=== PATIENT | male | born 1950 | race Caucasian/White ===

== ENCOUNTER → 2016-06-01 | Outpatient (CLI) | payer MEDICARE ==
[~2016-06-01] MED LIST: ACLI400A2 IH; ASPI-586 PO; ASPI-983 PO; ASPI-999 PO; ATOR20TA66 PO; AZIT250T PO; BUDE10.2 IH; CEPH500T PO; CLOP75TA69 PO; ENAL20TA PO; HYDR-3820 PO; RT-ALBUINH IH; UMEC62.5 IH
--- OUTSIDE RECORDS SUMMARY | 2016-06-01 10:10 | XMS REPORT | Continuity of Care Document ---
Author Author [facility] Organization [facility] Address Unknown Phone Unavailable Allergies Active Description Code Type Severity Reaction Onset Reported/Identified Relationship to Patient Clinical Status Yes NKANo Known Allergies NKA Miscellaneous Allergy Unknown N/ A 06/07/2005 Medications Problems Date Dx Coded Attending Type Code Diagnosis Diagnosed By 02/25/2015 Ot 729.81 02/25/2015 Ot 786.2 02/25/2015 Ot 729.81 02/25/2015 Ot 786.2 02/26/2015 LYNNE HANNA, JOSE R Ot I10 02/26/2015 LYNNE HANNA, JOSE R Ot J06.9 02/26/2015 LYNNE HANNA, JOSE R Ot J44.9 02/26/2015 LYNNE HANNA, JOSE R Ot K21.9 02/26/2015 LYNNE HANNA, JOSE R Ot K44.9 02/26/2015 LYNNE HANNA, JOSE R Ot R07.9 02/26/2015 LYNNE HANNA, JOSE R Ot Z87.891 03/24/2015 Ot 729.81 03/24/2015 Ot 786.2 03/25/2015 MELINDA HANNA FACC, ALI FACP CCDS Ot I10 03/25/2015 MELINDA HANNA FACC, ALI FACP CCDS Ot J44.1 03/25/2015 MELINDA HANNA FACC, ALI FACP CCDS Ot R06.02 04/20/2015 MELINDA HANNA FACC, ALI FACP CCDS Ot I10 04/20/2015 MELINDA HANNA FACC, ALI FACP CCDS Ot J44.1 04/20/2015 MELINDA HANNA FACC, ALI FACP CCDS Ot R06.02 06/10/2015 MELINDA TILLMANC, ALI FACP CCDS Ot I10 06/10/2015 MELINDA HANNA FACC, ALI FACP CCDS Ot R06.02 06/22/2015 AYAH ENCARNACION DO Ot J44.1 07/05/2015 AYAH ENCARNACION DO Ot J44.1 07/08/2015 AYAH ENCARNACION DO Ot J44.1 07/13/2015 AYAH ENCARNACION DO Ot J44.1 07/27/2015 AYAH ENCARNACION DO Ot J44.1 09/19/2015 AYAH ENCARNACION DO Ot J44.1 CHRONIC OBSTRUCTIVE PULMONARY DISEASE W 09/21/2015 AYAH ENCARNACION DO Ot J44.1 CHRONIC OBSTRUCTIVE PULMONARY DISEASE W 09/22/2015 AYAH ENCARNACION DO Ot J44.1 CHRONIC OBSTRUCTIVE PULMONARY DISEASE W Procedures Results Encounters ACCT No. Visit Date/Time Discharge Status Pt. Type Provider Facility Loc./Unit Complaint [id number] 06/21/2015 10:04:00 2015 00:01:00 DIS Outpatient AYAH ENCARNACION DO [facility] PUL [id number] 03/24/2015 11:33:00 2014 23:59:59 CLS Outpatient KISHA LAWRENCE MD, FACC, FACP CCDS [facility] CARD [id number] 02/25/2015 18:11:00 2014 14:20:00 DIS Inpatient LYNNE HANNA, JOSE R [facility] CSD [id number] 09/20/2015 10:15:00 PEN Preadmit AYAH ENCARNACION DO [facility] PULM [id number] 07/07/2015 13:49:00 ACT Outpatient AYAH ENCARNACION DO [facility] RT [id number] 06/11/2015 11:09:00 ACT Outpatient AYAH ENCARNACION DO [facility] RAD [id number] 05/06/2015 07:40:00 ACT Outpatient KISHA LAWRENCE MD, FACC, FACP CCDS [facility] CARD [id number] 01/04/2012 11:52:00 Document Registration [id number] 11/10/2009 11:56:00 Document Registration
[2016-06-01 10:54] LABS: ALANINE AMINOTRANSFERASE 28 U/L (0-55); ALBUMIN 4.4 G/DL (3.2-4.5); ANION GAP 11 MMOL/L (5-14); ASPARTATE AMINO TRANSFERASE 26 U/L (5-34); BILIRUBIN,TOTAL 0.5 MG/DL (0.1-1.0); BLOOD UREA NITROGEN 14 MG/DL (7-18); BUN/CREATININE RATIO 13; CALCIUM 9.4 MG/DL (8.5-10.1); CARBON DIOXIDE 25 MMOL/L (21-32); CHLORIDE 102 MMOL/L (98-107); CHOLESTEROL 258 MG/DL (< 200); CREATININE SERUM 1.11 MG/DL (0.60-1.30); DIRECT LDL 206 MG/DL (1-129); GFR ESTIMATED > 60; GLUCOSE 99 MG/DL (70-105); POTASSIUM 4.3 MMOL/L (3.6-5.0); SODIUM 138 MMOL/L (135-145); TOTAL PROTEIN 7.5 G/DL (6.4-8.2); TRIGLYCERIDES 128 MG/DL (<150); VLDL CHOLESTEROL 26 MG/DL (5-40)
== END ==
LOC: LAB 10:07
PROVIDERS: ATTEND Nurse Practitioner Family
DX: I10 Essential (primary) hypertension (principal); R06.02 Shortness of breath; I73.9 Peripheral vascular disease, unspecified; J43.8 Other emphysema
CPT/HCPCS: 36415; 80053; 80061

== ENCOUNTER → 2016-06-06 | Outpatient (CLI) | payer MEDICARE | LOC: RAD 12:06 | PROVIDERS: ATTEND Nurse Practitioner Family | DX: I73.9 Peripheral vascular disease, unspecified (principal); I10 Essential (primary) hypertension; R06.02 Shortness of breath; J43.8 Other emphysema | CPT/HCPCS: 93923 ==

== ENCOUNTER 2016-06-13 10:01 | Day surgery (SDC) | payer MEDICARE ==
[2016-06-13] VITALS (9 sets, daily range): BP systolic 115–172; BP diastolic 66–90
[~2016-06-13] VITALS: Ht 170.2 cm; Wt 85.0 kg
[~2016-06-13 10:01] MED LIST changes: -ASPI-983 PO; -ASPI-999 PO; -CEPH500T PO; -CLOP75TA69 PO; -UMEC62.5 IH
[2016-06-13] MEDS ORDERED: LIDOCAINE 1% INJ 20 ML (XYLOCAINE) VIAL ONE (10:12)
[2016-06-13] MEDS ORDERED: NS IV 1000 ML 1,000 ML ONE (10:12)
[2016-06-13] MEDS ORDERED: HEParin (CATH LAB) 2,000 ML IV ONE (10:12)
[2016-06-13 10:39] LABS: MEAN PLATELET VOLUME 9.9 FL (7.4-10.4); RED BLOOD COUNT 5.04 10^6/uL (4.35-5.85); RED CELL DISTRIBUTION WIDTH 15.2 % (10.0-14.5); WHITE BLOOD COUNT 9.1 10^3/uL (4.3-11.0)
[2016-06-13] MEDS ORDERED: UMEC62.5 IH (10:43)
[2016-06-13] MEDS ORDERED: ATOR20TA66 PO (10:43)
[2016-06-13] MEDS ORDERED: NS IV 1000 ML 1,000 ML IV SCH ×2 (10:45→12:34)
[2016-06-13 10:49] LABS: INR 0.9 (0.8-1.4); PROTHROMBIN TIME PATIENT 12.3 SEC (12.2-14.7)
[2016-06-13 10:59] LABS: ALANINE AMINOTRANSFERASE 34 U/L (0-55); ALBUMIN 4.2 G/DL (3.2-4.5); ANION GAP 9 MMOL/L (5-14); ASPARTATE AMINO TRANSFERASE 28 U/L (5-34); BILIRUBIN,TOTAL 0.4 MG/DL (0.1-1.0); BLOOD UREA NITROGEN 16 MG/DL (7-18); BUN/CREATININE RATIO 15; CARBON DIOXIDE 26 MMOL/L (21-32); CHLORIDE 105 MMOL/L (98-107); CHOLESTEROL 228 MG/DL (< 200); CREATININE SERUM 1.08 MG/DL (0.60-1.30); DIRECT LDL 165 MG/DL (1-129); GFR ESTIMATED > 60; GLUCOSE 100 MG/DL (70-105); POTASSIUM 4.2 MMOL/L (3.6-5.0); SODIUM 140 MMOL/L (135-145); TOTAL PROTEIN 7.3 G/DL (6.4-8.2); TRIGLYCERIDES 119 MG/DL (<150); VLDL CHOLESTEROL 24 MG/DL (5-40)
[2016-06-13] MEDS ORDERED: diphenhydrAMINE 50 MG/ML INJ (BENADRYL) ONE (11:13)
[2016-06-13] MEDS ORDERED: fentaNYL INJECTION 100 MCG/2 ML AMP ONE (11:13)
[2016-06-13] MEDS ORDERED: MIDAZOLAM 5 MG/5 ML (VERSED) VIAL ONE (11:13)
--- NOTE | 2016-06-13 12:34 | Cardiac Procedure Note-CS/ASA ---
Pre-Procedure Note Pre-Op Procedure Note H&P Reviewed The H&P was reviewed, patient examined and no changes noted. Date H&P Reviewed: Jun 13, 2016 Time H&P Reviewed: 11:30 Conscious Sedation Pre-Proced Time Reviewed: 11:30 ASA Class: 3 Airway Mallampati Classification: ([place] appropriate class) I. II. III, IV Lungs Heart ASA score ASA 1: a normal healthy patient ASA 2: a patient with a mild systemic disease (mid diabetes, controlled hypertension, obesity ASA 3: a patient with a severe systemic disease that limits activity (angina , COPD, prior Myocardial infarction) ASA 4: a patient with an incapacitating disease that is a constant threat to life (CHF, renal failure) ASA 5: a moribund patient not expected to survive 24 hrs. (ruptured aneurysm) ASA 6: a declared brain patient whose organs are being harvested. For emergent operations, add the letter E after the classification Grade 2 Sedation Plan: Analgesia, Amnesia, Plan communicated to team members, Discussed options with patient/fam, Discussed risks with patient/fam Note The patient is an appropriate candidate to undergo the planned procedure, sedation, and anesthesia. The patient immediately re-assessed prior to indication. KISHA LAWRENCE MD FACP FAC CCDS Jun 13, 2016 12:34
[2016-06-13] MEDS ORDERED: CLOP75TA69 PO (12:37)
[2016-06-13] MEDS ORDERED: ASPI-999 PO (12:37)
--- NOTE | 2016-06-13 12:38 | Discharge Inst-Post CATH ---
Discharge Inst-CATH Post Cardiac Cath D/C Inst Follow Up/Plan F/u with Dr Yun next week CARDIAC CATH DISCHARGE INSTRUCTIONS *Hold Metformin for 48 hours post heart cath. ACTIVITY * Go Home directly and rest. * Limit activity of the leg (or wrist if it was used) for 7 days including aerobics, swimming, jogging, bicycling, etc. * Restrict stair-climbing for 7 days if possible, if not, climb up with your non -cath leg, then bring together on the same step. * Avoid lifting, pushing, pulling or excessive movement of the affected extremity for 7 days. * Customary sexual activity may be resumed after 2 days-use caution not to use a position that strains or causes pain to the affected extremity. * No driving for 24 hours. * NO SMOKING. * Avoid straining for bowel movements for 7 days. * Gentle walking on level ground is allowed. * Returning to work will depend on the type of procedure and the results. Your doctor will discuss this with you. CALL YOUR DOCTOR FOR ANY OF THE FOLLOWING: *If bleeding from the puncture site occurs- Apply gentle pressure to site with clean cloth and call your doctor or EMS. * If a knot or lump forms under the skin, increases in size, or causes pain. * If bruising appears to be worsening or moving further down your leg instead of disappearing. * Temperature above 101 F. CARE OF YOUR GROIN INCISION; * Bruising or purple discoloration of the skin near the puncture site is common. * You may shower only, no bathtub bathing for 5 days. Be careful to avoid slipping as your leg may feel stiff. * If a closure device was used on your femoral artery, please see the attached guide regarding care of the device and your leg. * REMOVE the dressing from your groin the next day after your procedure in the shower. CARE OF YOUR WRIST INCISION; * Bruising or purple discoloration of the skin near the puncture site is common. * You may shower. * DO NOT submerge wrist. * Remove dressing in 24 hours. KISHA YUN MD FACP [facility] CCDS Jun 13, 2016 12:38
--- NOTE | 2016-06-13 12:38 | Discharge Inst-Cardiology ---
Discharge Inst-Cardiac Discharge Medications New Medications: Aspirin (Aspirin) 81 Mg Tab.chew 81 MG PO DAILY #90 Ref 3 TAB Clopidogrel Bisulfate (Plavix) 75 Mg Tablet 75 MG PO DAILY #90 Ref 3 TAB Continued Medications: Albuterol Sulfate (Ventolin Hfa Common Canister) 18 Gm Hfa.aer.ad 2 PUFF IH Q6H PRN SHORTNESS OF BREATH INHALER Atorvastatin Calcium (Atorvastatin Calcium) 20 Mg Tablet 20 MG PO DAILY LAST FILLED 02-26-15 #30 TAB Budesonide/Formoterol Fumarate (Symbicort 160-4.5 Mcg Inhaler) 10.2 Gm Hfa.aer.ad 2 PUFF IH DAILY INHALER Enalapril Maleate (Enalapril Maleate) 20 Mg Tablet 20 MG PO DAILY LAST FILLED 02-03-16 #90 TAB Hydrocodone/Acetaminophen (Hydrocodon-Acetaminophn 10-325) 1 Each Tablet 1 TAB PO Q8H PRN PAIN TAB Umeclidinium [place] (Incruse Ellipta) 62.5 Mcg Blst.w.dev 1 PUFF IH DAILY KISHA LAWRENCE MD FACP FACC CCDS Jun 13, 2016 12:38
[2016-06-13] MEDS ORDERED: PATIENT MAY USE OWN MEDS, ALL PO SCH (12:45)
--- OUTSIDE RECORDS SUMMARY | 2016-06-13 13:27 | XMS REPORT | Continuity of Care Document ---
Author Author [facility] Organization [facility] Address Unknown Phone Unavailable Allergies Active Description Code Type Severity Reaction Onset Reported/Identified Relationship to Patient Clinical Status Yes NKANo Known Allergies NKA Miscellaneous Allergy Unknown N/ A 06/07/2005 Medications Problems Date Dx Coded Attending Type Code Diagnosis Diagnosed By 02/25/2015 Ot 729.81 02/25/2015 Ot 786.2 02/25/2015 Ot 729.81 02/25/2015 Ot 786.2 02/26/2015 LYNNE HANNA, JOSE R Ot I10 ESSENTIAL (PRIMARY) HYPERTENSION 02/26/2015 LYNNE HANNA, JOSE R Ot J06.9 ACUTE UPPER RESPIRATORY INFECTION, UNSPE 02/26/2015 JOSE BATISTA MD R Ot J44.9 CHRONIC OBSTRUCTIVE PULMONARY DISEASE, U 02/26/2015 JOSE BATISTA MD R Ot K21.9 GASTRO-ESOPHAGEAL REFLUX DISEASE WITHOUT 02/26/2015 JOSE BATISTA MD R Ot K44.9 DIAPHRAGMATIC HERNIA WITHOUT OBSTRUCTION 02/26/2015 LYNNE HANNA, JOSE R Ot R07.9 CHEST PAIN, UNSPECIFIED 02/26/2015 LYNNE HANNA, JOSE R Ot Z87.891 PERSONAL HISTORY OF NICOTINE DEPENDENCE 03/24/2015 Ot 729.81 03/24/2015 Ot 786.2 03/25/2015 MELINDA HANNA FACC, ALI FACP CCDS Ot I10 03/25/2015 MELINDA HANNA FACC, ALI FACP CCDS Ot J44.1 03/25/2015 MELINDA TILLMANC, ALI FACP CCDS Ot R06.02 04/20/2015 MELINDA HANNA FACC, ALI FACP CCDS Ot I10 04/20/2015 MELINDA HANNA FACC, ALI FACP CCDS Ot J44.1 04/20/2015 MELINDA TILLMANC, ALI FACP CCDS Ot R06.02 06/10/2015 MELINDA HANNA FACC, ALI FACP CCDS Ot I10 06/10/2015 MELINDA [...] Ot J44.1 CHRONIC OBSTRUCTIVE PULMONARY DISEASE W 06/01/2016 Ot 786.2 COUGH 06/01/2016 MELINDA HANNA FACC, ALI FACP CCDS Ot I10 ESSENTIAL (PRIMARY) HYPERTENSION 06/01/2016 MELINDA HANNA FACC, KISHA FACP CCDS Ot J44.1 CHRONIC OBSTRUCTIVE PULMONARY DISEASE W 06/01/2016 MELINDA HANNA FACC, ALI FACP CCDS Ot R06.02 SHORTNESS OF BREATH 06/01/2016 MELINDA HANNA FACC, ALI FACP CCDS Ot I10 ESSENTIAL (PRIMARY) HYPERTENSION 06/01/2016 MELINDA HANNA FACC, ALI FACP CCDS Ot R06.02 SHORTNESS OF BREATH 06/01/2016 AYAH ENCARNACION DO Ot J44.1 CHRONIC OBSTRUCTIVE PULMONARY DISEASE W 06/01/2016 AYAH ENCARNACION DO Ot J44.1 CHRONIC OBSTRUCTIVE PULMONARY DISEASE W 06/01/2016 AYAH ENCARNACION DO Ot J44.1 CHRONIC OBSTRUCTIVE PULMONARY DISEASE W 06/06/2016 LENARD KEARNS L FISH NET STRINGER Ot I73.9 PERIPHERAL VASCULAR DISEASE, UNSPECIFIED 06/07/2016 BAIMALENARD L FISH NET STRINGER Ot I10 ESSENTIAL (PRIMARY) HYPERTENSION 06/07/2016 LENARD KEARNS L FISH NET STRINGER Ot I73.9 PERIPHERAL VASCULAR DISEASE, UNSPECIFIED 06/07/2016 LENARD KEARNS L FISH NET STRINGER Ot J43.8 OTHER EMPHYSEMA 06/07/2016 BAIMALENARD L FISH NET STRINGER Ot R06.02 SHORTNESS OF BREATH 06/07/2016 LENARD KEARNS L FISH NET STRINGER Ot I73.9 PERIPHERAL VASCULAR DISEASE, UNSPECIFIED 06/07/2016 LENARD KEARNS FISH NET STRINGER Ot I10 ESSENTIAL (PRIMARY) HYPERTENSION 06/07/2016 LENARD KEARNS FISH NET STRINGER Ot I73.9 PERIPHERAL VASCULAR DISEASE, UNSPECIFIED 06/07/2016 LENARD KEARNS FISH NET STRINGER Ot J43.8 OTHER EMPHYSEMA 06/07/2016 LENARD KEARNS FISH NET STRINGER Ot R06.02 SHORTNESS OF BREATH Procedures Results Encounters ACCT No. Visit Date/Time Discharge Status Pt. Type Provider Facility Loc./Unit Complaint [id number] 06/21/2015 10:04:00 2015 00:01:00 DIS Outpatient AYAH ENCARNACION DO [facility] PULM COPD, SOA [id number] 03/24/2015 11:33:00 2014 23:59:59 CLS Outpatient MELINDA HANNA FACC, KISHA BANDA CCDS [facility] CARD SOB,COPD,HTN [id number] 02/25/2015 18:11:00 2014 14:20:00 DIS Inpatient LYNNE HANNA, JOSE Majano [facility] CSD CHEST PAIN [id number] 06/06/2016 12:06:00 ACT Outpatient URMILA LENARD Sandra LAURENT [facility] RAD HTN,SOB,CLAUDICATION,COPD [id number] 06/01/2016 10:07:00 ACT Outpatient LENARD KEARNS [facility] LAB SOB,COPD [id number] 09/20/2015 10:15:00 PEN Preadmit AYAH ENCARNACION DO [facility] PULM COPD, SOA [id number] 07/07/2015 13:49:00 ACT Outpatient AYAH ENCARNACION DO [facility] RT COPD,SOB [id number] 06/11/2015 11:09:00 ACT Outpatient AYAH ENCARNACION DO [facility] RAD ACUTE COPD [id number] 05/06/2015 07:40:00 ACT Outpatient MELINDA HANNA FACC, KISHA BANDA CCDS [facility] CARD HTN,SOA [id number] 01/04/2012 11:52:00 Document Registration [id number] 11/10/2009 11:56:00 Document Registration
--- OUTSIDE RECORDS SUMMARY | 2016-06-13 13:27 | XMS REPORT | Continuity of Care Document ---
Author Author [facility] Organization [facility] Address Unknown Phone Unavailable Allergies Active Description [...] PULMONARY DISEASE W 06/06/2016 LENARD KEARNS L [employer] SPECIALIST Ot I73.9 PERIPHERAL VASCULAR DISEASE, UNSPECIFIED 06/07/2016 BAIMALENARD L [employer] SPECIALIST Ot I10 ESSENTIAL (PRIMARY) HYPERTENSION 06/07/2016 LENARD KEARNS L [employer] SPECIALIST Ot I73.9 PERIPHERAL VASCULAR DISEASE, UNSPECIFIED 06/07/2016 LENARD KEARNS L [employer] SPECIALIST Ot J43.8 OTHER EMPHYSEMA 06/07/2016 BAIMALENARD L [employer] SPECIALIST Ot R06.02 SHORTNESS OF BREATH 06/07/2016 LENARD KEARNS L [employer] SPECIALIST Ot I73.9 PERIPHERAL VASCULAR DISEASE, UNSPECIFIED 06/07/2016 LENARD KEARNS [employer] SPECIALIST Ot I10 ESSENTIAL (PRIMARY) HYPERTENSION 06/07/2016 LENARD KEARNS [employer] SPECIALIST Ot I73.9 PERIPHERAL VASCULAR DISEASE, UNSPECIFIED 06/07/2016 LENARD KEARNS [employer] SPECIALIST Ot J43.8 OTHER EMPHYSEMA 06/07/2016 LENARD KEARNS [employer] SPECIALIST Ot R06.02 SHORTNESS OF BREATH Procedures Results Encounters ACCT No. Visit Date/Time Discharge Status Pt. Type Provider Facility Loc./Unit Complaint [id number] 06/21/2015 10:04:00 2015 00:01:00 DIS Outpatient AYAH ENCARNACION DO [facility] PULM COPD, SOA [id number] 03/24/2015 11:33:00 2014 23:59:59 CLS Outpatient MELINDA HANNA FACC, KISHA BANDA CCDS [facility] CARD SOB,COPD,HTN [id number] 02/25/2015 18:11:00 2014 14:20:00 DIS Inpatient LYNNE HANNA, JOSE Majano [facility] CSD CHEST PAIN [id number] 06/06/2016 12:06:00 ACT Outpatient URMILA LENARD Sandra LAURENT [facility] RAD HTN,SOB,CLAUDICATION,COPD [id number] 06/01/2016 10:07:00 ACT Outpatient LENARD KEARNS [facility] LAB SOB,COPD [id number] 09/20/2015 10:15:00 PEN Preadmit AYAH ENCARNACION DO [facility] PULM COPD, SOA [id number] 07/07/2015 13:49:00 ACT Outpatient AYAH ENCARNACION DO [facility] RT COPD,SOB [id number] 06/11/2015 11:09:00 ACT Outpatient AYAH ENCARNACION DO [facility] RAD ACUTE COPD [id number] 05/06/2015 07:40:00 ACT Outpatient MELINDA HANNA FACC, KISHA BANDA CCDS [facility] CARD HTN,SOA [id number] 01/04/2012 11:52:00 Document Registration [id number] 11/10/2009 11:56:00 Document Registration
--- NOTE | 2016-06-13 14:01 | PROCEDURE REPORT ---
PROCEDURE PHYSICIAN: KISHA LAWRENCE PERIPHERAL ANGIOGRAPHIC REPORT DATE OF PROCEDURE: 06/13/2016 Ovidio Lloyd is a 65-year-old gentleman who has bilateral leg claudication and whose noninvasive evaluation on the leg arterial circulation has indicated significant abnormality. Peripheral angiography was recommended. An informed consent was obtained. PROCEDURE: He was brought to the cardiac catheterization laboratory in a fasting state. The right groin was prepared and draped in the usual sterile fashion. 1% lidocaine was used for local anesthesia. Modified Seldinger technique was used to advance a 5-Congolese sheath in the right femoral artery. We advanced a 5-Congolese pigtail catheter to the level of L1 and abdominal aortic angiography performed. The catheter was then pulled back to just above the level of the aortoiliac bifurcation and bilateral leg artery angiography was performed with runoff down to the level of the ankles. At the end of the procedure, angiography of the right femoral artery was carried out through the sheath and Mynx was used to achieve hemostasis. The patient tolerated the procedure well. ABDOMINAL AORTIC ANGIOGRAPHY: Abdominal aortic angiography did not indicate any significant abdominal aortic aneurysm. However, there does appear to be tapering of the aorta as it travels toward the aortoiliac bifurcation. There does not, however, appear to be significant abdominal aortic stenosis. Renal arteries are identified and do not exhibit significant disease. Mesenteric vessels, to the extent seen, do not exhibit significant disease. There is an 80% stenosis at the ostial part of the left common iliac artery. BILATERAL LEG ARTERY ANGIOGRAPHY: Bilateral leg artery angiography indicates diffuse mild to moderate disease of the iliac and common femoral arteries. The right superficial femoral artery has multiple stenoses of up to 80% that involves nearly the entire length of the vessel. The right popliteal artery is intact and there is a 2 vessel runoff, consisting of anterior tibial and peroneal arteries. On the left side, there is 80% ostial stenosis of the common iliac artery. The left internal iliac artery is occluded at its ostium. The left superficial femoral artery is occluded at its ostium and reconstitutes distally via collaterals from the deep femoral system. The left popliteal artery is intact and there is a 2 vessel runoff consisting of anterior tibial and posterior tibial arteries on that side. CONCLUSIONS: Peripheral arterial disease consisting of 80% ostial stenosis of the left common iliac artery, ostial occlusion of the left superficial femoral artery, moderately severe diffuse disease of the right superficial femoral artery and a 2 vessel runoff in both legs. DISCUSSION AND RECOMMENDATIONS: We will review the films with the vascular surgical and interventional services and formulate a definitive therapeutic plan. Risk factor modification has been reviewed with him. Aspirin and Plavix are being continued. Avoidance of tobacco use has been advised. He will continue to be followed up closely on an outpatient basis. Job ID: [id number] Dictated Date: 06/13/2016 12:15:26 Software Engineer Date: 06/13/2016 13:47:08 / mirlande ARGUETA
== END 2016-06-13 16:15 ==
LOC: CATH 10:01 → SURG 11:26 → CATH 16:15
PROVIDERS: ATTEND Internal Medicine Cardiovascular Disease
DX: I70.213 Atherosclerosis of native arteries of extremities with intermittent claudication, bilateral legs (principal); I70.92 Chronic total occlusion of artery of the extremities; J44.9 Chronic obstructive pulmonary disease, unspecified; I10 Essential (primary) hypertension; H91.90 Unspecified hearing loss, unspecified ear; Z79.899 Other long term (current) drug therapy; Z87.891 Personal history of nicotine dependence
CPT/HCPCS: 36200; 36415; 75625; 75716; 80053; 80061; 85027; 85610; 85730; 87081; 93005

== ENCOUNTER 2016-06-22 06:48 | Day surgery (SDC) | payer MEDICARE ==
[~2016-06-22] VITALS: Ht 170.2 cm; Wt 90.7 kg
[2016-06-22] VITALS (13 sets, daily range): BP systolic 147–185; BP diastolic 74–100
[~2016-06-22 06:48] MED LIST changes: +ASPI-999 PO; +CLOP75TA69 PO; +UMEC62.5 IH
--- OUTSIDE RECORDS SUMMARY | 2016-06-22 06:51 | XMS REPORT | Continuity of Care Document ---
Author Author [facility] Organization [facility] Address Unknown Phone Unavailable Allergies Active [...] PULMONARY DISEASE W 06/06/2016 LENARD KEARNS L STOCK[employer] INVENTORY CLERK Ot I73.9 PERIPHERAL VASCULAR DISEASE, UNSPECIFIED 06/07/2016 BAIMALENARD L [employer] INVENTORY CLERK Ot I10 ESSENTIAL (PRIMARY) HYPERTENSION 06/07/2016 LENARD KEARNS L [employer] INVENTORY CLERK Ot I73.9 PERIPHERAL VASCULAR DISEASE, UNSPECIFIED 06/07/2016 LENARD KEARNS L [employer] INVENTORY CLERK Ot J43.8 OTHER EMPHYSEMA 06/07/2016 BAIMALENARD L [employer] INVENTORY CLERK Ot R06.02 SHORTNESS OF BREATH 06/07/2016 LENARD KEARNS L [employer] INVENTORY CLERK Ot I73.9 PERIPHERAL VASCULAR DISEASE, UNSPECIFIED 06/07/2016 LENARD KEARNS [employer] INVENTORY CLERK Ot I10 ESSENTIAL (PRIMARY) HYPERTENSION 06/07/2016 LENARD KEARNS [employer] INVENTORY CLERK Ot I73.9 PERIPHERAL VASCULAR DISEASE, UNSPECIFIED 06/07/2016 LENARD KEARNS [employer] INVENTORY CLERK Ot J43.8 OTHER EMPHYSEMA 06/07/2016 LENARD KEARNS [employer] INVENTORY CLERK Ot R06.02 SHORTNESS OF BREATH Procedures Results Test Result Range Automated blood complete blood count (hemogram) panel - 06/13/16 10:32 Blood leukocytes automated count (number/volume) 9.1 10*3/ uL 4.3-11.0 Blood erythrocytes automated count (number/volume) 5.04 10*6 /uL 4.35-5.85 Venous blood hemoglobin measurement (mass/volume) 14.5 g/dL 13.3-17.7 Blood hematocrit (volume fraction) 46 % 40-54 Automated erythrocyte mean corpuscular volume 91 [foz_us] 80-99 Automated erythrocyte mean corpuscular hemoglobin (mass per erythrocyte) 29 pg 25-34 Automated erythrocyte mean corpuscular hemoglobin concentration measurement ( mass/volume) 32 g/dL 32-36 Automated erythrocyte distribution width ratio 15.2 % 10.0-14.5 Automated blood platelet count (count/volume) 238 10*3/uL 130-400 Automated blood platelet mean volume measurement 9.9 [foz_us ] 7.4-10.4 PT panel in platelet poor plasma by coagulation assay - 06/13/16 10:32 Prothrombin time (PT) in platelet poor plasma by coagulation assay 12.3 s 12.2-14.7 INR in platelet poor plasma or blood by coagulation assay 0.9 0.8-1.4 Activated partial thromboplastin time (aPTT) in platelet poor plasma bycoagulation assay - 06/13/16 10:32 Activated partial thromboplastin time (aPTT) in platelet poor plasma bycoagulation assay 28 s 24-35 Comprehensive metabolic panel - 06/13/16 10:32 Serum or plasma sodium measurement (moles/volume) 140 mmol/ L 135-145 Serum or plasma potassium measurement (moles/volume) 4.2 mmol/L 3.6-5.0 Serum or plasma chloride measurement (moles/volume) 105 mmol /L 98-107 Carbon dioxide 26 mmol/L 21-32 Serum or plasma anion gap determination (moles/volume) 9 mmol/L 5-14 Serum or plasma urea nitrogen measurement (mass/volume) 16 mg/dL 7-18 Serum or plasma creatinine measurement (mass/volume) 1.08 mg /dL 0.60-1.30 Serum or plasma urea nitrogen/creatinine mass ratio 15 NRG Serum or plasma creatinine measurement with calculation of estimated glomerular filtration rate > NRG Serum or plasma glucose measurement (mass/volume) 100 mg/dL 70-105 Serum or plasma calcium measurement (mass/volume) 9.0 mg/dL 8.5-10.1 Serum or plasma total bilirubin measurement (mass/volume) 0.4 mg/dL 0.1-1.0 Serum or plasma alkaline phosphatase measurement (enzymatic activity/volume) 67 U/L 40-136 Serum or plasma aspartate aminotransferase measurement (enzymatic activity/ volume) 28 U/L 5-34 Serum or plasma alanine aminotransferase measurement (enzymatic activity/volume ) 34 U/L 0-55 Serum or plasma protein measurement (mass/volume) 7.3 g/dL 6.4-8.2 Serum or plasma albumin measurement (mass/volume) 4.2 g/dL 3.2-4.5 Lipid 1996 panel - 06/13/16 10:32 Serum or plasma triglyceride measurement (mass/volume) 119 mg/dL <150 Serum or plasma cholesterol measurement (mass/volume) 228 mg /dL < 200 Serum or plasma cholesterol in HDL measurement (mass/volume) 45 mg/dL 40-60 Cholesterol in LDL [mass/volume] in serum or plasma by direct assay 165 mg/dL 1-129 Serum or plasma cholesterol in VLDL measurement (mass/volume) 24 mg/dL 5-40 Methicillin resistant Staphylococcus aureus (MRSA) screening culture - 10:33 Methicillin resistant Staphylococcus aureus (MRSA) screening culture NEG NRG Encounters ACCT No. Visit Date/Time Discharge Status Pt. Type Provider Facility Loc./Unit Complaint [id number] 06/13/2016 10:01:00 2016 16:15:00 DIS Outpatient MELINDA HANNA FACC, KISHA BANDA CCDS [facility] CATH PERIPHERAL ANGIOGRAPHY W POSSIBLE STENT [id number] 06/21/2015 10:04:00 2015 00:01:00 DIS Outpatient AYAH ENCARNACION DO [facility] PULM COPD, SOA [id number] 03/24/2015 11:33:00 2014 23:59:59 CLS Outpatient MELINDA HANNA FACC, KISHA BANDA CCDS [facility] CARD SOB,COPD,HTN [id number] 02/25/2015 18:11:00 2014 14:20:00 DIS Inpatient LYNNE HANNA, JOSE R [facility] CSD CHEST PAIN [id number] 06/06/2016 12:06:00 ACT Outpatient LENARD KEARNS [facility] RAD HTN,SOB,CLAUDICATION,COPD [id number] 06/01/2016 10:07:00 ACT Outpatient LENARD KEARNS [facility] LAB SOB,COPD [id number] 09/20/2015 10:15:00 PEN Preadmit AYAH ENCARNACION DO [facility] PULM COPD, SOA [id number] 07/07/2015 13:49:00 ACT Outpatient AYAH ENCARNACION DO [facility] RT COPD,SOB [id number] 06/11/2015 11:09:00 ACT Outpatient AYAH ENCARNACION DO [facility] RAD ACUTE COPD [id number] 05/06/2015 07:40:00 ACT Outpatient MELINDA HANNA FACC, KISHA BANDA CCDS [facility] CARD HTN,SOA [id number] 01/04/2012 11:52:00 Document Registration [id number] 11/10/2009 11:56:00 Document Registration
--- OUTSIDE RECORDS SUMMARY | 2016-06-22 06:52 | XMS REPORT | Continuity of Care Document ---
Author Author [facility] Organization [facility] Address Unknown Phone Unavailable Allergies Active [...] TILLMANC, ALI FACP CCDS Ot R06.02 06/10/2015 EMLINDA HANNA FACC, ALI FACP CCDS Ot I10 06/10/2015 MELINDA HANNA FACC, ALI FACP CCDS Ot R06.02 06/22/2015 AYAH ENCARNACION DO Ot J44.1 07/05/2015 AYAH ENCARNACION DO Ot J44.1 07/08/2015 AYAH ENCARNACION DO Ot J44.1 07/13/2015 AYAH ENCARNACION DO Ot J44.1 07/27/2015 AAYH ENCARNACION DO Ot J44.1 09/19/2015 AYAH ENCARNACION [...] PULMONARY DISEASE W 06/06/2016 LENARD KEARNS L SLAG WORKER Ot I73.9 PERIPHERAL VASCULAR DISEASE, UNSPECIFIED 06/07/2016 BAIMALENARD L SLAG WORKER Ot I10 ESSENTIAL (PRIMARY) HYPERTENSION 06/07/2016 LENARD KEARNS L SLAG WORKER Ot I73.9 PERIPHERAL VASCULAR DISEASE, UNSPECIFIED 06/07/2016 LENARD KEARNS L SLAG WORKER Ot J43.8 OTHER EMPHYSEMA 06/07/2016 BAIMALENARD L SLAG WORKER Ot R06.02 SHORTNESS OF BREATH 06/07/2016 LENARD KEARNS L SLAG WORKER Ot I73.9 PERIPHERAL VASCULAR DISEASE, UNSPECIFIED 06/07/2016 LENARD KEARNS SLAG WORKER Ot I10 ESSENTIAL (PRIMARY) HYPERTENSION 06/07/2016 LENARD KEARNS SLAG WORKER Ot I73.9 PERIPHERAL VASCULAR DISEASE, UNSPECIFIED 06/07/2016 LENARD KEARNS SLAG WORKER Ot J43.8 OTHER EMPHYSEMA 06/07/2016 LENARD KEARNS SLAG WORKER Ot R06.02 SHORTNESS OF BREATH Procedures Results [...] Status Pt. Type Provider Facility Loc./Unit Complaint [id number] 06/13/2016 10:01:00 2016 16:15:00 DIS Outpatient MELINDA HANNA FACC, KISHA BANDA CCDS [facility] CATH PERIPHERAL ANGIOGRAPHY W POSSIBLE STENT [id number] 06/21/2015 10:04:00 2015 00:01:00 DIS Outpatient AYAH ENCARNACION DO [facility] PULM COPD, SOA [id number] 03/24/2015 11:33:00 2014 23:59:59 CLS Outpatient MELINDA HANNA FACC, KISHA BANDA CCDS [facility] CARD SOB,COPD,HTN [id number] 02/25/2015 18:11:00 2014 14:20:00 DIS Inpatient LYNNE HANNA, JOSE R [facility] CSD CHEST PAIN [id number] 06/06/2016 12:06:00 ACT Outpatient LENARD KEARNS [facility] RAD HTN,SOB,CLAUDICATION,COPD [id number] 06/01/2016 10:07:00 ACT Outpatient LENARD KEARNS [facility] LAB SOB,COPD [id number] 09/20/2015 10:15:00 PEN Preadmit AYAH ENCARNACION DO [facility] PULM COPD, SOA [id number] 07/07/2015 13:49:00 ACT Outpatient AYAH ENCARNACION DO [facility] RT COPD,SOB [id number] 06/11/2015 11:09:00 ACT Outpatient AYAH ENACRNACION DO [facility] RAD ACUTE COPD [id number] 05/06/2015 07:40:00 ACT Outpatient MELINDA HANNA FACC, KISHA BANDA CCDS [facility] CARD HTN,SOA [id number] 01/04/2012 11:52:00 Document Registration [id number] 11/10/2009 11:56:00 Document Registration
[2016-06-22] MEDS ORDERED: HEParin (CATH LAB) 2,000 ML IV ONE (07:09)
[2016-06-22] MEDS ORDERED: NS IV 1000 ML 1,000 ML ONE (07:09)
[2016-06-22] MEDS ORDERED: LIDOCAINE 1% INJ 20 ML (XYLOCAINE) VIAL ONE (07:09)
[2016-06-22] MEDS ORDERED: NS IV 1000 ML 1,000 ML IV SCH (07:16)
[2016-06-22 07:29] LABS: MEAN PLATELET VOLUME 9.6 FL (7.4-10.4); RED BLOOD COUNT 5.01 10^6/uL (4.35-5.85); RED CELL DISTRIBUTION WIDTH 15.2 % (10.0-14.5); WHITE BLOOD COUNT 9.1 10^3/uL (4.3-11.0)
[2016-06-22 07:38] LABS: INR 0.9 (0.8-1.4); PROTHROMBIN TIME PATIENT 12.1 SEC (12.2-14.7)
[2016-06-22 07:50] LABS: ALANINE AMINOTRANSFERASE 27 U/L (0-55); ALBUMIN 4.4 G/DL (3.2-4.5); ANION GAP 12 MMOL/L (5-14); ASPARTATE AMINO TRANSFERASE 21 U/L (5-34); BILIRUBIN,TOTAL 0.4 MG/DL (0.1-1.0); BLOOD UREA NITROGEN 14 MG/DL (7-18); BUN/CREATININE RATIO 12; CALCIUM 9.2 MG/DL (8.5-10.1); CARBON DIOXIDE 24 MMOL/L (21-32); CHLORIDE 105 MMOL/L (98-107); CREATININE SERUM 1.14 MG/DL (0.60-1.30); GFR ESTIMATED > 60; GLUCOSE 106 MG/DL (70-105); POTASSIUM 4.1 MMOL/L (3.6-5.0); SODIUM 141 MMOL/L (135-145); TOTAL PROTEIN 7.4 G/DL (6.4-8.2)
[2016-06-22] MEDS ORDERED: FLU TRIvalent (5 YOA+) 2016-17 (AFLURIA) 0.5 ML IM ONE (08:00)
[2016-06-22] MEDS ORDERED: MIDAZOLAM 5 MG/5 ML (VERSED) VIAL ONE ×2 (08:20→09:51)
[2016-06-22] MEDS ORDERED: fentaNYL INJECTION 100 MCG/2 ML AMP ONE ×2 (08:20→09:51)
[2016-06-22] MEDS ORDERED: ASPI-983 PO (08:25)
[2016-06-22] MEDS ORDERED: CLOP75TA69 PO (08:25)
[2016-06-22] MEDS ORDERED: NITROGLYCERIN DRIP 25 MG/D5W 250 ML IV ONE (08:45)
[2016-06-22] MEDS ORDERED: VERAPAMIL 5 MG/2 ML (CALAN) VIAL IV ONE (08:45)
[2016-06-22] MEDS ORDERED: HEParin 1000 UNIT/ML (10ML VIAL) FOR BOLUS ONE (08:45)
[2016-06-22] MEDS: NS IV 1000 ML 1,000 ML IV SCH (12:21)
--- NOTE | 2016-06-22 12:22 | Cardiac Procedure Note-CS/ASA ---
Pre-Procedure Note Pre-Op Procedure Note H&P Reviewed The H&P was reviewed, patient examined and no changes noted. Date H&P Reviewed: Jun 22, 2016 Time H&P Reviewed: 08:30 Conscious Sedation Pre-Proced Time Reviewed: 08:30 ASA Class: 3 Airway Mallampati Classification: ([place] appropriate class) I. II. III, IV Lungs Heart ASA score ASA 1: a normal healthy patient ASA 2: a patient with a mild systemic disease (mid diabetes, controlled hypertension, obesity ASA 3: a patient with a severe systemic disease that limits activity (angina , COPD, prior Myocardial infarction) ASA 4: a patient with an incapacitating disease that is a constant threat to life (CHF, renal failure) ASA 5: a moribund patient not expected to survive 24 hrs. (ruptured aneurysm) ASA 6: a declared brain patient whose organs are being harvested. For emergent operations, add the letter E after the classification Grade 1 Sedation Plan: Analgesia, Amnesia, Plan communicated to team members, Discussed options with patient/fam, Discussed risks with patient/fam Note The patient is an appropriate candidate to undergo the planned procedure, sedation, and anesthesia. The patient immediately re-assessed prior to indication. Ga RUGGIERO MD Jun 22, 2016 12:21 pm
--- NOTE | 2016-06-22 12:27 | Cardiology Post Procedure Note ---
Post-Procedure Note Post-Op Procedure Note Procedure Start Date: Jun 22, 2016 Procedure Start Time: 09:00 Name of Procedure: peripheral angiography, balloon angioplasty and stent placement Findings/Procedure Note left popliteal access with 6 Telugu sheath. 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 severe ostial and proximal left common iliac artery stenosis treated with successful balloon angioplasty only. Anesthesia Type: Conscious Sedation Estimated blood loss (mL): 30 mL Contrast Amount: 140 mL of Omnipaque Post-Operative Diagnosis Post-operative diagnosis: successful stenting of the left superficial femoral artery and balloon angioplasty of the left common iliac artery. Ga RUGGIERO MD Jun 22, 2016 12:27 pm
[2016-06-22] MEDS ORDERED: PATIENT MAY USE OWN MEDS, ALL PO SCH (12:30)
[2016-06-23] VITALS: BP 154/80
[2016-06-23] MEDS: NS IV 1000 ML 1,000 ML IV SCH (00:42)
[2016-06-23 04:21] LABS: MEAN PLATELET VOLUME 9.9 FL (7.4-10.4); RED BLOOD COUNT 4.48 10^6/uL (4.35-5.85); RED CELL DISTRIBUTION WIDTH 15.1 % (10.0-14.5)
[2016-06-23 04:35] LABS: ANION GAP 11 MMOL/L (5-14); BLOOD UREA NITROGEN 13 MG/DL (7-18); BUN/CREATININE RATIO 15; CALCIUM 8.8 MG/DL (8.5-10.1); CARBON DIOXIDE 21 MMOL/L (21-32); CHLORIDE 105 MMOL/L (98-107); CREATININE SERUM 0.86 MG/DL (0.60-1.30); GFR ESTIMATED > 60; GLUCOSE 103 MG/DL (70-105); POTASSIUM 4.4 MMOL/L (3.6-5.0); SODIUM 137 MMOL/L (135-145)
[2016-06-23 08:00] VITALS: BP 163/78
[2016-06-23] MEDS ORDERED: CLOPIDOGREL 75 MG (PLAVIX) TABLET PO SCH (09:00)
[2016-06-23] MEDS ORDERED: ASPIRIN E.C. 81 MG (ECOTRIN) TAB PO SCH (09:00)
--- NOTE | 2016-06-23 09:28 | PROCEDURE REPORT ---
PROCEDURE PHYSICIAN: TERRANCE WALKER DATE OF PROCEDURE: 06/22/2016 PERIPHERAL ANGIOGRAM AND INTERVENTION REPORT: REFERRING PHYSICIAN: Dr. Russ Yun PERFORMING PHYSICIAN: Dr. Choco Walker. INDICATION: Severe lifestyle limiting claudication refractory to optimal medical therapy. PREOPERATIVE DIAGNOSIS: Severe lifestyle limiting claudication refractory to optimal medical therapy. POSTOPERATIVE DIAGNOSES: 1. 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 2. Severe ostial/proximal stenosis of the left common iliac artery successfully treated with balloon angioplasty. HISTORY: Mr. Lloyd is a 65-year-old gentleman who is a patient of Dr. Russ Yun. Peripheral angiography was performed recently for severe claudication. left is worse than the right. Therefore, peripheral angiography was performed, which showed a totally occluded SFA on the left with severe ostial and proximal left common iliac artery stenosis. Significant disease is also noted in the right SFA as well. The patient was referred for complex peripheral intervention to my office. The patient has severe lifestyle limiting claudication which is refractory to optimal medical therapy. The patient is on dual antiplatelet therapy as well as statin. He is not able to walk even 100 feet. Therefore urgent peripheral angiography with plan to intervene on a chronically occluded left SFA was planned. Since the patient has flush SFA occlusion and also has severe ostial stenosis of the left common iliac artery, the best access approach was deemed to be the left popliteal artery. PROCEDURE PERFORMED: 1. Peripheral angiography of in the left lower extremity. Angiography included left popliteal artery, proximal anterior tibial, posterior tibia, tibioperoneal trunk. 2. Peripheral angiography of the distal abdominal aorta and bilateral common iliac artery. Selective angiography of the left common iliac artery, external iliac artery, TACK PULLER. 3. Balloon angioplasty and stenting of the left superficial femoral artery. 4. Balloon angioplasty to the ostium and proximal segment of the left common iliac artery. 5. Ultrasound guided left popliteal artery access. COMPLICATIONS: None. SPECIMENS: None. ESTIMATED BLOOD LOSS: 20 mL. ANTICOAGULATION: IV heparin. CONTRAST: 140 mL of Omnipaque. FLUOROSCOPY DOSE: 1246 mGy. FLUOROSCOPY TIME: In minutes. 30 minutes PROCEDURE DETAILS: The patient was brought to the Learning Support Specialist after informed consent was taken. All the risks and complications were explained in detail to the patient. The patient was draped and prepped in a sterile fashion. The patient was placed in a prone position on the Learning Support Specialist table. The left popliteal fossa was draped and prepped for access. Access was gained with the ultrasound guidance and a 4-[place] sheath was placed. Selective angiography of the popliteal artery was done to confirm arterial placement. We then exchanged the 4-[place] sheath to a 6-[place] sheath. FINDINGS: 1. Previously known totally occluded long segment of the left SFA. There is flush occlusion with no stump off the TACK PULLER. Reconstitution is noted in the left popliteal artery. 2. Severe ostial and proximal stenosis of the left common iliac artery is noted. Stenosis severity is over 80%. RECOMMENDATIONS: 1. Peripheral intervention to the left SFA is recommended. 2. Peripheral intervention to the left common iliac artery is recommended. INTERVENTION DETAILS: We started off with a 0.035 hydrophilic long wire with Navicross 0.035 microcatheter. We were able to traverse the distal cap of the occlusion which is in the distal aspect of the SFA. The entire segment of occlusion was crossed with a Glidewire and the microcatheter. We were able to advance both the microcatheter as well as the Glidewire into the distal external iliac artery. We noted a very high bifurcation of the TACK PULLER into the SFA and deep femoral artery. The ostium of the deep femoral artery also had at least moderate stenosis. Once intraluminal passage of the Glidewire and microcatheter was confirmed angiographically, we went ahead and took out the microcatheter. The wire remained in place. We then took an Otter 35, 5 x 25 x 150 cm [place] balloon and performed a balloon angioplasty in the distal left common femoral artery into the proximal and mid segments of the left SFA. This was done at 8 atmospheres for 128 seconds. We performed another balloon inflation with the same balloon in the mid and distal aspect of the SFA at 8 atmospheres for 136 seconds. Recanalization was confirmed with selective angiography of the distal SFA and the popliteal artery through the sheath. We then went back with the microcatheter and placed it in the distal left TACK PULLER and performed a selective angiogram which showed recanalization of the entire segment of the SFA, mild areas of non-flow limiting dissection was noted as well areas of residual stenosis. At this point in time the decision was made that we would have to perform stenting of the entire segment of the SFA. We therefore took a larger balloon which was an Otter 35, 6 x 250 x 150 cm. Angioplasty was performed from the distal segment of the TACK PULLER into the proximal and midsegment of the SFA at 10 atmospheres for 120 seconds. When we then used the same balloon and performed another inflation in the mid and distal segment of the left superficial femoral artery at 8 atmospheres for 103 seconds. Again, we took the balloon out and went back in with microcatheter and took selective angiogram of the distal TACK PULLER and SFA which showed better flow with reduced residual stenosis. We then took a Supera 6 x 150 [place] stent and placed it very carefully from the very distal edge of the left TACK PULLER into the mid aspect of the SFA. We then took another 6 x 150 cm Supera stent and did a short overlap with the previous stent and placed it right into the distal SFA. Post stent angiogram was performed with a microcatheter, which showed excellent flow with no residual stenosis in the entire length of the SFA. Mild disease in the mid aspect of the popliteal artery was noted; however, at least 2 vessel runoff below the knee. Mild jailing of the ostium of the deep femoral artery was also noted which was moderately diseased before the procedure. We then diverted our attention to the left common iliac artery. We took the same Glidewire and the microcatheter. Please note that for the Supera stent, we had to exchange for the 0.014 Spartacore 300 cm wire. We then went up with the microcatheter and tried to perform a distal abdominal aortogram with in-adequate contrast visualization. Therefore, we went in with the pigtail catheter and performed distal abdominal aortogram with bilateral angiogram. It showed very severe left common iliac artery ostial as well as proximal stenosis severity 80 to 90%. We then took an Otter 35, 8 x 40 x 80 cm balloon and performed 2 inflations in the ostium and the proximal aspect of the left common iliac artery. The first inflation was for 10 atmospheres for 122 seconds and the second was for 11 atmospheres for 68 seconds. Mild plaque shift into the ostium of the right common iliac artery was noted. However, there was no flow limitation noted. We noted mild stenosis in the proximal aspect of the external iliac artery which is also the distal aspect of the left common iliac artery. We performed pressure gradient measurement with a pigtail catheter. The pressure difference proximal and distal to this particular mild lesion was less than 5 mmHg; therefore, further angioplasty was deferred. However, the final angiogram showed mild to moderate plaque shift into the ostium of the right common iliac artery. This would require kissing stents in the bilateral common iliac artery, which will have to be done as a staged procedure since we would require access from both lower extremities. The patient tolerated the procedure well and had excellent results of the angioplasty and intervention. The patient was sent to the recovery area with stable vital signs. The sheath will be pulled with manual compression later on. IMPRESSION/CONCLUSION: 1. Long segment of total occlusion of the left SFA successfully treated with balloon angioplasty and two 6 x 150 cm Supera stents. 2. Severe left ostium and proximal common iliac artery stenosis successfully treated with balloon angioplasty with an 8 mm balloon. 3. A staged procedure will have to be performed for kissing stents to bilateral common iliac artery at a later date. The right SFA will also need peripheral intervention at a later date. 4. The patient will be transferred to the cardiac stepdown unit. We will continue aspirin, Plavix, and statin. We will check blood work for electrolytes and CBC in the morning before he will be discharged to follow-up in my office in 3 to 4 weeks. Job ID: [id number] Dictated Date: 06/22/2016 23:08:56 Sanitation Laborer Date: 06/23/2016 09:01:16 / zain ARGUETA
[2016-06-23 12:52] VITALS: BP 163/78
--- NOTE | 2016-06-23 22:36 | Cardiology Discharge Summary ---
Diagnosis/Chief Complaint Date of Admission 06/22/2016 Date of Discharge 06/23/2016 Admission Diagnosis severe lifestyle limiting claudication refractory to optimal medical therapy Final/Discharge Diagnosis status post balloon angioplasty and stent to left superficial femoral artery and balloon angioplasty to left common iliac artery. Chief Complaint/HPI Chief Complaint/HPI severe lifestyle limiting claudication refractory to optimal medical therapy. Discharge Summary Procedures peripheral angiography and intervention. Chronic long segment total occlusion of the left SFA treated with balloon angioplasty and stenting with 2 long supera stents. Severe ostial and proximal left common iliac stenosis rated with successful balloon angioplasty. Discharge Physical Examination normal left popliteal fossa with no bruit. Normal cardiac and respiratory exam. Hospital Course stable Discussion & Recommendations Discussion stable Follow up appt.: Dr. Walker in 3-4 weeks. Dicharge Diet: Cardiac Diet Activity as Tolerated: Yes Home Medications Reviewed patient Home Medication Reconciliation Form Discharge Home Medications: Reviewed and agree with Discharge Medication list on patient's Discharge Instruction sheet Condition at discharge stable Instructions to patient/family follow-up with Dr. Walker in 3-4 weeks. Post-peripheral angiography care Instructions given by Ga WELCH MD Jun 23, 2016 22:36
== END 2016-06-23 11:15 ==
LOC: CATH 06:48 → ICU 12:35 → CATH 06-23 11:15
PROVIDERS: ATTEND Internal Medicine Interventional Cardiology
DX: I70.213 Atherosclerosis of native arteries of extremities with intermittent claudication, bilateral legs (principal); I70.92 Chronic total occlusion of artery of the extremities; I10 Essential (primary) hypertension; J44.9 Chronic obstructive pulmonary disease, unspecified; Z87.891 Personal history of nicotine dependence; Z79.899 Other long term (current) drug therapy
CPT/HCPCS: 36415; 37220; 37226; 80048; 80053; 85027; 85347; 85610; 85730; 87081; 93005

== ENCOUNTER 2016-07-27 07:00 | Day surgery (SDC) | payer MEDICARE ==
[~2016-07-27] VITALS: Ht 170.2 cm; Wt 88.9 kg
[2016-07-27] VITALS (14 sets, daily range): BP systolic 110–178; BP diastolic 57–92
[~2016-07-27 07:00] MED LIST changes: +ASPI-983 PO
[2016-07-27] MEDS ORDERED: LIDOCAINE 1% INJ 20 ML (XYLOCAINE) VIAL ONE ×2 (07:12→10:34)
[2016-07-27] MEDS ORDERED: NS IV 1000 ML 1,000 ML ONE (07:12)
[2016-07-27] MEDS ORDERED: HEParin (CATH LAB) 2,000 ML IV ONE (07:13)
[2016-07-27] MEDS ORDERED: NS IV 1000 ML 1,000 ML IV SCH (07:18)
[2016-07-27 07:41] LABS: MEAN PLATELET VOLUME 9.5 FL (7.4-10.4); RED BLOOD COUNT 4.78 10^6/uL (4.35-5.85); WHITE BLOOD COUNT 8.3 10^3/uL (4.3-11.0)
[2016-07-27 08:01] LABS: PROTHROMBIN TIME PATIENT 12.8 SEC (12.2-14.7)
[2016-07-27 08:03] LABS: ALANINE AMINOTRANSFERASE 28 U/L (0-55); ALBUMIN 4.2 G/DL (3.2-4.5); ANION GAP 7 MMOL/L (5-14); ASPARTATE AMINO TRANSFERASE 25 U/L (5-34); BILIRUBIN,TOTAL 0.5 MG/DL (0.1-1.0); BLOOD UREA NITROGEN 16 MG/DL (7-18); BUN/CREATININE RATIO 15; CALCIUM 9.2 MG/DL (8.5-10.1); CARBON DIOXIDE 27 MMOL/L (21-32); CHLORIDE 105 MMOL/L (98-107); CREATININE SERUM 1.06 MG/DL (0.60-1.30); GFR ESTIMATED > 60; GLUCOSE 106 MG/DL (70-105); SODIUM 139 MMOL/L (135-145); TOTAL PROTEIN 7.3 G/DL (6.4-8.2)
[2016-07-27] MEDS ORDERED: diphenhydrAMINE 50 MG/ML INJ (BENADRYL) ONE (08:14)
[2016-07-27] MEDS ORDERED: MIDAZOLAM 5 MG/5 ML (VERSED) VIAL ONE ×2 (08:14→10:27)
[2016-07-27] MEDS ORDERED: fentaNYL INJECTION 100 MCG/2 ML AMP ONE ×3 (08:14→16:24)
[2016-07-27] MEDS ORDERED: NITROGLYCERIN DRIP 25 MG/D5W 250 ML IV ONE (08:18)
[2016-07-27] MEDS ORDERED: HEParin 1000 UNIT/ML (10ML VIAL) FOR BOLUS ONE (08:18)
--- NOTE | 2016-07-27 11:24 | Cardiac Procedure Note-CS/ASA ---
Pre-Procedure Note Pre-Op Procedure Note H&P Reviewed The H&P was reviewed, patient examined and no changes noted. Date H&P Reviewed: Jul 27, 2016 Time H&P Reviewed: 08:30 Conscious Sedation Pre-Proced Time Reviewed: 08:30 ASA Class: 3 Airway Mallampati Classification: ([place] appropriate class) I. II. III, IV Lungs Heart ASA score ASA 1: a normal healthy patient ASA 2: a patient with a mild systemic disease (mid diabetes, controlled hypertension, obesity ASA 3: a patient with a severe systemic disease that limits activity (angina , COPD, prior Myocardial infarction) ASA 4: a patient with an incapacitating disease that is a constant threat to life (CHF, renal failure) ASA 5: a moribund patient not expected to survive 24 hrs. (ruptured aneurysm) ASA 6: a declared brain patient whose organs are being harvested. For emergent operations, add the letter E after the classification Grade 1 Sedation Plan: Analgesia, Amnesia, Plan communicated to team members, Discussed options with patient/fam, Discussed risks with patient/fam Note The patient is an appropriate candidate to undergo the planned procedure, sedation, and anesthesia. The patient immediately re-assessed prior to indication. Ga RUGGIERO MD Jul 27, 2016 11:23 am
[2016-07-27] MEDS ORDERED: CLOPIDOGREL 300 MG (PLAVIX) TABLET PO ONE (11:27)
--- NOTE | 2016-07-27 11:28 | Cardiology Post Procedure Note ---
Post-Procedure Note Post-Op Procedure Note Procedure Start Date: Jul 27, 2016 Procedure Start Time: 08:45 Name of Procedure: 1. Distal abdominal aortogram and bilateral lower extremity runoff. 2. Drug-coated balloon angioplasty to distal SFA in the right lower extremity. 3. Balloon angioplasty to the Right distal SFA, mid SFA, proximal SFA. 4. Balloon angioplasty to right GEAR MACHINE OPERATOR GENERAL. 5. Bilateral kissing stents in the bilateral common iliac artery. Findings/Procedure Note Severe bilateral common illiac artery disease. Severe right distal GEAR MACHINE OPERATOR GENERAL, ostial SFA disease Severe right distal/mid SFA disease Radiation: 1022 mgy Anesthesia Type: Conscious Sedation Estimated blood loss (mL): 20 ml Contrast Amount: 190 ml Post-Operative Diagnosis Post-operative diagnosis: S/p FISHER DIVER NET to R SFA and GEAR MACHINE OPERATOR GENERAL s/p bilateral kissing stents in common illiac arteries. Ga RUGGIERO MD Jul 27, 2016 11:28 am
[2016-07-27] MEDS ORDERED: PATIENT MAY USE OWN MEDS, ALL PO SCH (11:30)
[2016-07-27] MEDS: NS IV 1000 ML 1,000 ML IV SCH ×2 (13:29→22:14)
[2016-07-27] MEDS ORDERED: LABETALOL HCL 20 MG/4 ML VIAL IV NR (16:00)
[2016-07-27] MEDS ORDERED: LABETALOL HCL 20 MG/4 ML VIAL ONE (16:02)
[2016-07-27] MEDS ORDERED: ATROPINE INJECTION 1 MG/10 ML SYR (ABBOTT) ONE (16:24)
[2016-07-27] MEDS ORDERED: fentaNYL INJECTION 100 MCG/2 ML AMP IV ONE (16:45)
[2016-07-27] MEDS ORDERED: ONDANSETRON 4 MG/2 ML (SDV) Z0FRAN ONE (17:03)
[2016-07-27] MEDS ORDERED: ONDANSETRON 4 MG/2 ML (SDV) Z0FRAN IVP NR (17:15)
[2016-07-27] MEDS ORDERED: fentaNYL INJECTION 100 MCG/2 ML AMP IVP NR (17:30)
[2016-07-28] VITALS (9 sets, daily range): BP systolic 112–164; BP diastolic 58–83
[2016-07-28] MEDS: NS IV 1000 ML 1,000 ML IV SCH (07:28)
[2016-07-28] MEDS ORDERED: CLOPIDOGREL 75 MG (PLAVIX) TABLET PO SCH (09:00)
[2016-07-28] MEDS ORDERED: ASPIRIN E.C. 81 MG (ECOTRIN) TAB PO SCH (09:00)
--- NOTE | 2016-07-28 09:05 | PROCEDURE REPORT ---
PROCEDURE PHYSICIAN: TERRANCE RUGGIERO PERIPHERAL ANGIOGRAM AND INTERVENTION REPORT: DATE OF PROCEDURE: 07/27/2016 INDICATION: 1. Severe lifestyle limiting claudication. 2. Recent intervention to the left lower extremity via left popliteal access. PREOPERATIVE DIAGNOSIS: 1. Severe lifestyle limiting claudication on optimal medical therapy. POSTOPERATIVE DIAGNOSES: 1. Severe lifestyle limiting claudication on optimal medical therapy. 2. Status post bilateral kissing stents to the common iliac arteries. 3. Balloon angioplasty to the right common femoral artery. 4. Drug coated balloon angioplasty to the mid and distal right superficial femoral artery. HISTORY: Mr. Lloyd is 65-year-old gentleman who has history of COPD and chronic smoking. He is a patient of Dr. Yun and was referred to our office for evaluation for complex peripheral intervention. He has severe lifestyle limiting claudication and develops severe leg discomfort after walking [address] Yun did an angiography previously on 06/13/2016, which showed significant bilateral common iliac artery stenosis. Total occlusion of the left SFA. Severe disease of the right SFA. Since his symptoms were worse on the left lower extremity, therefore, previously we performed intervention on the left lower extremity. That intervention was performed via left popliteal access and a long total occlusion in the left SFA was treated with 2 long Supera stents. The results were excellent. The left common iliac artery was treated with balloon angioplasty with excellent results. The patient was seen in the office recently and complained of significantly less discomfort in the left lower extremity but still continues to have severe claudication in the right lower extremity. Therefore he was consented for intervention on the right lower extremity and bilateral common iliac arteries. He was brought to the [facility] after informed consent was taken. PROCEDURE PERFORMED: 1. Distal abdominal aortogram with bilateral lower extremity runoff. 2. Selective angiography of the right common femoral artery, superficial femoral artery. 3. Selective angiography of the right common, external iliac artery. 4. Bilateral kissing stents and angioplasty of the common iliac artery. 5. Balloon angioplasty to the right common femoral artery. 6. Drug coated balloon angioplasty to the mid and distal SFA. COMPLICATIONS: None. SPECIMENS REMOVED: None. ESTIMATED BLOOD LOSS: 20 mL. EQUIPMENT: 1. Pigtail catheter. 2. 6-Cymro x 11 [employer]. Manoj's sheath. 3. An 035 straight to 260 cm wire 4. 6-Cymro x 70 flexor sheath. 5. Dayton 35 S8 x 40 x 80 balloon. 6. 6-Cymro x 11 ACT sheath. 7. Omnilink Elite 8 x 39 x 80 stent. 8. Omnilink Elite 8 x 59 x 80 mm stent. 9. Lutonix 6 x 150 drug coated balloon. 10. Regular balloon 6 x 250 cm. FINAL RESULTS: Excellent. Anticoagulation: 1. IV heparin. 2. Intra-arterial nitroglycerin. PROCEDURE DETAILS: The patient was brought to the [facility] after informed consent was taken. All the risks and complications were explained in detail. The patient was draped and prepped in the usual sterile fashion. We gained access in the left femoral artery with a 6-Cymro sheath. Pigtail catheter was advanced in the distal abdominal aorta over 0.035 wire. We then performed distal abdominal aortogram and bilateral lower extremity runoff. We then and used the same pigtail catheter and were able to do a crossover into the right common iliac artery. The wire was placed below the CANAL BOAT OPERATOR. Then the pigtail catheter was removed and we took a long 6-Cymro x 70 cm sheath. The wire was taken out. A selective angiogram showed that we were in the deep femoral artery. Therefore the sheath was pulled out into the right CANAL BOAT OPERATOR. We then noted significant dampening of arterial wave-form. Therefore, we continued to removed the sheath until we crossed the ostium of the right common iliac artery. There was gradient of around 70 mmHg at the ostium of the right common iliac artery suggesting severe stenosis. Further details are given below. Distal abdominal aortogram showed mild to moderate diffuse disease. LEFT LOWER EXTREMITY: Severe ostial left common iliac artery stenosis. Mild to moderate proximal left external iliac artery stenosis. Patent stent in the left superficial femoral artery to Talon's canal. Mild to moderate disease in the popliteal artery. At least 2 vessel runoff below the knee which is an anterior tibial artery as well as the posterior tibial artery. The deep peroneal artery supplies to the midcalf. The anterior tibial and posterior tibial artery supply to the left foot. Slow flow was noted. RIGHT LOWER EXTREMITY: Moderate to severe stenosis at the ostium of the right common iliac artery. Moderate to severe stenosis of the proximal aspect of the right deep femoral artery. Severe distal common femoral artery stenosis. Gradient across this lesion was over 30 mmHg. This was not very obvious on the angiogram. Moderate to severe disease in the proximal and mid SFA. Severe tandem stenosis with calcification in the distal superficial femoral artery. Popliteal artery has no significant disease. At least 2 vessel runoff which is an anterior tibial artery and the posterior tibial artery, which supplies to the right foot. The deep peroneal artery supplies to the midcalf. RECOMMENDATION: 1. Bilateral angioplasty/intervention is recommended to the common iliac artery. 2. Intervention is recommended to the right common femoral artery. 3. Intervention is recommended to the right superficial femoral artery. VASCULAR INTERVENTION DETAILS: Once the long a 6-Cymro x 70 cm sheath was placed as mentioned previously, we had noted significant dampening of the arterial waveform. Therefore, we pulled the sheath. We left wire in the right superficial femoral artery, but pulled the long sheath back and found that there was a severe gradient across the right common iliac artery, which was over 70 mmHg. At this point in time he understood that we will not be able to intervene on the right superficial femoral artery without addressing the bilateral common iliac arteries. Therefore, we took an Dayton 35, 8 x 40 x 80 balloon and performed balloon dilatation in the ostium of the right common iliac artery at 12 atmospheres for 75 seconds. Another inflation at 12 atmospheres were performed for 90 seconds. We then performed another inflation with the same balloon in the ostium on the left common iliac artery. The balloon was taken out and we used a long sheath for measuring gradients and now there was no gradient and good flow. We then advanced the sheath over the Storq wire and placed it in the right superficial femoral artery. We again noted significant dampening. We did a pullback from the right proximal SFA to the CANAL BOAT OPERATOR and found gradient of over 30 mmHg. We then took an angulated angiogram of the ostium of the proximal right SFA and the distal right CANAL BOAT OPERATOR which showed severe stenosis. We advanced the Storq wire and placed it in the distal popliteal artery. Selective angiogram of the right CANAL BOAT OPERATOR, entire length of the SFA and popliteal artery was performed, which showed severe disease in the SFA. We then took Lutonix 6 x 150 drug coated balloon and did an inflation at 12 atmospheres for 3 minutes. Post balloon angiogram showed significant improvement in flow; however, there is still some residual stenosis. We then took the same balloon and performed balloon angioplasty to the distal right common femoral artery. Post balloon angiogram showed no significant residual stenosis and the gradient was also reduced from 30 mmHg to 0 mmHg. We then took a long 6 x 250 mm balloon and performed balloon angioplasty in the mid and distal SFA at 12 to 14 atmospheres for 3 minutes. We used the same balloon and performed another balloon angioplasty in the distal right CANAL BOAT OPERATOR and the proximal SFA, again at 12 to 14 atmospheres for 3 minutes. Post selective angiogram showed excellent blood flow with no significant residual stenosis in the in the distal right CANAL BOAT OPERATOR and the proximal SFA. Mild residual stenosis was noted in the distal SFA with brisk blood flow into the vessels below the knee. We were happy with the results of intervention on the right CANAL BOAT OPERATOR and SFA. We then turned our attention to the bilateral severe common iliac artery stenosis. We gained access in the right femoral artery with a 6-Cymro sheath. The lesion was crossed with regular J-wire. We then performed kissing stents Omnilink Elite 8 x 39 x 80 in the right common iliac artery and an Omnilink Elite 8 x 59 x 80 in the left common and proximal iliac artery. Both stents were simultaneously deployed for one minute at burst pressure which was 12 to 14 atmospheres. Post angiogram showed mild pinching of the proximal aspect of the stent in the left common iliac artery. We therefore took the same balloon and did high pressure kissing balloon inflation at the ostium of both the stents at 12 to 14 atmospheres. The balloons were taken out and final angiogram showed excellent blood flow with no gradient across the common iliac arteries. Then we took the long sheath out from the left femoral artery and placed a 6-Cymro short sheath. Femoral angiograms were done bilaterally. It showed in the left groin of our access site was likely in a deep femoral artery. Therefore Mynx closure was only performed in the right femoral artery, which was appropriate for closure. We used Heparin for anticoagulation and ACT during the procedure was over 220 seconds. Contrast: We used 190 mL of Omnipaque. Fluoroscopy dose: 1022 mGy. The patient tolerated the procedure well and did not have any complication. IMPRESSION/CONCLUSION: 1. Severe bilateral disease of the common iliac arteries. 2. Severe stenosis of the distal right common femoral artery. 3. Severe stenosis of the mid and distal superficial femoral artery. 4. Successful angioplasty followed by bilateral kissing stents of the common iliac arteries. 5. Successful balloon angioplasty of the right common femoral artery. 6. Successful drug coated balloon angioplasty of the mid and distal superficial femoral artery. PLAN: 1. IV fluids. 2. The patient will continue to take dual antiplatelet therapy with aspirin and Plavix. 3. The patient will be kept overnight in the cardiac stepdown unit. 4. The patient will be discharged in the morning if the patient is stable. Job ID: [id number] Dictated Date: 07/27/2016 14:14:14 [employer]plane And [employer] Inspector Date: 07/28/2016 08:15:10 / mirlande ARGUETA
--- OUTSIDE RECORDS SUMMARY | 2016-08-27 20:50 | XMS REPORT | Continuity of Care Document ---
Author Author [facility] Organization [facility] Address Unknown Phone Unavailable Allergies Active [...] R Ot I10 ESSENTIAL (PRIMARY) HYPERTENSION 02/26/2015 JOSE BATISTA MD R Ot J06.9 ACUTE UPPER RESPIRATORY INFECTION, [...] ALI FACP CCDS Ot R06.02 04/20/2015 MELINDA TILLMANC, ALI FACP CCDS Ot I10 04/20/2015 MELINDA HANNA FACC, ALI FACP CCDS Ot J44.1 04/20/2015 MELNIDA TILLMANC, ALI FACP CCDS Ot R06.02 06/10/2015 MELINDA AHNNA FACC, ALI FACP CCDS Ot I10 06/10/2015 [...] PULMONARY DISEASE W 06/06/2016 LENARD KEARNS L BUFFING MACHINE OPERATOR Ot I73.9 PERIPHERAL VASCULAR DISEASE, UNSPECIFIED 06/07/2016 BAIMALENARD L BUFFING MACHINE OPERATOR Ot I10 ESSENTIAL (PRIMARY) HYPERTENSION 06/07/2016 LENARD KEARNS L BUFFING MACHINE OPERATOR Ot I73.9 PERIPHERAL VASCULAR DISEASE, UNSPECIFIED 06/07/2016 LENARD KEARNS L BUFFING MACHINE OPERATOR Ot J43.8 OTHER EMPHYSEMA 06/07/2016 BAIMALENARD L BUFFING MACHINE OPERATOR Ot R06.02 SHORTNESS OF BREATH 06/07/2016 LENARD KEARNS L BUFFING MACHINE OPERATOR Ot I73.9 PERIPHERAL VASCULAR DISEASE, UNSPECIFIED 06/07/2016 DILLONLENARD COREA BUFFING MACHINE OPERATOR Ot I10 ESSENTIAL (PRIMARY) HYPERTENSION 06/07/2016 LENARD KEARNS L BUFFING MACHINE OPERATOR Ot I73.9 PERIPHERAL VASCULAR DISEASE, UNSPECIFIED 06/07/2016 LENARD KEARNS L BUFFING MACHINE OPERATOR Ot J43.8 OTHER EMPHYSEMA 06/07/2016 DILLONLENARD COREA L BUFFING MACHINE OPERATOR Ot R06.02 SHORTNESS OF BREATH 06/13/2016 MELINDA HANNA FACC, ALI FACP CCDS Ot H91.90 UNSPECIFIED HEARING LOSS, UNSPECIFIED EA 06/13/2016 MELINDA HANNA FACC, ALI FACP CCDS Ot I10 ESSENTIAL (PRIMARY) HYPERTENSION 06/13/2016 MELINDA HANNA FACC, ALI FACP CCDS Ot 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 06/13/2016 MELINDA HANNA FACC, ALI FACP CCDS Ot 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 06/13/2016 MELINDA HANNA FAC, ALI FACP CCDS Ot J44.9 CHRONIC OBSTRUCTIVE PULMONARY DISEASE, U 06/13/2016 MELINDA HANNA FAC, ALI FACP CCDS Ot Z79.899 OTHER FPC (CURRENT) DRUG THERAPY 06/13/2016 MELINDA HANNA FAC, ALI FACP CCDS Ot Z87.891 PERSONAL HISTORY OF NICOTINE DEPENDENCE 06/22/2016 DILLONLENARD COREA BUFFING MACHINE OPERATOR Ot I10 ESSENTIAL (PRIMARY) HYPERTENSION 06/22/2016 DILLONLENARD COREA BUFFING MACHINE OPERATOR Ot I73.9 PERIPHERAL VASCULAR DISEASE, UNSPECIFIED 06/22/2016 DILLONLENARD COREA Sandra BUFFING MACHINE OPERATOR Ot J43.8 OTHER EMPHYSEMA 06/22/2016 DILLONLENARD COREA L BUFFING MACHINE OPERATOR Ot R06.02 SHORTNESS OF BREATH 06/23/2016 Ga RUGGIERO MD Ot I10 ESSENTIAL (PRIMARY) HYPERTENSION 06/23/2016 Ga RUGGIERO MD Ot I70.213 ATHSCL ATKA ARTERIES OF EXTRM W INTRMT 06/23/2016 Ga RUGGIERO MD Ot 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 06/23/2016 Ga RUGGIERO MD Ot J44.9 CHRONIC OBSTRUCTIVE PULMONARY DISEASE, U 06/23/2016 Ga RUGGIERO MD Ot Z79.899 OTHER MUSEUM EDUCATOR (CURRENT) DRUG THERAPY 06/23/2016 Ga RUGGIERO MD Ot Z87.891 PERSONAL HISTORY OF NICOTINE DEPENDENCE 07/03/2016 MELINDA HANNA FACC, ALI FACP CCDS Ot H91.90 UNSPECIFIED HEARING LOSS, UNSPECIFIED EA 07/03/2016 MELINDA HANNA FACC, ALI FACP CCDS Ot I10 ESSENTIAL (PRIMARY) HYPERTENSION 07/03/2016 MELINDA HANNA FACC, ALI FACP CCDS Ot I70.213 ATHSCL ATKA ARTERIES OF EXTRM W INTRMT 07/03/2016 MELINDA HANNA FACC, ALI FACP CCDS Ot 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 07/03/2016 MELINDA HANNA FACC, ALI FACP CCDS Ot J44.9 CHRONIC OBSTRUCTIVE PULMONARY DISEASE, U 07/03/2016 MELINDA HANNA FACC, ALI FACP CCDS Ot Z79.899 OTHER FPC (CURRENT) DRUG THERAPY 07/03/2016 MELINDA HANNA FACC, ALI FACP CCDS Ot Z87.891 PERSONAL HISTORY OF NICOTINE DEPENDENCE 07/03/2016 MELINDA HANNA FACC, ALI FACP CCDS Ot H91.90 UNSPECIFIED HEARING LOSS, UNSPECIFIED EA 07/03/2016 MELINDA TILLMANC, ALI FACP CCDS Ot I10 ESSENTIAL (PRIMARY) HYPERTENSION 07/03/2016 MELINDA HANNA FACC, ALI FACP CCDS Ot I70.213 ATHSCL ATKA ARTERIES OF EXTRM W INTRMT 07/03/2016 MELINDA HANNA FACC, ALI FACP CCDS Ot 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 07/03/2016 MELINDA TILLMANC, ALI FACP CCDS Ot J44.9 CHRONIC OBSTRUCTIVE PULMONARY DISEASE, U 07/03/2016 MELINDA TILLMANC, ALI FACP CCDS Ot Z79.899 OTHER MUSEUM EDUCATOR (CURRENT) DRUG THERAPY 07/03/2016 MELINDA HANNA FACC, ALI FACP CCDS Ot Z87.891 PERSONAL HISTORY OF NICOTINE DEPENDENCE 07/13/2016 Ga RUGGIERO MD Ot I10 ESSENTIAL (PRIMARY) HYPERTENSION 07/13/2016 Ga RUGGIERO MD Ot I70.213 ATHSCL ATKA ARTERIES OF EXTRM W INTRMT 07/13/2016 Ga RUGGIERO MD, Ot 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 07/13/2016 Ga RUGGIERO MD Ot J44.9 CHRONIC OBSTRUCTIVE PULMONARY DISEASE, U 07/13/2016 Ga RUGGIERO MD, Ot Z79.899 OTHER FPC (CURRENT) DRUG THERAPY 07/13/2016 Ga RUGGIERO MD, Ot Z87.891 PERSONAL HISTORY OF NICOTINE DEPENDENCE 07/30/2016 Ga RUGGIERO MD Ot I10 ESSENTIAL (PRIMARY) HYPERTENSION 07/30/2016 Ga RUGGIERO MD, Ot I70.213 ATHSCL ATKA ARTERIES OF EXTRM W INTRMT 07/30/2016 Ga RUGGIERO MD, Ot 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 07/30/2016 Ga RUGGIERO MD, Ot J44.9 CHRONIC OBSTRUCTIVE PULMONARY DISEASE, U 07/30/2016 Ga RUGGIERO MD, Ot Z79.899 OTHER MUSEUM EDUCATOR (CURRENT) DRUG THERAPY 07/30/2016 Ga RUGGIERO MD, Ot Z87.891 PERSONAL HISTORY OF NICOTINE DEPENDENCE 08/09/2016 Ot 786.2 COUGH 08/09/2016 MELINDA HANNA FACC, KISHA FACP CCDS Ot I10 ESSENTIAL (PRIMARY) HYPERTENSION 08/09/2016 MELINDA HANNA FACC, KISHA FACP CCDS Ot J44.1 CHRONIC OBSTRUCTIVE PULMONARY DISEASE W 08/09/2016 MELINDA HANNA FACC, ALI FACP CCDS Ot R06.02 SHORTNESS OF BREATH 08/09/2016 MELINDA HANNA FACC, KISHA FACP CCDS Ot I10 ESSENTIAL (PRIMARY) HYPERTENSION 08/09/2016 MELINDA HANNA FACC, ALI FACP CCDS Ot R06.02 SHORTNESS OF BREATH 08/09/2016 AYAH ENCARNACION DO Ot J44.1 CHRONIC OBSTRUCTIVE PULMONARY DISEASE W 08/09/2016 AYAH ENCARNACION DO Ot J44.1 CHRONIC OBSTRUCTIVE PULMONARY DISEASE W 08/09/2016 AYAH ENCARNACION DO Ot J44.1 CHRONIC OBSTRUCTIVE PULMONARY DISEASE W 08/09/2016 LENARD KEARNS BUFFING MACHINE OPERATOR Ot I10 ESSENTIAL (PRIMARY) HYPERTENSION 08/09/2016 LENARD KEARNS BUFFING MACHINE OPERATOR Ot I73.9 PERIPHERAL VASCULAR DISEASE, UNSPECIFIED 08/09/2016 LENARD KEARNS Ot J43.8 OTHER EMPHYSEMA 08/09/2016 LENARD KEARNS Ot R06.02 SHORTNESS OF BREATH 08/09/2016 LENARD KEARNS Ot I10 ESSENTIAL (PRIMARY) HYPERTENSION 08/09/2016 LENARD KEARNS Ot I73.9 PERIPHERAL VASCULAR DISEASE, UNSPECIFIED 08/09/2016 LENARD KEARNS Ot J43.8 OTHER EMPHYSEMA 08/09/2016 LENARD KEARNS Ot R06.02 SHORTNESS OF BREATH Procedures Results [...] Staphylococcus aureus (MRSA) screening culture NEG NRG Automated blood complete blood count (hemogram) panel - 06/22/16 07:21 Blood leukocytes automated count (number/volume) 9.1 10*3/ uL 4.3-11.0 Blood erythrocytes automated count (number/volume) 5.01 10*6 /uL 4.35-5.85 Venous blood hemoglobin measurement (mass/volume) 14.5 g/dL 13.3-17.7 Blood hematocrit (volume fraction) 46 % 40-54 Automated erythrocyte mean corpuscular volume 91 [foz_us] 80-99 Automated erythrocyte mean corpuscular hemoglobin (mass per erythrocyte) 29 pg 25-34 Automated erythrocyte mean corpuscular hemoglobin concentration measurement ( mass/volume) 32 g/dL 32-36 Automated erythrocyte distribution width ratio 15.2 % 10.0-14.5 Automated blood platelet count (count/volume) 256 10*3/uL 130-400 Automated blood platelet mean volume measurement 9.6 [foz_us ] 7.4-10.4 PT panel in platelet poor plasma by coagulation assay - 06/22/16 07:21 Prothrombin time (PT) in platelet poor plasma by coagulation assay 12.1 s 12.2-14.7 INR in platelet poor plasma or blood by coagulation assay 0.9 0.8-1.4 Activated partial thromboplastin time (aPTT) in platelet poor plasma bycoagulation assay - 06/22/16 07:21 Activated partial thromboplastin time (aPTT) in platelet poor plasma bycoagulation assay 29 s 24-35 Comprehensive metabolic panel - 06/22/16 07:21 Serum or plasma sodium measurement (moles/volume) 141 mmol/ L 135-145 Serum or plasma potassium measurement (moles/volume) 4.1 mmol/L 3.6-5.0 Serum or plasma chloride measurement (moles/volume) 105 mmol /L 98-107 Carbon dioxide 24 mmol/L 21-32 Serum or plasma anion gap determination (moles/volume) 12 mmol/L 5-14 Serum or plasma urea nitrogen measurement (mass/volume) 14 mg/dL 7-18 Serum or plasma creatinine measurement (mass/volume) 1.14 mg /dL 0.60-1.30 Serum or plasma urea nitrogen/creatinine mass ratio 12 NRG Serum or plasma creatinine measurement with calculation of estimated glomerular filtration rate > NRG Serum or plasma glucose measurement (mass/volume) 106 mg/dL 70-105 Serum or plasma calcium measurement (mass/volume) 9.2 mg/dL 8.5-10.1 Serum or plasma total bilirubin measurement (mass/volume) 0.4 mg/dL 0.1-1.0 Serum or plasma alkaline phosphatase measurement (enzymatic activity/volume) 85 U/L 40-136 Serum or plasma aspartate aminotransferase measurement (enzymatic activity/ volume) 21 U/L 5-34 Serum or plasma alanine aminotransferase measurement (enzymatic activity/volume ) 27 U/L 0-55 Serum or plasma protein measurement (mass/volume) 7.4 g/dL 6.4-8.2 Serum or plasma albumin measurement (mass/volume) 4.4 g/dL 3.2-4.5 Methicillin resistant Staphylococcus aureus (MRSA) screening culture - 07:21 Methicillin resistant Staphylococcus aureus (MRSA) screening culture NEG NRG Activated partial thromboplastin time (aPTT) in platelet poor plasma bycoagulation assay - 06/22/16 14:15 Activated partial thromboplastin time (aPTT) in platelet poor plasma bycoagulation assay 108 s 24-35 Automated blood complete blood count (hemogram) panel - 06/23/16 03:40 Blood leukocytes automated count (number/volume) 11.0 10*3/ uL 4.3-11.0 Blood erythrocytes automated count (number/volume) 4.48 10*6 /uL 4.35-5.85 Venous blood hemoglobin measurement (mass/volume) 12.8 g/dL 13.3-17.7 Blood hematocrit (volume fraction) 40 % 40-54 Automated erythrocyte mean corpuscular volume 89 [foz_us] 80-99 Automated erythrocyte mean corpuscular hemoglobin (mass per erythrocyte) 29 pg 25-34 Automated erythrocyte mean corpuscular hemoglobin concentration measurement ( mass/volume) 32 g/dL 32-36 Automated erythrocyte distribution width ratio 15.1 % 10.0-14.5 Automated blood platelet count (count/volume) 242 10*3/uL 130-400 Automated blood platelet mean volume measurement 9.9 [foz_us ] 7.4-10.4 Whole blood basic metabolic panel - 06/23/16 03:40 Serum or plasma sodium measurement (moles/volume) 137 mmol/ L 135-145 Serum or plasma potassium measurement (moles/volume) 4.4 mmol/L 3.6-5.0 Serum or plasma chloride measurement (moles/volume) 105 mmol /L 98-107 Carbon dioxide 21 mmol/L 21-32 Serum or plasma anion gap determination (moles/volume) 11 mmol/L 5-14 Serum or plasma urea nitrogen measurement (mass/volume) 13 mg/dL 7-18 Serum or plasma creatinine measurement (mass/volume) 0.86 mg /dL 0.60-1.30 Serum or plasma urea nitrogen/creatinine mass ratio 15 NRG Serum or plasma creatinine measurement with calculation of estimated glomerular filtration rate > NRG Serum or plasma glucose measurement (mass/volume) 103 mg/dL 70-105 Serum or plasma calcium measurement (mass/volume) 8.8 mg/dL 8.5-10.1 Automated blood complete blood count (hemogram) panel - 07/27/16 07:33 Blood leukocytes automated count (number/volume) 8.3 10*3/ uL 4.3-11.0 Blood erythrocytes automated count (number/volume) 4.78 10*6 /uL 4.35-5.85 Venous blood hemoglobin measurement (mass/volume) 13.7 g/dL 13.3-17.7 Blood hematocrit (volume fraction) 43 % 40-54 Automated erythrocyte mean corpuscular volume 91 [foz_us] 80-99 Automated erythrocyte mean corpuscular hemoglobin (mass per erythrocyte) 29 pg 25-34 Automated erythrocyte mean corpuscular hemoglobin concentration measurement ( mass/volume) 32 g/dL 32-36 Automated erythrocyte distribution width ratio 15.0 % 10.0-14.5 Automated blood platelet count (count/volume) 216 10*3/uL 130-400 Automated blood platelet mean volume measurement 9.5 [foz_us ] 7.4-10.4 PT panel in platelet poor plasma by coagulation assay - 07/27/16 07:33 Prothrombin time (PT) in platelet poor plasma by coagulation assay 12.8 s 12.2-14.7 INR in platelet poor plasma or blood by coagulation assay 1.0 0.8-1.4 Comprehensive metabolic panel - 07/27/16 07:33 Serum or plasma sodium measurement (moles/volume) 139 mmol/ L 135-145 Serum or plasma potassium measurement (moles/volume) 4.0 mmol/L 3.6-5.0 Serum or plasma chloride measurement (moles/volume) 105 mmol /L 98-107 Carbon dioxide 27 mmol/L 21-32 Serum or plasma anion gap determination (moles/volume) 7 mmol/L 5-14 Serum or plasma urea nitrogen measurement (mass/volume) 16 mg/dL 7-18 Serum or plasma creatinine measurement (mass/volume) 1.06 mg /dL 0.60-1.30 Serum or plasma urea nitrogen/creatinine mass ratio 15 NRG Serum or plasma creatinine measurement with calculation of estimated glomerular filtration rate > NRG Serum or plasma glucose measurement (mass/volume) 106 mg/dL 70-105 Serum or plasma calcium measurement (mass/volume) 9.2 mg/dL 8.5-10.1 Serum or plasma total bilirubin measurement (mass/volume) 0.5 mg/dL 0.1-1.0 Serum or plasma alkaline phosphatase measurement (enzymatic activity/volume) 77 U/L 40-136 Serum or plasma aspartate aminotransferase measurement (enzymatic activity/ volume) 25 U/L 5-34 Serum or plasma alanine aminotransferase measurement (enzymatic activity/volume ) 28 U/L 0-55 Serum or plasma protein measurement (mass/volume) 7.3 g/dL 6.4-8.2 Serum or plasma albumin measurement (mass/volume) 4.2 g/dL 3.2-4.5 Methicillin resistant Staphylococcus aureus (MRSA) screening culture - 07:33 Methicillin resistant Staphylococcus aureus (MRSA) screening culture NEG NRG Activated partial thromboplastin time (aPTT) in platelet poor plasma bycoagulation assay - 07/27/16 13:12 Activated partial thromboplastin time (aPTT) in platelet poor plasma bycoagulation assay > s 24-35 Activated partial thromboplastin time (aPTT) in platelet poor plasma bycoagulation assay - 07/27/16 15:15 Activated partial thromboplastin time (aPTT) in platelet poor plasma bycoagulation assay 73 s 24-35 Complete blood count (CBC) with automated white blood cell (WBC) differential - 08/09/16 14:20 Blood leukocytes automated count (number/volume) 10.4 10*3/ uL 4.3-11.0 Blood erythrocytes automated count (number/volume) 4.40 10*6 /uL 4.35-5.85 Venous blood hemoglobin measurement (mass/volume) 12.4 g/dL 13.3-17.7 Blood hematocrit (volume fraction) 40 % 40-54 Automated erythrocyte mean corpuscular volume 91 [foz_us] 80-99 Automated erythrocyte mean corpuscular hemoglobin (mass per erythrocyte) 28 pg 25-34 Automated erythrocyte mean corpuscular hemoglobin concentration measurement ( mass/volume) 31 g/dL 32-36 Automated erythrocyte distribution width ratio 14.9 % 10.0-14.5 Automated blood platelet count (count/volume) 364 10*3/uL 130-400 Automated blood platelet mean volume measurement 9.1 [foz_us ] 7.4-10.4 Automated blood neutrophils/100 leukocytes 69 % 42-75 Automated blood lymphocytes/100 leukocytes 15 % 12-44 Blood monocytes/100 leukocytes 12 % 0-12 Automated blood eosinophils/100 leukocytes 4 % 0-10 Automated blood basophils/100 leukocytes 0 % 0-10 Blood neutrophils automated count (number/volume) 7.1 10*3 1.8-7.8 Blood lymphocytes automated count (number/volume) 1.6 10*3 1.0-4.0 Blood monocytes automated count (number/volume) 1.2 10*3 0.0-1.0 Automated eosinophil count 0.5 10*3/uL 0.0-0.3 Automated blood basophil count (count/volume) 0.0 10*3/uL 0.0-0.1 Blood lactic acid measurement (moles/volume) - 08/09/16 14:20 Blood lactic acid measurement (moles/volume) 1.75 mmol/L 0.50-2.00 PT panel in platelet poor plasma by coagulation assay - 08/09/16 14:20 Prothrombin time (PT) in platelet poor plasma by coagulation assay 12.7 s 12.2-14.7 INR in platelet poor plasma or blood by coagulation assay 1.0 0.8-1.4 Activated partial thromboplastin time (aPTT) in platelet poor plasma bycoagulation assay - 08/09/16 14:20 Activated partial thromboplastin time (aPTT) in platelet poor plasma bycoagulation assay 30 s 24-35 Comprehensive metabolic panel - 08/09/16 14:20 Serum or plasma sodium measurement (moles/volume) 138 mmol/ L 135-145 Serum or plasma potassium measurement (moles/volume) 4.2 mmol/L 3.6-5.0 Serum or plasma chloride measurement (moles/volume) 104 mmol /L 98-107 Carbon dioxide 25 mmol/L 21-32 Serum or plasma anion gap determination (moles/volume) 9 mmol/L 5-14 Serum or plasma urea nitrogen measurement (mass/volume) 16 mg/dL 7-18 Serum or plasma creatinine measurement (mass/volume) 1.38 mg /dL 0.60-1.30 Serum or plasma urea nitrogen/creatinine mass ratio 12 NRG Serum or plasma creatinine measurement with calculation of estimated glomerular filtration rate 52 NRG Serum or plasma glucose measurement (mass/volume) 102 mg/dL 70-105 Serum or plasma calcium measurement (mass/volume) 9.0 mg/dL 8.5-10.1 Serum or plasma total bilirubin measurement (mass/volume) 0.5 mg/dL 0.1-1.0 Serum or plasma alkaline phosphatase measurement (enzymatic activity/volume) 75 U/L 40-136 Serum or plasma aspartate aminotransferase measurement (enzymatic activity/ volume) 19 U/L 5-34 Serum or plasma alanine aminotransferase measurement (enzymatic activity/volume ) 20 U/L 0-55 Serum or plasma protein measurement (mass/volume) 7.3 g/dL 6.4-8.2 Serum or plasma albumin measurement (mass/volume) 4.1 g/dL 3.2-4.5 Bacterial blood culture - 08/09/16 14:20 Bacterial blood culture NG NRG Influenza virus A and B antigen detection - 08/09/16 14:44 FLU RESULT NEGATIVE FOR INFLUENZA A AND B ANTIGENS BY IA NRG Bacterial blood culture - 08/09/16 14:44 Bacterial blood culture NG NRG Complete urinalysis with reflex to culture - 08/09/16 15:43 Urine color determination YELLOW NRG Urine clarity determination SLIGHTLY CLOUDY NRG Urine pH measurement by test strip 6 5- 9 Specific gravity of urine by test strip 1.025 1.016-1.022 Urine protein assay by test strip, semi-quantitative 2+ NEGATIVE Urine glucose detection by automated test strip NEGATIVE NEGATIVE Erythrocytes detection in urine sediment by light microscopy NEGATIVE NEGATIVE Urine ketones detection by automated test strip NEGATIVE NEGATIVE Urine nitrite detection by test strip NEGATIVE NEGATIVE Urine total bilirubin detection by test strip 1+ NEGATIVE Urine urobilinogen measurement by automated test strip (mass/volume) 1 mg/dL NORMAL Urine leukocyte esterase detection by dipstick 2+ NEGATIVE Automated urine sediment erythrocyte count by microscopy (number/high power field) NONE NRG Automated urine sediment leukocyte count by microscopy (number/high power field ) [HPF] NRG Bacteria detection in urine sediment by light microscopy TRACE NRG Crystals detection in urine sediment by light microscopy NONE NRG Casts detection in urine sediment by light microscopy PRESENT NRG Mucus detection in urine sediment by light microscopy LARGE NRG Complete urinalysis with reflex to culture YES NRG Hyaline casts detection in urine sediment by light microscopy 10-25 NRG Bacterial urine culture - 08/09/16 15:43 Bacterial urine culture [id number] NRG COLONY COUNT <10,000 NRG FTX;REPORTABLE SENSITIVITY REPORTED 08/11/16 8:00 NRG Bacterial susceptibility panel - 08/09/16 15:43 Gentamicin susceptibility test by minimum inhibitory concentration S NRG Vancomycin susceptibility test by minimum inhibitory concentration <= NRG Levofloxacin susceptibility test by minimum inhibitory concentration 0.5 NRG Tetracycline susceptibility test by minimum inhibitory concentration <= NRG Ampicillin susceptibility test by minimum inhibitory concentration <= NRG Nitrofurantoin susceptibility test by minimum inhibitory concentration <= NRG Linezolid susceptibility test by minimum inhibitory concentration 2 NRG Encounters ACCT No. Visit Date/Time Discharge Status Pt. Type Provider Facility Loc./Unit Complaint [id number] 08/09/2016 14:18:00 2016 18:03:00 DIS Emergency DOMINGA BRADFORD MD [facility] ER LOW BP/DIZZINESS [id number] 07/27/2016 07:00:00 2016 11:00:00 DIS Outpatient Ga RUGGIERO MD [facility] CATH PVD,HTN,CLAUDICATION [id number] 06/22/2016 06:48:00 2016 11:15:00 DIS Outpatient Ga RUGGIERO MD [facility] CATH PERIPHERAL ANGIOGRAPHY,POSSIBLE PERIPHERAL STENT [id number] 06/13/2016 10:01:00 2016 16:15:00 DIS Outpatient KISHA LAWRENCE MD, FACC, FACP CCDS [facility] CATH PERIPHERAL ANGIOGRAPHY W POSSIBLE STENT [id number] 06/21/2015 10:04:00 2015 00:01:00 DIS Outpatient AYAH ENCARNACION DO [facility] PULM COPD, SOA [id number] 03/24/2015 11:33:00 2014 23:59:59 CLS Outpatient KISHA LAWRENCE MD, FACC, FACP CCDS [facility] CARD SOB,COPD,HTN [id number] 02/25/2015 18:11:00 2014 14:20:00 DIS Inpatient LYNNE HANNA, JOSE R [facility] CSD CHEST PAIN [id number] 06/06/2016 12:06:00 ACT Outpatient LENARD KEARNS [facility] RAD HTN,SOB,CLAUDICATION,COPD [id number] 06/01/2016 10:07:00 ACT Outpatient LENARD KEARNS [facility] LAB SOB,COPD [id number] 09/20/2015 10:15:00 PEN Preadmit AYAH ENCARNACION DO [facility] PULM COPD, SOA [id number] 07/07/2015 13:49:00 ACT Outpatient AYAH ENCARNACION DO [facility] RT COPD,SOB [id number] 06/11/2015 11:09:00 ACT Outpatient AYAH ENCARNACION DO [facility] RAD ACUTE COPD [id number] 05/06/2015 07:40:00 ACT Outpatient MELINDA HANNA FACC, KISHA BANDA CCDS [facility] CARD HTN,SOA [id number] 01/04/2012 11:52:00 Document Registration [id number] 11/10/2009 11:56:00 Document Registration
== END 2016-07-28 11:00 | disposition home or self-care (01) ==
LOC: CATH 07:00 → ICU 11:45 → CATH 07-28 11:00
PROVIDERS: ATTEND Internal Medicine Interventional Cardiology
DX: I70.213 Atherosclerosis of native arteries of extremities with intermittent claudication, bilateral legs (principal); J44.9 Chronic obstructive pulmonary disease, unspecified; I10 Essential (primary) hypertension; Z79.899 Other long term (current) drug therapy; Z87.891 Personal history of nicotine dependence; Z95.820 Peripheral vascular angioplasty status with implants and grafts
CPT/HCPCS: 36415; 37221; 37224; 80053; 85027; 85347; 85610; 85730; 87081; 93005

== ENCOUNTER 2016-08-09 14:15 | Emergency (ER) | payer MEDICARE ==
[~2016-08-09] VITALS: Ht 170.2 cm; Wt 88.9 kg
[2016-08-09] MEDS ORDERED: NS IV 1000 ML 1,000 ML IV ONE (14:30)
[2016-08-09] MEDS ORDERED: ACETAMINOPHEN 500 MG TAB (TYLENOL) PO PRN (14:30)
[2016-08-09 14:39] LABS: BASOPHILS % (AUTO) 0 % (0-10); EOSINOPHILS # (AUTO) 0.5 10^3/uL (0.0-0.3); EOSINOPHILS % (AUTO) 4 % (0-10); LYMPHOCYTES # (AUTO) 1.6 X 10^3 (1.0-4.0); LYMPHOCYTES % (AUTO) 15 % (12-44); MEAN CORPUSCULAR HEMOGLOBIN 28 PG (25-34); MEAN CORPUSCULAR HGB CONC 31 G/DL (32-36); MEAN CORPUSCULAR VOLUME 91 FL (80-99); MEAN PLATELET VOLUME 9.1 FL (7.4-10.4); MONOCYTES # (AUTO) 1.2 X 10^3 (0.0-1.0); MONOCYTES % (AUTO) 12 % (0-12); NEUTROPHILS # (AUTO) 7.1 X 10^3 (1.8-7.8); NEUTROPHILS % (AUTO) 69 % (42-75); PLATELET COUNT 364 10^3/uL (130-400); RED CELL DISTRIBUTION WIDTH 14.9 % (10.0-14.5); WHITE BLOOD COUNT 10.4 10^3/uL (4.3-11.0)
[2016-08-09 14:48] LABS: PROTHROMBIN TIME PATIENT 12.7 SEC (12.2-14.7)
--- NOTE | 2016-08-09 14:54 | ED General ---
General Chief Complaint: Fever-Adult/Adol Stated Complaint: LOW BP/DIZZINESS Nursing Triage Note: PT STATES HAVING STENTS PUT IN HIS LEGS ABOUT 2 WEEKS AGO, CC OF FEVER. Nursing Sepsis Screen: Possible Sepsis Risk Source of Information: Patient Exam Limitations: No Limitations History of Present Illness Time Seen by Provider: 14:30 Initial Comments Here with report of fever and not feeling well. He was seen at the cardiology clinic today for follow-up after stent placement in both of his legs. There he was noted to have fever and hypotension and was sent here for evaluation. Patient denies any pain specifically. He has had some recent cough but attributed that to allergies. Denies dysuria or diarrhea. Denies any pain in his legs or at the catheter insertion site to each groin. Timing/Duration: 24 Hours Severity: Moderate Associated Systoms: No Chest Pain, No Cough, Fever/Chills, No Headaches, No Nausea/Vomiting, No Shortness of Air, Weakness Allergies and Home Medications Allergies Coded Allergies: NKANo Known Allergies (Verified Allergy, Unknown, 06/07/05) Home Medications Albuterol Sulfate 18 Gm Hfa.aer.ad, 2 PUFF IH Q6H PRN for SHORTNESS OF BREATH, ( Reported) Aspirin 81 Mg Tablet.dr, 81 MG PO DAILY, (Reported) Atorvastatin Calcium 20 Mg Tablet, 20 MG PO DAILY, (Reported) Budesonide/Formoterol Fumarate 10.2 Gm Hfa.aer.ad, 2 PUFF IH DAILY, (Reported) Clopidogrel Bisulfate 75 Mg Tablet, 75 MG PO DAILY, (Reported) Enalapril Maleate 20 Mg Tablet, 20 MG PO DAILY, (Reported) LAST FILLED 02-03-16 #90 Hydrocodone/Acetaminophen 1 Each Tablet, 1 TAB PO Q8H PRN for PAIN, (Reported) Umeclidinium Peebles 62.5 Mcg Blst.w.dev, 1 PUFF IH DAILY, (Reported) Constitutional: see HPI, No chills, fever, weakness EENTM: no symptoms reported Respiratory: see HPI, cough, No wheezing Cardiovascular: see HPI, No chest pain, No edema Gastrointestinal: No abdominal pain, No diarrhea, No nausea, No vomiting Genitourinary: no symptoms reported, No dysuria, No pain Musculoskeletal: no symptoms reported Skin: no symptoms reported, No change in color, No lesions Psychiatric/Neurological: No Symptoms Reported All Other Systems Reviewed Negative Unless Noted: Yes Past Fovconz-Falfoz-Pvwnbv Hx Patient Social History Alcohol Use: Regular Use Recreational Drug Use: No Smoking Status: Former Smoker Type Used: Cigarettes Former Smoker/When Quit: Feb 25, 2005 Recent Foreign Travel: No Contact w/Someone Who Travel: No Recent Infectious Disease Expo: No Recent Hopitalizations: Yes (2 WEEKS AGO) Immunizations Up To Date Tetanus Booster (TDap): More than 5yrs PED Vaccines UTD: Yes Date of Pneumonia Vaccine: Jan 21, 2015 Date of Influenza Vaccine: Jan 21, 2015 Surgeries HX Surgeries: Yes (FACIAL RECONSTRUCTION, STENTS) Surgeries: Orthopedic, Vascular Surgery Respiratory Hx Respiratory Disorders: Yes Respiratory Disorders: COPD Cardiovascular Hx Cardiac Disorders: Yes Cardiac Disorders: Hypertension Neurological Hx Neurological Disorders: No Reproductive System Hx Reproductive Disorders: No Sexually Transmitted Disease: No HIV/AIDS: No Genitourinary Hx Genitourinary Disorders: No Genitourinary Disorders: Kidney Stones Gastrointestinal Hx Gastrointestinal Disorders: Yes Gastrointestinal Disorders: Gastroesophageal Reflux Musculoskeletal Hx Musculoskeletal Disorders: Yes Musculoskeletal Disorders: Arthritis Endocrine Hx Endocrine Disorders: No HEENT HX ENT Disorders: No Cancer Hx Cancer: No Psychosocial Hx Psychiatric Problems: No Integumentary HX Skin/Integumentary Disorder: No Blood Transfusions Hx Blood Disorders: No Adverse Reaction to a Blood Tr: No Reviewed Nursing Assessment Reviewed/Agree w Nursing PMH: Yes Family Medical History Significant Family History: No Pertinent Family Hx Family Medial History: Patient reports no known family medical history. Physical Exam-Suspected Sepsis Physical Exam Vital Signs Vital Sign - Last 12Hours 08/09/16 14:21 Temp 100.7 Pulse 98 Resp 20 B/P (MAP) 124/75 Pulse Ox 95 O2 Delivery Room Air Capillary Refill : Less Than 3 Seconds Blood Pressure Mean: 91 General Appearance: No Apparent Distress, WD/WN HEENT: PERRL/EOMI, Pharynx Normal Neck: Non Tender, Supple Respiratory: No Respiratory Distress, Crackles (bilateral bases), No Wheezing Cardiovascular: No Murmur, Tachycardia Gastrointestinal: Non Tender, Soft Back: Normal Inspection, No CVA Tenderness, No Vertebral Tenderness Extremity: Non Tender, No Calf Tenderness Neurologic/Psychiatric: Alert, Oriented x3 Skin: normal color, warm/dry, other (bilateral groin puncture sites clean, dry and intact with normal healing and no appearance of infection.) Lymphatic: No Adenopathy Focused Exam Lactic Acid Level Laboratory Tests Test 08/09/16 14:20 Lactic Acid Level 1.75 MMOL/L (0.50-2.00) Progress/Results/Core Measures Suspected Sepsis Recent Fever Within 48 Hours: Yes Infection Criteria Present: Suspected New Infection New/Unexplained Altered Menta: No Sepsis Screen: Possible Sepsis Risk Sepsis Diagnosis: SIRS Temperature:100.7 Pulse: 98 Respiratory Rate: 20 Laboratory Tests 08/09/16 14:20: White Blood Count 10.4 Blood Pressure 124 /75 Mean: 91 Laboratory Tests 08/09/16 14:20: Creatinine 1.38H, INR Comment 1.0, Platelet Count 364, Total Bilirubin 0.5 Results/Orders Lab Results Laboratory Tests Test 08/09/16 14:20 08/09/16 15:43 Range/Units White Blood Count 10.4 4.3-11.0 10^3/uL Red Blood Count 4.40 4.35-5.85 10^6/uL Hemoglobin 12.4 L 13.3-17.7 G/DL Hematocrit 40 40-54 % Mean Corpuscular Volume 91 80-99 FL Mean Corpuscular Hemoglobin 28 25-34 PG Mean Corpuscular Hemoglobin Concent 31 L 32-36 G/DL Red Cell Distribution Width 14.9 H 10.0-14.5 % Platelet Count 364 130-400 10^3/uL Mean Platelet Volume 9.1 7.4-10.4 FL Neutrophils (%) (Auto) 69 42-75 % Lymphocytes (%) (Auto) 15 12-44 % Monocytes (%) (Auto) 12 0-12 % Eosinophils (%) (Auto) 4 0-10 % Basophils (%) (Auto) 0 0-10 % Neutrophils # (Auto) 7.1 1.8-7.8 X 10^3 Lymphocytes # (Auto) 1.6 1.0-4.0 X 10^3 Monocytes # (Auto) 1.2 H 0.0-1.0 X 10^3 Eosinophils # (Auto) 0.5 H 0.0-0.3 10^3/uL Basophils # (Auto) 0.0 0.0-0.1 10^3/uL Prothrombin Time 12.7 12.2-14.7 SEC INR Comment 1.0 0.8-1.4 Activated Partial Thromboplast Time 30 24-35 SEC Sodium Level 138 135-145 MMOL/L Potassium Level 4.2 3.6-5.0 MMOL/L Chloride Level 104 98-107 MMOL/L Carbon Dioxide Level 25 21-32 MMOL/L Anion Gap 9 5-14 MMOL/L Blood Urea Nitrogen 16 7-18 MG/DL Creatinine 1.38 H 0.60-1.30 MG/DL Estimat Glomerular Filtration Rate 52 BUN/Creatinine Ratio 12 Glucose Level 102 70-105 MG/DL Lactic Acid Level 1.75 0.50-2.00 MMOL/L Calcium Level 9.0 8.5-10.1 MG/DL Total Bilirubin 0.5 0.1-1.0 MG/DL Aspartate Amino Transf (AST/SGOT) 19 5-34 U/L Alanine Aminotransferase (ALT/SGPT) 20 0-55 U/L Alkaline Phosphatase 75 40-136 U/L Total Protein 7.3 6.4-8.2 G/DL Albumin 4.1 3.2-4.5 G/DL Urine Color YELLOW Urine Clarity SLIGHTLY CLOUDY Urine pH 6 5-9 Urine Specific [place] 1.025 H 1.016-1.022 Urine Protein 2+ H NEGATIVE Urine Glucose (UA) NEGATIVE NEGATIVE Urine Ketones NEGATIVE NEGATIVE Urine Nitrite NEGATIVE NEGATIVE Urine Bilirubin 1+ H NEGATIVE Urine Urobilinogen 1 NORMAL MG/DL Urine Leukocyte Esterase 2+ H NEGATIVE Urine RBC (Auto) NEGATIVE NEGATIVE Urine RBC NONE /HPF Urine WBC 25-50 H /HPF Urine Crystals NONE /LPF Urine Bacteria TRACE /HPF Urine Casts PRESENT /LPF Urine Hyaline Casts 10-25 H /LPF Urine Mucus LARGE H /LPF Urine Culture Indicated YES Micro Results Microbiology 08/09/16 Influenza Types A,B Antigen (SAMARA) - Final, Complete My Orders Orders - DOMINGA BRADFORD MD Cbc With Automated Diff (08/09/16 14:30) Comprehensive Metabolic Panel (08/09/16 14:30) Lactic Acid Analyzer (08/09/16 14:30) Blood Culture (08/09/16 14:30) Sputum Culture (08/09/16 14:30) Ua Culture If Indicated (08/09/16 14:30) Protime With Inr (08/09/16 14:30) Partial Thromboplastin Time (08/09/16 14:30) Chest 1 View, Ap/Pa Only (08/09/16 14:30) O2 (08/09/16 14:30) Acetaminophen Tablet (Tylenol Tablet) (08/09/16 14:30) Saline Lock/Iv-Start (08/09/16 14:30) Saline Lock/Iv-Start (08/09/16 14:30) Vital Signs Adult Sepsis Patie Q1HR (08/09/16 14:30) Remove Rings In Anticipation O (08/09/16 14:30) Ns Iv 1000 Ml (Sodium Chloride 0.9%) (08/09/16 14:30) Influenza A And B Antigens (08/09/16 14:41) Urine Culture (08/09/16 15:43) Ns Iv 500 Ml (Sodium Chloride 0.9%) (08/09/16 16:18) Ceftriaxone Injection (Rocephin Injectio (08/09/16 16:30) Medications Given in ED Current Medications Medications Dose Ordered Sig/Padma Route Start Time Stop Time Status Last Admin Dose Admin Acetaminophen 1,000 mg ONCE PRN PO 08/09/16 14:30 08/09/16 14:48 DC 08/09/16 14:48 1,000 MG Ceftriaxone Sodium 1000 mg/ Sodium Chloride 50 ml @ 100 mls/hr ONCE ONCE IV 08/09/16 16:30 08/09/16 16:59 DC 08/09/16 16:56 100 MLS/HR Sodium Chloride 500 ml @ 0 mls/hr Q0M ONCE IV 08/09/16 16:18 08/09/16 16:19 DC 08/09/16 16:55 1,000 MLS/HR Sodium Chloride 1,000 ml @ 0 mls/hr Q0M ONCE IV 08/09/16 14:30 08/09/16 14:32 DC 08/09/16 14:48 1,000 MLS/HR Vital Signs/I&O Vital Sign - Last 12Hours 08/09/16 08/09/16 14:21 16:20 Temp 100.7 Pulse 98 81 96 99 Resp 20 B/P (MAP) 124/75 Pulse Ox 95 O2 Delivery Room Air Capillary Refill : Less Than 3 Seconds Blood Pressure Mean: 91 Progress Note : Progress Note Seen and evaluated. IV, labs, chest x-ray, normal saline 1 L bolus, Tylenol 1 g by mouth, blood cultures and lactic acid ordered. Monitor patient. UTI noted. Patient doing a little better but still slightly positive on orthostatics. 500 mL normal saline ordered. Rocephin 1 g IV ordered for urinary tract infection due to severity of symptoms. We want to ensure that he is able to tolerate first dose. Monitor patient. 1735: Patient is doing better after IV fluids and antibiotics. He states that he feels like he can tolerate this at home. Discharged home with return precautions. Patient verbalize understanding instructions and agreement with plan. Diagnostic Imaging Diagonstic Imaging: Xray Plain Films/CT/US/NM/MRI: chest [facility] [place], [place] NAME: ESMER GALLEGOS [facility] REC#: [id number] PT STATUS: REG ER : 1950 PHYSICIAN: DOMINGA BRADFORD MD ADMIT DATE: 08/09/16/ER Draft Date of Exam:08/09/16 CHEST 1 VIEW, AP/PA ONLY INDICATION: COPD, hypertension, dizziness. COMPARED: 02/25/2015. FINDINGS: The lungs are clear. The heart size and vascularity are normal. There is no effusion or pneumothorax. There is no free air beneath the diaphragms. IMPRESSION: No acute appearing abnormality. Dictated on workstation # [id number] Dict: 08/09/16 1524 Trans: 08/09/16 1529 [facility] [id number] Interpreted by: ARNOLDO OCHOA Electronically signed by: Reviewed: Reviewed by Me Departure Impression Impression: Primary Impression: Urinary tract infection Qualified Codes: N30.00 - Acute cystitis without hematuria Additional Impression: Dehydration Disposition: 01 HOME, SELF-CARE Condition: Improved Departure-Patient Inst. Decision time for Depature: 17:41 Referrals: JOSE BATISTA MD (PCP/Family) Primary Care Physician Patient Instructions: Dehydration, Adult (DC), Urinary Tract Infection, Adult ( DC) Add. Discharge Instructions: All discharge instructions reviewed with patient and/or family. Voiced understanding. Take medications as directed. Follow-up with your DrJoe in 2-3 days for recheck. Return for worse pain, fever, vomiting, weakness, breathing problems or other concerns as needed. Ensure that he drink plenty of fluids. Scripts Cephalexin (Cephalexin) 500 Mg Tablet 500 MG PO BID, #20 TAB 0 Refills Prov: DOMINGA BRADFORD MD 08/09/16 DOMINGA BRADFORD MD Aug 09, 2016 14:54
[2016-08-09 14:56] LABS: ALBUMIN 4.1 G/DL (3.2-4.5); BILIRUBIN,TOTAL 0.5 MG/DL (0.1-1.0); CREATININE SERUM 1.38 MG/DL (0.60-1.30); POTASSIUM 4.2 MMOL/L (3.6-5.0); TOTAL PROTEIN 7.3 G/DL (6.4-8.2)
--- NOTE | 2016-08-09 15:29 | Diagnostic Imaging Report ---
INDICATION: COPD, hypertension, dizziness. COMPARED: 02/25/2015. FINDINGS: The lungs are clear. The heart size and vascularity are normal. There is no effusion or pneumothorax. There is no free air beneath the diaphragms. IMPRESSION: No acute appearing abnormality. Dictated by: Dictated on workstation # [id number]
[2016-08-09 15:49] LABS: KETONES,URINE NEGATIVE (NEGATIVE); LEUKOCYTE ESTERASE ,URINE 2+ (NEGATIVE); NITRITE,URINE NEGATIVE (NEGATIVE); PH,URINE 6 (5-9); PROTEIN,URINE 2+ (NEGATIVE); UROBILINOGEN,URINE 1 MG/DL (NORMAL)
[2016-08-09 16:06] LABS: WBC,URINE 25-50 /HPF
[2016-08-09 16:11] LABS: BILIRUBIN,URINE 1+ (NEGATIVE)
[2016-08-09] MEDS ORDERED: NS IV 500 ML 500 ML IV ONE (16:18)
[2016-08-09] MEDS ORDERED: cefTRIAXone INJECTION 1,000 MG in NS (IVPB) 50 ML IV ONE (16:30)
[2016-08-09] MEDS ORDERED: CEPH500T PO (17:43)
[2016-08-09 18:03] VITALS: BP 133/79
== END 2016-08-09 18:03 | disposition home or self-care (01) ==
LOC: EDUNIT# 14:15 → ER 14:18
DX: N39.0 Urinary tract infection, site not specified (principal); E86.0 Dehydration; R42 Dizziness and giddiness; J44.9 Chronic obstructive pulmonary disease, unspecified; I10 Essential (primary) hypertension; Z79.02 Long term (current) use of antithrombotics/antiplatelets; Z79.82 Long term (current) use of aspirin; Z79.899 Other long term (current) drug therapy; Z87.891 Personal history of nicotine dependence; Z95.828 Presence of other vascular implants and grafts
CPT/HCPCS: 36415; 71010; 80053; 81000; 83605; 85025; 85610; 85730; 87040; 87077; 87088; 87186; 87804; 96361; 96365

== ENCOUNTER → 2017-03-20 | Outpatient (CLI) | payer MEDICARE ==
[~2017-03-20] MED LIST changes: +CEPH500T PO
[2017-03-20 10:45] LABS: ALANINE AMINOTRANSFERASE 31 U/L (0-55); ALBUMIN 4.1 GM/DL (3.2-4.5); ANION GAP 9 MMOL/L (5-14); ASPARTATE AMINO TRANSFERASE 23 U/L (5-34); BILIRUBIN,TOTAL 0.5 MG/DL (0.1-1.0); BLOOD UREA NITROGEN 15 MG/DL (7-18); BUN/CREATININE RATIO 17; CALCIUM 8.9 MG/DL (8.5-10.1); CARBON DIOXIDE 23 MMOL/L (21-32); CHLORIDE 108 MMOL/L (98-107); CHOLESTEROL 191 MG/DL (< 200); DIRECT LDL 121 MG/DL (1-129); GFR ESTIMATED > 60; GLUCOSE 105 MG/DL (70-105); POTASSIUM 4.1 MMOL/L (3.6-5.0); SODIUM 140 MMOL/L (135-145); TOTAL PROTEIN 7.1 GM/DL (6.4-8.2); TRIGLYCERIDES 109 MG/DL (<150); VLDL CHOLESTEROL 22 MG/DL (5-40)
== END ==
LOC: LAB 10:06
PROVIDERS: ATTEND Nurse Practitioner Family
DX: I10 Essential (primary) hypertension (principal); J43.8 Other emphysema; E78.4 Other hyperlipidemia; R06.09 Other forms of dyspnea
CPT/HCPCS: 36415; 80053; 80061

== ENCOUNTER 2017-04-28 16:15 | Emergency (ER) | payer MEDICARE ==
[~2017-04-28] VITALS: Ht 170.2 cm; Wt 88.9 kg
--- OUTSIDE RECORDS SUMMARY | 2017-04-28 16:20 | XMS REPORT | Continuity of Care Document ---
Author Author [facility] Organization [facility] Address Unknown Phone Unavailable Allergies Active Description Code Type Severity Reaction Onset Reported/Identified Relationship to Patient Clinical Status Yes NKANo Known Allergies NKA Miscellaneous Allergy Unknown N/A 06/07/2005 Medications There is no data. Problems Date Dx Coded Attending Type Code Diagnosis Diagnosed By 02/25/2015 Ot 729.81 02/25/2015 Ot 786.2 02/25/2015 Ot 729.81 02/25/2015 Ot 786.2 02/26/2015 LYNNE HANNA, JOSE R Ot I10 ESSENTIAL (PRIMARY) HYPERTENSION 02/26/2015 LYNNE HANNA, JOSE R Ot J06.9 ACUTE UPPER RESPIRATORY INFECTION, UNSPE 02/26/2015 LYNNE HANNA, JOSE R Ot J44.9 CHRONIC OBSTRUCTIVE PULMONARY DISEASE, U 02/26/2015 LYNNE HANNA, JOSE R Ot K21.9 GASTRO-ESOPHAGEAL REFLUX DISEASE WITHOUT [...] Ot 786.2 COUGH 06/01/2016 MELINDA HANNA FACC, KISHA FACP CCDS Ot I10 ESSENTIAL (PRIMARY) HYPERTENSION 06/01/2016 MELINDA HANNA [facility], [facility] Ot J44.1 CHRONIC OBSTRUCTIVE PULMONARY DISEASE W 06/01/2016 [facility]IN[facility] Ot R06.02 SHORTNESS OF BREATH 06/01/2016 MELINDA HANNA FACC, ALI FACP CCDS Ot I10 ESSENTIAL (PRIMARY) HYPERTENSION 06/01/2016 MELINDA HANNA FACC, ALI FACP CCDS Ot R06.02 SHORTNESS OF BREATH 06/01/2016 AYAH ENCARNACION DO M Ot J44.1 CHRONIC OBSTRUCTIVE PULMONARY DISEASE W 06/01/2016 AYAH ENCARNACION DO Ot J44.1 CHRONIC OBSTRUCTIVE PULMONARY DISEASE W 06/01/2016 AYAH ENCARNACION DO M Ot J44.1 CHRONIC OBSTRUCTIVE PULMONARY DISEASE W 06/06/2016 LENARD KEARNS L IRON CASTER Ot I73.9 PERIPHERAL VASCULAR DISEASE, UNSPECIFIED 06/07/2016 BAIMA LENARD L IRON CASTER Ot I10 ESSENTIAL (PRIMARY) HYPERTENSION 06/07/2016 LENARD KEARNS L IRON CASTER Ot I73.9 PERIPHERAL VASCULAR DISEASE, UNSPECIFIED 06/07/2016 DILLONMALENARD L IRON CASTER Ot J43.8 OTHER EMPHYSEMA 06/07/2016 BAIMALENARD L IRON CASTER Ot R06.02 SHORTNESS OF BREATH 06/07/2016 BAIMA, LENARD L IRON CASTER Ot I73.9 PERIPHERAL VASCULAR DISEASE, UNSPECIFIED 06/07/2016 BAILENARD COREA L IRON CASTER Ot I10 ESSENTIAL (PRIMARY) HYPERTENSION 06/07/2016 LENARD KEARNS L IRON CASTER Ot I73.9 PERIPHERAL VASCULAR DISEASE, UNSPECIFIED 06/07/2016 LENARD KEARNS L IRON CASTER Ot J43.8 OTHER EMPHYSEMA 06/07/2016 BAIANIA COREAHER L IRON CASTER Ot R06.02 SHORTNESS OF BREATH 06/13/2016 MELINDA HANNA FACC, ALI FACP CCDS Ot H91.90 UNSPECIFIED HEARING LOSS, UNSPECIFIED EA 06/13/2016 MELINDA HANNA FACC, ALI FACP CCDS Ot I10 ESSENTIAL (PRIMARY) HYPERTENSION 06/13/2016 MELINDA HANNA FACC, ALI FACP CCDS Ot I70.213 [facility]CL [place] [facility] 06/13/2016 MELINDA HANNA FACC, ALI FACP CCDS Ot 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 06/13/2016 MELINDA HANNA [facility], ALI FACP CCDS Ot J44.9 CHRONIC OBSTRUCTIVE PULMONARY DISEASE, U 06/13/2016 MELINDA HANNA FAC, ALI FACP CCDS Ot Z79.899 OTHER SKILLED NURSING (CURRENT) DRUG THERAPY 06/13/2016 MELINDA HANNA [facility], ALI FACP CCDS Ot Z87.891 PERSONAL HISTORY OF NICOTINE DEPENDENCE 06/22/2016 DILLONLENARD COREA L IRON CASTER Ot I10 ESSENTIAL (PRIMARY) HYPERTENSION 06/22/2016 DILLONLENARD COREA L IRON CASTER Ot I73.9 PERIPHERAL VASCULAR DISEASE, UNSPECIFIED 06/22/2016 DILLONLENARD COREA L IRON CASTER Ot J43.8 OTHER EMPHYSEMA 06/22/2016 DILLONLENARD COREA L IRON CASTER Ot R06.02 SHORTNESS OF BREATH 06/23/2016 Ga RUGGIERO MD Ot I10 ESSENTIAL (PRIMARY) HYPERTENSION 06/23/2016 Ga RUGGIERO MD Ot 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 06/23/2016 Ga RUGGIERO MD Ot 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 06/23/2016 Ga RUGGIERO MD Ot J44.9 CHRONIC OBSTRUCTIVE PULMONARY DISEASE, U 06/23/2016 Ga RUGGIERO MD Ot Z79.899 OTHER FORENSIC PSYCHIATRIST (CURRENT) DRUG THERAPY 06/23/2016 Ga RUGGIERO MD Ot Z87.891 PERSONAL HISTORY OF NICOTINE DEPENDENCE 07/03/2016 MEILNDA HANNA FACC, ALI FACP CCDS Ot H91.90 UNSPECIFIED HEARING LOSS, UNSPECIFIED EA 07/03/2016 MELINDA HANNA FACC, ALI FACP CCDS Ot I10 ESSENTIAL (PRIMARY) HYPERTENSION 07/03/2016 MELINDA HANNA FACC, ALI FACP CCDS Ot I70.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 07/03/2016 MELINDA HANNA FACC, ALI FACP CCDS Ot 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 07/03/2016 MELINDA TILLMANC, ALI FACP CCDS Ot J44.9 CHRONIC OBSTRUCTIVE PULMONARY DISEASE, U 07/03/2016 MELINDA TILLMANC, ALI FACP CCDS Ot Z79.899 OTHER FORENSIC PSYCHIATRIST (CURRENT) DRUG THERAPY 07/03/2016 MELINDA HANNA FACC, ALI FACP CCDS Ot Z87.891 PERSONAL HISTORY OF NICOTINE DEPENDENCE 07/03/2016 MELINDA HANNA FACC, ALI FACP CCDS Ot H91.90 UNSPECIFIED HEARING LOSS, UNSPECIFIED EA 07/03/2016 MELINDA TILLMANC, ALI FACP CCDS Ot I10 ESSENTIAL (PRIMARY) HYPERTENSION 07/03/2016 MELINDA HANNA FACC, ALI FACP CCDS Ot I70.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 07/03/2016 MELINDA TILLMANC, ALI FACP CCDS Ot 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 07/03/2016 MELINDA TILLMANC, ALI FACP CCDS Ot J44.9 CHRONIC OBSTRUCTIVE PULMONARY DISEASE, U 07/03/2016 MELINDA TILLMANC, ALI FACP CCDS Ot Z79.899 OTHER FORENSIC PSYCHIATRIST (CURRENT) DRUG THERAPY 07/03/2016 MELINDA HANNA FACC, ALI FACP CCDS Ot Z87.891 PERSONAL HISTORY OF NICOTINE DEPENDENCE 07/13/2016 Ga RUGGIERO MD Ot I10 ESSENTIAL (PRIMARY) HYPERTENSION 07/13/2016 Ga RUGGIERO MD Ot I70.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 07/13/2016 Ga RUGGIERO MD Ot 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 07/13/2016 Ga RUGGIERO MD Ot J44.9 CHRONIC OBSTRUCTIVE PULMONARY DISEASE, U 07/13/2016 Ga RUGGIERO MD Ot Z79.899 OTHER SKILLED NURSING (CURRENT) DRUG THERAPY 07/13/2016 Ga RUGGIERO MD Ot Z87.891 PERSONAL HISTORY OF NICOTINE DEPENDENCE 07/28/2016 Ga RUGGIERO MD Ot I10 ESSENTIAL (PRIMARY) HYPERTENSION 07/28/2016 Ga RUGGIERO MD Ot I70.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 07/28/2016 Ga RUGGIERO MD, Ot J44.9 CHRONIC OBSTRUCTIVE PULMONARY DISEASE, U 07/28/2016 Ga RUGGIERO MD Ot Z79.899 OTHER SKILLED NURSING (CURRENT) DRUG THERAPY 07/28/2016 Ga RUGGIERO MD, Ot Z87.891 PERSONAL HISTORY OF NICOTINE DEPENDENCE 07/28/2016 Ga RUGGIERO MD Ot Z95.820 PERIPHERAL VASCULAR ANGIOPLASTY STATUS W 07/30/2016 Ga RUGGIERO MD Ot I10 ESSENTIAL (PRIMARY) HYPERTENSION 07/30/2016 Ga RUGGIERO MD Ot I70.213 ATHSCL [place] [facility]IES OF EXTRM W INTRGA 07/30/2016 Ga RUGGIERO MD Ot 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 07/30/2016 Ga RUGGIERO MD Ot J44.9 CHRONIC OBSTRUCTIVE PULMONARY DISEASE, U 07/30/2016 Ga RUGGIERO MD Ot Z79.899 OTHER FORENSIC PSYCHIATRIST (CURRENT) DRUG THERAPY 07/30/2016 Ga RUGGIERO MD, Ot Z87.891 PERSONAL HISTORY OF NICOTINE DEPENDENCE 08/09/2016 Ot 786.2 COUGH 08/09/2016 MELINDA HANNA FACC, ALI FACP CCDS Ot I10 ESSENTIAL (PRIMARY) HYPERTENSION 08/09/2016 MELINDA HANNA FACC, ALI FACP CCDS Ot J44.1 CHRONIC OBSTRUCTIVE PULMONARY DISEASE W 08/09/2016 MELINDA HANNA FACC, ALI FACP CCDS Ot R06.02 SHORTNESS OF BREATH 08/09/2016 MELINDA HANNA [facility], [facility] Ot I10 ESSENTIAL (PRIMARY) HYPERTENSION 08/09/2016 MELINDA HANNA [facility] Ot R06.02 SHORTNESS OF BREATH 08/09/2016 ALYSHA WALLACE AYAH M Ot J44.1 CHRONIC OBSTRUCTIVE PULMONARY DISEASE W 08/09/2016 AYAH ENCARNACION DO M Ot J44.1 CHRONIC OBSTRUCTIVE PULMONARY DISEASE W 08/09/2016 ALYSHA DOAYAH M Ot J44.1 CHRONIC OBSTRUCTIVE PULMONARY DISEASE W 08/09/2016 BAIMA, LENARD L IRON CASTER Ot I10 ESSENTIAL (PRIMARY) HYPERTENSION 08/09/2016 BAIMA, LENARD L IRON CASTER Ot I73.9 PERIPHERAL VASCULAR DISEASE, UNSPECIFIED 08/09/2016 BAIMA, LENARD L IRON CASTER Ot J43.8 OTHER EMPHYSEMA 08/09/2016 BAIMA, LENARD L IRON CASTER Ot R06.02 SHORTNESS OF BREATH 08/09/2016 BAIMA, LENARD L IRON CASTER Ot I10 ESSENTIAL (PRIMARY) HYPERTENSION 08/09/2016 BAIMA LENARD L IRON CASTER Ot I73.9 PERIPHERAL VASCULAR DISEASE, UNSPECIFIED 08/09/2016 BAIMA, LENARD L IRON CASTER Ot J43.8 OTHER EMPHYSEMA 08/09/2016 DILLONMA, LENARD L IRON CASTER Ot R06.02 SHORTNESS OF BREATH 08/09/2016 DOMINGA BRADFORD MD Ot E86.0 DEHYDRATION 08/09/2016 DOMINGA BRADFORD MD Ot I10 ESSENTIAL (PRIMARY) HYPERTENSION 08/09/2016 DOMINGA BRADFORD MD Ot J44.9 CHRONIC OBSTRUCTIVE PULMONARY DISEASE, U 08/09/2016 DOMINGA BRADFORD MD Ot N39.0 URINARY TRACT INFECTION, SITE NOT SPECIF 08/09/2016 DOMINGA BRADFORD MD Ot R42 DIZZINESS AND GIDDINESS 08/09/2016 DOMINGA BRADFORD MD, Ot R50.9 FEVER, UNSPECIFIED 08/09/2016 DOMINGA BRADFORD MD Ot Z79.02 SKILLED NURSING (CURRENT) USE OF ANTITHROMBOTI 08/09/2016 DOMINGA BRADFORD MD Ot Z79.82 FORENSIC PSYCHIATRIST (CURRENT) USE OF ASPIRIN 08/09/2016 DOMINGA BRADFORD MD, Ot Z79.899 OTHER FORENSIC PSYCHIATRIST (CURRENT) DRUG THERAPY 08/09/2016 DOMINGA BRADFORD MD, Ot Z87.891 PERSONAL HISTORY OF NICOTINE DEPENDENCE 08/09/2016 DOMINGA BRADFORD MD Ot Z95.828 PRESENCE OF OTHER VASCULAR IMPLANTS AND 04/10/2017 LENARD KEARNS IRON CASTER Ot E78.4 OTHER HYPERLIPIDEMIA 04/10/2017 LENARD KEARNS IRON CASTER Ot I10 ESSENTIAL (PRIMARY) HYPERTENSION 04/10/2017 LENARD KEANRS IRON CASTER Ot J43.8 OTHER EMPHYSEMA 04/10/2017 LENARD KEARNS IRON CASTER Ot R06.09 OTHER FORMS OF DYSPNEA Procedures There is no data. Results Test Result Range Automated blood complete blood count (hemogram) panel - 06/13/16 10:32 Blood leukocytes automated count (number/volume) 9.1 10*3/uL 4.3-11.0 Blood erythrocytes automated count (number/volume) 5.04 10*6/uL 4.35-5.85 Venous blood hemoglobin measurement (mass/volume) 14.5 [...] Automated blood platelet mean volume measurement 9.9 [foz_us] 7.4-10.4 PT panel in platelet poor plasma [...] Serum or plasma sodium measurement (moles/volume) 140 mmol/L 135-145 Serum or plasma potassium measurement (moles/volume) 4.2 mmol/L 3.6-5.0 Serum or plasma chloride measurement (moles/volume) 105 mmol/L 98-107 Carbon dioxide 26 mmol/L 21-32 Serum or plasma anion gap determination (moles/volume) 9 mmol/L 5-14 Serum or plasma urea nitrogen measurement (mass/volume) 16 mg/dL 7-18 Serum or plasma creatinine measurement (mass/volume) 1.08 mg/dL 0.60-1.30 Serum or plasma urea nitrogen/creatinine mass [...] Serum or plasma cholesterol measurement (mass/volume) 228 mg/dL < 200 Serum or plasma cholesterol in HDL measurement (mass/volume) 45 mg/ dL 40-60 Cholesterol in LDL [mass/volume] in serum or plasma by direct assay 165 mg/dL 1-129 Serum or plasma cholesterol in VLDL measurement (mass/volume) 24 mg/ dL 5-40 Methicillin resistant Staphylococcus aureus (MRSA) screening culture - 10:33 Methicillin resistant Staphylococcus aureus (MRSA) screening culture NEG NRG Automated blood complete blood count (hemogram) panel - 06/22/16 07:21 Blood leukocytes automated count (number/volume) 9.1 10*3/uL 4.3-11.0 Blood erythrocytes automated count (number/volume) 5.01 10*6/uL 4.35-5.85 Venous blood hemoglobin measurement (mass/volume) 14.5 [...] Automated blood platelet mean volume measurement 9.6 [foz_us] 7.4-10.4 PT panel in platelet poor plasma [...] Serum or plasma sodium measurement (moles/volume) 141 mmol/L 135-145 Serum or plasma potassium measurement (moles/volume) 4.1 mmol/L 3.6-5.0 Serum or plasma chloride measurement (moles/volume) 105 mmol/L 98-107 Carbon dioxide 24 mmol/L 21-32 Serum or plasma anion gap determination (moles/volume) 12 mmol/L 5-14 Serum or plasma urea nitrogen measurement (mass/volume) 14 mg/dL 7-18 Serum or plasma creatinine measurement (mass/volume) 1.14 mg/dL 0.60-1.30 Serum or plasma urea nitrogen/creatinine mass [...] 03:40 Blood leukocytes automated count (number/volume) 11.0 10*3/uL 4.3-11.0 Blood erythrocytes automated count (number/volume) 4.48 10*6/uL 4.35-5.85 Venous blood hemoglobin measurement (mass/volume) 12.8 [...] Automated blood platelet mean volume measurement 9.9 [foz_us] 7.4-10.4 Whole blood basic metabolic panel - 06/23/16 03:40 Serum or plasma sodium measurement (moles/volume) 137 mmol/L 135-145 Serum or plasma potassium measurement (moles/volume) 4.4 mmol/L 3.6-5.0 Serum or plasma chloride measurement (moles/volume) 105 mmol/L 98-107 Carbon dioxide 21 mmol/L 21-32 Serum or plasma anion gap determination (moles/volume) 11 mmol/L 5-14 Serum or plasma urea nitrogen measurement (mass/volume) 13 mg/dL 7-18 Serum or plasma creatinine measurement (mass/volume) 0.86 mg/dL 0.60-1.30 Serum or plasma urea nitrogen/creatinine mass ratio 15 NRG Serum or plasma creatinine measurement with calculation of estimated glomerular filtration rate > NRG Serum or plasma glucose measurement (mass/volume) 103 mg/dL 70-105 Serum or plasma calcium measurement (mass/volume) 8.8 mg/dL 8.5-10.1 Automated blood complete blood count (hemogram) panel - 07/27/16 07:33 Blood leukocytes automated count (number/volume) 8.3 10*3/uL 4.3-11.0 Blood erythrocytes automated count (number/volume) 4.78 10*6/uL 4.35-5.85 Venous blood hemoglobin measurement (mass/volume) 13.7 [...] Automated blood platelet mean volume measurement 9.5 [foz_us] 7.4-10.4 PT panel in platelet poor plasma by coagulation assay - 07/27/16 07:33 Prothrombin time (PT) in platelet poor plasma by coagulation assay 12.8 s 12.2-14.7 INR in platelet poor plasma or blood by coagulation assay 1.0 0.8-1.4 Comprehensive metabolic panel - 07/27/16 07:33 Serum or plasma sodium measurement (moles/volume) 139 mmol/L 135-145 Serum or plasma potassium measurement (moles/volume) 4.0 mmol/L 3.6-5.0 Serum or plasma chloride measurement (moles/volume) 105 mmol/L 98-107 Carbon dioxide 27 mmol/L 21-32 Serum or plasma anion gap determination (moles/volume) 7 mmol/L 5-14 Serum or plasma urea nitrogen measurement (mass/volume) 16 mg/dL 7-18 Serum or plasma creatinine measurement (mass/volume) 1.06 mg/dL 0.60-1.30 Serum or plasma urea nitrogen/creatinine mass [...] 14:20 Blood leukocytes automated count (number/volume) 10.4 10*3/uL 4.3-11.0 Blood erythrocytes automated count (number/volume) 4.40 10*6/uL 4.35-5.85 Venous blood hemoglobin measurement (mass/volume) 12.4 [...] Automated blood platelet mean volume measurement 9.1 [foz_us] 7.4-10.4 Automated blood neutrophils/100 leukocytes 69 % [...] Serum or plasma sodium measurement (moles/volume) 138 mmol/L 135-145 Serum or plasma potassium measurement (moles/volume) 4.2 mmol/L 3.6-5.0 Serum or plasma chloride measurement (moles/volume) 104 mmol/L 98-107 Carbon dioxide 25 mmol/L 21-32 Serum or plasma anion gap determination (moles/volume) 9 mmol/L 5-14 Serum or plasma urea nitrogen measurement (mass/volume) 16 mg/dL 7-18 Serum or plasma creatinine measurement (mass/volume) 1.38 mg/dL 0.60-1.30 Serum or plasma urea nitrogen/creatinine mass [...] Urine pH measurement by test strip 6 5-9 Specific gravity of urine by test strip 1.025 1.016- 1.022 Urine protein assay by test strip, semi-quantitative [...] culture - 08/09/16 15:43 Bacterial urine culture [id number] NRG COLONY COUNT <10,000 NRG FTX;REPORTABLE SENSITIVITY REPORTED 08/11/16 8:00 NRG Bacterial susceptibility panel - 08/09/16 15:43 Gentamicin susceptibility test by minimum inhibitory concentration S NRG Vancomycin susceptibility test by minimum inhibitory concentration < = NRG Levofloxacin susceptibility test by minimum inhibitory concentration 0.5 NRG Tetracycline susceptibility test by minimum inhibitory concentration <= NRG Ampicillin susceptibility test by minimum inhibitory concentration < = NRG Nitrofurantoin susceptibility test by minimum inhibitory concentration <= NRG Linezolid susceptibility test by minimum inhibitory concentration 2 NRG Encounters ACCT No. Visit Date/Time Discharge Status Pt. Type Provider Facility Loc./Unit Complaint [id number] 03/20/2017 10:06:00 03/20/2017 23:59:59 CLS Outpatient LENARD KEARNS [facility] LAB R06.09, J43.8, I10, E78.4 [id number] 08/09/2016 14:18:00 08/09/2016 18:03:00 DIS Emergency DOMINGA BRADFORD MD [facility] ER LOW BP/DIZZINESS [id number] 07/27/2016 07:00:00 07/28/2016 11:00:00 DIS Outpatient Ga RUGGIERO MD [facility] CATH PVD,HTN,CLAUDICATION [id number] 06/22/2016 06:48:00 06/23/2016 11:15:00 DIS Outpatient Ga RUGGIERO MD [facility] CATH PERIPHERAL ANGIOGRAPHY, POSSIBLE PERIPHERAL STENT [id number] 06/13/2016 10:01:00 06/13/2016 16:15:00 DIS Outpatient MELINDA HANNA FACC, KISHA BANDA CCDS [facility] CATH PERIPHERAL ANGIOGRAPHY W POSSIBLE STENT [id number] 06/06/2016 12:06:00 06/06/2016 23:59:59 CLS Outpatient LENARD KEARNS Sandra LAURENT [facility] RAD HTN,SOB,CLAUDICATION, COPD [id number] 06/01/2016 10:07:00 06/01/2016 23:59:59 CLS Outpatient DILLONLENARD COREA Sandra LAURENT [facility] LAB SOB,COPD [id number] 09/20/2015 10:15:00 09/20/2015 23:59:59 CLS Preadmit AYAH ENCARNACION DO [facility] PULM COPD, SOA [id number] 06/21/2015 10:04:00 09/19/2015 00:01:00 DIS Outpatient AYAH ENCARNACION DO [facility] PULM COPD, SOA [id number] 07/07/2015 13:49:00 07/07/2015 23:59:59 CLS Outpatient AYAH ENCARNACION DO [facility] RT COPD,SOB [id number] 06/11/2015 11:09:00 06/11/2015 23:59:59 CLS Outpatient AYAH ENCARNACION DO [facility] RAD ACUTE COPD [id number] 05/06/2015 07:40:00 05/06/2015 23:59:59 CLS Outpatient KISHA LAWRENCE MD, FACC, FACP CCDS [facility] CARD HTN,SOA [id number] 03/24/2015 11:33:00 03/24/2015 23:59:59 CLS Outpatient MELINDA HANNA FACC ALI FACP CCDS [facility] CARD SOB,COPD,HTN [id number] 02/25/2015 18:11:00 02/26/2015 14:20:00 DIS Inpatient LYNNE HANNA, JOSE Majano [facility] CSD CHEST PAIN [id number] 01/04/2012 11:52:00 Document Registration [id number] 11/10/2009 11:56:00 Document Registration
[2017-04-28] MEDS ORDERED: RT-ALBUTEROL/IPRATROPIUM 3 ML (DUONEB) VIAL INH ONE (16:30)
--- NOTE | 2017-04-28 16:40 | ED Cough/URI ---
General Chief Complaint: Fever-Adult/Adol Stated Complaint: SOA Nursing Triage Note: C/O FLU LIKE SX TMES 2 DAYS- HAVING SOA Source: patient Exam Limitations: no limitations History of Present Illness Time seen by provider: 16:36 Initial Comments The patient is a 66-year-old white male who presents with a chief complaint of cough and fever and shortness of breath. He reports that 5 days ago or so he began to have a cough and flulike symptoms. Over the last 2-3 days he has had increasing symptoms with fever and diaphoresis and increasing shortness of breath. He was once a 3 pack a day smoker and quit about 10 years ago. Timing/Duration: week, getting worse Severity/Quality: moderate, severe, productive cough, sputum Prior Episodes/Possible Cause: occasional episodes Associated Symptoms: cough, lightheadedness, shortness of breath, wheezing Allergies and Home Medications Allergies Coded Allergies: NKANo Known Allergies (Verified Allergy, Unknown, 04/28/17) Home Medications Albuterol Sulfate 18 Gm Hfa.aer.ad, 2 PUFF IH Q6H PRN for SHORTNESS OF BREATH, ( Reported) Aspirin 81 Mg Tablet.dr, 81 MG PO DAILY, (Reported) Atorvastatin Calcium 20 Mg Tablet, 20 MG PO DAILY, (Reported) Budesonide/Formoterol Fumarate 10.2 Gm Hfa.aer.ad, 2 PUFF IH DAILY, (Reported) Cephalexin 500 Mg Tablet, 500 MG PO BID, #20 Ref 0 Prescribed by: DOMINGA BRADFORD on 08/09/16 174 Clopidogrel Bisulfate 75 Mg Tablet, 75 MG PO DAILY, (Reported) Enalapril Maleate 20 Mg Tablet, 20 MG PO DAILY, (Reported) LAST FILLED 02-03-16 #90 Hydrocodone/Acetaminophen 1 Each Tablet, 1 TAB PO Q8H PRN for PAIN, (Reported) Umeclidinium [place] 62.5 Mcg Blst.w.dev, 1 PUFF IH DAILY, (Reported) Constitutional: see HPI EENTM: hoarseness, nose congestion, throat pain Respiratory: dyspnea on exertion, phlegm, short of breath, wheezing Cardiovascular: no symptoms reported Gastrointestinal: no symptoms reported Genitourinary: no symptoms reported Musculoskeletal: no symptoms reported Skin: no symptoms reported Psychiatric/Neurological: No Symptoms Reported Hematologic/Lymphatic: No Symptoms Reported Immunological/Allergic: no symptoms reported Past Ktggctq-Uzkimo-Iwjfgy Hx Patient Social History Alcohol Use: Occasionally Uses Number of Drinks Today: AA Alcohol Beverage of Choice: Beer Recreational Drug Use: No Type Used: Cigarettes Former Smoker, Quit: Jun 22, 2002 Recent Foreign Travel: No Contact w/Someone Who Travel: No Recent Infectious Disease Expo: No Recent Hopitalizations: Yes (2 WEEKS AGO) Physical Abuse: No Sexual Abuse: No Mistreated: No Fear: No Immunizations Up To Date Tetanus Booster (TDap): More than 5yrs PED Vaccines UTD: Yes Date of Pneumonia Vaccine: Jan 21, 2015 Date of Influenza Vaccine: Jan 21, 2017 Surgeries History of Surgeries: Yes (FACIAL RECONSTRUCTION, STENTS) Surgeries: Orthopedic, Vascular Surgery Respiratory History of Respiratory Disorde: Yes Respiratory Disorders: COPD Currently Using CPAP: No Currently Using BIPAP: No Cardiovascular History of Cardiac Disorders: Yes Cardiac Disorders: Hypertension Neurological History of Neurological Disord: No Reproductive System Hx Reproductive Disorders: No Sexually Transmitted Disease: No HIV/AIDS: No Genitourinary Genitourinary Disorders: Kidney Stones Gastrointestinal History of Gastrointestinal Di: Yes Gastrointestinal Disorders: Gastroesophageal Reflux Musculoskeletal History of Musculoskeletal Dis: Yes Musculoskeletal Disorders: Arthritis Endocrine History of Endocrine Disorders: No Cancer History of Cancer: No Psychosocial History of Psychiatric Problem: No Suicide Risk Score: 0 Integumentary History of Skin or Integumenta: No Blood Transfusions History of Blood Disorders: No Adverse Reaction to a Blood Tr: No Family Medical History Significant Family History: No Pertinent Family Hx Family Medial History: Patient reports no known family medical history. Physical Exam Vital Signs Vital Sign - Last 12Hours 04/28/17 16:20 Pulse 91 Resp 18 B/P (MAP) 20/5 (10) Pulse Ox 98 O2 Delivery Nasal Cannula O2 Flow Rate 4.00 Capillary Refill : Less Than 3 Seconds General Appearance: moderate distress Eyes: Bilateral Eye Normal Inspection HEENT: normal ENT inspection Neck: full range of motion Respiratory: decreased breath sounds, accessory muscle use, wheezing, expiration Cardiovascular: normal peripheral pulses, regular rate, rhythm, no edema, no gallop, no JVD, no murmur Gastrointestinal: normal bowel sounds, non tender, soft, no organomegaly, no pulsatile mass Extremities: normal range of motion, non-tender, normal inspection, no pedal edema, no calf tenderness, normal capillary refill, pelvis stable 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, no motor/sensory deficits, alert, normal mood/affect, oriented x 3 Skin: normal color, warm/dry, cyanosis, cool, diaphoresis, damp Lymphatic: no adenopathy, axilla node tender (R), axilla node tender (L), inguinal node tender (R), inguinal node tender (L) Progress/Results/Core Measures Suspected Sepsis Recent Fever Within 48 Hours: No Infection Criteria Present: Suspected New Infection New/Unexplained Altered Menta: No Sepsis Screen: No Definite Risk Sepsis Diagnosis: SIRS Temperature: Pulse: 91 Respiratory Rate: 18 Laboratory Tests 04/28/17 16:50: White Blood Count 13.9H Blood Pressure 20 /5 Mean: 10 Laboratory Tests 04/28/17 16:50: Creatinine 0.88, Platelet Count 220, Total Bilirubin 0.9 Results/Orders Lab Results Laboratory Tests Test 04/28/17 16:50 Range/Units White Blood Count 13.9 H 4.3-11.0 10^3/uL Red Blood Count 4.49 4.35-5.85 10^6/uL Hemoglobin 13.2 L 13.3-17.7 G/DL Hematocrit 40 40-54 % Mean Corpuscular Volume 88 80-99 FL Mean Corpuscular Hemoglobin 29 25-34 PG Mean Corpuscular Hemoglobin Concent 33 32-36 G/DL Red Cell Distribution Width 14.5 10.0-14.5 % Platelet Count 220 130-400 10^3/uL Mean Platelet Volume 9.3 7.4-10.4 FL Neutrophils (%) (Auto) 83 H 42-75 % Lymphocytes (%) (Auto) 8 L 12-44 % Monocytes (%) (Auto) 8 0-12 % Eosinophils (%) (Auto) 1 0-10 % Basophils (%) (Auto) 0 0-10 % Neutrophils # (Auto) 11.5 H 1.8-7.8 X 10^3 Lymphocytes # (Auto) 1.1 1.0-4.0 X 10^3 Monocytes # (Auto) 1.1 H 0.0-1.0 X 10^3 Eosinophils # (Auto) 0.1 0.0-0.3 10^3/uL Basophils # (Auto) 0.0 0.0-0.1 10^3/uL Sodium Level 138 135-145 MMOL/L Potassium Level 4.2 3.6-5.0 MMOL/L Chloride Level 102 98-107 MMOL/L Carbon Dioxide Level 25 21-32 MMOL/L Anion Gap 11 5-14 MMOL/L Blood Urea Nitrogen 13 7-18 MG/DL Creatinine 0.88 0.60-1.30 MG/DL Estimat Glomerular Filtration Rate > 60 BUN/Creatinine Ratio 15 Glucose Level 99 70-105 MG/DL Calcium Level 8.8 8.5-10.1 MG/DL Total Bilirubin 0.9 0.1-1.0 MG/DL Aspartate Amino Transf (AST/SGOT) 25 5-34 U/L Alanine Aminotransferase (ALT/SGPT) 32 0-55 U/L Alkaline Phosphatase 68 40-136 U/L Total Protein 7.1 6.4-8.2 GM/DL Albumin 4.0 3.2-4.5 GM/DL My Orders Orders - MARYSE FULLER MD Svn Volume Nebulizer Rt-Rfs (04/28/17 16:23) Cbc With Automated Diff (04/28/17 16:24) Comprehensive Metabolic Panel (04/28/17 16:24) Chest 1 View, Ap/Pa Only (04/28/17 16:24) Albuterol/Ipra Inhalation Soln (Duoneb I (04/28/17 16:30) Svn Volume Nebulizer Rt-Rfs (04/28/17 16:24) Medications Given in ED Current Medications Medications Dose Ordered Sig/Padma Route Start Time Stop Time Status Last Admin Dose Admin Albuterol/ Ipratropium 3 ml ONCE ONCE INH 04/28/17 16:30 04/28/17 16:31 DC 04/28/17 16:39 3 ML Vital Signs/I&O Vital Sign - Last 12Hours 04/28/17 04/28/17 16:20 16:40 Pulse 91 Resp 18 B/P (MAP) 20/5 (10) Pulse Ox 98 97 O2 Delivery Nasal Cannula Nasal Cannula O2 Flow Rate 4.00 4.00 Capillary Refill : Less Than 3 Seconds Blood Pressure Mean: 10 Departure Communication (Admissions) Progress Notes Chest x-ray showed no acute processes. Blood studies were negative. The patient reports that he was improved with aerosol treatment. He has a very old that will inhaler and no other rescue appliance. Impression Impression: Primary Impression: Upper respiratory infection Additional Impression: COPD Disposition: HOME, SELF-CARE Condition: Improved Departure-Patient Inst. Decision time for Depature: 17:29 Referrals: JOSE BATISTA MD (PCP/Family) Primary Care Physician Patient Instructions: Fever, Adult (DC) Add. Discharge Instructions: All discharge instructions reviewed with patient and/or family. Voiced understanding. Continue present meds. He will need a new MDI Scripts Prednisone (Prednisone) 20 Mg Tab 20 MG PO DAILY, #11 TAB Take 3 tabs(60mg)daily, decrease by 1/2 tab(10mg)daily. Prov: MARYSE FULLER MD 04/28/17 Albuterol Sulfate (Ventolin Hfa) 18 Gm Hfa.aer.ad 2 PUFF IH 4 times a day, #18 GM Prov: MARYSE FULLER MD 04/28/17 MARYSE FULLER MD Apr 28, 2017 16:40
--- NOTE | 2017-04-28 16:50 | Diagnostic Imaging Report ---
PATIENT HISTORY: Shortness of air, chills, cough. TECHNIQUE: Single frontal view of the chest COMPARISON: 08/09/2016 FINDINGS: The lung volumes are normal. No focal consolidation is seen. No large pleural effusion or pneumothorax is seen. The cardiomediastinal silhouette is normal in size and contour. No acute osseous abnormality is seen. IMPRESSION: No acute pulmonary abnormality seen. Dictated by: Dictated on workstation # [id number]
[2017-04-28 16:54] LABS: BASOPHILS % (AUTO) 0 % (0-10); EOSINOPHILS # (AUTO) 0.1 10^3/uL (0.0-0.3); EOSINOPHILS % (AUTO) 1 % (0-10); HEMATOCRIT 40 % (40-54); HEMOGLOBIN 13.2 G/DL (13.3-17.7); LYMPHOCYTES # (AUTO) 1.1 X 10^3 (1.0-4.0); LYMPHOCYTES % (AUTO) 8 % (12-44); MEAN CORPUSCULAR HEMOGLOBIN 29 PG (25-34); MEAN CORPUSCULAR HGB CONC 33 G/DL (32-36); MEAN CORPUSCULAR VOLUME 88 FL (80-99); MEAN PLATELET VOLUME 9.3 FL (7.4-10.4); MONOCYTES # (AUTO) 1.1 X 10^3 (0.0-1.0); MONOCYTES % (AUTO) 8 % (0-12); NEUTROPHILS # (AUTO) 11.5 X 10^3 (1.8-7.8); NEUTROPHILS % (AUTO) 83 % (42-75); PLATELET COUNT 220 10^3/uL (130-400); RED BLOOD COUNT 4.49 10^6/uL (4.35-5.85); RED CELL DISTRIBUTION WIDTH 14.5 % (10.0-14.5); WHITE BLOOD COUNT 13.9 10^3/uL (4.3-11.0)
[2017-04-28 17:15] LABS: ALANINE AMINOTRANSFERASE 32 U/L (0-55); ALKALINE PHOSPHATASE 68 U/L (40-136); BILIRUBIN,TOTAL 0.9 MG/DL (0.1-1.0); BUN/CREATININE RATIO 15; CALCIUM 8.8 MG/DL (8.5-10.1); CARBON DIOXIDE 25 MMOL/L (21-32); CHLORIDE 102 MMOL/L (98-107); CREATININE SERUM 0.88 MG/DL (0.60-1.30); GFR ESTIMATED > 60; GLUCOSE 99 MG/DL (70-105); POTASSIUM 4.2 MMOL/L (3.6-5.0); SODIUM 138 MMOL/L (135-145); TOTAL PROTEIN 7.1 GM/DL (6.4-8.2)
[2017-04-28] MEDS ORDERED: ALBU18HF2 IH (17:31)
[2017-04-28] MEDS ORDERED: PRD20T PO (17:33)
[2017-04-28] MEDS ORDERED: methylPREDNISolone 125 MG (Solu-MEDROL) VIAL ONE (17:38)
[2017-04-28 17:42] VITALS: BP 167/97
[2017-04-28] MEDS ORDERED: methylPREDNISolone 125 MG (Solu-MEDROL) VIAL IVP ONE (17:45)
== END 2017-04-28 17:48 | disposition home or self-care (01) ==
LOC: EDUNIT# 16:15 → ER 16:16
DX: J06.9 Acute upper respiratory infection, unspecified (principal); J44.9 Chronic obstructive pulmonary disease, unspecified; K21.9 Gastro-esophageal reflux disease without esophagitis; I10 Essential (primary) hypertension; Z87.442 Personal history of urinary calculi; Z87.891 Personal history of nicotine dependence; Z79.82 Long term (current) use of aspirin
CPT/HCPCS: 36415; 71045; 80053; 85025; 94640

== ENCOUNTER → 2017-06-14 | Outpatient (CLI) | payer MEDICARE ==
[~2017-06-14] VITALS: Ht 170.2 cm; Wt 89.4 kg
[~2017-06-14] MED LIST changes: +ALBU18HF2 IH; +CATHETER FLUSH 10 ML SYR IV PRN; +DEXA4TAB PO; +DOXY100T2 PO; +IPRA3AMP INH; +LORA0.5T PO; +PRD20T PO; +REGADENOSON 0.4 MG/5 ML SYR (LEXISCAN) IV ONE
[2017-06-14 08:59] VITALS: BP 124/71
[2017-06-14 09:12] VITALS: BP 116/62
--- NOTE | 2017-06-14 13:37 | STRESS TEST ---
DATE OF SERVICE: 06/14/2017 PROCEDURE PERFORMED: Resting and post regadenoson technetium-99m Tetrofosmin SPECT CT imaging. ORDERING PHYSICIAN: MEHRAN Del Real. PRIMARY PHYSICIAN: Dr. Aemzcua. OTHER PHYSICIAN: Russ Yun MD, MA, FACP, FACC. CLINICAL DIAGNOSES: Shortness of breath, hypertension, hyperlipidemia. DESCRIPTION OF PROCEDURE: Baseline images were carried out after injection of 10.71 mCi of technetium-99m Tetrofosmin. This was followed by 0.4 mg regadenoson and 30 mCi of technetium-99m Tetrofosmin for stress imaging. The electrocardiogram showed sinus rhythm at baseline and it did not change significantly with the regadenoson infusion. Following regadenoson infusion, he reported some nausea which resolved in a few minutes. Review of images at rest and following stress does not indicate any significant perfusion defects consistent with significant myocardial ischemia or infarction. Gated images show normal global left ventricular systolic function with normal regional wall motion. Left ventricular ejection fraction is calculated to be 79%. Left ventricular end diastolic volume is 29 mL. TID is absent (1.05). CONCLUSIONS: 1. No evidence of any significant myocardial ischemia or infarction on this study. 2. Normal regional wall motion. 3. Normal to hyperdynamic left ventricular systolic function with left ventricular ejection fraction of 79%. Job ID: [id number] DocumentID: [id number] Dictated Date: 06/14/2017 13:07:28 Electronic Components Assembler Date: 06/14/2017 13:36:24 Dictated By: RUSS YUN MD, MA, FACP, FACC,
== END ==
LOC: CARD 07:10
PROVIDERS: ATTEND Nurse Practitioner Family
DX: I10 Essential (primary) hypertension (principal); E78.4 Other hyperlipidemia; R06.09 Other forms of dyspnea
CPT/HCPCS: 78452; 93017

== ENCOUNTER → 2017-06-21 | Outpatient (CLI) | payer MEDICARE ==
[~2017-06-21] MED LIST changes: -CATHETER FLUSH 10 ML SYR IV PRN; -REGADENOSON 0.4 MG/5 ML SYR (LEXISCAN) IV ONE
[2017-06-21 09:28] LABS: BASOPHILS % (AUTO) 0 % (0-10); EOSINOPHILS # (AUTO) 0.2 10^3/uL (0.0-0.3); EOSINOPHILS % (AUTO) 2 % (0-10); HEMATOCRIT 43 % (40-54); HEMOGLOBIN 13.8 G/DL (13.3-17.7); LYMPHOCYTES # (AUTO) 1.9 X 10^3 (1.0-4.0); LYMPHOCYTES % (AUTO) 21 % (12-44); MEAN CORPUSCULAR HEMOGLOBIN 29 PG (25-34); MEAN CORPUSCULAR HGB CONC 32 G/DL (32-36); MEAN CORPUSCULAR VOLUME 92 FL (80-99); MEAN PLATELET VOLUME 9.5 FL (7.4-10.4); MONOCYTES # (AUTO) 0.8 X 10^3 (0.0-1.0); MONOCYTES % (AUTO) 9 % (0-12); NEUTROPHILS # (AUTO) 6.1 X 10^3 (1.8-7.8); NEUTROPHILS % (AUTO) 68 % (42-75); PLATELET COUNT 237 10^3/uL (130-400); RED BLOOD COUNT 4.71 10^6/uL (4.35-5.85); RED CELL DISTRIBUTION WIDTH 14.7 % (10.0-14.5)
[2017-06-21 09:51] LABS: ALANINE AMINOTRANSFERASE 30 U/L (0-55); ALBUMIN 4.3 GM/DL (3.2-4.5); ALKALINE PHOSPHATASE 69 U/L (40-136); BILIRUBIN,TOTAL 0.6 MG/DL (0.1-1.0); BUN/CREATININE RATIO 23; CALCIUM 9.4 MG/DL (8.5-10.1); CARBON DIOXIDE 23 MMOL/L (21-32); CHLORIDE 102 MMOL/L (98-107); GFR ESTIMATED > 60; GLUCOSE 105 MG/DL (70-105); POTASSIUM 4.2 MMOL/L (3.6-5.0); SODIUM 138 MMOL/L (135-145); TOTAL PROTEIN 7.3 GM/DL (6.4-8.2)
== END ==
LOC: LAB 09:10
PROVIDERS: ATTEND Nurse Practitioner Family
DX: I10 Essential (primary) hypertension (principal); R06.09 Other forms of dyspnea; R25.2 Cramp and spasm
CPT/HCPCS: 36415; 80053; 84443; 85025

== ENCOUNTER → 2017-06-27 | Outpatient (CLI) | payer MEDICARE | LOC: CARD 11:32 | PROVIDERS: ATTEND Nurse Practitioner Family | DX: I10 Essential (primary) hypertension (principal); E78.5 Hyperlipidemia, unspecified; R06.09 Other forms of dyspnea | CPT/HCPCS: 93306 ==

== ENCOUNTER 2017-07-03 09:56 | Day surgery (SDC) | payer MEDICARE ==
[~2017-07-03] VITALS: Ht 170.2 cm; Wt 89.4 kg
[2017-07-03] VITALS (11 sets, daily range): BP systolic 110–143; BP diastolic 71–81
--- OUTSIDE RECORDS SUMMARY | 2017-07-03 10:02 | XMS REPORT | Continuity of Care Document ---
Author Author [facility] Organization [facility] Address Unknown Phone Unavailable Allergies Active Description Code Type Severity Reaction Onset Reported/Identified Relationship to Patient Clinical Status Yes NKANo Known Allergies NKA Miscellaneous Allergy Unknown N/A 04/28/2017 Medications There is no data. Problems Date [...] (PRIMARY) HYPERTENSION 06/01/2016 MELINDA HANNA FACC, [facility] Ot J44.1 CHRONIC OBSTRUCTIVE PULMONARY DISEASE W 06/01/2016 M[facility]IN[facility] HAN[facility] Ot R06.02 SHORTNESS OF BREATH [...] PULMONARY DISEASE W 06/06/2016 [facility] ADMINISTRATOR Ot I73.9 PERIPHERAL VASCULAR DISEASE, UNSPECIFIED 06/07/2016 BAIMA [facility] ADMINISTRATOR Ot I10 ESSENTIAL (PRIMARY) HYPERTENSION 06/07/2016 [facility] ADMINISTRATOR Ot I73.9 PERIPHERAL VASCULAR DISEASE, UNSPECIFIED 06/07/2016 [facility] ADMINISTRATOR Ot J43.8 OTHER EMPHYSEMA 06/07/2016 [facility] ADMINISTRATOR Ot R06.02 SHORTNESS OF BREATH 06/07/2016 BAIMA, [facility] ADMINISTRATOR Ot I73.9 PERIPHERAL VASCULAR DISEASE, UNSPECIFIED 06/07/2016 [facility]ARD [facility] ADMINISTRATOR Ot I10 ESSENTIAL (PRIMARY) HYPERTENSION 06/07/2016 [facility] ADMINISTRATOR Ot I73.9 PERIPHERAL VASCULAR DISEASE, UNSPECIFIED 06/07/2016 [facility] ADMINISTRATOR Ot J43.8 OTHER EMPHYSEMA 06/07/2016 [facility]ANIA [facility] ADMINISTRATOR Ot R06.02 SHORTNESS OF BREATH 06/13/2016 MELINDA HANNA FACC, ALI FACP CCDS Ot H91.90 UNSPECIFIED HEARING LOSS, UNSPECIFIED EA 06/13/2016 MELNIDA HANNA FACC, ALI FACP CCDS Ot I10 ESSENTIAL (PRIMARY) HYPERTENSION 06/13/2016 MELINDA HANNA FACC, ALI FACP CCDS Ot 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 [facility] 06/13/2016 MELINDA HANNA FACC, ALI FACP CCDS Ot 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 06/13/2016 MELINDA HANNA [facility], ALI FACP CCDS Ot J44.9 CHRONIC OBSTRUCTIVE PULMONARY DISEASE, U 06/13/2016 MELINDA HANNA FAC, ALI FACP CCDS Ot Z79.899 OTHER HALF-WAY (CURRENT) DRUG THERAPY 06/13/2016 MELINDA HANNA [facility], ALI FACP CCDS Ot Z87.891 PERSONAL HISTORY OF NICOTINE DEPENDENCE 06/22/2016 [facility] ADMINISTRATOR Ot I10 ESSENTIAL (PRIMARY) HYPERTENSION 06/22/2016 [facility] ADMINISTRATOR Ot I73.9 PERIPHERAL VASCULAR DISEASE, UNSPECIFIED 06/22/2016 [facility] ADMINISTRATOR Ot J43.8 OTHER EMPHYSEMA 06/22/2016 [facility] ADMINISTRATOR Ot R06.02 SHORTNESS OF BREATH 06/23/2016 Ga RUGGIERO MD Ot I10 ESSENTIAL (PRIMARY) HYPERTENSION 06/23/2016 Ga RUGGIERO MD Ot 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 06/23/2016 Ga RUGGIERO MD Ot 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 06/23/2016 Ga RUGGIERO MD Ot J44.9 CHRONIC OBSTRUCTIVE PULMONARY DISEASE, U 06/23/2016 Ga RUGGIERO MD Ot 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 06/23/2016 Ga RUGGIERO MD Ot Z87.891 PERSONAL HISTORY OF NICOTINE DEPENDENCE 07/03/2016 MELINDA HANNA FACC, ALI FACP CCDS Ot H91.90 UNSPECIFIED HEARING LOSS, UNSPECIFIED EA 07/03/2016 MELINDA HANNA FACC, ALI FACP CCDS Ot I10 ESSENTIAL (PRIMARY) HYPERTENSION 07/03/2016 MELINDA HNANA FACC, ALI FACP CCDS Ot 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 07/03/2016 MELINDA HANNA FACC, ALI FACP CCDS Ot 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 07/03/2016 MELINDA TILLMANC, ALI FACP CCDS Ot J44.9 CHRONIC OBSTRUCTIVE PULMONARY DISEASE, U 07/03/2016 MELINDA TILLMANC, ALI FACP CCDS Ot 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 07/03/2016 MELINDA HANNA FACC, ALI FACP CCDS Ot Z87.891 PERSONAL HISTORY OF NICOTINE DEPENDENCE 07/03/2016 MELINDA HANNA FACC, ALI FACP CCDS Ot H91.90 UNSPECIFIED HEARING LOSS, UNSPECIFIED EA 07/03/2016 MELINDA TILLMANC, ALI FACP CCDS Ot I10 ESSENTIAL (PRIMARY) HYPERTENSION 07/03/2016 MELINDA HANNA FACC, ALI FACP CCDS Ot 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 07/03/2016 MELINDA TILLMANC, ALI FACP CCDS Ot 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 07/03/2016 MELINDA TILLMANC, ALI FACP CCDS Ot J44.9 CHRONIC OBSTRUCTIVE PULMONARY DISEASE, U 07/03/2016 MELINDA TILLMANC, ALI FACP CCDS Ot Z79.899 OTHER HALF-WAY (CURRENT) DRUG THERAPY 07/03/2016 MELINDA HANNA FACC, ALI FACP CCDS Ot Z87.891 PERSONAL HISTORY OF NICOTINE DEPENDENCE 07/13/2016 Ga RUGGIERO MD Ot I10 ESSENTIAL (PRIMARY) HYPERTENSION 07/13/2016 Ga RUGGIERO MD Ot 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 07/13/2016 Ga RUGGIERO MD Ot 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 07/13/2016 Ga RUGGIERO MD Ot J44.9 CHRONIC OBSTRUCTIVE PULMONARY DISEASE, U 07/13/2016 aG RUGGIERO MD Ot Z79.899 OTHER HALF-WAY (CURRENT) DRUG THERAPY 07/13/2016 Ga RUGGIERO MD Ot Z87.891 PERSONAL HISTORY OF NICOTINE DEPENDENCE 07/28/2016 Ga RUGGIERO MD Ot I10 ESSENTIAL (PRIMARY) HYPERTENSION 07/28/2016 Ga RUGGIERO MD Ot 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 07/28/2016 Ga RUGGIERO MD, Ot J44.9 CHRONIC OBSTRUCTIVE PULMONARY DISEASE, U 07/28/2016 Ga RUGGIERO MD Ot Z79.899 OTHER HALF-WAY (CURRENT) DRUG THERAPY 07/28/2016 Ga RUGGIERO MD, Ot Z87.891 PERSONAL HISTORY OF NICOTINE DEPENDENCE 07/28/2016 Ga RUGGIERO MD Ot Z95.820 PERIPHERAL VASCULAR ANGIOPLASTY STATUS W 07/30/2016 Ga RUGGIERO MD Ot I10 ESSENTIAL (PRIMARY) HYPERTENSION 07/30/2016 Ga RUGGIERO MD Ot 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 07/30/2016 Ga RUGGIERO MD Ot 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 07/30/2016 Ga RUGGIERO MD Ot J44.9 CHRONIC OBSTRUCTIVE PULMONARY DISEASE, U 07/30/2016 Ga RUGGIERO MD Ot 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 07/30/2016 Ga RUGGIERO MD, Ot Z87.891 PERSONAL HISTORY OF NICOTINE DEPENDENCE 08/09/2016 Ot 786.2 COUGH 08/09/2016 MELINDA HANNA FACC, ALI FACP CCDS Ot I10 ESSENTIAL (PRIMARY) HYPERTENSION 08/09/2016 MELINDA HANNA FACC, ALI FACP CCDS Ot J44.1 CHRONIC OBSTRUCTIVE PULMONARY DISEASE W 08/09/2016 MELINDA HANNA FACC, ALI FACP CCDS Ot R06.02 SHORTNESS OF BREATH 08/09/2016 MELINDA HANNA [facility], [facility]I [facility] CCD[facility] Ot I10 ESSENTIAL (PRIMARY) HYPERTENSION 08/09/2016 MELINDA HANNA [facility] CCD[facility] Ot R06.02 SHORTNESS OF BREATH 08/09/2016 ALYSHA WALLACE AYAH M Ot J44.1 CHRONIC OBSTRUCTIVE PULMONARY DISEASE W 08/09/2016 AYAH ENCARNACION DO M Ot J44.1 CHRONIC OBSTRUCTIVE PULMONARY DISEASE W 08/09/2016 ALYSHA DOAYAH M Ot J44.1 CHRONIC OBSTRUCTIVE PULMONARY DISEASE W 08/09/2016 BAIMA, [facility] ADMINISTRATOR Ot I10 ESSENTIAL (PRIMARY) HYPERTENSION 08/09/2016 BAIMA, [facility] ADMINISTRATOR Ot I73.9 PERIPHERAL VASCULAR DISEASE, UNSPECIFIED 08/09/2016 BAIMA, [facility] ADMINISTRATOR Ot J43.8 OTHER EMPHYSEMA 08/09/2016 BAIMA, [facility] ADMINISTRATOR Ot R06.02 SHORTNESS OF BREATH 08/09/2016 BAIMA, [facility] ADMINISTRATOR Ot I10 ESSENTIAL (PRIMARY) HYPERTENSION 08/09/2016 BAIMA [facility] ADMINISTRATOR Ot I73.9 PERIPHERAL VASCULAR DISEASE, UNSPECIFIED 08/09/2016 BAIMA, [facility] ADMINISTRATOR Ot J43.8 OTHER EMPHYSEMA 08/09/2016 DILLONMA, [facility] ADMINISTRATOR Ot R06.02 SHORTNESS OF BREATH 08/09/2016 DOMINGA [...] UNSPECIFIED 08/09/2016 DOMINGA BRADFORD MD Ot Z79.02 HALF-WAY (CURRENT) USE OF ANTITHROMBOTI 08/09/2016 DOMINGA BRADFORD MD Ot 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 08/09/2016 DOMINGA BRADFORD MD, Ot 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 08/09/2016 DOMINGA BRADFORD MD, Ot Z87.891 PERSONAL HISTORY OF NICOTINE DEPENDENCE 08/09/2016 DOMINGA BRADFORD MD Ot Z95.828 PRESENCE OF OTHER VASCULAR IMPLANTS AND 04/10/2017 [facility]ARD [facility] ADMINISTRATOR Ot E78.4 OTHER HYPERLIPIDEMIA 04/10/2017 BAIMA [facility] ADMINISTRATOR Ot I10 ESSENTIAL (PRIMARY) HYPERTENSION 04/10/2017 BAIMA [facility] ADMINISTRATOR Ot J43.8 OTHER EMPHYSEMA 04/10/2017 BAIMA [facility] ADMINISTRATOR Ot R06.09 OTHER FORMS OF DYSPNEA 04/28/2017 AYAH ENCARNACION DO Ot J44.1 CHRONIC OBSTRUCTIVE PULMONARY DISEASE W 04/28/2017 MARYSE FULLER MD Ot I10 ESSENTIAL (PRIMARY) HYPERTENSION 04/28/2017 MARYSE FULLER MD Ot J06.9 ACUTE UPPER RESPIRATORY INFECTION, UNSPE 04/28/2017 MARYSE FULLER MD Ot J44.9 CHRONIC OBSTRUCTIVE PULMONARY DISEASE, U 04/28/2017 MARYSE FULLER MD Ot K21.9 GASTRO-ESOPHAGEAL REFLUX DISEASE WITHOUT 04/28/2017 MARYSE FULLER MD Ot R05 COUGH 04/28/2017 MARYSE FULLER MD Ot Z79.82 HALF-WAY (CURRENT) USE OF ASPIRIN 04/28/2017 MARYSE FULLER MD Ot Z87.442 PERSONAL HISTORY OF URINARY CALCULI 04/28/2017 MARYSE FULLER MD Ot Z87.891 PERSONAL HISTORY OF NICOTINE DEPENDENCE 04/28/2017 Ot 786.2 COUGH 04/28/2017 MELINDA HANNA FACC, KISHA FACP CCDS Ot I10 ESSENTIAL (PRIMARY) HYPERTENSION 04/28/2017 MELINDA HANNA FACC, KISHA FACP CCDS Ot J44.1 CHRONIC OBSTRUCTIVE PULMONARY DISEASE W 04/28/2017 MELINDA HANNA FACC, KISHA FACP CCDS Ot R06.02 SHORTNESS OF BREATH 04/28/2017 MELINDA HANNA FACC, ALI FACP CCDS Ot I10 ESSENTIAL (PRIMARY) HYPERTENSION 04/28/2017 MELINDA HANNA FACC, KISHA FACP CCDS Ot R06.02 SHORTNESS OF BREATH 04/28/2017 AYAH ENCARNACION DO Ot J44.1 CHRONIC OBSTRUCTIVE PULMONARY DISEASE W 04/28/2017 AYAH ENCARNACION DO Ot J44.1 CHRONIC OBSTRUCTIVE PULMONARY DISEASE W 04/28/2017 AYAH ENCARNACION DO Ot J44.1 CHRONIC OBSTRUCTIVE PULMONARY DISEASE W 04/28/2017 BAIMA, [facility] ADMINISTRATOR Ot I10 ESSENTIAL (PRIMARY) HYPERTENSION 04/28/2017 BAIMA, [facility] ADMINISTRATOR Ot I73.9 PERIPHERAL VASCULAR DISEASE, UNSPECIFIED 04/28/2017 BAIMA, [facility] ADMINISTRATOR Ot J43.8 OTHER EMPHYSEMA 04/28/2017 BAIMA, [facility] ADMINISTRATOR Ot R06.02 SHORTNESS OF BREATH 04/28/2017 BAIMA, [facility] ADMINISTRATOR Ot I10 ESSENTIAL (PRIMARY) HYPERTENSION 04/28/2017 BAIMA, [facility] ADMINISTRATOR Ot I73.9 PERIPHERAL VASCULAR DISEASE, UNSPECIFIED 04/28/2017 BAIMA, [facility] ADMINISTRATOR Ot J43.8 OTHER EMPHYSEMA 04/28/2017 BAIMA, [facility] ADMINISTRATOR Ot R06.02 SHORTNESS OF BREATH 04/28/2017 BAIMA, [facility] ADMINISTRATOR Ot E78.4 OTHER HYPERLIPIDEMIA 04/28/2017 BAIMA, [facility] ADMINISTRATOR Ot I10 ESSENTIAL (PRIMARY) HYPERTENSION 04/28/2017 BAIMA, [facility] ADMINISTRATOR Ot J43.8 OTHER EMPHYSEMA 04/28/2017 BAIMA, [facility] ADMINISTRATOR Ot R06.09 OTHER FORMS OF DYSPNEA 05/01/2017 ANDREY ESCAMILLA MD, Ot A41.9 SEPSIS, UNSPECIFIED ORGANISM 05/01/2017 ANDREY ESCAMILLA MD, Ot I10 ESSENTIAL (PRIMARY) HYPERTENSION 05/01/2017 ANDREY ESCAMILLA MD, Ot J18.9 PNEUMONIA, UNSPECIFIED ORGANISM 05/01/2017 ANDREY ESCAMILLA MD, Ot J44.0 CHRONIC OBSTRUCTIVE PULMON DISEASE W [facility] 05/01/2017 ANDREY ESCAMILLA MD, Ot J44.1 CHRONIC OBSTRUCTIVE PULMONARY DISEASE W 05/01/2017 ANDREY ESCAMILLA MD, Ot K21.9 GASTRO-ESOPHAGEAL REFLUX DISEASE WITHOUT 05/01/2017 ANDREY ESCAMILLA MD, Ot M19.91 PRIMARY OSTEOARTHRITIS, UNSPECIFIED SITE 05/01/2017 ANDREY ESCAMILLA MD, Ot Z87.442 PERSONAL HISTORY OF URINARY CALCULI 05/02/2017 ANDREY ESCAMILLA MD, Ot A41.9 SEPSIS, UNSPECIFIED ORGANISM 05/02/2017 ANDREY ESCAMILLA MD Ot I10 ESSENTIAL (PRIMARY) HYPERTENSION 05/02/2017 ANDREY ESCAMILLA MD Ot J18.9 PNEUMONIA, UNSPECIFIED ORGANISM 05/02/2017 ANDREY ESCAMILLA MD Ot J44.0 CHRONIC OBSTRUCTIVE PULMON DISEASE W [facility] 05/02/2017 ANDREY ESCAMILLA MD Ot J44.1 CHRONIC OBSTRUCTIVE PULMONARY DISEASE W 05/02/2017 ANDREY ESCAMILLA MD Ot K21.9 GASTRO-ESOPHAGEAL REFLUX DISEASE WITHOUT 05/02/2017 ANDREY ESCAMILLA MD Ot M19.91 PRIMARY OSTEOARTHRITIS, UNSPECIFIED SITE 05/02/2017 ANDREY ESCAMILLA MD Ot Z87.442 PERSONAL HISTORY OF URINARY CALCULI 05/02/2017 ANDREY ESCAMILLA MD Ot A41.9 SEPSIS, UNSPECIFIED ORGANISM 05/02/2017 ANDREY ESCAMILLA MD Ot I10 ESSENTIAL (PRIMARY) HYPERTENSION 05/02/2017 ANDREY ESCAMILLA MD Ot J18.9 PNEUMONIA, UNSPECIFIED ORGANISM 05/02/2017 ANDREY ESCAMILLA MD Ot J44.0 CHRONIC OBSTRUCTIVE PULMON DISEASE W [facility] 05/02/2017 ANDREY ESCAMILLA MD Ot J44.1 CHRONIC OBSTRUCTIVE PULMONARY DISEASE W 05/02/2017 ANDREY ESCAMILLA MD Ot K21.9 GASTRO-ESOPHAGEAL REFLUX DISEASE WITHOUT 05/02/2017 ANDREY ESCAMILLA MD Ot M19.91 PRIMARY OSTEOARTHRITIS, UNSPECIFIED SITE 05/02/2017 ANDREY ESCAMILLA MD Ot Z87.442 PERSONAL HISTORY OF URINARY CALCULI 05/02/2017 ANDREY ESCAMILLA MD Ot A41.9 SEPSIS, UNSPECIFIED ORGANISM 05/02/2017 ANDREY ESCAMILLA MD Ot I10 ESSENTIAL (PRIMARY) HYPERTENSION 05/02/2017 ANDREY ESCAMILLA MD Ot J18.9 PNEUMONIA, UNSPECIFIED ORGANISM 05/02/2017 ANDREY ESCAMILLA MD Ot J44.0 CHRONIC OBSTRUCTIVE PULMON DISEASE W [facility] 05/02/2017 ANDREY ESCAMILLA MD Ot J44.1 CHRONIC OBSTRUCTIVE PULMONARY DISEASE W 05/02/2017 ANDREY ESCAMILLA MD Ot K21.9 GASTRO-ESOPHAGEAL REFLUX DISEASE WITHOUT 05/02/2017 ANDREY ESCAMILLA MD Ot M19.91 PRIMARY OSTEOARTHRITIS, UNSPECIFIED SITE 05/02/2017 ANDREY ESCAMILLA MD Ot Z87.442 PERSONAL HISTORY OF URINARY CALCULI 05/02/2017 ANDREY ESCAMILLA MD Ot Z87.891 PERSONAL HISTORY OF NICOTINE DEPENDENCE 05/02/2017 ANDREY ESCAMILLA MD Ot A41.9 SEPSIS, UNSPECIFIED ORGANISM 05/02/2017 ANDREY ESCAMILLA MD, Ot I10 ESSENTIAL (PRIMARY) HYPERTENSION 05/02/2017 ANDREY ESCAMILLA MD Ot J18.9 PNEUMONIA, UNSPECIFIED ORGANISM 05/02/2017 ANDREY ESCAMILLA MD Ot J44.0 CHRONIC OBSTRUCTIVE PULMON DISEASE W [facility] 05/02/2017 ANDREY ESCAMILLA MD, Ot J44.1 CHRONIC OBSTRUCTIVE PULMONARY DISEASE W 05/02/2017 ANDREY ESCAMILLA MD, Ot K21.9 GASTRO-ESOPHAGEAL REFLUX DISEASE WITHOUT 05/02/2017 ANDREY ESCAMILLA MD Ot M19.91 PRIMARY OSTEOARTHRITIS, UNSPECIFIED SITE 05/02/2017 ANDREY ESCAMILLA MD Ot Z87.442 PERSONAL HISTORY OF URINARY CALCULI 05/02/2017 ANDREY ESCAMILLA MD Ot A41.9 SEPSIS, UNSPECIFIED ORGANISM 05/02/2017 ANDREY ESCAMILLA MD, Ot I10 ESSENTIAL (PRIMARY) HYPERTENSION 05/02/2017 ANDREY ESCAMILLA MD Ot J18.9 PNEUMONIA, UNSPECIFIED ORGANISM 05/02/2017 ANDREY ESCAMILLA MD, Ot J44.0 CHRONIC OBSTRUCTIVE PULMON DISEASE W [facility] 05/02/2017 ANDREY ESCAMILLA MD, Ot J44.1 CHRONIC OBSTRUCTIVE PULMONARY DISEASE W 05/02/2017 ANDREY ESCAMILLA MD Ot K21.9 GASTRO-ESOPHAGEAL REFLUX DISEASE WITHOUT 05/02/2017 ANDREY ESCAMILLA MD Ot M19.91 PRIMARY OSTEOARTHRITIS, UNSPECIFIED SITE 05/02/2017 ANDREY ESCAMILLA MD Ot Z87.442 PERSONAL HISTORY OF URINARY CALCULI 05/04/2017 MARYSE FULLER MD Ot I10 ESSENTIAL (PRIMARY) HYPERTENSION 05/04/2017 MARYSE FULLER MD Ot J06.9 ACUTE UPPER RESPIRATORY INFECTION, UNSPE 05/04/2017 MARYSE FULLER MD Ot J44.9 CHRONIC OBSTRUCTIVE PULMONARY DISEASE, U 05/04/2017 MARYSE FULLER MD Ot K21.9 GASTRO-ESOPHAGEAL REFLUX DISEASE WITHOUT 05/04/2017 MARYSE FULLER MD Ot R05 COUGH 05/04/2017 MARYSE FULLER MD Ot 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 05/04/2017 MARYSE FULLER MD Ot Z87.442 PERSONAL HISTORY OF URINARY CALCULI 05/04/2017 MARYSE FULLER MD Ot Z87.891 PERSONAL HISTORY OF NICOTINE DEPENDENCE 06/15/2017 BAIMA, [facility] ADMINISTRATOR Ot E78.4 OTHER HYPERLIPIDEMIA 06/15/2017 BAIMA, [facility] ADMINISTRATOR Ot I10 ESSENTIAL (PRIMARY) HYPERTENSION 06/15/2017 BAIMA, [facility] ADMINISTRATOR Ot R06.09 OTHER FORMS OF DYSPNEA 06/19/2017 BAIMA, [facility] ADMINISTRATOR Ot E78.4 OTHER HYPERLIPIDEMIA 06/19/2017 BAIMA, [facility] ADMINISTRATOR Ot I10 ESSENTIAL (PRIMARY) HYPERTENSION 06/19/2017 BAIMA, [facility] ADMINISTRATOR Ot R06.09 OTHER FORMS OF DYSPNEA 06/19/2017 Ot 786.2 COUGH 06/19/2017 MELINDA HANNA FACC, ALI FACP CCDS Ot I10 ESSENTIAL (PRIMARY) HYPERTENSION 06/19/2017 MELINDA HANNA FACC, ALI FACP CCDS Ot J44.1 CHRONIC OBSTRUCTIVE PULMONARY DISEASE W 06/19/2017 MELINDA HANNA FACAlisson, ALI FACP CCDS Ot R06.02 SHORTNESS OF BREATH 06/19/2017 MELINDA HANNA FACAlisson, ALI FACP CCDS Ot I10 ESSENTIAL (PRIMARY) HYPERTENSION 06/19/2017 MELINDA HANNA FACAlisson, ALI FACP CCDS Ot R06.02 SHORTNESS OF BREATH 06/19/2017 AYAH ENCARNACION DO Ot J44.1 CHRONIC OBSTRUCTIVE PULMONARY DISEASE W 06/19/2017 AYAH ENCARNACION DO Ot J44.1 CHRONIC OBSTRUCTIVE PULMONARY DISEASE W 06/19/2017 AYAH ENCARNACION DO Ot J44.1 CHRONIC OBSTRUCTIVE PULMONARY DISEASE W 06/19/2017 [facility] ADMINISTRATOR Ot I10 ESSENTIAL (PRIMARY) HYPERTENSION 06/19/2017 BAIMA [facility] ADMINISTRATOR Ot I73.9 PERIPHERAL VASCULAR DISEASE, UNSPECIFIED 06/19/2017 BAIMA, [facility] ADMINISTRATOR Ot J43.8 OTHER EMPHYSEMA 06/19/2017 BAIMA, [facility] ADMINISTRATOR Ot R06.02 SHORTNESS OF BREATH 06/19/2017 BAIMA, [facility] ADMINISTRATOR Ot I10 ESSENTIAL (PRIMARY) HYPERTENSION 06/19/2017 BAIMA, [facility] ADMINISTRATOR Ot I73.9 PERIPHERAL VASCULAR DISEASE, UNSPECIFIED 06/19/2017 BAIMA [facility] ADMINISTRATOR Ot J43.8 OTHER EMPHYSEMA 06/19/2017 BAIMA, [facility] ADMINISTRATOR Ot R06.02 SHORTNESS OF BREATH 06/19/2017 BAIMA, [facility] ADMINISTRATOR Ot E78.4 OTHER HYPERLIPIDEMIA 06/19/2017 BAIMA, [facility] ADMINISTRATOR Ot I10 ESSENTIAL (PRIMARY) HYPERTENSION 06/19/2017 BAIMA, [facility] ADMINISTRATOR Ot J43.8 OTHER EMPHYSEMA 06/19/2017 BAIMA, [facility] ADMINISTRATOR Ot R06.09 OTHER FORMS OF DYSPNEA 06/19/2017 BAIMA, [facility] ADMINISTRATOR Ot E78.4 OTHER HYPERLIPIDEMIA 06/19/2017 BAIMA, [facility] ADMINISTRATOR Ot I10 ESSENTIAL (PRIMARY) HYPERTENSION 06/19/2017 BAIMA, [facility] ADMINISTRATOR Ot R06.09 OTHER FORMS OF DYSPNEA 06/22/2017 BAIMA, [facility] ADMINISTRATOR Ot I10 ESSENTIAL (PRIMARY) HYPERTENSION 06/22/2017 BAIMA, [facility] ADMINISTRATOR Ot R06.09 OTHER FORMS OF DYSPNEA 06/22/2017 BAIMA, [facility] ADMINISTRATOR Ot R25.2 CRAMP AND SPASM 06/25/2017 BAIMA, [facility] ADMINISTRATOR Ot E78.4 OTHER HYPERLIPIDEMIA 06/25/2017 BAIMA, [facility] ADMINISTRATOR Ot I10 ESSENTIAL (PRIMARY) HYPERTENSION 06/25/2017 BAIMA, [facility] ADMINISTRATOR Ot R06.09 OTHER FORMS OF DYSPNEA 06/28/2017 BAIMA, [facility] ADMINISTRATOR Ot E78.5 HYPERLIPIDEMIA, UNSPECIFIED 06/28/2017 BAIMA, [facility] ADMINISTRATOR Ot I10 ESSENTIAL (PRIMARY) HYPERTENSION 06/28/2017 BAIMA, [facility] ADMINISTRATOR Ot R06.09 OTHER FORMS OF DYSPNEA Procedures [...] culture - 08/09/16 14:20 Bacterial blood culture [facility] Influenza virus A and B antigen detection [...] culture - 08/09/16 15:43 Bacterial urine culture [id number] NRG COLONY COUNT <10,000 NRG FTX;REPORTABLE SENSITIVITY REPORTED 08/11/16 8:00 NR Bacterial susceptibility panel - 08/09/16 15:43 Gentamicin [...] test by minimum inhibitory concentration 2 NRG Complete blood count (CBC) with automated white blood cell (WBC) differential - 04/28/17 16:50 Blood leukocytes automated count (number/volume) 13.9 10*3/uL 4.3-11.0 Blood erythrocytes automated count (number/volume) 4.49 10*6/uL 4.35-5.85 Venous blood hemoglobin measurement (mass/volume) 13.2 g/dL 13.3-17.7 Blood hematocrit (volume fraction) 40 % 40-54 Automated erythrocyte mean corpuscular volume 88 [foz_us] 80-99 Automated erythrocyte mean corpuscular hemoglobin (mass per erythrocyte) 29 pg 25-34 Automated erythrocyte mean corpuscular hemoglobin concentration measurement ( mass/volume) 33 g/dL 32-36 Automated erythrocyte distribution width ratio 14.5 % 10.0-14.5 Automated blood platelet count (count/volume) 220 10*3/uL 130-400 Automated blood platelet mean volume measurement 9.3 [foz_us] 7.4-10.4 Automated blood neutrophils/100 leukocytes 83 % 42-75 Automated blood lymphocytes/100 leukocytes 8 % 12-44 Blood monocytes/100 leukocytes 8 % 0-12 Automated blood eosinophils/100 leukocytes 1 % 0-10 Automated blood basophils/100 leukocytes 0 % 0-10 Blood neutrophils automated count (number/volume) 11.5 10*3 1.8-7.8 Blood lymphocytes automated count (number/volume) 1.1 10*3 1.0-4.0 Blood monocytes automated count (number/volume) 1.1 10*3 0.0-1.0 Automated eosinophil count 0.1 10*3/uL 0.0-0.3 Automated blood basophil count (count/volume) 0.0 10*3/uL 0.0-0.1 Comprehensive metabolic panel - 04/28/17 16:50 Serum or plasma sodium measurement (moles/volume) 138 mmol/L 135-145 Serum or plasma potassium measurement (moles/volume) 4.2 mmol/L 3.6-5.0 Serum or plasma chloride measurement (moles/volume) 102 mmol/L 98-107 Carbon dioxide 25 mmol/L 21-32 Serum or plasma anion gap determination (moles/volume) 11 mmol/L 5-14 Serum or plasma urea nitrogen measurement (mass/volume) 13 mg/dL 7-18 Serum or plasma creatinine measurement (mass/volume) 0.88 mg/dL 0.60-1.30 Serum or plasma urea nitrogen/creatinine mass ratio 15 NRG Serum or plasma creatinine measurement with calculation of estimated glomerular filtration rate > NRG Serum or plasma glucose measurement (mass/volume) 99 mg/dL 70-105 Serum or plasma calcium measurement (mass/volume) 8.8 mg/dL 8.5-10.1 Serum or plasma total bilirubin measurement (mass/volume) 0.9 mg/dL 0.1-1.0 Serum or plasma alkaline phosphatase measurement (enzymatic activity/volume) 68 U/L 40-136 Serum or plasma aspartate aminotransferase measurement (enzymatic activity/ volume) 25 U/L 5-34 Serum or plasma alanine aminotransferase measurement (enzymatic activity/volume ) 32 U/L 0-55 Serum or plasma protein measurement (mass/volume) 7.1 g/dL 6.4-8.2 Serum or plasma albumin measurement (mass/volume) 4.0 g/dL 3.2-4.5 Complete blood count (CBC) with automated white blood cell (WBC) differential - 04/30/17 11:37 Blood leukocytes automated count (number/volume) 12.1 10*3/uL 4.3-11.0 Blood erythrocytes automated count (number/volume) 4.57 10*6/uL 4.35-5.85 Venous blood hemoglobin measurement (mass/volume) 13.4 g/dL 13.3-17.7 Blood hematocrit (volume fraction) 44 % 40-54 Automated erythrocyte mean corpuscular volume 97 [foz_us] 80-99 Automated erythrocyte mean corpuscular hemoglobin (mass per erythrocyte) 29 pg 25-34 Automated erythrocyte mean corpuscular hemoglobin concentration measurement ( mass/volume) 30 g/dL 32-36 Automated erythrocyte distribution width ratio 15.4 % 10.0-14.5 Automated blood platelet count (count/volume) 233 10*3/uL 130-400 Automated blood platelet mean volume measurement 10.6 [foz_us] 7.4-10.4 Automated blood neutrophils/100 leukocytes 80 % 42-75 Automated blood lymphocytes/100 leukocytes 6 % 12-44 Blood monocytes/100 leukocytes 14 % 0-12 Automated blood eosinophils/100 leukocytes 1 % 0-10 Automated blood basophils/100 leukocytes 0 % 0-10 Blood neutrophils automated count (number/volume) 9.7 10*3 1.8-7.8 Blood lymphocytes automated count (number/volume) 0.7 10*3 1.0-4.0 Blood monocytes automated count (number/volume) 1.7 10*3 0.0-1.0 Automated eosinophil count 0.1 10*3/uL 0.0-0.3 Automated blood basophil count (count/volume) 0.0 10*3/uL 0.0-0.1 Blood manual differential performed detection - 04/30/17 11:37 Blood monocytes/100 leukocytes 9 % NR Manual blood segmented neutrophils/100 leukocytes 79 % NRG Blood band neutrophils/100 leukocytes 4 % NRG Manual blood lymphocytes/100 leukocytes 8 % NRG Manual eosinophils/100 leukocytes in nose 0 % NRG Manual blood basophils/100 leukocytes 0 % NRG Blood erythrocyte morphology finding identification NORMAL NR Comprehensive metabolic panel - 04/30/17 12:19 Serum or plasma sodium measurement (moles/volume) 138 mmol/L 135-145 Serum or plasma potassium measurement (moles/volume) 4.0 mmol/L 3.6-5.0 Serum or plasma chloride measurement (moles/volume) 101 mmol/L 98-107 Carbon dioxide 25 mmol/L 21-32 Serum or plasma anion gap determination (moles/volume) 12 mmol/L 5-14 Serum or plasma urea nitrogen measurement (mass/volume) 20 mg/dL 7-18 Serum or plasma creatinine measurement (mass/volume) 0.88 mg/dL 0.60-1.30 Serum or plasma urea nitrogen/creatinine mass ratio 23 NRG Serum or plasma creatinine measurement with calculation of estimated glomerular filtration rate > NRG Serum or plasma glucose measurement (mass/volume) 126 mg/dL 70-105 Serum or plasma calcium measurement (mass/volume) 9.1 mg/dL 8.5-10.1 Serum or plasma total bilirubin measurement (mass/volume) 0.5 mg/dL 0.1-1.0 Serum or plasma alkaline phosphatase measurement (enzymatic activity/volume) 59 U/L 40-136 Serum or plasma aspartate aminotransferase measurement (enzymatic activity/ volume) 32 U/L 5-34 Serum or plasma alanine aminotransferase measurement (enzymatic activity/volume ) 26 U/L 0-55 Serum or plasma protein measurement (mass/volume) 7.0 g/dL 6.4-8.2 Serum or plasma albumin measurement (mass/volume) 3.9 g/dL 3.2-4.5 Blood lactic acid measurement (moles/volume) - 04/30/17 12:36 Blood lactic acid measurement (moles/volume) 1.08 mmol/L 0.50-2.00 Bacterial blood culture - 04/30/17 13:19 Bacterial blood culture NG NRG Bacterial blood culture - 04/30/17 13:24 Bacterial blood culture NG NRG Sputum Gram stain - 04/30/17 18:34 Sputum Gram stain gram negative coccobacilli NRG Bacterial sputum culture - 04/30/17 18:34 FREE TEXT EXTERNAL BETA LACTAMASE NEGATIVE NRG QUANTITY OF GROWTH Abundant Growth NRG FREE TEXT ENTRY 2 PLUS NORMAL CASI NRG Bacterial sputum culture [id number] NRG Complete blood count (CBC) with automated white blood cell (WBC) differential - 05/01/17 06:33 Blood leukocytes automated count (number/volume) 7.8 10*3/uL 4.3-11.0 Blood erythrocytes automated count (number/volume) 3.69 10*6/uL 4.35-5.85 Venous blood hemoglobin measurement (mass/volume) 10.9 g/dL 13.3-17.7 Blood hematocrit (volume fraction) 34 % 40-54 Automated erythrocyte mean corpuscular volume 93 [foz_us] 80-99 Automated erythrocyte mean corpuscular hemoglobin (mass per erythrocyte) 30 pg 25-34 Automated erythrocyte mean corpuscular hemoglobin concentration measurement ( mass/volume) 32 g/dL 32-36 Automated erythrocyte distribution width ratio 14.9 % 10.0-14.5 Automated blood platelet count (count/volume) 213 10*3/uL 130-400 Automated blood platelet mean volume measurement 9.8 [foz_us] 7.4-10.4 Automated blood neutrophils/100 leukocytes 81 % 42-75 Automated blood lymphocytes/100 leukocytes 10 % 12-44 Blood monocytes/100 leukocytes 9 % 0-12 Automated blood eosinophils/100 leukocytes 0 % 0-10 Automated blood basophils/100 leukocytes 0 % 0-10 Blood neutrophils automated count (number/volume) 6.3 10*3 1.8-7.8 Blood lymphocytes automated count (number/volume) 0.8 10*3 1.0-4.0 Blood monocytes automated count (number/volume) 0.7 10*3 0.0-1.0 Automated eosinophil count 0.0 10*3/uL 0.0-0.3 Automated blood basophil count (count/volume) 0.0 10*3/uL 0.0-0.1 Whole blood basic metabolic panel - 05/01/17 06:33 Serum or plasma sodium measurement (moles/volume) 137 mmol/L 135-145 Serum or plasma potassium measurement (moles/volume) 3.6 mmol/L 3.6-5.0 Serum or plasma chloride measurement (moles/volume) 103 mmol/L 98-107 Carbon dioxide 24 mmol/L 21-32 Serum or plasma anion gap determination (moles/volume) 10 mmol/L 5-14 Serum or plasma urea nitrogen measurement (mass/volume) 17 mg/dL 7-18 Serum or plasma creatinine measurement (mass/volume) 0.88 mg/dL 0.60-1.30 Serum or plasma urea nitrogen/creatinine mass ratio 19 NRG Serum or plasma creatinine measurement with calculation of estimated glomerular filtration rate > NRG Serum or plasma glucose measurement (mass/volume) 217 mg/dL 70-105 Serum or plasma calcium measurement (mass/volume) 8.3 mg/dL 8.5-10.1 Encounters ACCT No. Visit Date/Time Discharge Status Pt. Type Provider Facility Loc./Unit Complaint [id number] 06/27/2017 11:32:00 06/27/2017 23:59:59 CLS Outpatient [facility] CARD NUÑEZ [id number] 06/21/2017 09:10:00 06/21/2017 23:59:59 CLS Outpatient [facility] LAB I10 [id number] 06/14/2017 07:10:00 06/14/2017 23:59:59 CLS Outpatient [facility] CARD NUÑEZ [id number] 05/01/2017 09:40:00 05/02/2017 13:50:00 DIS Inpatient ANDI HANNA, ANDREY Vinson [facility] 4TH ACUTE COPD EXACERBATION [id number] 04/28/2017 16:16:00 04/28/2017 17:48:00 DIS Emergency MARYSE FULLER MD [facility] ER SOA [id number] 03/20/2017 10:06:00 03/20/2017 23:59:59 CLS Outpatient [facility] LAB R06.09, J43.8, I10, E78.4 [id number] 08/09/2016 14:18:00 08/09/2016 18:03:00 DIS Emergency SANCHEZ MD, DOMINGA D [facility] ER LOW BP/DIZZINESS [id number] 07/27/2016 07:00:00 07/28/2016 11:00:00 DIS Outpatient Ga RUGGIERO MD [facility] CATH PVD,HTN,CLAUDICATION [id number] 06/22/2016 06:48:00 06/23/2016 11:15:00 DIS Outpatient Ga RUGGIERO MD [facility] CATH PERIPHERAL ANGIOGRAPHY, POSSIBLE PERIPHERAL STENT [id number] 06/13/2016 10:01:00 06/13/2016 16:15:00 DIS Outpatient MELINDA HANNA FACC, KISHA BANDA CCDS [facility] CATH PERIPHERAL ANGIOGRAPHY W POSSIBLE STENT [id number] 06/06/2016 12:06:00 06/06/2016 23:59:59 CLS Outpatient [facility] RAD HTN,SOB,CLAUDICATION, COPD [id number] 06/01/2016 10:07:00 06/01/2016 23:59:59 CLS Outpatient [facility] LAB SOB,COPD [id number] 09/20/2015 10:15:00 09/20/2015 23:59:59 CLS Preadmit AYAH ENCARNACION DO [facility] PULM COPD, SOA [id number] 06/21/2015 10:04:00 09/19/2015 00:01:00 DIS Outpatient AYAH ENCARNACION DO [facility] PULM COPD, SOA [id number] 07/07/2015 13:49:00 07/07/2015 23:59:59 CLS Outpatient AYAH ENCARNACION DO [facility] RT COPD,SOB [id number] 06/11/2015 11:09:00 06/11/2015 23:59:59 CLS Outpatient AYAH ENCARNACION DO [facility] RAD ACUTE COPD [id number] 05/06/2015 07:40:00 05/06/2015 23:59:59 CLS Outpatient KISHA LAWRENCE MD, FACC, FACP CCDS [facility] CARD HTN,SOA [id number] 03/24/2015 11:33:00 03/24/2015 23:59:59 CLS Outpatient KISHA LAWRENCE MD, FACC, FACP CCDS [facility] CARD SOB,COPD,HTN [id number] 02/25/2015 18:11:00 02/26/2015 14:20:00 DIS Inpatient LYNNE HANNA, JOSE Majano [facility] CSD CHEST PAIN [id number] 01/04/2012 11:52:00 Document Registration [id number] 11/10/2009 11:56:00 Document Registration
[2017-07-03] MEDS ORDERED: HEParin (CATH LAB) 2,000 ML IV ONE (10:05)
[2017-07-03] MEDS ORDERED: NS IV 1000 ML 1,000 ML ONE (10:05)
[2017-07-03] MEDS ORDERED: LIDOCAINE 1% INJ 50 ML (XYLOCAINE) VIAL ONE (10:10)
[2017-07-03] MEDS ORDERED: NS IV 1000 ML 1,000 ML IV SCH ×2 (10:11→12:59)
[2017-07-03 10:27] LABS: HEMOGLOBIN 14.2 G/DL (13.3-17.7); MEAN PLATELET VOLUME 9.3 FL (7.4-10.4); RED BLOOD COUNT 4.89 10^6/uL (4.35-5.85); RED CELL DISTRIBUTION WIDTH 14.9 % (10.0-14.5); WHITE BLOOD COUNT 8.1 10^3/uL (4.3-11.0)
[2017-07-03 10:42] LABS: PROTHROMBIN TIME PATIENT 12.8 SEC (12.2-14.7)
[2017-07-03] MEDS ORDERED: INFLUENZA TRIvalent 2017-2018 0.5 ML/45 MCG SYR IM ONE (10:45)
[2017-07-03] MEDS ORDERED: FLUT9.9S NS (10:48)
[2017-07-03 10:54] LABS: ALANINE AMINOTRANSFERASE 35 U/L (0-55); ALBUMIN 4.4 GM/DL (3.2-4.5); ALKALINE PHOSPHATASE 72 U/L (40-136); BILIRUBIN,TOTAL 0.7 MG/DL (0.1-1.0); BUN/CREATININE RATIO 15; CALCIUM 9.7 MG/DL (8.5-10.1); CARBON DIOXIDE 25 MMOL/L (21-32); CHLORIDE 105 MMOL/L (98-107); CHOLESTEROL 181 MG/DL (< 200); CREATININE SERUM 1.12 MG/DL (0.60-1.30); GFR ESTIMATED > 60; GLUCOSE 102 MG/DL (70-105); HDL CHOLESTEROL 43 MG/DL (40-60); POTASSIUM 4.4 MMOL/L (3.6-5.0); SODIUM 138 MMOL/L (135-145); TOTAL PROTEIN 7.6 GM/DL (6.4-8.2); TRIGLYCERIDES 131 MG/DL (<150); VLDL CHOLESTEROL 26 MG/DL (5-40)
[2017-07-03] MEDS ORDERED: MIDAZOLAM 5 MG/5 ML (VERSED) VIAL ONE (11:02)
[2017-07-03] MEDS ORDERED: fentaNYL INJECTION 100 MCG/2 ML AMP ONE (11:02)
[2017-07-03] MEDS ORDERED: diphenhydrAMINE 50 MG/ML INJ (BENADRYL) ONE (11:02)
[2017-07-03] MEDS ORDERED: HEParin 1000 UNIT/ML (10ML VIAL) FOR BOLUS ONE (11:44)
--- NOTE | 2017-07-03 12:57 | Cardiac Procedure Note-CS/ASA ---
Pre-Procedure Note Pre-Op Procedure Note H&P Reviewed The H&P was reviewed, patient examined and no changes noted. Date H&P Reviewed: Jul 03, 2017 Time H&P Reviewed: 11:55 Conscious Sedation Pre-Proced Time Reviewed: 11:55 ASA Class: 3 Airway Mallampati Classification: ([place] appropriate class) I. II. III, IV Lungs Heart ASA score ASA 1: a normal healthy patient ASA 2: a patient with a mild systemic disease (mid diabetes, controlled hypertension, obesity ASA 3: a patient with a severe systemic disease that limits activity (angina , COPD, prior Myocardial infarction) ASA 4: a patient with an incapacitating disease that is a constant threat to life (CHF, renal failure) ASA 5: a moribund patient not expected to survive 24 hrs. (ruptured aneurysm) ASA 6: a declared brain patient whose organs are being harvested. For emergent operations, add the letter E after the classification Grade 2 Sedation Plan: Analgesia, Amnesia, Plan communicated to team members, Discussed options with patient/fam, Discussed risks with patient/fam Note The patient is an appropriate candidate to undergo the planned procedure, sedation, and anesthesia. The patient immediately re-assessed prior to indication. KISHA LAWRENCE MD FACP FAC CCDS Jul 03, 2017 12:57
[2017-07-03] MEDS ORDERED: PATIENT MAY USE OWN MEDS, ALL PO SCH (13:00)
--- NOTE | 2017-07-03 13:05 | Discharge Inst-Post CATH ---
Discharge Inst-CATH Post Cardiac Cath D/C Inst Follow Up/Plan F/u with Dr Yun on 07/16/17 CARDIAC CATH DISCHARGE INSTRUCTIONS *Hold Metformin for 48 hours post heart cath. ACTIVITY * Go Home directly and rest. * Limit activity of the leg (or wrist if it was used) for 7 days including aerobics, swimming, jogging, bicycling, etc. * Restrict stair-climbing for 7 days if possible, if not, climb up with your non -cath leg, then bring together on the same step. * Avoid lifting, pushing, pulling or excessive movement of the affected extremity for 7 days. * Customary sexual activity may be resumed after 2 days-use caution not to use a position that strains or causes pain to the affected extremity. * No driving for 24 hours. * NO SMOKING. * Avoid straining for bowel movements for 7 days. * Gentle walking on level ground is allowed. * Returning to work will depend on the type of procedure and the results. Your doctor will discuss this with you. CALL YOUR DOCTOR FOR ANY OF THE FOLLOWING: *If bleeding from the puncture site occurs- Apply gentle pressure to site with clean cloth and call your doctor or EMS. * If a knot or lump forms under the skin, increases in size, or causes pain. * If bruising appears to be worsening or moving further down your leg instead of disappearing. * Temperature above 101 F. CARE OF YOUR GROIN INCISION; * Bruising or purple discoloration of the skin near the puncture site is common. * You may shower only, no bathtub bathing for 5 days. Be careful to avoid slipping as your leg may feel stiff. * If a closure device was used on your femoral artery, please see the attached guide regarding care of the device and your leg. * REMOVE the dressing from your groin the next day after your procedure in the shower. CARE OF YOUR WRIST INCISION; * Bruising or purple discoloration of the skin near the puncture site is common. * You may shower. * DO NOT submerge wrist. * Remove dressing in 24 hours. KISHA YUN MD FACP [facility] CCDS Jul 03, 2017 13:05
--- NOTE | 2017-07-03 13:06 | Discharge Inst-Cardiology ---
Discharge Inst-Cardiac Discharge Medications Continued Medications: Aspirin (Aspirin EC) 81 Mg Tablet.dr 81 MG PO DAILY, TAB Atorvastatin Calcium (Atorvastatin Calcium) 20 Mg Tablet 20 MG PO DAILY, TAB Budesonide/Formoterol Fumarate (Symbicort 160-4.5 Mcg Inhaler) 10.2 Gm Hfa.aer.ad 2 PUFF IH DAILY, INHALER Clopidogrel Bisulfate (Plavix) 75 Mg Tablet 75 MG PO DAILY, TAB Enalapril Maleate (Enalapril Maleate) 20 Mg Tablet 20 MG PO DAILY, TAB Fluticasone Propionate (Flonase Allergy Relief) 9.9 Ml [place].susp 1 SPRAY NS, SPRAY Hydrocodone/Acetaminophen (Hydrocodon-Acetaminophn 10-325) 1 Each Tablet 1 TAB PO Q8H PRN for PAIN-MODERATE, TAB Umeclidinium [place] (Incruse Ellipta) 62.5 Mcg Blst.w.dev 1 PUFF IH DAILY, PUFF KISHA LAWRENCE MD FACP FAC CCDS Jul 03, 2017 13:06
--- NOTE | 2017-07-03 17:51 | CARDIAC CATHETERIZATION ---
DATE OF SERVICE: 07/03/2017 ABDOMINAL AORTIC AND PERIPHERAL ANGIOGRAPHY REPORT The patient is a 66-year-old man who has had bilateral lower extremity percutaneous interventions by Dr. Walker in early 2017. He has had recurrence of severe left-sided leg claudication. Abdominal aortic and peripheral angiography was recommended with possible ad hoc intervention. Informed consent was obtained. DESCRIPTION OF PROCEDURE: He was brought to the cardiac catheterization laboratory in a fasting state. Right groin was prepared and draped in the usual sterile fashion. A 1% lidocaine was used for local anesthesia. Modified Seldinger technique was used to advance a 5-Maldivian sheath into the right femoral artery. We used a 5-Maldivian pigtail catheter to carry out abdominal aortic angiography. We then carried out bilateral leg artery angiography with the 5-Maldivian pigtail catheter with runoff down to the level of the ankles. Following completion of the diagnostic procedure, we attempted intervention to the left superficial femoral artery, which was exhibiting severe in-stent restenosis. We attempted a crossover technique, going from the right femoral approach into the arterial circulation of the left lower limb. We tried multiple different catheters to crossover into the left lower limb circulation, but because of bilateral kissing stents, we were unable to do so. We then attempted an antegrade approach to the left leg. We were able to introduce a wire using the Seldinger technique into the left superficial femoral artery from the left groin antegrade approach. However, it appeared that the site of entry was too low for us to carry out intervention to the entire stent, which not only extends throughout the majority of the left superficial femoral artery, but also into the left common femoral artery. We felt that it would be best to postpone this procedure to a later date for a left popliteal approach and try to carry out percutaneous intervention to the left superficial femoral and common femoral arteries in a retrograde fashion from the left popliteal artery. We used a Mynx to achieve hemostasis in the right groin following sheath removal. We used manual pressure in the left groin following removal of the wire. We had not introduced the sheath into the left femoral artery. The patient tolerated the procedure well. He was transferred to the holding area in a stable condition. The findings of the peripheral angiogram are summarized below. ABDOMINAL AORTIC ANGIOGRAPHY: Abdominal aortic angiography was carried out, but the pigtail was used to carry out lower abdominal aortic angiography. In this view, only the right renal artery is visualized and its intact. The inferior mesenteric system is intact. There is diffuse atherosclerosis of the lower abdominal aorta extending into the aortoiliac bifurcation. In the aortoiliac bifurcation, there are patent kissing stents. BILATERAL LEG ARTERY ANGIOGRAPHY: Bilateral leg artery angiography indicated that the common iliac stent on the right side was patent. The right external and internal iliacs were patent. The right common femoral was patent. The right superficial femoral is the site of previous drug-eluting balloon angioplasty in early 2016. This artery is patent with 60% stenosis. The right popliteal artery is patent. There is a 3-vessel runoff, although the flow in the trifurcation vessels is slow on the right side. On the left side, the common iliac artery stent (kissing stent) is patent. The left internal iliac artery is occluded. There is a long stent extending from the left common femoral artery into the distal part of the left superficial femoral artery. This has severe diffuse stenosis with stenosis up to about 90%. Distal to the distal edge of the stent, there is further stenosis of 80% to 90% in the distal left superficial femoral artery. The popliteal artery does not exhibit significant disease. The left popliteal artery trifurcates. Flow is somewhat sluggish in the trifurcation vessels. CONCLUSIONS: 1. Lower abdominal aortic atherosclerosis and calcification. 2. Patent kissing stents in the common iliac arteries, Omnilink 8 x 39 on the right and Omnilink 8 x 59 on the left (placed on 07/27/2016). 3. Patent site of angioplasty in the right superficial femoral artery where drug-coated (Lutonix) balloon angioplasty was carried out with 6.0 x 150 mm balloon on 07/27/2016. The right internal iliac and the right knee femoral vessels are intact. There is a 3-vessel (albeit sluggish) flow in the right leg arteries. 4. Severe in-stent restenosis of up to 90% in two overlapping Supera 6.0 x 150 mm stents that were placed on 06/22/2016. The stenoses are up to 90%. Distal to the distal edge of the stent, there is further stenosis in the left superficial femoral of up to 80% to 90%. The left internal iliac and the left deep femoral arteries are occluded. The left popliteal artery is intact and there is a 3-vessel (albeit sluggish) runoff in the left leg arteries. DISCUSSION AND RECOMMENDATIONS: Antegrade intervention to the long stented area in the left superficial femoral and common femoral arteries was not successful today due to reasons noted above. We plan to carry this out at a later date with a left popliteal approach. Risk factor modification has been reviewed. Outpatient followup is advised. Job ID: [id number] DocumentID: [id number] Dictated Date: 07/03/2017 13:19:20 Program Project Manager Date: 07/03/2017 16:07:26 Dictated By: KISHA LAWRENCE MD, MA, FACP, FACC, MTDD
== END 2017-07-03 16:20 | disposition home or self-care (01) ==
LOC: CATH 09:56
PROVIDERS: ATTEND Internal Medicine Cardiovascular Disease
DX: T82.858A Stenosis of other vascular prosthetic devices, implants and grafts, initial encounter (principal); I70.212 Atherosclerosis of native arteries of extremities with intermittent claudication, left leg; I70.0 Atherosclerosis of aorta; I65.23 Occlusion and stenosis of bilateral carotid arteries; I35.8 Other nonrheumatic aortic valve disorders; I10 Essential (primary) hypertension; E78.5 Hyperlipidemia, unspecified; J44.9 Chronic obstructive pulmonary disease, unspecified; E66.9 Obesity, unspecified; Z68.30 Body mass index [BMI] 30.0-30.9, adult; Z79.82 Long term (current) use of aspirin; Z79.899 Other long term (current) drug therapy; Z87.891 Personal history of nicotine dependence
CPT/HCPCS: 36415; 75630; 80053; 80061; 85027; 85610; 85730; 87081; 93005

== ENCOUNTER 2017-07-24 08:55 | Day surgery (SDC) | payer MEDICARE ==
[~2017-07-24] VITALS: Ht 170.2 cm; Wt 88.9 kg
[2017-07-24] VITALS (17 sets, daily range): BP systolic 94–195; BP diastolic 58–98
[~2017-07-24 08:55] MED LIST changes: +FLUT9.9S NS
[2017-07-24] MEDS ORDERED: NS IV 1000 ML 1,000 ML ONE (09:23)
[2017-07-24] MEDS ORDERED: HEParin (CATH LAB) 2,000 ML IV ONE (09:23)
[2017-07-24] MEDS ORDERED: NS IV 1000 ML 1,000 ML IV SCH ×2 (09:30→13:52)
[2017-07-24] MEDS ORDERED: RECEIVED CONTRAST (Hold Metformin) IV SCH (09:45)
[2017-07-24 09:58] LABS: HEMOGLOBIN 13.7 G/DL (13.3-17.7); MEAN PLATELET VOLUME 9.9 FL (7.4-10.4); RED BLOOD COUNT 4.64 10^6/uL (4.35-5.85); WHITE BLOOD COUNT 8.1 10^3/uL (4.3-11.0)
[2017-07-24 10:11] LABS: INR 0.9 (0.8-1.4); PROTHROMBIN TIME PATIENT 12.6 SEC (12.2-14.7)
[2017-07-24 10:21] LABS: ALANINE AMINOTRANSFERASE 30 U/L (0-55); ALBUMIN 4.3 GM/DL (3.2-4.5); ALKALINE PHOSPHATASE 69 U/L (40-136); BILIRUBIN,TOTAL 0.6 MG/DL (0.1-1.0); BUN/CREATININE RATIO 14; CALCIUM 9.2 MG/DL (8.5-10.1); CARBON DIOXIDE 21 MMOL/L (21-32); CHLORIDE 109 MMOL/L (98-107); CHOLESTEROL 171 MG/DL (< 200); CREATININE SERUM 0.97 MG/DL (0.60-1.30); GFR ESTIMATED > 60; GLUCOSE 100 MG/DL (70-105); HDL CHOLESTEROL 42 MG/DL (40-60); POTASSIUM 4.3 MMOL/L (3.6-5.0); SODIUM 140 MMOL/L (135-145); TOTAL PROTEIN 7.2 GM/DL (6.4-8.2); TRIGLYCERIDES 107 MG/DL (<150); VLDL CHOLESTEROL 21 MG/DL (5-40)
[2017-07-24] MEDS ORDERED: FLUT16SP22 NS (10:27)
[2017-07-24] MEDS ORDERED: MONT10TA24 PO (10:28)
[2017-07-24] MEDS ORDERED: RT-ALBUINH IH (10:29)
[2017-07-24] MEDS ORDERED: fentaNYL INJECTION 100 MCG/2 ML AMP ONE ×2 (11:12→12:56)
[2017-07-24] MEDS ORDERED: diphenhydrAMINE 50 MG/ML INJ (BENADRYL) ONE (11:12)
[2017-07-24] MEDS ORDERED: MIDAZOLAM 5 MG/5 ML (VERSED) VIAL ONE ×2 (11:12→12:43)
[2017-07-24] MEDS ORDERED: LIDOCAINE 1% INJ 50 ML (XYLOCAINE) VIAL ONE (11:12)
[2017-07-24] MEDS ORDERED: HEParin 1000 UNIT/ML (10ML VIAL) FOR BOLUS ONE (11:45)
--- NOTE | 2017-07-24 11:53 | Cardiac Procedure Note-CS/ASA ---
Pre-Procedure Note Pre-Op Procedure Note H&P Reviewed The H&P was reviewed, patient examined and no changes noted. Date H&P Reviewed: Jul 24, 2017 Time H&P Reviewed: 11:52 Conscious Sedation Pre-Proced Time Reviewed: 11:53 ASA Class: 3 Airway Mallampati Classification: ([place] appropriate class) I. II. III, IV Lungs Heart ASA score ASA 1: a normal healthy patient ASA 2: a patient with a mild systemic disease (mid diabetes, controlled hypertension, obesity ASA 3: a patient with a severe systemic disease that limits activity (angina , COPD, prior Myocardial infarction) ASA 4: a patient with an incapacitating disease that is a constant threat to life (CHF, renal failure) ASA 5: a moribund patient not expected to survive 24 hrs. (ruptured aneurysm) ASA 6: a declared brain patient whose organs are being harvested. For emergent operations, add the letter E after the classification Grade 2 Sedation Plan: Analgesia, Amnesia, Plan communicated to team members, Discussed options with patient/fam, Discussed risks with patient/fam Note The patient is an appropriate candidate to undergo the planned procedure, sedation, and anesthesia. The patient immediately re-assessed prior to indication. KISHA LAWRENCE MD FACP FAC CCDS Jul 24, 2017 11:53
[2017-07-24] MEDS ORDERED: ASPIRIN 81 MG CHEW (CHILDREN'S ASA) ONE ×2 (13:46→13:48)
[2017-07-24] MEDS ORDERED: CLOPIDOGREL 75 MG (PLAVIX) TABLET ONE (13:46)
[2017-07-24] MEDS ORDERED: ACETAMINOPHEN 325 MG TABLET/CAPLET (TYLENOL) PO PRN (14:00)
[2017-07-24] MEDS ORDERED: PATIENT MAY USE OWN MEDS, ALL PO SCH (14:00)
[2017-07-24] MEDS ORDERED: NON-FORMULARY MEDICATION 1 EA EA (Albuterol Sulfate (Ventolin Hfa) 2 PUFF) IH PRN (14:00)
[2017-07-24] MEDS ORDERED: HYDROcodone/APAP 10 MG/325 MG (LORTAB) TAB PO PRN ×2 (14:00→17:45)
--- NOTE | 2017-07-24 14:06 | OPERATIVE REPORT ---
DATE OF SERVICE: 07/24/2017 PERIPHERAL INTERVENTION REPORT The patient is a 66-year-old man, who has been suffering from marked left leg claudication. A recent peripheral angiogram had indicated severe in-stent restenosis within a long stented segment of the left common femoral and superficial femoral arteries. These are known to be overlapping stents (superior 6.0 x 150 x 2) that were placed by Dr. Walker on 2017. Stenosis are up to 95% were exhibited on peripheral angiography of 06/2017. The left deep femoral artery is chronically occluded. He comes in today for intervention to the in-stent restenosis via the left popliteal approach. Informed consent was obtained. DESCRIPTION OF PROCEDURE: He was brought to the cardiac catheterization laboratory in a fasting state. The left popliteal fossa was prepared and draped in the usual sterile fashion. Lidocaine 1% with local anesthesia. Ultrasound guidance was used to gain access to the left popliteal artery. A 6-Vietnamese sheath was placed in. A GigaBryte wire was advanced retrogradely through the sheath into the superficial femoral artery with the tip placed in the left external iliac artery. Over this wire, we advanced [place] 35 (6.0 x 250 mm) balloon and balloon angioplasty was carried out throughout the extent of the stented segment within the left common femoral and superficial femoral arteries. The balloon was inflated up to 12 atmospheres. The balloon was then removed. The wire was used to advance a 5-Vietnamese straight catheter and the tip was placed in the left external iliac artery and angiography was performed with runoff down to the level of the left popliteal artery. This indicated that, following balloon angioplasty, there was 0% residual stenosis. The very distal segment of the right superficial femoral artery does have 60% to 70% stenoses, which were not intervened on. At the end of the procedure, Mynx was used to achieve hemostasis. He tolerated the procedure well. He received a total of 9000 units of intravenous heparin during the procedure. CONCLUSIONS: Successful balloon angioplasty for stent restenosis within the left common femoral and left superficial femoral arteries with reduction of up to 95% stenosis to no significant residual stenosis. Job ID: [id number] DocumentID: [id number] Dictated Date: 07/24/2017 13:47:33 Autistic Teacher Date: 07/24/2017 14:06:35 Dictated By: KISHA LAWRENCE MD, MA, FACP, FACC, MTDD
[2017-07-24] MEDS ORDERED: RT-ALBUTEROL SULF 2.5 MG/3 ML PRE-MIX VIAL IH PRN (15:00)
[2017-07-24] MEDS ORDERED: ALBUTEROL IH PRN ×2 (16:00→16:15)
[2017-07-24] MEDS ORDERED: NITROGLYCERIN 0.4 MG SL TABS BTL 25'S SL ONE ×2 (16:23→16:30)
[2017-07-24 16:39] LABS: MEAN PLATELET VOLUME 9.9 FL (7.4-10.4); RED BLOOD COUNT 4.41 10^6/uL (4.35-5.85); RED CELL DISTRIBUTION WIDTH 14.9 % (10.0-14.5); WHITE BLOOD COUNT 8.4 10^3/uL (4.3-11.0)
[2017-07-24] MEDS ORDERED: MONTELUKAST 10 MG (SINGULAIR) TAB PO SCH (21:00)
[2017-07-24] MEDS ORDERED: FLUTICASONE NASAL SPRAY (FLONASE) 16 GM BTL NS SCH ×2 (21:00)
[2017-07-25] VITALS: BP 104/72
[2017-07-25 03:26] LABS: HEMOGLOBIN 11.6 G/DL (13.3-17.7); MEAN PLATELET VOLUME 9.8 FL (7.4-10.4); RED BLOOD COUNT 3.95 10^6/uL (4.35-5.85); RED CELL DISTRIBUTION WIDTH 14.8 % (10.0-14.5); WHITE BLOOD COUNT 7.9 10^3/uL (4.3-11.0)
[2017-07-25 03:46] LABS: BUN/CREATININE RATIO 17; CALCIUM 8.6 MG/DL (8.5-10.1); CARBON DIOXIDE 25 MMOL/L (21-32); CHLORIDE 108 MMOL/L (98-107); CREATININE SERUM 0.82 MG/DL (0.60-1.30); GFR ESTIMATED > 60; GLUCOSE 97 MG/DL (70-105); POTASSIUM 4.2 MMOL/L (3.6-5.0); SODIUM 140 MMOL/L (135-145)
[2017-07-25 04:00] VITALS: BP 114/65
[2017-07-25 08:00] VITALS: BP 122/68
[2017-07-25] MEDS ORDERED: SYMBICORT IH SCH (08:00)
[2017-07-25] MEDS ORDERED: UMECLIDINIUM BROMIDE (INCRUSE ELLIPTA) 7'S IH SCH (08:00)
--- NOTE | 2017-07-25 08:08 | Progress Note-Cardiology ---
Cardiology SOAP Progress Note Subjective: Sitting up in bed. Reports some discomfort to the angiogram insertion site. No c/o CP or palpitations. Chronic exertional dyspnea which is unchanged. Objective: I&O/Vital Signs Vital Sign - Last 12Hours 07/25/17 07/25/17 07/25/17 07/25/17 00:00 01:00 04:00 07:00 Temp 98.8 98.0 Pulse 70 64 66 76 Resp 15 16 B/P (MAP) 104/72 (83) 114/65 (81) Pulse Ox 96 95 O2 Delivery Room Air Room Air 07/25/17 07/25/17 08:00 08:26 Temp 98.4 Pulse 58 Resp 9 B/P (MAP) 122/68 (86) Pulse Ox 92 O2 Delivery Room Air Room Air Intake and Output 07/25/17 00:00 Intake Total 200 ml Balance 200 ml Weight (Pounds): 196 Weight (Ounces): 0.0 Weight (Calculated Kilograms): 88.295932 Side: left (left popliteal space with min bruising, drsg D&I, site sogt) Condition: extremity w/d/p Constitutional: AAO x 3 Respiratory: other (prolonged expiratory phase) Cardiovascular: regular rate-rhythm, No JVD, S1 and S2 Gastrointestional: soft, audible bowel sounds Extremities: no lower extremity edema bilateral Neurologic/Psychiatric: grossly intact Skin: No rash, No ulcerations Results/Procedures: Labs Laboratory Tests 07/24/17 09:45: White Blood Count 8.1, Red Blood Count 4.64, Hemoglobin 13.7, Hematocrit 43, Mean Corpuscular Volume 92, Mean Corpuscular Hemoglobin 30, Mean Corpuscular Hemoglobin Concent 32, Red Cell Distribution Width 15.0H, Platelet Count 246, Mean Platelet Volume 9.9, Prothrombin Time 12.6, INR Comment 0.9, Activated Partial Thromboplast Time 28, Sodium Level 140, Potassium Level 4.3, Chloride Level 109H, Carbon Dioxide Level 21, Anion Gap 10, Blood Urea Nitrogen 14, Creatinine 0.97, Estimat Glomerular Filtration Rate > 60, BUN/Creatinine Ratio 14, Glucose Level 100, Calcium Level 9.2, Total Bilirubin 0.6, Aspartate Amino Transf (AST/SGOT) 24, Alanine Aminotransferase (ALT/SGPT) 30, Alkaline Phosphatase 69, Total Protein 7.2, Albumin 4.3, Triglycerides Level 107, Cholesterol Level 171, LDL Cholesterol Direct 107, VLDL Cholesterol 21, HDL Cholesterol 42 07/24/17 16:30: White Blood Count 8.4, Red Blood Count 4.41, Hemoglobin 13.0L, Hematocrit 41, Mean Corpuscular Volume 93, Mean Corpuscular Hemoglobin 30, Mean Corpuscular Hemoglobin Concent 32, Red Cell Distribution Width 14.9H, Platelet Count 223, Mean Platelet Volume 9.9 07/25/17 03:00: White Blood Count 7.9, Red Blood Count 3.95L, Hemoglobin 11.6L, Hematocrit 36L, Mean Corpuscular Volume 92, Mean Corpuscular Hemoglobin 29, Mean Corpuscular Hemoglobin Concent 32, Red Cell Distribution Width 14.8H, Platelet Count 223, Mean Platelet Volume 9.8, Sodium Level 140, Potassium Level 4.2, Chloride Level 108H, Carbon Dioxide Level 25, Anion Gap 7, Blood Urea Nitrogen 14, Creatinine 0.82, Estimat Glomerular Filtration Rate > 60, BUN/Creatinine Ratio 17, Glucose Level 97, Calcium Level 8.6 Procedures S/P peripheral angiogram with successful intervention A/P: Assessment: PAD. Peripheral angiogram of June 2017 showed the followin. Lower abdominal aortic atherosclerosis and calcification. 2. Patent kissing stents in the common iliac arteries, Omnilink 8 x 39 on the right and Omnilink 8 x 59 on the left (placed on 07/27/2016). 3. Patent site of angioplasty in the right superficial femoral artery where drug-coated (Lutonix) balloon angioplasty was carried out with 6.0 x 150 mm balloon on 07/27/2016. The right internal iliac and the right knee femoral vessels are intact. There is a 3-vessel (albeit sluggish) flow in the right leg arteries. 4. Severe in-stent restenoses of up to 90% in two overlapping Supera 6.0 x 150 mm stents that were placed on 06/22/2016. The stenoses are up to 90%. Distal to the distal edge of the stent,there is further stenosis in the left superficial femoral of up to 80% to 90%. The left internal iliac and the left deep femoral arteries are occluded. The left popliteal artery is intact and there is a 3-vessel (albeit sluggish) runoff in the left leg arteries. Peripheral angiogram of July 25, 2017: Successful balloon angioplasty for stent restenosis within the left common femoral and left superficial femoral arteries with reduction of up to 95%stenosis to no significant residual stenosis. No evidence of any significant myocardial ischemia or infarction. LVEF 79% per MPI of May 2017 LVEF 60-65%. PASP approx 30mmHg per echo of June 2017 COPD, followed by Dr Villafana Chronic dyspnea likely d/t COPD MPI of 05/06/15 showed no ischemia or infarction; LVEF was 82% Hypertension Quit smoking in 2004 GERD Hiatal hernia Chronic back pain and joint pain Disability due to COPD and chronic back pain Chronic hardness of hearing AAA screening August 2016: No evidence of AA Carotid arterial u/s August 2016: 50-60% bilat internal carotid artery stenosis Plan: S/P peripheral angiogram with successful intervention OK to discharge home One week f/u Continue current medication regimen Physician Assessment Physician Assessment He states he feels much better. Has some discomfort at site of accessDenies cp or palp or syncope. Exertional shortness of breath at usual baseline Cor: reg Lungs: fair to good air entry Ext: no c/c/e. Mild to mod bruising at sites of access. Foot warm. Distal pulses present. Able to wiggle toes. Good capillary refill A&R * As documented in our note that I updated at the time of this exam (italics) and as noted below * I had a conversation with him and explained the finding of angio and interventions undertaken * I advised and discussed risk factor mod * I advised med compliance after discussing the rationale and pros and cons of meds * Outpt f/u is advised LENARD KEARNS [employer] Jul 25, 2017 08:08 KISHA LAWRENCE [facility] Jul 25, 2017 09:11
--- NOTE | 2017-07-25 08:51 | Discharge Inst-Cardiology ---
Discharge Inst-Cardiac Discharge Medications Continued Medications: Albuterol Sulfate (Ventolin Hfa) 1 Puff Puff 2 PUFF IH Q4H PRN for SHORTNESS OF BREATH, PUFF 1 PUFF = 90 MCG Aspirin (Aspirin EC) 81 Mg Tablet.dr 81 MG PO DAILY, TAB Atorvastatin Calcium (Atorvastatin Calcium) 20 Mg Tablet 20 MG PO DAILY, TAB Budesonide/Formoterol Fumarate (Symbicort 160-4.5 Mcg Inhaler) 10.2 Gm Hfa.aer.ad 2 PUFF IH DAILY, INHALER Clopidogrel Bisulfate (Plavix) 75 Mg Tablet 75 MG PO DAILY, TAB Enalapril Maleate (Enalapril Maleate) 20 Mg Tablet 20 MG PO DAILY, TAB Fluticasone Propionate (Fluticasone Propionate) 16 Gm [place].susp 2 SPRAYS NS HS, SPRAY Hydrocodone/Acetaminophen (Hydrocodon-Acetaminophn 10-325) 1 Each Tablet 1 TAB PO Q8H PRN for PAIN-MODERATE, TAB Montelukast Sodium (Montelukast Sodium) 10 Mg Tablet 10 MG PO HS, TAB Umeclidinium [place] (Incruse Ellipta) 62.5 Mcg Blst.w.dev 1 PUFF IH DAILY, PUFF Patient Instructions Patient Instructions: Please schedule follow up appt to see Dr. Yun next week LENARD KEARNS Jul 25, 2017 08:51
[2017-07-25] MEDS ORDERED: RT-SYMBICORT 160/4.5 MCG INHALER PER PUFF IH SCH (09:00)
[2017-07-25] MEDS ORDERED: NON-FORMULARY MEDICATION 1 EA EA (Enalapril Maleate 20 MG) PO SCH (09:00)
[2017-07-25] MEDS ORDERED: ASPIRIN E.C. 81 MG (ECOTRIN) TAB PO SCH (09:00)
[2017-07-25] MEDS ORDERED: ATORVASTATIN 20 MG (LIPITOR) TABLET PO SCH (09:00)
[2017-07-25] MEDS ORDERED: CLOPIDOGREL 75 MG (PLAVIX) TABLET PO SCH (09:00)
[2017-07-25] MEDS ORDERED: ENALAPRIL 20 MG TABLET PO SCH (09:00)
== END 2017-07-25 09:15 | disposition home or self-care (01) ==
LOC: CATH 08:55 → ICU 14:07 → CATH 07-25 09:15
PROVIDERS: ATTEND Nurse Practitioner Family
DX: T82.858A Stenosis of other vascular prosthetic devices, implants and grafts, initial encounter (principal); I70.212 Atherosclerosis of native arteries of extremities with intermittent claudication, left leg; I70.0 Atherosclerosis of aorta; I65.23 Occlusion and stenosis of bilateral carotid arteries; I35.8 Other nonrheumatic aortic valve disorders; I10 Essential (primary) hypertension; E78.5 Hyperlipidemia, unspecified; J44.9 Chronic obstructive pulmonary disease, unspecified; E66.9 Obesity, unspecified; Z68.30 Body mass index [BMI] 30.0-30.9, adult; Z79.82 Long term (current) use of aspirin; Z79.899 Other long term (current) drug therapy; Z87.891 Personal history of nicotine dependence
CPT/HCPCS: 36415; 80048; 80053; 80061; 85027; 85610; 85730; 87081; 93005

== ENCOUNTER → 2017-07-30 | Outpatient (CLI) | payer MEDICARE ==
[~2017-07-30] MED LIST changes: +FLUT16SP22 NS; +MONT10TA24 PO
[2017-07-30 15:28] LABS: BASOPHILS % (AUTO) 0 % (0-10); EOSINOPHILS # (AUTO) 0.1 10^3/uL (0.0-0.3); EOSINOPHILS % (AUTO) 1 % (0-10); HEMATOCRIT 39 % (40-54); HEMOGLOBIN 12.5 G/DL (13.3-17.7); LYMPHOCYTES # (AUTO) 1.7 X 10^3 (1.0-4.0); LYMPHOCYTES % (AUTO) 16 % (12-44); MEAN CORPUSCULAR HEMOGLOBIN 29 PG (25-34); MEAN CORPUSCULAR HGB CONC 32 G/DL (32-36); MEAN CORPUSCULAR VOLUME 92 FL (80-99); MEAN PLATELET VOLUME 9.7 FL (7.4-10.4); MONOCYTES # (AUTO) 0.9 X 10^3 (0.0-1.0); MONOCYTES % (AUTO) 9 % (0-12); NEUTROPHILS # (AUTO) 7.4 X 10^3 (1.8-7.8); NEUTROPHILS % (AUTO) 73 % (42-75); PLATELET COUNT 261 10^3/uL (130-400); RED BLOOD COUNT 4.27 10^6/uL (4.35-5.85); RED CELL DISTRIBUTION WIDTH 14.3 % (10.0-14.5); WHITE BLOOD COUNT 10.2 10^3/uL (4.3-11.0)
--- NOTE | 2017-07-30 15:38 | Diagnostic Imaging Report ---
INDICATION: Recent left popliteal access for arterial intervention. Patient complains of left calf pain. TECHNIQUE: Grayscale, color-flow and duplex Doppler evaluation of left lower extremity arterial system was performed. FINDINGS: There is a stent extending from the left common femoral artery to the superficial femoral artery. Left common femoral and superficial femoral arteries are widely patent. There is diffuse monophasic flow present. Popliteal artery is patent. No popliteal aneurysm or pseudoaneurysm is identified. There does appear to be a fluid collection in the left calf superiorly. This has a cephalocaudal extent of approximately 14 cm x approximately 0.9 cm AP x 3.8 cm transverse. Left popliteal vein is patent. No AV fistula is seen. IMPRESSION: Left calf hematoma. No pseudoaneurysm is detected. No definite arterial extravasation is seen. Dictated by: Dictated on workstation # [id number]
== END ==
LOC: RAD 14:13
PROVIDERS: ATTEND Nurse Practitioner Family
DX: S80.12XA Contusion of left lower leg, initial encounter (principal); I10 Essential (primary) hypertension; I70.211 Atherosclerosis of native arteries of extremities with intermittent claudication, right leg
CPT/HCPCS: 36415; 85025; 93926

== ENCOUNTER → 2018-04-19 | Outpatient (CLI) | payer MEDICARE ==
[~2018-04-19] MED LIST changes: -IPRA3AMP INH; +IPRA3AMP31 INH
[2018-04-19 09:40] LABS: BASOPHILS % (AUTO) 0 % (0-10); EOSINOPHILS # (AUTO) 0.2 10^3/uL (0.0-0.3); EOSINOPHILS % (AUTO) 2 % (0-10); HEMATOCRIT 45 % (40-54); HEMOGLOBIN 13.9 G/DL (13.3-17.7); LYMPHOCYTES # (AUTO) 1.7 X 10^3 (1.0-4.0); LYMPHOCYTES % (AUTO) 20 % (12-44); MEAN CORPUSCULAR HEMOGLOBIN 29 PG (25-34); MEAN CORPUSCULAR HGB CONC 31 G/DL (32-36); MEAN CORPUSCULAR VOLUME 92 FL (80-99); MEAN PLATELET VOLUME 9.7 FL (7.4-10.4); MONOCYTES # (AUTO) 0.6 X 10^3 (0.0-1.0); MONOCYTES % (AUTO) 7 % (0-12); NEUTROPHILS # (AUTO) 6.1 X 10^3 (1.8-7.8); NEUTROPHILS % (AUTO) 71 % (42-75); PLATELET COUNT 209 10^3/uL (130-400); RED BLOOD COUNT 4.87 10^6/uL (4.35-5.85); RED CELL DISTRIBUTION WIDTH 15.3 % (10.0-14.5); WHITE BLOOD COUNT 8.6 10^3/uL (4.3-11.0)
[2018-04-19 09:59] LABS: ALANINE AMINOTRANSFERASE 29 U/L (0-55); ALBUMIN 4.3 GM/DL (3.2-4.5); ALKALINE PHOSPHATASE 74 U/L (40-136); BILIRUBIN,TOTAL 0.4 MG/DL (0.1-1.0); BUN/CREATININE RATIO 16; CARBON DIOXIDE 24 MMOL/L (21-32); CHLORIDE 106 MMOL/L (98-107); CHOLESTEROL 173 MG/DL (< 200); CREATININE SERUM 0.96 MG/DL (0.60-1.30); GFR ESTIMATED > 60; GLUCOSE 100 MG/DL (70-105); HDL CHOLESTEROL 45 MG/DL (40-60); MAGNESIUM 2.3 MG/DL (1.8-2.4); POTASSIUM 4.5 MMOL/L (3.6-5.0); SODIUM 139 MMOL/L (135-145); TOTAL PROTEIN 7.2 GM/DL (6.4-8.2); TRIGLYCERIDES 155 MG/DL (<150); VLDL CHOLESTEROL 31 MG/DL (5-40)
[2018-04-19 10:25] LABS: ERYTHROCYTE SEDIMENTATION RATE 9 MM/HR (0-30)
== END ==
LOC: LAB 09:26
PROVIDERS: ATTEND Internal Medicine Cardiovascular Disease
DX: I70.212 Atherosclerosis of native arteries of extremities with intermittent claudication, left leg (principal); I70.211 Atherosclerosis of native arteries of extremities with intermittent claudication, right leg; E78.5 Hyperlipidemia, unspecified; I10 Essential (primary) hypertension; R09.02 Hypoxemia; R06.02 Shortness of breath
CPT/HCPCS: 36415; 80053; 80061; 83735; 84443; 85025; 85652

== ENCOUNTER 2018-06-04 08:50 | Day surgery (SDC) | payer MEDICARE ==
[~2018-06-04] VITALS: Ht 170.2 cm; Wt 88.9 kg
[2018-06-04] VITALS (10 sets, daily range): BP systolic 130–177; BP diastolic 69–94
--- OUTSIDE RECORDS SUMMARY | 2018-06-04 08:57 | XMS REPORT | Continuity of Care Document ---
Author Author [facility] Organization [facility] Address Unknown Phone Unavailable Allergies Active [...] Ot K21.9 GASTRO-ESOPHAGEAL REFLUX DISEASE WITHOUT 02/26/2015 LYNNE HANNA, JOSE R Ot K44.9 DIAPHRAGMATIC HERNIA WITHOUT OBSTRUCTION [...] ALI FACP CCDS Ot I10 04/20/2015 MELINDA TILLMANC, ALI FACP CCDS Ot J44.1 04/20/2015 MELINDA [...] (PRIMARY) HYPERTENSION 06/01/2016 MELINDA HANNA [facility], [facility].1 CHRONIC OBSTRUCTIVE PULMONARY DISEASE W 06/01/2016 [facility] R06.02 SHORTNESS OF BREATH [...] PULMONARY DISEASE W 06/06/2016 LENARD KEARNS L TRESTLE BUILDER Ot I73.9 PERIPHERAL VASCULAR DISEASE, UNSPECIFIED 06/07/2016 BAIMA LENARD L TRESTLE BUILDER Ot I10 ESSENTIAL (PRIMARY) HYPERTENSION 06/07/2016 LENARD KEARNS L TRESTLE BUILDER Ot I73.9 PERIPHERAL VASCULAR DISEASE, UNSPECIFIED 06/07/2016 DILLONMALENARD L TRESTLE BUILDER Ot J43.8 OTHER EMPHYSEMA 06/07/2016 BAIMALENARD L TRESTLE BUILDER Ot R06.02 SHORTNESS OF BREATH 06/07/2016 BAIMA, LENARD L TRESTLE BUILDER Ot I73.9 PERIPHERAL VASCULAR DISEASE, UNSPECIFIED 06/07/2016 BAILENARD COREA L TRESTLE BUILDER Ot I10 ESSENTIAL (PRIMARY) HYPERTENSION 06/07/2016 LENARD KEARNS L TRESTLE BUILDER Ot I73.9 PERIPHERAL VASCULAR DISEASE, UNSPECIFIED 06/07/2016 LENARD KEARNS L TRESTLE BUILDER Ot J43.8 OTHER EMPHYSEMA 06/07/2016 BAIANIA COREAHER L TRESTLE BUILDER Ot R06.02 SHORTNESS OF BREATH 06/13/2016 MELINDA HANNA FACC, ALI FACP CCDS Ot H91.90 UNSPECIFIED HEARING LOSS, UNSPECIFIED EA 06/13/2016 MELINDA HANNA FACC, ALI FACP CCDS Ot I10 ESSENTIAL (PRIMARY) HYPERTENSION 06/13/2016 MELINDA HANNA FACC, ALI FACP CCDS Ot I70.213 ATHSCL [place] ARTERIES OF [facility] 06/13/2016 MELINDA HANNA FACC, ALI FACP CCDS Ot 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 06/13/2016 MELINDA HANNA [facility], ALI FACP CCDS Ot J44.9 CHRONIC OBSTRUCTIVE PULMONARY DISEASE, U 06/13/2016 MELINDA HANNA FAC, ALI FACP CCDS Ot Z79.899 OTHER CARE HOME (CURRENT) DRUG THERAPY 06/13/2016 MELINDA HANNA [facility], ALI FACP CCDS Ot Z87.891 PERSONAL HISTORY OF NICOTINE DEPENDENCE 06/22/2016 DILLONLENARD COREA L TRESTLE BUILDER Ot I10 ESSENTIAL (PRIMARY) HYPERTENSION 06/22/2016 DILLONLENARD COREA L TRESTLE BUILDER Ot I73.9 PERIPHERAL VASCULAR DISEASE, UNSPECIFIED 06/22/2016 DILLONLENARD COREA L TRESTLE BUILDER Ot J43.8 OTHER EMPHYSEMA 06/22/2016 DILLONLENARD COREA L TRESTLE BUILDER Ot R06.02 SHORTNESS OF BREATH 06/23/2016 Ga RUGGIERO MD Ot I10 ESSENTIAL (PRIMARY) HYPERTENSION 06/23/2016 Ga RUGGIERO MD Ot 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 06/23/2016 Ga RUGGIERO MD Ot 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 06/23/2016 Ga RUGGIERO MD Ot J44.9 CHRONIC OBSTRUCTIVE PULMONARY DISEASE, U 06/23/2016 Ga RUGGIERO MD Ot Z79.899 OTHER WARD ASSISTANT (CURRENT) DRUG THERAPY 06/23/2016 Ga RUGGIERO MD Ot Z87.891 PERSONAL HISTORY OF NICOTINE DEPENDENCE 07/03/2016 MELINDA HANNA FACC, ALI FACP CCDS Ot H91.90 UNSPECIFIED HEARING LOSS, UNSPECIFIED EA 07/03/2016 MELINDA HANNA FACC, ALI FACP CCDS Ot I10 ESSENTIAL (PRIMARY) HYPERTENSION 07/03/2016 MELINDA HANNA FACC, ALI FACP CCDS Ot 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07/03/2016 MELINDA HANNA FACC, ALI FACP CCDS Ot 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 07/03/2016 MELINDA TILLMANC, ALI FACP CCDS Ot J44.9 CHRONIC OBSTRUCTIVE PULMONARY DISEASE, U 07/03/2016 MELINDA TILLMANC, ALI FACP CCDS Ot Z79.899 OTHER WARD ASSISTANT (CURRENT) DRUG THERAPY 07/03/2016 MELINDA HANNA FACC, ALI FACP CCDS Ot Z87.891 PERSONAL HISTORY OF NICOTINE DEPENDENCE 07/03/2016 MELINDA HANNA FACC, ALI FACP CCDS Ot H91.90 UNSPECIFIED HEARING LOSS, UNSPECIFIED EA 07/03/2016 MELINDA TILLMANC, ALI FACP CCDS Ot I10 ESSENTIAL (PRIMARY) HYPERTENSION 07/03/2016 MELINDA HANNA FACC, ALI FACP CCDS Ot 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07/03/2016 MELINDA TILLMANC, ALI FACP CCDS Ot 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 07/03/2016 MELINDA TILLMANC, ALI FACP CCDS Ot J44.9 CHRONIC OBSTRUCTIVE PULMONARY DISEASE, U 07/03/2016 MELINDA TILLMANC, ALI FACP CCDS Ot Z79.899 OTHER CARE HOME (CURRENT) DRUG THERAPY 07/03/2016 MELINDA HANNA FACC, ALI FACP CCDS Ot Z87.891 PERSONAL HISTORY OF NICOTINE DEPENDENCE 07/13/2016 Ga RUGGIERO MD Ot I10 ESSENTIAL (PRIMARY) HYPERTENSION 07/13/2016 Ga RUGGIERO MD Ot 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07/13/2016 Ga RUGGIERO MD Ot 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 07/13/2016 Ga RUGGIERO MD Ot J44.9 CHRONIC OBSTRUCTIVE PULMONARY DISEASE, U 07/13/2016 Ga RUGGIERO MD Ot Z79.899 OTHER CARE HOME (CURRENT) DRUG THERAPY 07/13/2016 Ga RUGGIERO MD Ot Z87.891 PERSONAL HISTORY OF NICOTINE DEPENDENCE 07/28/2016 Ga RUGGIERO MD Ot I10 ESSENTIAL (PRIMARY) HYPERTENSION 07/28/2016 Ga RUGGIERO MD Ot 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07/28/2016 Ga RUGGIERO MD, Ot J44.9 CHRONIC OBSTRUCTIVE PULMONARY DISEASE, U 07/28/2016 Ga RUGGIERO MD Ot Z79.899 OTHER CARE HOME (CURRENT) DRUG THERAPY 07/28/2016 Ga RUGGIERO MD, Ot Z87.891 PERSONAL HISTORY OF NICOTINE DEPENDENCE 07/28/2016 Ga RUGGIERO MD Ot Z95.820 PERIPHERAL VASCULAR ANGIOPLASTY STATUS W 07/30/2016 Ga RUGGIERO MD Ot I10 ESSENTIAL (PRIMARY) HYPERTENSION 07/30/2016 Ga RUGGIERO MD Ot 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 07/30/2016 Ga RUGGIERO MD Ot 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 I10 ESSENTIAL (PRIMARY) HYPERTENSION 08/09/2016 M[facility]AN[facility] R06.02 SHORTNESS OF BREATH 08/09/2016 ALYSHA WALLACE AYAH M Ot J44.1 CHRONIC OBSTRUCTIVE PULMONARY DISEASE W 08/09/2016 AYAH ENCARNACION DO M Ot J44.1 CHRONIC OBSTRUCTIVE PULMONARY DISEASE W 08/09/2016 ALYSHA DOAYAH M Ot J44.1 CHRONIC OBSTRUCTIVE PULMONARY DISEASE W 08/09/2016 BAIMA, LENARD L TRESTLE BUILDER Ot I10 ESSENTIAL (PRIMARY) HYPERTENSION 08/09/2016 BAIMA, LENARD L TRESTLE BUILDER Ot I73.9 PERIPHERAL VASCULAR DISEASE, UNSPECIFIED 08/09/2016 BAIMA, LENARD L TRESTLE BUILDER Ot J43.8 OTHER EMPHYSEMA 08/09/2016 BAIMA, LENARD L TRESTLE BUILDER Ot R06.02 SHORTNESS OF BREATH 08/09/2016 BAIMA, LENARD L TRESTLE BUILDER Ot I10 ESSENTIAL (PRIMARY) HYPERTENSION 08/09/2016 BAIMA LENARD L TRESTLE BUILDER Ot I73.9 PERIPHERAL VASCULAR DISEASE, UNSPECIFIED 08/09/2016 BAIMA, LENARD L TRESTLE BUILDER Ot J43.8 OTHER EMPHYSEMA 08/09/2016 DILLONMA, LENARD L TRESTLE BUILDER Ot R06.02 SHORTNESS OF BREATH 08/09/2016 DOMINGA [...] UNSPECIFIED 08/09/2016 DOMINGA BRADFORD MD Ot Z79.02 CARE HOME (CURRENT) USE OF ANTITHROMBOTI 08/09/2016 DOMINGA BRADFORD MD Ot Z79.82 WARD ASSISTANT (CURRENT) USE OF ASPIRIN 08/09/2016 DOMINGA BRADFORD MD, Ot Z79.899 OTHER WARD ASSISTANT (CURRENT) DRUG THERAPY 08/09/2016 DOMINGA BRADFORD MD, Ot Z87.891 PERSONAL HISTORY OF NICOTINE DEPENDENCE 08/09/2016 DOMINGA BRADFORD MD Ot Z95.828 PRESENCE OF OTHER VASCULAR IMPLANTS AND 04/10/2017 DILLONLENARD COREA L TRESTLE BUILDER Ot E78.4 OTHER HYPERLIPIDEMIA 04/10/2017 BAIMA LENARD L TRESTLE BUILDER Ot I10 ESSENTIAL (PRIMARY) HYPERTENSION 04/10/2017 BAIMA LENARD L TRESTLE BUILDER Ot J43.8 OTHER EMPHYSEMA 04/10/2017 BAIMA LENARD L TRESTLE BUILDER Ot R06.09 OTHER FORMS OF DYSPNEA 04/28/2017 [...] COUGH 04/28/2017 MARYSE FULLER MD Ot Z79.82 CARE HOME (CURRENT) USE OF ASPIRIN 04/28/2017 MARYSE FULLER [...] PULMONARY DISEASE W 04/28/2017 BAIMA, LENARD L TRESTLE BUILDER Ot I10 ESSENTIAL (PRIMARY) HYPERTENSION 04/28/2017 BAIMA, LENARD L TRESTLE BUILDER Ot I73.9 PERIPHERAL VASCULAR DISEASE, UNSPECIFIED 04/28/2017 BAIMA, LENARD L TRESTLE BUILDER Ot J43.8 OTHER EMPHYSEMA 04/28/2017 BAIMA, LENARD L TRESTLE BUILDER Ot R06.02 SHORTNESS OF BREATH 04/28/2017 BAIMA, LENARD L TRESTLE BUILDER Ot I10 ESSENTIAL (PRIMARY) HYPERTENSION 04/28/2017 BAIMA, LENARD L TRESTLE BUILDER Ot I73.9 PERIPHERAL VASCULAR DISEASE, UNSPECIFIED 04/28/2017 BAIMA, LENARD L TRESTLE BUILDER Ot J43.8 OTHER EMPHYSEMA 04/28/2017 BAIMA, LENARD L TRESTLE BUILDER Ot R06.02 SHORTNESS OF BREATH 04/28/2017 BAIMA, LENARD L TRESTLE BUILDER Ot E78.4 OTHER HYPERLIPIDEMIA 04/28/2017 BAIMA, LENARD L TRESTLE BUILDER Ot I10 ESSENTIAL (PRIMARY) HYPERTENSION 04/28/2017 BAIMA, LENARD L TRESTLE BUILDER Ot J43.8 OTHER EMPHYSEMA 04/28/2017 BAIMA, LENARD L TRESTLE BUILDER Ot R06.09 OTHER FORMS OF DYSPNEA 05/01/2017 [...] Ot J44.0 CHRONIC OBSTRUCTIVE PULMON DISEASE W [facility] 05/02/2017 ANDREY ESCAMILLA MD Ot J44.1 [...] Ot J44.0 CHRONIC OBSTRUCTIVE PULMON DISEASE W [facility] 05/02/2017 ANDREY ESCAMILLA MD Ot J44.1 [...] Ot J44.0 CHRONIC OBSTRUCTIVE PULMON DISEASE W [facility] 05/02/2017 ANDREY ESCAMILLA MD Ot J44.1 [...] COUGH 05/04/2017 MARYSE FULLER MD Ot Z79.82 WARD ASSISTANT (CURRENT) USE OF ASPIRIN 05/04/2017 MARYSE FULLER MD Ot Z87.442 PERSONAL HISTORY OF URINARY CALCULI 05/04/2017 MARYSE FULLER MD Ot Z87.891 PERSONAL HISTORY OF NICOTINE DEPENDENCE 06/15/2017 BAIMA, LENARD L TRESTLE BUILDER Ot E78.4 OTHER HYPERLIPIDEMIA 06/15/2017 BAIMA, LENARD L TRESTLE BUILDER Ot I10 ESSENTIAL (PRIMARY) HYPERTENSION 06/15/2017 BAIMA, LENARD L TRESTLE BUILDER Ot R06.09 OTHER FORMS OF DYSPNEA 06/19/2017 BAIMA, LENARD L TRESTLE BUILDER Ot E78.4 OTHER HYPERLIPIDEMIA 06/19/2017 BAIMA, LENARD L TRESTLE BUILDER Ot I10 ESSENTIAL (PRIMARY) HYPERTENSION 06/19/2017 BAIMA, LENARD L TRESTLE BUILDER Ot R06.09 OTHER FORMS OF DYSPNEA 06/19/2017 [...] OBSTRUCTIVE PULMONARY DISEASE W 06/19/2017 DILLONMAANIALENARD L TRESTLE BUILDER Ot I10 ESSENTIAL (PRIMARY) HYPERTENSION 06/19/2017 BAIMA LENARD L TRESTLE BUILDER Ot I73.9 PERIPHERAL VASCULAR DISEASE, UNSPECIFIED 06/19/2017 BAIMA, LENARD L TRESTLE BUILDER Ot J43.8 OTHER EMPHYSEMA 06/19/2017 BAIMA, LENARD L TRESTLE BUILDER Ot R06.02 SHORTNESS OF BREATH 06/19/2017 BAIMA, LENARD L TRESTLE BUILDER Ot I10 ESSENTIAL (PRIMARY) HYPERTENSION 06/19/2017 BAIMA, LENARD L TRESTLE BUILDER Ot I73.9 PERIPHERAL VASCULAR DISEASE, UNSPECIFIED 06/19/2017 BAIMA, LENARD L TRESTLE BUILDER Ot J43.8 OTHER EMPHYSEMA 06/19/2017 BAIMA, LENARD L TRESTLE BUILDER Ot R06.02 SHORTNESS OF BREATH 06/19/2017 BAIMA, LENARD L TRESTLE BUILDER Ot E78.4 OTHER HYPERLIPIDEMIA 06/19/2017 BAIMA, LENARD L TRESTLE BUILDER Ot I10 ESSENTIAL (PRIMARY) HYPERTENSION 06/19/2017 BAIMA, LENARD L TRESTLE BUILDER Ot J43.8 OTHER EMPHYSEMA 06/19/2017 BAIMA, LENARD L TRESTLE BUILDER Ot R06.09 OTHER FORMS OF DYSPNEA 06/19/2017 BAIMA, LENARD L TRESTLE BUILDER Ot E78.4 OTHER HYPERLIPIDEMIA 06/19/2017 BAIMA, LENARD L TRESTLE BUILDER Ot I10 ESSENTIAL (PRIMARY) HYPERTENSION 06/19/2017 BAIMA, LENARD L TRESTLE BUILDER Ot R06.09 OTHER FORMS OF DYSPNEA 06/22/2017 BAIMA, LENARD L TRESTLE BUILDER Ot I10 ESSENTIAL (PRIMARY) HYPERTENSION 06/22/2017 BAIMA, LENARD L TRESTLE BUILDER Ot R06.09 OTHER FORMS OF DYSPNEA 06/22/2017 BAIMA, LENARD L TRESTLE BUILDER Ot R25.2 CRAMP AND SPASM 06/25/2017 BAIMA, LENARD L TRESTLE BUILDER Ot E78.4 OTHER HYPERLIPIDEMIA 06/25/2017 BAIMA, LENARD L TRESTLE BUILDER Ot I10 ESSENTIAL (PRIMARY) HYPERTENSION 06/25/2017 BAIMA, LENARD L TRESTLE BUILDER Ot R06.09 OTHER FORMS OF DYSPNEA 06/28/2017 BAIMA, LENARD L TRESTLE BUILDER Ot E78.5 HYPERLIPIDEMIA, UNSPECIFIED 06/28/2017 BAIMA, LENARD L TRESTLE BUILDER Ot I10 ESSENTIAL (PRIMARY) HYPERTENSION 06/28/2017 BAIMA, LENARD L TRESTLE BUILDER Ot R06.09 OTHER FORMS OF DYSPNEA 07/02/2017 BAIMA, LENARD L TRESTLE BUILDER Ot I10 ESSENTIAL (PRIMARY) HYPERTENSION 07/02/2017 BAIMA, LENARD L TRESTLE BUILDER Ot R06.09 OTHER FORMS OF DYSPNEA 07/02/2017 BAIMA, LENARD L TRESTLE BUILDER Ot R25.2 CRAMP AND SPASM 07/03/2017 MELINDA HANNA FACC, ALI FACP CCDS Ot E66.9 OBESITY, UNSPECIFIED 07/03/2017 MELINDA HANNA FACC, ALI FACP CCDS Ot E78.5 HYPERLIPIDEMIA, UNSPECIFIED 07/03/2017 MELINDA HANNA FACC, ALI FACP CCDS Ot I10 ESSENTIAL (PRIMARY) HYPERTENSION 07/03/2017 MELINDA HANNA FACC, ALI FACP CCDS Ot I35.8 OTHER NONRHEUMATIC AORTIC VALVE DISORDER 07/03/2017 MELINDA TILLMANC, ALI FACP CCDS Ot 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 07/03/2017 MELINDA HANNA FACC, ALI FACP CCDS Ot I70.0 ATHEROSCLEROSIS OF AORTA 07/03/2017 MELINDA HANNA FACC, ALI FACP CCDS Ot 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 07/03/2017 MELINDA HANNA FACC, ALI FACP CCDS Ot J44.9 CHRONIC OBSTRUCTIVE PULMONARY DISEASE, U 07/03/2017 MELINDA HANNA FACC, ALI FACP CCDS Ot 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 07/03/2017 MELINDA HANNA FACC, ALI FACP CCDS Ot Z68.30 BODY MASS INDEX (BMI) 30.0-30.9, ADULT 07/03/2017 MELINDA HANNA FACC, ALI FACP CCDS Ot Z79.82 CARE HOME (CURRENT) USE OF ASPIRIN 07/03/2017 MELINDA HANNA FACC, ALI FACP CCDS Ot Z79.899 OTHER WARD ASSISTANT (CURRENT) DRUG THERAPY 07/03/2017 MELINDA HANNA FACC, ALI FACP CCDS Ot Z87.891 PERSONAL HISTORY OF NICOTINE DEPENDENCE 07/04/2017 MELINDA HANNA FACC, ALI FACP CCDS Ot E66.9 OBESITY, UNSPECIFIED 07/04/2017 MELINDA HANNA FACC, ALI FACP CCDS Ot E78.5 HYPERLIPIDEMIA, UNSPECIFIED 07/04/2017 MELINDA HANNA FACC, ALI FACP CCDS Ot I10 ESSENTIAL (PRIMARY) HYPERTENSION 07/04/2017 MELINDA HANNA FACC, ALI FACP CCDS Ot I35.8 OTHER NONRHEUMATIC AORTIC VALVE DISORDER 07/04/2017 MELINDA HANNA FACC, ALI FACP CCDS Ot 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 07/04/2017 MELINDA HANNA FACC, ALI FACP CCDS Ot I70.0 ATHEROSCLEROSIS OF AORTA 07/04/2017 MELINDA HANNA FACC, ALI FACP CCDS Ot 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 07/04/2017 MELINDA HANNA FACC, KISHA FACP CCDS Ot J44.9 CHRONIC OBSTRUCTIVE PULMONARY DISEASE, U 07/04/2017 MELINDA HANNA FACC, ALI FACP CCDS Ot 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 07/04/2017 MELINDA HANNA FACC, ALI FACP CCDS Ot Z68.30 BODY MASS INDEX (BMI) 30.0-30.9, ADULT 07/04/2017 MELINDA HANNA FACC, ALI FACP CCDS Ot Z79.82 WARD ASSISTANT (CURRENT) USE OF ASPIRIN 07/04/2017 MELINDA HANNA FACC, ALI FACP CCDS Ot Z79.899 OTHER CARE HOME (CURRENT) DRUG THERAPY 07/04/2017 MELINDA HANNA FACC, ALI FACP CCDS Ot Z87.891 PERSONAL HISTORY OF NICOTINE DEPENDENCE 07/06/2017 LENARD KEARNS TRESTLE BUILDER Ot E78.5 HYPERLIPIDEMIA, UNSPECIFIED 07/06/2017 LENARD KEARNS TRESTLE BUILDER Ot I10 ESSENTIAL (PRIMARY) HYPERTENSION 07/06/2017 LENARD KEARNS TRESTLE BUILDER Ot R06.09 OTHER FORMS OF DYSPNEA 07/09/2017 MELINDA HANNA FACC, KISHA FACP CCDS Ot E66.9 OBESITY, UNSPECIFIED 07/09/2017 MELINDA HANNA FACC, ALI FACP CCDS Ot E78.5 HYPERLIPIDEMIA, UNSPECIFIED 07/09/2017 MELINDA HANNA FACC, ALI FACP CCDS Ot I10 ESSENTIAL (PRIMARY) HYPERTENSION 07/09/2017 MELINDA HANNA FACC, ALI FACP CCDS Ot I35.8 OTHER NONRHEUMATIC AORTIC VALVE DISORDER 07/09/2017 MELINDA HANNA FACC, ALI FACP CCDS Ot 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 07/09/2017 MELINDA HANNA FACC, ALI FACP CCDS Ot I70.0 ATHEROSCLEROSIS OF AORTA 07/09/2017 MELINDA HANNA FACC, ALI FACP CCDS Ot 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 07/09/2017 MELINDA HANNA FACC, ALI FACP CCDS Ot J44.9 CHRONIC OBSTRUCTIVE PULMONARY DISEASE, U 07/09/2017 MELINDA HANNA FACC, ALI FACP CCDS Ot 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 07/09/2017 MELINDA HANNA FACC, ALI FACP CCDS Ot Z68.30 BODY MASS INDEX (BMI) 30.0-30.9, ADULT 07/09/2017 MELINDA HANNA FACC, ALI FACP CCDS Ot Z79.82 CARE HOME (CURRENT) USE OF ASPIRIN 07/09/2017 MELINDA HANNA FACC, ALI FACP CCDS Ot Z79.899 OTHER WARD ASSISTANT (CURRENT) DRUG THERAPY 07/09/2017 MELINDA HANNA FACC, ALI FACP CCDS Ot Z87.891 PERSONAL HISTORY OF NICOTINE DEPENDENCE 07/12/2017 MELINDA HANNA FACC, ALI FACP CCDS Ot E66.9 OBESITY, UNSPECIFIED 07/12/2017 MELINDA HANNA FACC, ALI FACP CCDS Ot E78.5 HYPERLIPIDEMIA, UNSPECIFIED 07/12/2017 MELINDA HANNA FACC, ALI FACP CCDS Ot I10 ESSENTIAL (PRIMARY) HYPERTENSION 07/12/2017 MELINDA HANNA FACC, ALI FACP CCDS Ot I35.8 OTHER NONRHEUMATIC AORTIC VALVE DISORDER 07/12/2017 MELINDA HANNA FACC, ALI FACP CCDS Ot 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 07/12/2017 MELINDA HANNA FACC, ALI FACP CCDS Ot I70.0 ATHEROSCLEROSIS OF AORTA 07/12/2017 MELINDA HANNA FACC, ALI FACP CCDS Ot 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 07/12/2017 MELINDA HANNA FACC, ALI FACP CCDS Ot J44.9 CHRONIC OBSTRUCTIVE PULMONARY DISEASE, U 07/12/2017 MELINDA HANNA FACC, ALI FACP CCDS Ot 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 07/12/2017 MELINDA HANNA FACC, ALI FACP CCDS Ot Z68.30 BODY MASS INDEX (BMI) 30.0-30.9, ADULT 07/12/2017 MELINDA HANNA FACC, ALI FACP CCDS Ot Z79.82 CARE HOME (CURRENT) USE OF ASPIRIN 07/12/2017 MELINDA HANNA FACC, ALI FACP CCDS Ot Z79.899 OTHER CARE HOME (CURRENT) DRUG THERAPY 07/12/2017 MELINDA HANNA FACC, ALI FACP CCDS Ot Z87.891 PERSONAL HISTORY OF NICOTINE DEPENDENCE 07/24/2017 LENARD KEARNS TRESTLE BUILDER Ot E78.4 OTHER HYPERLIPIDEMIA 07/24/2017 LENARD KEARNS TRESTLE BUILDER Ot I10 ESSENTIAL (PRIMARY) HYPERTENSION 07/24/2017 URMILA LENARD L TRESTLE BUILDER Ot R06.09 OTHER FORMS OF DYSPNEA 07/24/2017 LENARD KEARNS TRESTLE BUILDER Ot E78.5 HYPERLIPIDEMIA, UNSPECIFIED 07/24/2017 DILLONMA LENARD L TRESTLE BUILDER Ot I10 ESSENTIAL (PRIMARY) HYPERTENSION 07/24/2017 URMILA LENARD L TRESTLE BUILDER Ot R06.09 OTHER FORMS OF DYSPNEA 07/25/2017 LENARD KEARNS L TRESTLE BUILDER Ot E66.9 OBESITY, UNSPECIFIED 07/25/2017 URMILA LENARD L TRESTLE BUILDER Ot E78.5 HYPERLIPIDEMIA, UNSPECIFIED 07/25/2017 LNEARD KEARNS L TRESTLE BUILDER Ot I10 ESSENTIAL (PRIMARY) HYPERTENSION 07/25/2017 LENARD KEARNS TRESTLE BUILDER Ot I35.8 OTHER NONRHEUMATIC AORTIC VALVE DISORDER 07/25/2017 LENARD KEARNS L TRESTLE BUILDER Ot 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 07/25/2017 LENARD KEARNS TRESTLE BUILDER Ot I70.0 ATHEROSCLEROSIS OF AORTA 07/25/2017 LENARD KEARNS L TRESTLE BUILDER Ot 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 07/25/2017 LENARD KEARNS TRESTLE BUILDER Ot J44.9 CHRONIC OBSTRUCTIVE PULMONARY DISEASE, U 07/25/2017 LENARD KEARNS TRESTLE BUILDER Ot 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 07/25/2017 LENARD KEARNS L TRESTLE BUILDER Ot Z68.30 BODY MASS INDEX (BMI) 30.0-30.9, ADULT 07/25/2017 LENARD KEARNS L TRESTLE BUILDER Ot Z79.82 WARD ASSISTANT (CURRENT) USE OF ASPIRIN 07/25/2017 LENARD KEARNS L TRESTLE BUILDER Ot Z79.899 OTHER WARD ASSISTANT (CURRENT) DRUG THERAPY 07/25/2017 LENARD KEARNS L TRESTLE BUILDER Ot Z87.891 PERSONAL HISTORY OF NICOTINE DEPENDENCE 07/26/2017 LENARD KEARNS L TRESTLE BUILDER Ot E66.9 OBESITY, UNSPECIFIED 07/26/2017 LENARD KEARNS L TRESTLE BUILDER Ot E78.5 HYPERLIPIDEMIA, UNSPECIFIED 07/26/2017 LENARD KEARNS L TRESTLE BUILDER Ot I10 ESSENTIAL (PRIMARY) HYPERTENSION 07/26/2017 LENARD KEARNS L TRESTLE BUILDER Ot I35.8 OTHER NONRHEUMATIC AORTIC VALVE DISORDER 07/26/2017 DILLONANMOL LENARD Sandra TRESTLE BUILDER Ot 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 07/26/2017 LENARD KEARNS TRESTLE BUILDER Ot I70.0 ATHEROSCLEROSIS OF AORTA 07/26/2017 URMILA LENARD L TRESTLE BUILDER Ot I70.212 ATHSCL [place] [facility] 07/26/2017 DILLONANMOL LENARD L TRESTLE BUILDER Ot J44.9 CHRONIC OBSTRUCTIVE PULMONARY DISEASE, U 07/26/2017 URMILA LENARD L TRESTLE BUILDER Ot 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 07/26/2017 URMILA LENARD L TRESTLE BUILDER Ot Z68.30 BODY MASS INDEX (BMI) 30.0-30.9, ADULT 07/26/2017 URMILA LENARD L TRESTLE BUILDER Ot Z79.82 CARE HOME (CURRENT) USE OF ASPIRIN 07/26/2017 LENARD KEARNS L TRESTLE BUILDER Ot Z79.899 OTHER CARE HOME (CURRENT) DRUG THERAPY 07/26/2017 LENARD KEARNS TRESTLE BUILDER Ot Z87.891 PERSONAL HISTORY OF NICOTINE DEPENDENCE 07/30/2017 URMILA LENARD Sandra TRESTLE BUILDER Ot M79.605 PAIN IN LEFT LEG 07/31/2017 LENARD KEARNS L TRESTLE BUILDER Ot I10 ESSENTIAL (PRIMARY) HYPERTENSION 07/31/2017 LENARD KEARNS L TRESTLE BUILDER Ot I70.211 ATHSCL [place] [facility] 07/31/2017 DILLONANMOL LENARD L TRESTLE BUILDER Ot S80.12XA CONTUSION OF LEFT LOWER LEG, INITIAL ENC 07/31/2017 LENARD KEARNS L TRESTLE BUILDER Ot I10 ESSENTIAL (PRIMARY) HYPERTENSION 07/31/2017 LENARD KEARNS L TRESTLE BUILDER Ot I70.211 ATHSCL [place] [facility] 07/31/2017 URMILA LENARD L TRESTLE BUILDER Ot S80.12XA CONTUSION OF LEFT LOWER LEG, INITIAL ENC 08/14/2017 URMILA LENARD L TRESTLE BUILDER Ot I10 ESSENTIAL (PRIMARY) HYPERTENSION 08/14/2017 LENARD KEARNS L TRESTLE BUILDER Ot I70.211 ATHSCL [place] [facility] 08/14/2017 URMILA LENARD L TRESTLE BUILDER Ot S80.12XA CONTUSION OF LEFT LOWER LEG, INITIAL ENC 08/23/2017 ANDREI ESCAMILLAD W 401.0 MALIGNANT ESSENTIAL HYPERTENSION 08/23/2017 ANDI ANDREY A 440.21 08/23/2017 ANDIANDREID W 440.9 GENERALIZED AND UNSPECIFIED ATHEROSCLEROSIS 08/23/2017 ANDREI ESCAMILLAD W 491.20 OBSTRUCTIVE CHRONIC BRONCHITIS, WITHOUT EXACERBATION 08/23/2017 ANDREI ESCAMILLAD W 719.7 DIFFICULTY IN WALKING 08/23/2017 ANDIANDREID W 729.5 PAIN IN LIMB 08/23/2017 ANDI ANDREY W I10 ESSENTIAL (PRIMARY) HYPERTENSION 08/23/2017 ANDI ANDREY A 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[facility], BI LEGS 08/23/2017 ANDIANDREID W I70.90 UNSPECIFIED ATHEROSCLEROSIS 08/23/2017 ANDREI ESCAMILLAD W J44.9 CHRONIC OBSTRUCTIVE PULMONARY DISEASE, UNSPECIFIED 08/23/2017 ANDREI ESCAMILLAD W M79.605 PAIN IN LEFT LEG 08/23/2017 ANDIANDREIDylan Rolbes R26.2 DIFFICULTY IN WALKING, NOT ELSEWHERE CLASSIFIED 10/19/2017 LENARD KEARNS TRESTLE BUILDER Ot E78.5 HYPERLIPIDEMIA, UNSPECIFIED 10/29/2017 LENARD KEARNS L TRESTLE BUILDER Ot E78.5 HYPERLIPIDEMIA, UNSPECIFIED 04/22/2018 MELINDA HANNA FACC, ALI FACP CCDS Ot E78.5 HYPERLIPIDEMIA, UNSPECIFIED 04/22/2018 MELINDA HANNA FACC, ALI FACP CCDS Ot I10 ESSENTIAL (PRIMARY) HYPERTENSION 04/22/2018 MELINDA HANNA FACC, ALI FACP CCDS Ot I70.211 ATHSCL [place] [facility]IES OF EXTRM W INTRMT 04/22/2018 MELINDA HANNA FACC, ALI FACP CCDS Ot 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 04/22/2018 MELINDA HANNA FACC, ALI FACP CCDS Ot R06.02 SHORTNESS OF BREATH 04/22/2018 MELINDA HANNA FACC, ALI FACP CCDS Ot R09.02 HYPOXEMIA 04/22/2018 MELINDA HANNA FACC, ALI FACP CCDS Ot E78.5 HYPERLIPIDEMIA, UNSPECIFIED 04/22/2018 MELINDA HANNA FACC, ALI FACP CCDS Ot I10 ESSENTIAL (PRIMARY) HYPERTENSION 04/22/2018 MELINDA MD FACC, ALI FACP CCDS Ot I70.211 ATHSCL [place] [facility]IES OF EXTRM W INTRMT 04/22/2018 MELINDA MD FACC, ALI FACP CCDS Ot 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 04/22/2018 MELINDA HANNA FACC, ALI FACP CCDS Ot R06.02 SHORTNESS OF BREATH 04/22/2018 MELINDA HANNA FACC, ALI FACP CCDS Ot R09.02 HYPOXEMIA 04/30/2018 MELINDA HANNA FACC, ALI FACP CCDS Ot E78.5 HYPERLIPIDEMIA, UNSPECIFIED 04/30/2018 MELINDA MD FACC, ALI FACP CCDS Ot I10 ESSENTIAL (PRIMARY) HYPERTENSION 04/30/2018 MELINDA HANNA FACC, ALI FACP CCDS Ot 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 Results Test [...] platelet poor plasma by coagulation assay - 02/21/17 10:32 Prothrombin time (PT) in platelet poor [...] calculation of estimated glomerular filtration rate 52 [facility] Serum or plasma glucose measurement (mass/volume) 102 [...] culture - 08/09/16 14:20 Bacterial blood culture [facility] Influenza virus A and B antigen detection - 08/09/16 14:44 FLU RESULT NEGATIVE FOR INFLUENZA A AND B ANTIGENS BY IA [facility] Bacterial blood culture - 08/09/16 14:44 Bacterial blood culture [facility] Complete urinalysis with reflex to culture - 08/09/16 15:43 Urine color determination YELLOW [facility] Urine clarity determination SLIGHTLY CLOUDY [facility] Urine pH measurement by test strip 6 [...] culture - 08/09/16 15:43 Bacterial urine culture [id number] NRG COLONY COUNT <10,000 NRG FTX;REPORTABLE SENSITIVITY [...] 04/30/17 11:37 Blood monocytes/100 leukocytes 9 % NRG Manual blood segmented neutrophils/100 leukocytes 79 % [...] - 04/30/17 13:24 Bacterial blood culture NG [facility] Sputum Gram stain - 04/30/17 18:34 Sputum Gram stain gram negative coccobacilli NRG Bacterial sputum culture - 04/30/17 18:34 FREE TEXT EXTERNAL BETA LACTAMASE NEGATIVE NRG QUANTITY OF GROWTH Abundant Growth NR FREE TEXT ENTRY 2 PLUS NORMAL CASI NR Bacterial sputum culture [id number] NR Complete blood count (CBC) with automated white [...] plasma calcium measurement (mass/volume) 8.3 mg/dL 8.5-10.1 Automated blood complete blood count (hemogram) panel - 07/03/17 10:22 Blood leukocytes automated count (number/volume) 8.1 10*3/uL 4.3-11.0 Blood erythrocytes automated count (number/volume) 4.89 10*6/uL 4.35-5.85 Venous blood hemoglobin measurement (mass/volume) 14.2 g/dL 13.3-17.7 Blood hematocrit (volume fraction) 44 % 40-54 Automated erythrocyte mean corpuscular volume 90 [foz_us] 80-99 Automated erythrocyte mean corpuscular hemoglobin (mass per erythrocyte) 29 pg 25-34 Automated erythrocyte mean corpuscular hemoglobin concentration measurement ( mass/volume) 32 g/dL 32-36 Automated erythrocyte distribution width ratio 14.9 % 10.0-14.5 Automated blood platelet count (count/volume) 261 10*3/uL 130-400 Automated blood platelet mean volume measurement 9.3 [foz_us] 7.4-10.4 PT panel in platelet poor plasma by coagulation assay - 07/03/17 10:22 Prothrombin time (PT) in platelet poor plasma by coagulation assay 12.8 s 12.2-14.7 INR in platelet poor plasma or blood by coagulation assay 1.0 0.8-1.4 Activated partial thromboplastin time (aPTT) in platelet poor plasma bycoagulation assay - 07/03/17 10:22 Activated partial thromboplastin time (aPTT) in platelet poor plasma bycoagulation assay 28 s 24-35 Comprehensive metabolic panel - 07/03/17 10:22 Serum or plasma sodium measurement (moles/volume) 138 mmol/L 135-145 Serum or plasma potassium measurement (moles/volume) 4.4 mmol/L 3.6-5.0 Serum or plasma chloride measurement (moles/volume) 105 mmol/L 98-107 Carbon dioxide 25 mmol/L 21-32 Serum or plasma anion gap determination (moles/volume) 8 mmol/L 5-14 Serum or plasma urea nitrogen measurement (mass/volume) 17 mg/dL 7-18 Serum or plasma creatinine measurement (mass/volume) 1.12 mg/dL 0.60-1.30 Serum or plasma urea nitrogen/creatinine mass ratio 15 NRG Serum or plasma creatinine measurement with calculation of estimated glomerular filtration rate > NRG Serum or plasma glucose measurement (mass/volume) 102 mg/dL 70-105 Serum or plasma calcium measurement (mass/volume) 9.7 mg/dL 8.5-10.1 Serum or plasma total bilirubin measurement (mass/volume) 0.7 mg/dL 0.1-1.0 Serum or plasma alkaline phosphatase measurement (enzymatic activity/volume) 72 U/L 40-136 Serum or plasma aspartate aminotransferase measurement (enzymatic activity/ volume) 27 U/L 5-34 Serum or plasma alanine aminotransferase measurement (enzymatic activity/volume ) 35 U/L 0-55 Serum or plasma protein measurement (mass/volume) 7.6 g/dL 6.4-8.2 Serum or plasma albumin measurement (mass/volume) 4.4 g/dL 3.2-4.5 Lipid 1996 panel - 07/03/17 10:22 Serum or plasma triglyceride measurement (mass/volume) 131 mg/dL <150 Serum or plasma cholesterol measurement (mass/volume) 181 mg/dL < 200 Serum or plasma cholesterol in HDL measurement (mass/volume) 43 mg/ dL 40-60 Cholesterol in LDL [mass/volume] in serum or plasma by direct assay 116 mg/dL 1-129 Serum or plasma cholesterol in VLDL measurement (mass/volume) 26 mg/ dL 5-40 Methicillin resistant Staphylococcus aureus (MRSA) screening culture - 10:22 Methicillin resistant Staphylococcus aureus (MRSA) screening culture NEG NRG Automated blood complete blood count (hemogram) panel - 07/24/17 09:45 Blood leukocytes automated count (number/volume) 8.1 10*3/uL 4.3-11.0 Blood erythrocytes automated count (number/volume) 4.64 10*6/uL 4.35-5.85 Venous blood hemoglobin measurement (mass/volume) 13.7 g/dL 13.3-17.7 Blood hematocrit (volume fraction) 43 % 40-54 Automated erythrocyte mean corpuscular volume 92 [foz_us] 80-99 Automated erythrocyte mean corpuscular hemoglobin (mass per erythrocyte) 30 pg 25-34 Automated erythrocyte mean corpuscular hemoglobin concentration measurement ( mass/volume) 32 g/dL 32-36 Automated erythrocyte distribution width ratio 15.0 % 10.0-14.5 Automated blood platelet count (count/volume) 246 10*3/uL 130-400 Automated blood platelet mean volume measurement 9.9 [foz_us] 7.4-10.4 Methicillin resistant Staphylococcus aureus (MRSA) screening culture - 09:45 Methicillin resistant Staphylococcus aureus (MRSA) screening culture NEG NRG Automated blood complete blood count (hemogram) panel - 07/24/17 16:30 Blood leukocytes automated count (number/volume) 8.4 10*3/uL 4.3-11.0 Blood erythrocytes automated count (number/volume) 4.41 10*6/uL 4.35-5.85 Venous blood hemoglobin measurement (mass/volume) 13.0 g/dL 13.3-17.7 Blood hematocrit (volume fraction) 41 % 40-54 Automated erythrocyte mean corpuscular volume 93 [foz_us] 80-99 Automated erythrocyte mean corpuscular hemoglobin (mass per erythrocyte) 30 pg 25-34 Automated erythrocyte mean corpuscular hemoglobin concentration measurement ( mass/volume) 32 g/dL 32-36 Automated erythrocyte distribution width ratio 14.9 % 10.0-14.5 Automated blood platelet count (count/volume) 223 10*3/uL 130-400 Automated blood platelet mean volume measurement 9.9 [foz_us] 7.4-10.4 Automated blood complete blood count (hemogram) panel - 07/25/17 03:00 Blood leukocytes automated count (number/volume) 7.9 10*3/uL 4.3-11.0 Blood erythrocytes automated count (number/volume) 3.95 10*6/uL 4.35-5.85 Venous blood hemoglobin measurement (mass/volume) 11.6 g/dL 13.3-17.7 Blood hematocrit (volume fraction) 36 % 40-54 Automated erythrocyte mean corpuscular volume 92 [foz_us] 80-99 Automated erythrocyte mean corpuscular hemoglobin (mass per erythrocyte) 29 pg 25-34 Automated erythrocyte mean corpuscular hemoglobin concentration measurement ( mass/volume) 32 g/dL 32-36 Automated erythrocyte distribution width ratio 14.8 % 10.0-14.5 Automated blood platelet count (count/volume) 223 10*3/uL 130-400 Automated blood platelet mean volume measurement 9.8 [foz_us] 7.4-10.4 Whole blood basic metabolic panel - 07/25/17 03:00 Serum or plasma sodium measurement (moles/volume) 140 mmol/L 135-145 Serum or plasma potassium measurement (moles/volume) 4.2 mmol/L 3.6-5.0 Serum or plasma chloride measurement (moles/volume) 108 mmol/L 98-107 Carbon dioxide 25 mmol/L 21-32 Serum or plasma anion gap determination (moles/volume) 7 mmol/L 5-14 Serum or plasma urea nitrogen measurement (mass/volume) 14 mg/dL 7-18 Serum or plasma creatinine measurement (mass/volume) 0.82 mg/dL 0.60-1.30 Serum or plasma urea nitrogen/creatinine mass ratio 17 NRG Serum or plasma creatinine measurement with calculation of estimated glomerular filtration rate > NRG Serum or plasma glucose measurement (mass/volume) 97 mg/dL 70-105 Serum or plasma calcium measurement (mass/volume) 8.6 mg/dL 8.5-10.1 Complete blood count (CBC) with automated white blood cell (WBC) differential - 04/19/18 09:35 Blood leukocytes automated count (number/volume) 8.6 10*3/uL 4.3-11.0 Blood erythrocytes automated count (number/volume) 4.87 10*6/uL 4.35-5.85 Venous blood hemoglobin measurement (mass/volume) 13.9 g/dL 13.3-17.7 Blood hematocrit (volume fraction) 45 % 40-54 Automated erythrocyte mean corpuscular volume 92 [foz_us] 80-99 Automated erythrocyte mean corpuscular hemoglobin (mass per erythrocyte) 29 pg 25-34 Automated erythrocyte mean corpuscular hemoglobin concentration measurement ( mass/volume) 31 g/dL 32-36 Automated erythrocyte distribution width ratio 15.3 % 10.0-14.5 Automated blood platelet count (count/volume) 209 10*3/uL 130-400 Automated blood platelet mean volume measurement 9.7 [foz_us] 7.4-10.4 Automated blood neutrophils/100 leukocytes 71 % 42-75 Automated blood lymphocytes/100 leukocytes 20 % 12-44 Blood monocytes/100 leukocytes 7 % 0-12 Automated blood eosinophils/100 leukocytes 2 % 0-10 Automated blood basophils/100 leukocytes 0 % 0-10 Blood neutrophils automated count (number/volume) 6.1 10*3 1.8-7.8 Blood lymphocytes automated count (number/volume) 1.7 10*3 1.0-4.0 Blood monocytes automated count (number/volume) 0.6 10*3 0.0-1.0 Automated eosinophil count 0.2 10*3/uL 0.0-0.3 Automated blood basophil count (count/volume) 0.0 10*3/uL 0.0-0.1 Comprehensive metabolic panel - 04/19/18 09:35 Serum or plasma sodium measurement (moles/volume) 139 mmol/L 135-145 Serum or plasma potassium measurement (moles/volume) 4.5 mmol/L 3.6-5.0 Serum or plasma chloride measurement (moles/volume) 106 mmol/L 98-107 Carbon dioxide 24 mmol/L 21-32 Serum or plasma anion gap determination (moles/volume) 9 mmol/L 5-14 Serum or plasma urea nitrogen measurement (mass/volume) 15 mg/dL 7-18 Serum or plasma creatinine measurement (mass/volume) 0.96 mg/dL 0.60-1.30 Serum or plasma urea nitrogen/creatinine mass ratio 16 NRG Serum or plasma creatinine measurement with calculation of estimated glomerular filtration rate > NRG Serum or plasma glucose measurement (mass/volume) 100 mg/dL 70-105 Serum or plasma calcium measurement (mass/volume) 9.0 mg/dL 8.5-10.1 Serum or plasma total bilirubin measurement (mass/volume) 0.4 mg/dL 0.1-1.0 Serum or plasma alkaline phosphatase measurement (enzymatic activity/volume) 74 U/L 40-136 Serum or plasma aspartate aminotransferase measurement (enzymatic activity/ volume) 25 U/L 5-34 Serum or plasma alanine aminotransferase measurement (enzymatic activity/volume ) 29 U/L 0-55 Serum or plasma protein measurement (mass/volume) 7.2 g/dL 6.4-8.2 Serum or plasma albumin measurement (mass/volume) 4.3 g/dL 3.2-4.5 CALCIUM CORRECTED 8.8 mg/dL 8.5-10.1 Magnesium - 04/19/18 09:35 Magnesium 2.3 mg/dL 1.8-2.4 Lipid 1996 panel - 04/19/18 09:35 Serum or plasma triglyceride measurement (mass/volume) 155 mg/dL <150 Serum or plasma cholesterol measurement (mass/volume) 173 mg/dL < 200 Serum or plasma cholesterol in HDL measurement (mass/volume) 45 mg/ dL 40-60 Cholesterol in LDL [mass/volume] in serum or plasma by direct assay 108 mg/dL 1-129 Serum or plasma cholesterol in VLDL measurement (mass/volume) 31 mg/ dL 5-40 THYROID STIMULATING HORMONE - 04/19/18 09:35 THYROID STIMULATING HORMONE 1.53 u[iU]/mL 0.35-4.94 Erythrocyte sedimentation rate by westergren method - 04/19/18 09:35 Erythrocyte sedimentation rate by westergren method 9 mm 0-30 Encounters ACCT No. Visit Date/Time Discharge Status Pt. Type Provider Facility Loc./Unit Complaint [id number] 04/19/2018 09:26:00 04/19/2018 23:59:59 CLS Outpatient KISHA LAWRENCE MD, FACC, FACP CCDS [facility] LAB I70.212 [id number] 10/18/2017 10:32:00 10/18/2017 23:59:59 CLS Outpatient BAIMA LENARD L [employer] [facility] LAB HYPERLIPIDEMIA [id number] 07/30/2017 14:13:00 07/30/2017 23:59:59 CLS Outpatient BAIMA, LENARD L [employer] [facility] RAD HTN,LEFT LEG PAIN [id number] 07/24/2017 08:55:00 07/25/2017 09:15:00 DIS Outpatient URMILA LENARD L [employer] [facility] CATH PAD,SOB [id number] 07/03/2017 09:56:00 07/03/2017 16:20:00 DIS Outpatient KISHA LAWRENCE MD, FACC, FACP CCDS [facility] CATH PAD [id number] 06/27/2017 11:32:00 06/27/2017 23:59:59 CLS Outpatient BAIMA LENARD L [employer] [facility] CARD NUÑEZ [id number] 06/21/2017 09:10:00 06/21/2017 23:59:59 CLS Outpatient BAIMA LENARD L [employer] [facility] LAB I10 [id number] 06/14/2017 07:10:00 06/14/2017 23:59:59 CLS Outpatient BAIMAANIALENARD L [employer] [facility] CARD NUÑEZ [id number] 05/01/2017 09:40:00 05/02/2017 13:50:00 DIS Inpatient ANDREY ESCAMILLA MD [facility] 4TH ACUTE COPD EXACERBATION [id number] 04/28/2017 16:16:00 04/28/2017 17:48:00 DIS Emergency MARYSE FULLER MD [facility] ER SOA [id number] 03/20/2017 10:06:00 03/20/2017 23:59:59 CLS Outpatient LENARD KEARNS L [employer] [facility] LAB R06.09, J43.8, I10, E78.4 [id number] 08/09/2016 14:18:00 08/09/2016 18:03:00 DIS Emergency DOMINGA BRADFORD MD [facility] ER LOW BP/DIZZINESS [id number] 07/27/2016 07:00:00 07/28/2016 11:00:00 DIS Outpatient Ga RUGGIERO MD [facility] CATH PVD,HTN,CLAUDICATION [id number] 06/22/2016 06:48:00 06/23/2016 11:15:00 DIS Outpatient Ga RUGGIERO MD [facility] CATH PERIPHERAL ANGIOGRAPHY, POSSIBLE PERIPHERAL STENT [id number] 06/13/2016 10:01:00 06/13/2016 16:15:00 DIS Outpatient MELINDA HANNA FACCKISHA FACP CCDS [facility] CATH PERIPHERAL ANGIOGRAPHY W POSSIBLE STENT [id number] 06/06/2016 12:06:00 06/06/2016 23:59:59 CLS Outpatient BAILENARD COREA L [employer] [facility] RAD HTN,SOB,CLAUDICATION, COPD [id number] 06/01/2016 10:07:00 06/01/2016 23:59:59 CLS Outpatient BAIANMOL LENARD L [employer] [facility] LAB SOB,COPD [id number] 09/20/2015 10:15:00 09/20/2015 23:59:59 CLS Preadmit AYAH ENCARNACION DO [facility] PULM COPD, SOA [id number] 06/21/2015 10:04:00 09/19/2015 00:01:00 DIS Outpatient AYAH ENCARNACION DO [facility] PULM COPD, SOA [id number] 07/07/2015 13:49:00 07/07/2015 23:59:59 CLS Outpatient AYAH ENCARNACION DO [facility] RT COPD,SOB [id number] 06/11/2015 11:09:00 06/11/2015 23:59:59 CLS Outpatient AYAH ENCARNACION DO [facility] RAD ACUTE COPD [id number] 05/06/2015 07:40:00 05/06/2015 23:59:59 CLS Outpatient MELINDA HANNA FACC, ALI FACP CCDS [facility] CARD HTN,SOA [id number] 03/24/2015 11:33:00 03/24/2015 23:59:59 CLS Outpatient MELINDA HANNA FACC, ALI FACP CCDS [facility] CARD SOB,COPD,HTN [id number] 02/25/2015 18:11:00 02/26/2015 14:20:00 DIS Inpatient JOSE BATISTA MD [facility] CSD CHEST PAIN [id number] 06/04/2018 08:50:00 ACT Outpatient MELINDA HANNA FACC, ALI FACP CCDS [facility] CATH LT LEG CLAUDICATION [id number] 01/04/2012 11:52:00 Document Registration [id number] 11/10/2009 11:56:00 Document Registration [id number] 08/09/2017 00:00:00 08/23/2017 09:04:00 DIS Outpatient ANDREY ESCAMILLA
[2018-06-04] MEDS ORDERED: HEParin (CATH LAB) 2,000 ML IV ONE (09:01)
[2018-06-04] MEDS ORDERED: NS IV 1000 ML 1,000 ML ONE (09:01)
[2018-06-04] MEDS ORDERED: LIDOCAINE 1% INJ 20 ML 20 ML VIAL ONE (09:01)
[2018-06-04] MEDS ORDERED: MIDAZOLAM 5 MG/5 ML (VERSED) VIAL ONE (09:35)
[2018-06-04] MEDS ORDERED: fentaNYL INJECTION 100 MCG/2 ML AMP ONE (09:36)
[2018-06-04 09:39] LABS: HEMOGLOBIN 13.5 G/DL (13.3-17.7); MEAN PLATELET VOLUME 9.7 FL (7.4-10.4); RED CELL DISTRIBUTION WIDTH 15.5 % (10.0-14.5); WHITE BLOOD COUNT 8.2 10^3/uL (4.3-11.0)
[2018-06-04 09:50] LABS: INR 0.9 (0.8-1.4); PROTHROMBIN TIME PATIENT 12.5 SEC (12.2-14.7)
[2018-06-04 09:59] LABS: ALANINE AMINOTRANSFERASE 33 U/L (0-55); ALBUMIN 4.2 GM/DL (3.2-4.5); ALKALINE PHOSPHATASE 72 U/L (40-136); BILIRUBIN,TOTAL 0.4 MG/DL (0.1-1.0); BUN/CREATININE RATIO 19; CALCIUM 9.3 MG/DL (8.5-10.1); CARBON DIOXIDE 25 MMOL/L (21-32); CHLORIDE 106 MMOL/L (98-107); CHOLESTEROL 174 MG/DL (< 200); CREATININE SERUM 1.01 MG/DL (0.60-1.30); GFR ESTIMATED > 60; GLUCOSE 98 MG/DL (70-105); HDL CHOLESTEROL 45 MG/DL (40-60); POTASSIUM 4.4 MMOL/L (3.6-5.0); SODIUM 139 MMOL/L (135-145); TOTAL PROTEIN 7.1 GM/DL (6.4-8.2); TRIGLYCERIDES 99 MG/DL (<150); VLDL CHOLESTEROL 20 MG/DL (5-40)
[2018-06-04] MEDS ORDERED: MULT-964 PO (10:05)
[2018-06-04] MEDS ORDERED: ALBU18HF2 INH (10:05)
--- NOTE | 2018-06-04 10:05 | NUR ---
SPOKE WITH THE PATIENT ABOUT HIS MEDICATIONS. HE HAD MOST OF HIS BOTTLES WITH HIM AND VERIFIED HOW HE TAKES EACH. DILLONS BOTTLE: 04-05-17 HYDROCODONE 10-325MG Q8H PRN #90 (DOES NOT TAKE VERY OFTEN) HUMANA BOTTLES: 05-10-18 PLAVIX 75MG DAILY #90 1-19 LIPITOR 20MG DAILY #90 1-19 ENALAPRIL 20MG DAILY #90 HE HAS SYMBICORT 160 WITH HIS HE STATES HE USES ONCE DAILY IN THE MORNING. HE STATES HE ALSO HAS AN ALBUTEROL INHALER NEEDED. HE RECEIVES THESE INHALERS SAMPLES. HE REPORTS HE USES FLONASE PRN DURING HAY FEVER SEASON. HE ALSO TAKES ASPIRIN 81MG DAILY AND SENTRY MTV TABLET DAILY.
[2018-06-04] MEDS ORDERED: NS IV 1000 ML 1,000 ML IV SCH ×2 (10:30→11:29)
[2018-06-04] MEDS ORDERED: FLU QUADRIvalent (5+ YOA) 2018-2019 (AFLURIA) 0.5 ML IM ONE (10:30)
[2018-06-04] MEDS ORDERED: HEParin 1000 UNIT/ML (10ML VIAL) FOR BOLUS ONE (10:34)
--- NOTE | 2018-06-04 11:29 | Cardiac Procedure Note-CS/ASA ---
Pre-Procedure Note Pre-Op Procedure Note H&P Reviewed The H&P was reviewed, patient examined and no changes noted. Date H&P Reviewed: Jun 04, 2018 Time H&P Reviewed: 10:45 Conscious Sedation Pre-Proced Time 10:45 ASA Score 3 For ASA 3 and 4: Consider anesthesia and medical clearance. Also, for patients with a history of failed moderate sedation consider anesthesia. Airway Lungs Heart ASA score ASA 1: a normal healthy patient ASA 2: a patient with a mild systemic disease (mid diabetes, controlled hypertension, obesity ASA 3: a patient with a severe systemic disease that limits activity (angina , COPD, prior Myocardial infarction) ASA 4: a patient with an incapacitating disease that is a constant threat to life (CHF, renal failure) ASA 5: a moribund patient not expected to survive 24 hrs. (ruptured aneurysm) ASA 6: a declared brain- patient whose organs are being harvested. For emergent operations, add the letter E after the classification Mallampati Classification Grade 2 Sedation Plan Analgesia, Amnesia, Plan communicated to team members, Discussed options with patient/fam, Discussed risks with patient/fam The patient is an appropriate candidate to undergo the planned procedure, sedation, and anesthesia. The patient immediately re-assessed prior to indication. KISHA LAWRENCE MD FACP FAC CCDS Jun 04, 2018 11:29
[2018-06-04] MEDS ORDERED: PATIENT MAY USE OWN MEDS, ALL PO SCH (11:30)
--- NOTE | 2018-06-04 11:33 | Discharge Inst-Post CATH ---
Discharge Inst-CATH/EP Post Cardiac Cath/EP D/C Inst Follow Up/Plan F/u with Dr Dotson next week F/u with Dr Yun in 2 weeks CARDIAC CATH DISCHARGE INSTRUCTIONS *Hold Metformin for 48 hours post heart cath. ACTIVITY * Go Home directly and rest. * Limit activity of the leg (or wrist if it was used) for 7 days including aerobics, swimming, jogging, bicycling, etc. * Restrict stair-climbing for 7 days if possible, if not, climb up with your non -cath leg, then bring together on the same step. * Avoid lifting, pushing, pulling or excessive movement of the affected extremity for 7 days. * Customary sexual activity may be resumed after 2 days-use caution not to use a position that strains or causes pain to the affected extremity. * No driving for 24 hours. * NO SMOKING. * Avoid straining for bowel movements for 7 days. * Gentle walking on level ground is allowed. * Returning to work will depend on the type of procedure and the results. Your doctor will discuss this with you. CALL YOUR DOCTOR FOR ANY OF THE FOLLOWING: *If bleeding from the puncture site occurs- Apply gentle pressure to site with clean cloth and call your doctor or EMS. * If a knot or lump forms under the skin, increases in size, or causes pain. * If bruising appears to be worsening or moving further down your leg instead of disappearing. * Temperature above 101 F. CARE OF YOUR GROIN INCISION; * Bruising or purple discoloration of the skin near the puncture site is common. * You may shower only, no bathtub bathing for 5 days. Be careful to avoid slipping as your leg may feel stiff. * If a closure device was used on your femoral artery, please see the attached guide regarding care of the device and your leg. * Leave the dressing on, until removed by office staff. CARE OF YOUR WRIST INCISION; * Bruising or purple discoloration of the skin near the puncture site is common. * You may shower. * DO NOT submerge wrist. * Leave dressing on, until removed by office staff.. KISHA YUN MD [facility] CCDS Jun 04, 2018 11:33
--- NOTE | 2018-06-04 11:33 | Discharge Inst-Cardiology ---
Discharge Inst-Cardiac Discharge Medications Continued Medications: Albuterol Sulfate (Ventolin Hfa) 18 Gm Hfa.aer.ad 2 PUFF INH Q4H PRN for SHORTNESS OF BREATH, INHALER Aspirin (Aspirin EC) 81 Mg Tablet.dr 81 MG PO DAILY, TAB Atorvastatin Calcium (Atorvastatin Calcium) 20 Mg Tablet 20 MG PO DAILY, TAB Budesonide/Formoterol Fumarate (Symbicort 160-4.5 Mcg Inhaler) 10.2 Gm Hfa.aer.ad 2 PUFF IH DAILY, INHALER Enalapril Maleate (Enalapril Maleate) 20 Mg Tablet 20 MG PO DAILY, TAB Fluticasone Propionate (Fluticasone Propionate) 16 Gm [place].susp 2 SPRAYS NS DAILY PRN for ALLERGIES, SPRAY Hydrocodone/Acetaminophen (Hydrocodon-Acetaminophn 10-325) 1 Each Tablet 1 TAB PO Q8H PRN for PAIN-MODERATE, TAB Multivitamin/Iron/Folic Acid (Sentry Tablet) 1 Each Tablet 1 TAB PO DAILY, TAB Discontinued Medications: Clopidogrel Bisulfate (Plavix) 75 Mg Tablet 75 MG PO DAILY, TAB KISHA LAWRENCE MD FACP FACC CCDS Jun 04, 2018 11:33
--- NOTE | 2018-06-04 11:39 | OPERATIVE REPORT ---
DATE OF SERVICE: 06/04/2018 PERIPHERAL ANGIOGRAPHY INDICATIONS: The patient is a 67-year-old man with peripheral arterial disease, who has had multiple peripheral interventions over the course of last 3 years. He has developed recurrent left leg claudication, which is quite prominent and progressive. Peripheral angiography was carried out today after having obtained an informed consent. DESCRIPTION OF PROCEDURE: He was brought to the cardiac catheterization laboratory in a fasting state. Right groin was prepared and draped in the usual sterile fashion. Lidocaine 1% was used for local anesthesia. Modified Seldinger technique was used to advance a 5-Tanz[place] sheath in right femoral artery. We used a 5-Tanz[place] pigtail catheter for peripheral angiography. The pigtail catheter was advanced to the lower abdominal aorta, just above the aortoiliac bifurcation. Angiography was performed with a runoff down to the level of the ankles. Subsequently, catheter was removed. Angiography of right femoral artery was carried with the sheath. Mynx was used to achieve hemostasis. He tolerated the procedure well. Peripheral angiography indicates lower abdominal atherosclerosis and calcification, but there is no significant abdominal aortic stenosis. Patent stents were seen in the proximal and ostial portions of both common iliac arteries. On the left side, the patient has a long stented segment that begins in the left common femoral artery and extends to the distal portion of the left superficial femoral artery. This exhibits multiple stenoses of up to 90%. The left internal iliac artery is occluded. On the right side, the right superficial femoral artery exhibits diffuse moderate disease. There appears to be a 3-vessel runoff on both sides. CONCLUSIONS: Peripheral arterial disease primarily consisting of up to 90% in-stent restenosis in a long stented segment of the left superficial femoral and common femoral. Patent stents were seen in the proximal and ostial iliac arteries on both sides (kissing stents). The left internal iliac is chronically occluded. The right superficial femoral exhibits diffuse moderate disease. DISCUSSION AND RECOMMENDATIONS: The patient has had numerous percutaneous interventions to his leg arteries. The left femoral arterial system remains a consistently recurring problem and multiple percutaneous intervention efforts, in the long run, have been unsuccessful. It appears reasonable to consider with a femoropopliteal bypass surgery. This will be recommended to him. I called Dr. Dotson of the [facility] at [facility], who has kindly agreed to see the patient in consultation for consideration of such surgery. Job ID: [id number] DocumentID: [id number] Dictated Date: 06/04/2018 11:13:42 Lockstitch Collar Setter Date: 06/04/2018 11:38:28 Dictated By: KISHA LAWRENCE MD, MA, FACP, FACC,
== END 2018-06-04 15:45 | disposition home or self-care (01) ==
LOC: CATH 08:50 → SDC 11:30 → CATH 15:45
PROVIDERS: ATTEND Internal Medicine Cardiovascular Disease
DX: I70.212 Atherosclerosis of native arteries of extremities with intermittent claudication, left leg (principal); I70.201 Unspecified atherosclerosis of native arteries of extremities, right leg; T82.856A Stenosis of peripheral vascular stent, initial encounter; I70.0 Atherosclerosis of aorta; I10 Essential (primary) hypertension; J44.9 Chronic obstructive pulmonary disease, unspecified; E78.5 Hyperlipidemia, unspecified; R06.09 Other forms of dyspnea; E66.9 Obesity, unspecified; Z68.30 Body mass index [BMI] 30.0-30.9, adult; Z95.820 Peripheral vascular angioplasty status with implants and grafts; Z87.891 Personal history of nicotine dependence; Z79.82 Long term (current) use of aspirin; Z79.899 Other long term (current) drug therapy
CPT/HCPCS: 36415; 75716; 80053; 80061; 85027; 85610; 85730; 87081

== ENCOUNTER → 2018-12-18 | Outpatient (CLI) | payer MEDICARE ==
[~2018-12-18] MED LIST changes: -ACLI400A2 IH; +ACLI400A3 IH; +ALBU18HF2 INH; +MULT-964 PO
[2018-12-18 16:32] LABS: BILIRUBIN,URINE NEGATIVE (NEGATIVE); CLARITY,URINE BLOODY; COLOR,URINE RED; GLUCOSE, URINE (UA) NEGATIVE (NEGATIVE); KETONES,URINE NEGATIVE (NEGATIVE); LEUKOCYTE ESTERASE ,URINE NEGATIVE (NEGATIVE); NITRITE,URINE NEGATIVE (NEGATIVE); PH,URINE 6 (5-9); PROTEIN,URINE 3+ (NEGATIVE); UROBILINOGEN,URINE NORMAL (NORMAL)
[2018-12-18 16:53] LABS: RBC,URINE TNTC /HPF
[2018-12-18 16:54] LABS: BACTERIA,URINE LARGE /HPF
== END ==
LOC: LAB 15:58
PROVIDERS: ATTEND Family Medicine
DX: R31.9 Hematuria, unspecified (principal)
CPT/HCPCS: 81000; 87088

== ENCOUNTER → 2018-12-27 | Outpatient (CLI) | payer MEDICARE ==
--- NOTE | 2018-12-27 14:30 | Diagnostic Imaging Report ---
PROCEDURE: CT abdomen and pelvis without contrast. TECHNIQUE: Multiple contiguous axial images were obtained through the abdomen and pelvis without the use of intravenous contrast. Auto Exposure Controls were utilized during the CT exam to meet ALARA standards for radiation dose reduction. INDICATION: Gross hematuria for two weeks. COMPARISON: No prior studies are available for comparison. FINDINGS: Lung bases are clear apart from a calcified granuloma in the left lower lobe. No discrete liver mass is identified. Small stones within the gallbladder are noted. No biliary ductal dilatation is seen. The pancreas and spleen are unremarkable. No adrenal mass is identified. No definite renal calculi or hydronephrosis is identified. Calcifications in the renal serjio bilaterally are likely vascular. Aorta and iliac vessels are heavily calcified. No bladder calculi are seen. There is mild prosthetic enlargement. There appears to be arterial graft in the left groin. Bowel loops are normal caliber. There is no ascites. There is diverticulosis of the sigmoid but no evidence of acute diverticulitis. There is a fat-containing umbilical hernia. Bony structures are unremarkable. IMPRESSION: 1. No evidence of urinary tract calculi or obstruction. 2. Uncomplicated diverticulosis. 3. Fat-containing umbilical hernia. 4. Mild prostatomegaly. 5. Cholelithiasis. Dictated by: Dictated on workstation # [id number]
== END ==
LOC: RAD 13:43
PROVIDERS: ATTEND Urology
DX: K57.30 Diverticulosis of large intestine without perforation or abscess without bleeding (principal); K80.20 Calculus of gallbladder without cholecystitis without obstruction; K42.9 Umbilical hernia without obstruction or gangrene; N40.0 Benign prostatic hyperplasia without lower urinary tract symptoms; R31.0 Gross hematuria
CPT/HCPCS: 74176

== ENCOUNTER 2019-01-27 12:30 | Outpatient (CLI) | payer MEDICARE ==
[~2019-01-27] VITALS: Ht 170 cm; Wt 86.3 kg
[~2019-01-27 12:30] MED LIST changes: +CITA20TA9 PO; +FLUT1BLS3 IH
== END 2019-01-27 12:40 | disposition home or self-care (01) ==
LOC: PREOP 12:30
PROVIDERS: ATTEND Surgery
DX: Z01.818 Encounter for other preprocedural examination (principal)

== ENCOUNTER → 2019-09-09 | Outpatient (CLI) | payer MEDICARE, OTHER ==
[~2019-09-09] VITALS: Ht 170 cm; Wt 92.0 kg
[~2019-09-09] MED LIST changes: +ACHYD1T PO; +CATHETER FLUSH 10 ML SYR IV PRN; -HYDR-3820 PO; -MONT10TA24 PO; +MONT10TA26 PO; +REGADENOSON 0.4 MG/5 ML SYR (LEXISCAN) IV ONE
--- NOTE | 2019-09-09 17:37 | STRESS TEST ---
DATE OF SERVICE: 09/09/2019 RESTING AND POST REGADENOSON TECHNETIUM-99M TETROFOSMIN SPECT CT IMAGING ORDERING PHYSICIAN: Radha Fonseca APRN PRIMARY PHYSICIAN: Dr. Milton Martinez. DIAGNOSES: Shortness of breath, hypertension. Baseline images were carried out after injection of 10.47 mCi of technetium-99m Tetrofosmin. This was followed by 0.4 mg regadenoson and 30.1 mCi of technetium-99m Tetrofosmin for stress imaging. The electrocardiogram showed sinus rhythm with an early repolarization pattern. The electrocardiogram did not change significantly with regadenoson infusion. Review of images at rest and following stress does not indicate any significant myocardial ischemia or infarction. Gated images show normal global left ventricular systolic function with normal regional wall motion. Left ventricular ejection fraction is calculated to be 69%. Left ventricular end-diastolic volume is 47 mL. TID is absent (1.09). CONCLUSIONS: 1. No evidence of any significant myocardial ischemia or infarction. 2. Normal global left ventricular systolic function with a calculated ejection fraction of 69%. Job ID: [id number] DocumentID: [id number] Dictated Date: 09/09/2019 17:19:02 Glue Reel Operator Date: 09/09/2019 17:36:16 Dictated By: KISHA LAWRENCE MD, MA, FACP, FACC,
== END ==
LOC: CARD 08:06
PROVIDERS: ATTEND Nurse Practitioner Family
DX: I10 Essential (primary) hypertension (principal); R06.09 Other forms of dyspnea
CPT/HCPCS: 78452; 93017

== ENCOUNTER 2020-03-20 16:10 | Emergency (ER) | payer MEDICARE ==
[~2020-03-20] VITALS: Ht 179.8 cm; Wt 90.0 kg
[~2020-03-20 16:10] MED LIST changes: +ASPI-1238 PO; -ASPI-983 PO; -CATHETER FLUSH 10 ML SYR IV PRN; -ENAL20TA PO; +ENAL20TA16 PO; -REGADENOSON 0.4 MG/5 ML SYR (LEXISCAN) IV ONE
[2020-03-20] MEDS ORDERED: TETANUS,DIPTH,PERTUSS P/F (BOOSTRIX) 0.5 ML VIAL IM ONE (16:30)
--- NOTE | 2020-03-20 16:32 | ED Fall/Injury ---
General Stated Complaint: FALL - L HAND/KNEE/ELBOW PAIN Source: patient Exam Limitations: no limitations History of Present Illness Date Seen by Provider: Mar 20, 2020 Time Seen by Provider: 16:19 Initial Comments Here with report of fall about an hour to an hour and a half ago. States that he tripped over a chain. They were moving a trailer and had a chain on the ground that he tripped over. He landed on his left knee and left elbow. Denies hitting his head but he is on clopidogrel. Does complain of some mid neck pain and does have history of C4 compression fracture. Denies loss of consciousness but states he was dizzy afterwards for quite a while. Does have large hematoma to the posterior aspect left elbow with 2 cm laceration that is oozing blood. Denies chest pain or breathing problems other than his chronic COPD, which is unchanged. Occurred: this afternoon Severity: mild Injuries/Pain Location: upper extremity, lower extremity Context: tripped Loss of Consciousness: no loss of consciousness Modifying Factors: Improves With Immobilization; Worse With Movement Associated Symptoms (Fall): No Abdominal Pain, No Chest Pain; Dizziness; No Nausea/Vomiting; Neck Pain; No Shortness of Air Allergies and Home Medications Allergies Coded Allergies: No Known Drug Allergies (Unverified , 01/27/19) Home Medications Albuterol Sulfate 18 Gm Hfa.aer.ad, 2 PUFF INH Q4H PRN for SHORTNESS OF BREATH, (Reported) Aspirin 81 Mg Tablet.dr, 81 MG PO DAILY, (Reported) Atorvastatin Calcium 20 Mg Tablet, 20 MG PO DAILY, (Reported) Citalopram Hydrobromide 20 Mg Tablet, 20 MG PO DAILY, (Reported) Clopidogrel Bisulfate 75 Mg Tablet, 75 MG PO DAILY, (Reported) Fluticasone/Umeclidin/Vilanter 1 Each Blst.w.dev, 1 EACH IH DAILY, (Reported) Hydrocodone Bit/Acetaminophen 1 Each Tablet, 1 TAB PO Q6H PRN for PAIN-MODERATE Prescribed by: LUIZ MACIAS on 01/30/19 1144 Multivitamin/Iron/Folic Acid 1 Each Tablet, 1 TAB PO DAILY, (Reported) Patient Home Medication List Home Medication List Reviewed: Yes Review of Systems Review of Systems Constitutional: see HPI; No chills, No fever Eyes: No Symptoms Reported Ears, Nose, Mouth, Throat: no symptoms reported Respiratory: No cough; short of breath (Chronic) Cardiovascular: No chest pain, No syncope Gastrointestinal: no symptoms reported Musculoskeletal: see HPI, joint pain, muscle pain, muscle stiffness, neck pain Skin: change in color, lesions Psychiatric/Neurological: Denies Numbness, Denies Paresthesia Past Gpskywr-Gdsvkv-Iqnxwo Hx Patient Social History Alcohol Beverage of Choice: Beer Type Used: Cigarettes Former Smoker, Quit: Jan 27, 2005 2nd Hand Smoke Exposure: Yes Recent Foreign Travel: No Contact w/Someone Who Travel: No Recent Hopitalizations: No Immunizations Up To Date Tetanus Booster (TDap): More than 5yrs PED Vaccines UTD: Yes Date of Pneumonia Vaccine: Apr 30, 2015 Date of Influenza Vaccine: Jan 28, 2018 Seasonal Allergies Seasonal Allergies: Yes Past Medical History Surgeries: Yes (peripheral stents, LEFT LEG VASCULAR BYPASS) Orthopedic Respiratory: Yes (2l o2 at HS) COPD Currently Using CPAP: No Currently Using BIPAP: No Cardiac: Yes High Cholesterol, Irregular Heartbeat, Peripheral Vascular Neurological: No Reproductive Disorders: No Sexually Transmitted Disease: No HIV/AIDS: No Genitourinary: Yes Kidney Stones Gastrointestinal: Yes Gastroesophageal Reflux, Chronic Constipation, Hiatal Hernia, Gall Bladder Disease Musculoskeletal: Yes Arthritis Endocrine: No HEENT: Yes (GLASSES, UPPER DENTURE) Loss of Vision: Denies Hearing Impairment: Hard of Hearing, Bilateral Hearing Aide Cancer: No Psychosocial: Yes Depression Integumentary: No Blood Disorders: No Adverse Reaction/Blood Tranf: No (N/A) Family Medical History Reviewed Nursing Family Hx Patient reports no known family medical history. No Pertinent Family Hx Physical Exam Vital Signs Vital Signs - First Documented 03/20/20 16:20 Temp 36.9 Pulse 85 Resp 20 B/P (MAP) 147/83 (104) Pulse Ox 96 O2 Delivery Room Air Capillary Refill : Height, Weight, BMI Height: 5'7.00" Weight: 196lbs. 0.0oz. 88.671494sq; 31.83 BMI Method:Stated General Appearance: WD/WN, no apparent distress Cardiovascular: regular rate, rhythm, no murmur Respiratory: wheezing (Few scattered) Gastrointestinal: non tender, soft Extremities: other (Tender over left elbow area and to anterior left knee. Able to walk without difficulty. Moderate range of motion to the left elbow but tender and does have large hematoma.) Neurologic/Psychiatric: alert, oriented x 3 Skin: warm/dry, ecchymosis (Left left elbow posterior), other (2 cm laceration to the posterior left elbow C-shaped) [place] Coma Score Best Eye Response: (4) Open Spontaneously Best Verbal Response: (5) Oriented Best Motor Response: (6) Obeys Commands Procedures/Interventions Wound Location: Upper Extremities Other Wound Location Left elbow Wound Length (cm): 2 Wound's Depth, Shape: superficial, irregular Wound Explored: contaminated Irrigated w/ Saline (ccs): 50 Betadine Prep?: Yes Anesthesia: Lidocaine w/ Epi Volume Anesthetic (ccs): 4 Wound Debrided: minimal Suture: Ethlion Suture Size: 4-0 Number of Sutures: 4 Layer Closure?: 1 Number Deep Layer Sutures: 0 Sterile Dressing Applied?: Yes Progress We did anesthetized she reviewed wound scrubbed. Closed with simple interrupted sutures. Tolerated procedure well with no complications. Covered with antibiotic ointment and ABD pad with Coban Progress/Results/Core Measures Results/Orders My Orders Orders - DOMINGA BRADFORD MD Ct Head/Cervical Spine Wo (03/20/20 16:24) Elbow, Left, 3 Views (03/20/20 16:24) Dipht,Pertuss(Acell),Tet Adult (Boostrix (03/20/20 16:30) Lidocaine/Epi 2% 1:100,000 (Xylocaine/Ep (03/20/20 17:45) Lidocaine Pf 1% 5 Ml Injection (Xylocain (03/20/20 17:33) Vital Signs/I&O 03/20/20 16:20 Temp 36.9 Pulse 85 Resp 20 B/P (MAP) 147/83 (104) Pulse Ox 96 O2 Delivery Room Air Progress Progress Note : Progress Note Seen and evaluated. CT head and neck ordered. X-ray left elbow. Dressing and compression wrap placed to left elbow. Tetanus updated. 04/30/2003: CT negative. X-ray negative. Wound cleaned and closed. Covered with dressing. Discharged home with return precautions. Patient verbalized understanding of instructions and agreement with plan. The large hematoma had resolved after compression dressing placed earlier so no need for arthrocentesis at this point. Diagnostic Imaging Diagonstic Imaging: CT Plain Films/CT/US/NM/MRI: c-spine, head Comments [facility], [place] NAME: ESMER GALLEGOS [facility] REC#: [id number] PT STATUS: REG ER : 1950 PHYSICIAN: DOMINGA BRADFORD MD ADMIT DATE: 03/20/20/ER Signed Date of Exam:03/20/20 CT HEAD/CERVICAL SPINE WO PROCEDURE: CT head and CT cervical spine without contrast. TECHNIQUE: Multiple contiguous axial images were obtained through the brain and cervical spine without the use of intravenous contrast. Sagittal and coronal reformations through the cervical spine were then performed. Auto Exposure Controls were utilized during the CT exam to meet ALARA standards for radiation dose reduction. INDICATION: Fall. Head pain. Scalp contusion. Neck pain. COMPARISON: None. FINDINGS: CT head: No large acute territorial ischemia, mass, or hemorrhage. No midline shift or mass effect. The ventricles, cortical sulci and basilar cisterns are patent and unremarkable. The calvarium is intact. The visualized paranasal sinuses are clear. CT cervical spine: No acute fracture or dislocation is seen in the cervical spine. No focal osseous lesion. Vertebral body heights are well maintained. There is grade 1 retrolisthesis of C4 on C5 and C5 on C6. The craniocervical junction is well maintained. Mild degenerative changes are seen in the cervical spine with disc osteophyte complexes and uncovertebral arthropathy. Soft tissues of the neck are unremarkable. IMPRESSION: 1. No hemorrhage or focal intra-axial mass. No CT evidence of large acute territorial ischemia. 2. No acute fracture or dislocation in the cervical spine. Dictated by: Dictated on workstation # [id number] Dict: 03/20/20 1640 Trans: 03/20/201647 [facility] [id number] Interpreted by: NEENA DAMON DO Electronically signed by: NEENA DAMON DO 03/20/208 Diagonstic Imaging: Xray Plain Films/CT/US/NM/MRI: elbow Comments [facility], [place] NAME: ESMER GALLEGOS [facility] REC#: [id number] PT STATUS: REG ER : 1950 PHYSICIAN: DOMINGA BRADFORD MD ADMIT DATE: 03/20/20/ER Signed Date of Exam:03/20/20 ELBOW, LEFT, 3 VIEWS EXAMINATION: Left elbow, 3 or more views. HISTORY: Elbow pain. COMPARISON: None available. FINDINGS: Alignment is normal. No fracture is seen. Joint spaces are normal. There is no elbow joint effusion. IMPRESSION: Normal left elbow. Dictated by: Dictated on workstation # [id number] Dict: 03/20/20 1632 Trans: 03/20/20 1650 PJE [id number] Interpreted by: RYAN FIGUEROA MD Electronically signed by: RYAN FIGUEROA MD 03/20/20 1650 Departure Impression Primary Impression: Minor head injury Qualified Codes: S09.90XA - Unspecified injury of head, initial encounter Additional Impressions: Laceration of left elbow Qualified Codes: S51.012A - Laceration without foreign body of left elbow, initial encounter Abrasion, left knee, initial encounter Disposition: 01 HOME, SELF-CARE Condition: Improved Departure-Patient Inst. Decision time for Depature: 17:35 Referrals: ANDREY ESCAMILLA MD (PCP/Family) Primary Care Physician Patient Instructions: Laceration Repair With Stitches (DC), Skin Abrasions (DC), Minor Head Injury (DC) Add. Discharge Instructions: Continue home medications as previously prescribed. You may use antibiotic ointment and dressing over wound to the left elbow changing it once or twice daily as needed over the next 5 to 7 days. Sutures out in 10 to 14 days. Return for worse pain, fever, vomiting, weakness, breathing problems or other concerns as needed. DOMINGA BRADFORD MD Mar 20, 2020 16:32
--- NOTE | 2020-03-20 16:35 | Diagnostic Imaging Report ---
EXAMINATION: Left elbow, 3 or more views. HISTORY: Elbow pain. COMPARISON: None available. FINDINGS: Alignment is normal. No fracture is seen. Joint spaces are normal. There is no elbow joint effusion. IMPRESSION: Normal left elbow. Dictated by: Dictated on workstation # [id number]
--- NOTE | 2020-03-20 16:47 | Diagnostic Imaging Report ---
PROCEDURE: CT head and CT cervical spine without contrast. TECHNIQUE: Multiple contiguous axial images were obtained through the brain and cervical spine without the use of intravenous contrast. Sagittal and coronal reformations through the cervical spine were then performed. Auto Exposure Controls were utilized during the CT exam to meet ALARA standards for radiation dose reduction. INDICATION: Fall. Head pain. Scalp contusion. Neck pain. COMPARISON: None. FINDINGS: CT head: No large acute territorial ischemia, mass, or hemorrhage. No midline shift or mass effect. The ventricles, cortical sulci and basilar cisterns are patent and unremarkable. The calvarium is intact. The visualized paranasal sinuses are clear. CT cervical spine: No acute fracture or dislocation is seen in the cervical spine. No focal osseous lesion. Vertebral body heights are well maintained. There is grade 1 retrolisthesis of C4 on C5 and C5 on C6. The craniocervical junction is well maintained. Mild degenerative changes are seen in the cervical spine with disc osteophyte complexes and uncovertebral arthropathy. Soft tissues of the neck are unremarkable. IMPRESSION: 1. No hemorrhage or focal intra-axial mass. No CT evidence of large acute territorial ischemia. 2. No acute fracture or dislocation in the cervical spine. Dictated by: Dictated on workstation # [id number]
[2020-03-20] MEDS ORDERED: LIDOCAINE PF 1% 5 ML (XYLOCAINE) AMP ONE (17:33)
[2020-03-20] MEDS ORDERED: LIDOCAINE/EPI 2% 1:100,00 (XYLOCAINE) 20 ML VIAL INJ ONE (17:45)
[2020-03-20 18:15] VITALS: BP 147/83
== END 2020-03-20 18:15 | disposition home or self-care (01) ==
LOC: EDUNIT# 16:10 → ER 16:12
DX: S51.012A Laceration without foreign body of left elbow, initial encounter (principal); S09.90XA Unspecified injury of head, initial encounter; S80.212A Abrasion, left knee, initial encounter; E78.00 Pure hypercholesterolemia, unspecified; J44.9 Chronic obstructive pulmonary disease, unspecified; F32.9 Major depressive disorder, single episode, unspecified; Z87.891 Personal history of nicotine dependence; Z23 Encounter for immunization; Z79.82 Long term (current) use of aspirin; W01.0XXA Fall on same level from slipping, tripping and stumbling without subsequent striking against object, initial encounter
CPT/HCPCS: 70450; 72125; 73080; 90715

== ENCOUNTER → 2021-01-11 | Outpatient (CLI) | payer MEDICARE ==
[~2021-01-11] MED LIST changes: +CATHETER FLUSH 10 ML SYR IV PRN; +HOLD METFORMIN - RECEIVED CONTRAST 20 ML VIAL IV SCH; +IOHEXOL 350 MG/ML 100 ML (OMNIPAQUE 350) VIAL IV ONE; -MONT10TA26 PO; +MONT10TA32 PO; +NS 100 ML (IVPB) BAG IV ONE
[2021-01-11 08:46] LABS: CREATININE SERUM 1.02 MG/DL (0.60-1.30)
--- NOTE | 2021-01-11 09:55 | Diagnostic Imaging Report ---
EXAMINATION: CT neck and chest with intravenous contrast. TECHNIQUE: Multiple contiguous axial images were obtained through the neck and chest after the uneventful administration of intravenous contrast. All CT scans use one or more of the following dose optimizing techniques: automated exposure control, MA and/or KvP adjustment based on patient size and exam type or iterative reconstruction. HISTORY: Sore throat for one year. COMPARISON: 03/20/2020. FINDINGS: Neck CT: The posterior nasopharynx and oropharynx demonstrate appropriate symmetry. There is no displacement of the parapharyngeal fat planes. There is no abnormal process evident within the prevertebral or retropharyngeal space. There is no evidence of abnormal thickening of the epiglottis or aryepiglottic folds. The vocal folds appear symmetric. A nodule seen in the right parotid gland measuring 0.7 cm. Smaller similar-appearing nodules are seen in both parotid glands. The submandibular glands are unremarkable. The thyroid has a normal appearance. No pathologically enlarged cervical lymph nodes are evident. No focal inflammatory changes are demonstrated. No soft tissue mass or fluid collection demonstrated. Atherosclerotic plaque is seen in the bilateral carotid systems. The visualized intracranial contents demonstrate no evidence of pathologic intracranial enhancement or intracranial mass effect. Visualized orbital contents are unremarkable. The visualized paranasal sinuses are clear. The mastoids and middle ears are clear. No acute osseous abnormality in the cervical spine. Chest CT: The heart size is within normal limits. No pericardial effusion is present. There is calcified aortic and coronary atherosclerotic plaque without aneurysm. Shotty appearing axillary lymph nodes are noted. Similar-appearing lymph nodes are also seen in the AP window of the mediastinum. No pathologically enlarged lymphadenopathy is seen in the chest based on size criteria. Centrilobular emphysema is seen, greatest in the apices. The lungs demonstrate no pulmonary nodules or masses. There are no focal areas of consolidation. No central endobronchial obstructing lesions are identified. There is no pleural effusion or pneumothorax. The osseous structures demonstrate no acute abnormalities. There is hepatic steatosis. IMPRESSION: 1. No mass or fluid collection is seen in the aerodigestive tract. No evidence of airway stenosis. 2. Shotty axillary and mediastinal lymph nodes without pathologically enlarged lymphadenopathy. 3. Subcentimeter nodules scattered in both parotid glands. Findings may represent intraparotid lymph nodes versus small primary parotid tumors such as Warthin's tumors. 4. Centrilobular emphysema. No suspicious nodules or focal consolidations. Dictated by: Dictated on workstation # [id number]
== END ==
LOC: RAD 09:15
PROVIDERS: ATTEND Otolaryngology Otolaryngology/Facial Plastic Surgery
DX: J43.2 Centrilobular emphysema (principal); K11.8 Other diseases of salivary glands; J02.9 Acute pharyngitis, unspecified; R59.0 Localized enlarged lymph nodes
CPT/HCPCS: 36415; 70491; 71260; 82565; 84520

== ENCOUNTER 2021-01-31 05:36 | Outpatient (RCR) | payer MEDICARE ==
[~2021-01-31] VITALS: Ht 170.2 cm; Wt 92.4 kg
[~2021-01-31 05:36] MED LIST changes: -CATHETER FLUSH 10 ML SYR IV PRN; -HOLD METFORMIN - RECEIVED CONTRAST 20 ML VIAL IV SCH; -IOHEXOL 350 MG/ML 100 ML (OMNIPAQUE 350) VIAL IV ONE; -NS 100 ML (IVPB) BAG IV ONE
[2021-02-02] MEDS ORDERED: PANT40TA2 PO (10:35)
== END 2021-01-31 14:16 | disposition home or self-care (01) ==
LOC: PREOP 05:36
PROVIDERS: ATTEND Surgery
DX: Z01.818 Encounter for other preprocedural examination (principal)

== ENCOUNTER 2021-02-02 10:05 | Day surgery (SDC) | payer MEDICARE ==
[~2021-02-02] VITALS: Ht 170.2 cm; Wt 92.4 kg
[2021-02-02] MEDS ORDERED: LACTATED RINGERS 1,000 ML IV STA (10:06)
[2021-02-02] MEDS ORDERED: LACTATED RINGERS 1,000 ML IV ONE (10:07)
[2021-02-02] MEDS ORDERED: LIDOCAINE JELLY 2% 6 ML SYRINGE MM PRN (10:15)
[2021-02-02] MEDS ORDERED: HURRICAINE EXT TUBE (BENZOCAINE) XX PRN (10:15)
[2021-02-02 10:21] VITALS: BP 206/96
--- NOTE | 2021-02-02 10:34 | Progress Note-Pre Operative ---
Pre-Operative Progress Note H&P Reviewed The H&P was reviewed, patient examined and no changes noted. Date Seen by Provider: Feb 02, 2021 Time Seen by Provider: 10:30 Date H&P Reviewed: Feb 02, 2021 Time H&P Reviewed: :30 Pre-Operative Diagnosis: JEREMIAS HOLLOWAY MD Feb 02, 2021 10:34
[2021-02-02] MEDS ORDERED: PANT40TA2 PO (10:35)
--- NOTE | 2021-02-02 10:35 | Discharge Inst-Surgical ---
D/C Lap Instructions-KIDO New, Converted, or Re-Newed RX: RX on Chart Follow Up Activity as tolerated High Fiber Diet 25g or more per day Avoid Alcohol, Caffeine, Spicy [place] and Acid foods. Drink 64 fluid oz or more of fluids per day. Symptoms to Report: Fever over 101 degree F, Nausea/Vomiting If any problems/questions: Contact your physician or go to Emergency Room JEREMIAS FRIED MD Feb 02, 2021 10:35
[2021-02-02] MEDS ORDERED: ONDANSETRON 4 MG/2 ML (SDV) Z0FRAN IVP PRN (10:45)
[2021-02-02] MEDS ORDERED: ONDANSETRON 4 MG (ZOFRAN) ORAL DISSOLVE TAB PO PRN (10:45)
[2021-02-02] MEDS ORDERED: proPOfol 200 MG/20 ML (DIPRIVAN) VIAL IV ONE (11:27)
[2021-02-02 12:15] VITALS: BP 222/106
[2021-02-02 12:20] VITALS: BP 176/80
[2021-02-02 12:25] VITALS: BP 220/100
--- NOTE | 2021-02-02 12:36 | Progress Note-Post Operative ---
Post-Operative Progess Note Surgeon (s)/Waiter/Waitress Third Class (s) Surgeon JEREMIAS FRIED MD Waiter/Waitress Third Class: none Pre-Operative Diagnosis GERD Post-Operative Diagnosis reflux esophagitis(stage 2-3), mild dist esoph stricture, small HH(1.5cm), moderate gastritis. Procedure & Operative Findings Date of Procedure 02/02/21 Procedure Performed/Findings EGD with bx and balloon dilatation. Anesthesia Type mac Estimated Blood Loss Estimated blood loss (mL): minimal Specimens/Packing Specimens Removed ge jxn, antrum JEREMIAS FRIED MD Feb 02, 2021 12:36
[2021-02-02 12:50] VITALS: BP 175/105
[2021-02-02 13:10] VITALS: BP 175/105
--- NOTE | 2021-02-02 13:18 | Anesthesia-General Post-Op ---
MAC Patient Condition Mental Status/LOC: Same as Preop Cardiovascular: Satisfactory Nausea/Vomiting: Absent Respiratory: Satisfactory Pain: Controlled Complications: Absent Post Op Complications Complications None Follow Up Care/Instructions Patient Instructions None needed. Anesthesiology Discharge Order Discharge Order Patient is doing well, no complaints, stable vital signs, no apparent adverse anesthesia problems. No complications reported per nursing. MOSHE AC CRNA Feb 02, 2021 13:18
--- NOTE | 2021-02-03 02:03 | OPERATIVE REPORT ---
DATE OF SERVICE: 02/02/2021 ATTENDING PRIMARY CARE PHYSICIAN: Dr. Milton Martinez. PREOPERATIVE DIAGNOSES: Gastroesophageal reflux disease, chronic cough, dysphagia. POSTOPERATIVE DIAGNOSES: Reflux esophagitis stage II, mild distal esophageal stricture, small hiatal hernia 1.5 cm in size, moderate gastritis. No distal obstructions. PROCEDURE: EGD with biopsy and balloon dilatation. SURGEON: Jeremias Fried MD ANESTHESIA: Monitored anesthesia care. ESTIMATED BLOOD LOSS: Minimal. FINDINGS: Same as postoperative diagnoses. DISPOSITION: The patient tolerated the procedure well. INDICATIONS: The patient is a 70-year-old male known to us. He was initially seen for symptomatic gallstones as well as umbilical hernia and underwent a laparoscopic cholecystectomy and umbilical hernia repair on 01/30/2019. He reports over the past year he has developed a chronic cough and hoarseness as well as a chronic sore throat. He has also had issues with reflux and difficulty swallowing some food items. He states that he did have an EGD 15 years ago and was found to have a hiatal hernia at this time. He was seen by ENT and underwent x-rays as well as a CT scan of the neck and chest, which did not show any significant findings. DESCRIPTION OF PROCEDURE: The patient was brought to the endoscopy suite, laid in left lateral decubitus position. After adequate IV pain and sedative medications and monitored anesthesia care, the mouthpiece was applied. The endoscope was placed in the mouth, visualizing the pharynx and hypopharyngeal region. Vocal cords, epiglottis and vallecula identified and appeared to be normal. The endoscope was gently intubated into esophageal opening and esophagus insufflated. The endoscope was then advanced to the first, second and third portion of esophagus at the level of the GE junction, a reflux esophagitis stage II identified. A mild distal esophageal stricture and Schatzki's ring was also identified. A biopsy was taken of this region with forceps with visualization of good hemostasis. The endoscope was then advanced in the stomach and endoscope retroflexed, visualizing a small hiatal hernia approximately 1.5 cm in size. There was moderate diffuse gastritis throughout the stomach. No formal ulcerations, polyps, or any neoplasms. A biopsy was taken of the antrum to rule out H. pylori with visualization of good hemostasis. The endoscope was then advanced to the pylorus and the first and second portion of the duodenum, which appeared normal with no ulcerations or distal obstructions. We then proceeded with balloon dilatation of the distal esophageal stricture and the balloon was placed in the stomach and pulled back to the area of the stricture. We then proceeded in a gradual stepwise fashion from 2, 4, then 6 atmospheres of pressure with moderate resistance and approximately 20 mm in luminal diameter and left this in place for 60 seconds. The balloon was then desufflated and removed with visualization of good hemostasis as well as no mucosal tears. The balloon was then removed and the endoscope was withdrawn while taking a second look and suctioning of residual air with no additional findings. The patient tolerated the procedure well. We will recommend the necessary lifestyle and diet accommodation including small and more frequent meals, avoidance of eating at night as well as head elevation while lying supine. He also needs to avoid caffeinated beverages, spicy, greasy and acidic foods. We will also start him on Protonix 40 mg daily. Job ID: [id number] DocumentID: [id number] Dictated Date: 02/02/2021 12:25:06 Daylight Driller Date: 02/02/2021 19:28:36 Dictated By: JEREMIAS FRIED MD
== END 2021-02-02 13:10 | disposition home or self-care (01) ==
LOC: ENDO 10:05
PROVIDERS: ATTEND Surgery
DX: K21.00 Gastro-esophageal reflux disease with esophagitis, without bleeding (principal); K22.2 Esophageal obstruction; K44.9 Diaphragmatic hernia without obstruction or gangrene; K29.70 Gastritis, unspecified, without bleeding; K31.89 Other diseases of stomach and duodenum; I25.10 Atherosclerotic heart disease of native coronary artery without angina pectoris; E78.00 Pure hypercholesterolemia, unspecified; J44.9 Chronic obstructive pulmonary disease, unspecified; F32.A Depression, unspecified; I10 Essential (primary) hypertension; M54.9 Dorsalgia, unspecified; I73.9 Peripheral vascular disease, unspecified; E78.5 Hyperlipidemia, unspecified; E66.9 Obesity, unspecified; Z79.891 Long term (current) use of opiate analgesic; Z79.899 Other long term (current) drug therapy; Z99.81 Dependence on supplemental oxygen; Z87.891 Personal history of nicotine dependence; Z68.32 Body mass index [BMI] 32.0-32.9, adult; Z79.02 Long term (current) use of antithrombotics/antiplatelets
CPT/HCPCS: 87635

== ENCOUNTER 2021-02-13 17:53 | Emergency (ER) | payer MEDICARE ==
[~2021-02-13] VITALS: Ht 170.1 cm; Wt 92.4 kg
[~2021-02-13 17:53] MED LIST changes: +PANT40TA2 PO
[2021-02-13 18:30] LABS: BASOPHILS % (AUTO) 0 % (0-10); EOSINOPHILS % (AUTO) 0 % (0-10); HEMATOCRIT 44 % (40-54); HEMOGLOBIN 14.2 g/dL (13.3-17.7); LYMPHOCYTES # (AUTO) 0.9 10^3/uL (1.0-4.0); LYMPHOCYTES % (AUTO) 8 % (12-44); MEAN CORPUSCULAR HEMOGLOBIN 30 pg (25-34); MEAN CORPUSCULAR HGB CONC 32 g/dL (32-36); MEAN CORPUSCULAR VOLUME 92 fL (80-99); MONOCYTES # (AUTO) 0.7 10^3/uL (0.0-1.0); MONOCYTES % (AUTO) 7 % (0-12); NEUTROPHILS # (AUTO) 8.9 10^3/uL (1.8-7.8); NEUTROPHILS % (AUTO) 84 % (42-75); PLATELET COUNT 190 10^3/uL (130-400); WHITE BLOOD COUNT 10.5 10^3/uL (4.3-11.0)
--- NOTE | 2021-02-13 18:41 | ED Respiratory ---
General Chief Complaint: Respiratory Problems Stated Complaint: SOB,CP,HEADACHE,COUGH Source: patient Exam Limitations: no limitations History of Present Illness Date Seen by Provider: Feb 13, 2021 Time Seen by Provider: 18:14 Initial Comments This is a 70-year-old male who presented to the ER via POV with complaints of abdominal distention, discomfort, shortness of breath for the past 3 to 4 days. Allergies and Home Medications Allergies Coded Allergies: No Known Drug Allergies (Unverified , 02/13/21) Patient Home Medication List Albuterol Sulfate (Ventolin Hfa) 18 Gm Hfa.aer.ad, 2 PUFF INH Q4H PRN for SHORTNESS OF BREATH, (Reported) Entered as Reported by: NALLELY MANN on 06/04/18 1005 Aspirin (Aspirin EC) 81 Mg Tablet.dr, 81 MG PO DAILY, (Reported) Entered as Reported by: NALLELY MANN on 06/22/16 0825 Atorvastatin Calcium (Atorvastatin Calcium) 20 Mg Tablet, 20 MG PO DAILY, (Reported) Entered as Reported by: NALLELY MNAN on 06/13/16 1043 Citalopram Hydrobromide (Citalopram HBr) 20 Mg Tablet, 20 MG PO DAILY, (Reported) Entered as Reported by: PRIETO GARCIA on 01/27/19 1103 Clopidogrel Bisulfate (Plavix) 75 Mg Tablet, 75 MG PO DAILY, (Reported) Entered as Reported by: PRIETO GARCIA on 01/27/19 1103 Fluticasone/Umeclidin/Vilanter (Trelegy Ellipta 100-62.5-25) 1 Each Blst.w.dev, 1 EACH IH DAILY, (Reported) Entered as Reported by: PRIETO GARCIA on 01/27/19 1103 Hydrocodone Bit/Acetaminophen (HYDROcodone/APAP 10/325 TABLET) 1 Each Tablet, 1 TAB PO Q6H PRN for PAIN-MODERATE Prescribed by: LUIZ MACIAS on 01/30/19 1144 Multivitamin/Iron/Folic Acid (Sentry Tablet) 1 Each Tablet, 1 TAB PO DAILY, (Reported) Entered as Reported by: NALLELY MANN on 06/04/18 1005 Pantoprazole Sodium (Protonix) 40 Mg Tablet.dr, 40 MG PO DAILY Prescribed by: JEREMIAS FRIED on 02/02/21 1035 Past Wstmzlz-Jsutzz-Ahgpss Hx Immunizations Up To Date Tetanus Booster (TDap): More than 5yrs PED Vaccines UTD: Yes First/Initial COVID19 Vaccinat: UNSURE Second COVID19 Vaccination Lavell: UNSURE Seasonal Allergies Seasonal Allergies: Yes Past Medical History Surgeries: Yes (peripheral stents, LEFT LEG VASCULAR BYPASS) Orthopedic Respiratory: Yes (2l o2 at HS) COPD Currently Using CPAP: No Currently Using BIPAP: No Cardiac: Yes High Cholesterol, Irregular Heartbeat, Peripheral Vascular Neurological: No Reproductive Disorders: No Sexually Transmitted Disease: No HIV/AIDS: No Genitourinary: Yes Kidney Stones Gastrointestinal: Yes Gastroesophageal Reflux, Chronic Constipation, Hiatal Hernia, Gall Bladder Disease Musculoskeletal: Yes Arthritis Endocrine: No HEENT: Yes (GLASSES, UPPER DENTURE) Loss of Vision: Denies Hearing Impairment: Hard of Hearing, Bilateral Hearing Aide Cancer: No Psychosocial: Yes Depression Integumentary: No Blood Disorders: No Adverse Reaction/Blood Tranf: No (N/A) Family Medical History Patient reports no known family medical history. No Pertinent Family Hx Physical Exam Vital Signs - First Documented Capillary Refill : Height: 5'7.00" Weight: 196lbs. 0.0oz. [id number]; 31.89 BMI Method:Stated Focused Exam Lactate Level 02/13/21 18:05: Lactic Acid Level 1.86 Lactic Acid Level Laboratory Tests Test 02/13/21 18:05 Lactic Acid Level 1.86 MMOL/L (0.50-2.00) Procedures/Interventions Suture Size: 4-0 Progress/Results/Core Measures Suspected Sepsis SIRS Temperature: Pulse: Respiratory Rate: Laboratory Tests 02/13/21 18:05: White Blood Count 10.5 Blood Pressure / Mean: 02/13/21 18:05: Lactic Acid Level 1.86 Laboratory Tests 02/13/21 18:05: Creatinine 1.05, INR Comment 1.0, Platelet Count 190, Total Bilirubin 0.6 Results/Orders Lab Results Laboratory Tests Test 02/13/21 18:00 02/13/21 18:05 02/13/21 19:05 Range/Units SARS-CoV-2 RNA (RT-PCR) Not Detected Not Detecte White Blood Count 10.5 4.3-11.0 10^3/uL Red Blood Count 4.78 4.30-5.52 10^6/uL Hemoglobin 14.2 13.3-17.7 g/dL Hematocrit 44 40-54 % Mean Corpuscular Volume 92 80-99 fL Mean Corpuscular Hemoglobin 30 25-34 pg Mean Corpuscular Hemoglobin Concent 32 32-36 g/dL Red Cell Distribution Width 14.6 H 10.0-14.5 % Platelet Count 190 130-400 10^3/uL Mean Platelet Volume 10.0 9.0-12.2 fL Immature Granulocyte % (Auto) 0 % Neutrophils (%) (Auto) 84 H 42-75 % Lymphocytes (%) (Auto) 8 L 12-44 % Monocytes (%) (Auto) 7 0-12 % Eosinophils (%) (Auto) 0 0-10 % Basophils (%) (Auto) 0 0-10 % Neutrophils # (Auto) 8.9 H 1.8-7.8 10^3/uL Lymphocytes # (Auto) 0.9 L 1.0-4.0 10^3/uL Monocytes # (Auto) 0.7 0.0-1.0 10^3/uL Eosinophils # (Auto) 0.0 0.0-0.3 10^3/uL Basophils # (Auto) 0.0 0.0-0.1 10^3/uL Immature Granulocyte # (Auto) 0.0 0.0-0.1 10^3/uL Prothrombin Time 13.2 12.2-14.7 SEC INR Comment 1.0 0.8-1.4 Activated Partial Thromboplast Time 31 24-35 SEC Sodium Level 132 L 135-145 MMOL/L Potassium Level 3.9 3.6-5.0 MMOL/L Chloride Level 99 98-107 MMOL/L Carbon Dioxide Level 21 21-32 MMOL/L Anion Gap 12 5-14 MMOL/L Blood Urea Nitrogen 15 7-18 MG/DL Creatinine 1.05 0.60-1.30 MG/DL Estimat Glomerular Filtration Rate 70 BUN/Creatinine Ratio 14 Glucose Level 118 H 70-105 MG/DL Lactic Acid Level 1.86 0.50-2.00 MMOL/L Calcium Level 9.2 8.5-10.1 MG/DL Corrected Calcium 9.1 8.5-10.1 MG/DL Total Bilirubin 0.6 0.1-1.0 MG/DL Aspartate Amino Transf (AST/SGOT) 34 5-34 U/L Alanine Aminotransferase (ALT/SGPT) 40 0-55 U/L Alkaline Phosphatase 60 40-136 U/L Total Creatine Kinase 180 30-200 U/L Creatine Kinase MB 1.3 <6.6 NG/ML Myoglobin 175.2 H 10.0-92.0 NG/ML Troponin I < 0.028 <0.028 NG/ML C-Reactive Protein High Sensitivity 3.96 H 0.00-0.50 MG/DL Total Protein 7.3 6.4-8.2 GM/DL Albumin 4.1 3.2-4.5 GM/DL Lipase 11 8-78 U/L Procalcitonin 0.08 <0.10 NG/ML Urine Color DARK YELLOW Urine Clarity CLEAR Urine pH 6.0 5-9 Urine Specific [place] >=1.030 1.016-1.022 Urine Protein 2+ H NEGATIVE Urine Glucose (UA) NEGATIVE NEGATIVE Urine Ketones TRACE H NEGATIVE Urine Nitrite NEGATIVE NEGATIVE Urine Bilirubin NEGATIVE NEGATIVE Urine Urobilinogen 0.2 < = 1.0 MG/DL Urine Leukocyte Esterase NEGATIVE NEGATIVE Urine RBC (Auto) TRACE-I H NEGATIVE Urine RBC 0-2 /HPF Urine WBC 2-5 /HPF Urine Crystals PRESENT H /LPF Urine Amorphous Sediment MOD JENNIFER URATES H /LPF Urine Bacteria TRACE /HPF Urine Casts NONE /LPF Urine Mucus LARGE H /LPF Urine Culture Indicated NO My Orders Orders - MIHIR CHIRINOS SEARCH ENGINE OPTIMIZATION STRATEGIST Comprehensive Metabolic Panel (02/13/21 18:05) Lipase (02/13/21 18:05) Ua Culture If Indicated (02/13/21 18:05) Acute Abd Series (02/13/21 18:05) Cbc With Automated Diff (02/13/21 18:05) Blood Culture (02/13/21 18:05) Hs C Reactive Protein (02/13/21 18:05) Lactic Acid Analyzer (02/13/21 18:05) Sputum Culture (02/13/21 18:05) Protime With Inr (02/13/21 18:05) Partial Thromboplastin Time (02/13/21 18:05) Ekg Tracing (02/13/21 18:05) Vital Signs Adult Sepsis Patie Q15M (02/13/21 18:05) O2 (02/13/21 18:05) Procalcitonin (Pct) (02/13/21 18:05) Troponin I (02/13/21 18:05) Myoglobin Serum (02/13/21 18:05) Creatine Kinase Mb (02/13/21 18:05) Creatine Kinase (02/13/21 18:05) Covid 19 Inhouse Test (02/13/21 18:08) Simethicone Tablet (Mylicon Chewable Tab (02/13/21 19:45) Vital Signs/I&O 02/13/21 02/13/21 02/13/21 02/13/21 17:53 17:53 17:53 17:53 Temp 36.6 36.6 Pulse 90 90 Resp 44 44 B/P (MAP) 221/101 (141) 221/101 Pulse Ox 95 95 95 O2 Delivery Nasal Cannula Nasal Cannula Nasal Cannula Nasal Cannula O2 Flow Rate 2.00 2.00 2.00 2.00 Capillary Refill : Departure Impression Primary Impression: Cough Additional Impression: Abdominal distension, gaseous Disposition: 01 HOME, SELF-CARE Condition: Improved Departure-Patient Inst. Decision time for Depature: 19:33 Referrals: ANDREY ESCAMILLA MD (PCP/Family) Primary Care Physician Patient Instructions: Cough, Adult ED, Gas and Bloating Add. Discharge Instructions: Plan: 1. You can buy Gas-X or Simethicone tablets over the counter and take as directed. 2. Make sure you walking and doing plenty of activity to keep your bowels moving. 3. Drink plenty of fluids. 4. Take antibiotics as directed and complete full course. 5. Return to ER if your pain worsens, you are unable to pass gas, fever, nausea/vomiting. Return for any other new or concerning symptoms. All discharge instructions reviewed with patient and/or family. Voiced understanding. Scripts Cefdinir (Cefdinir) 300 Mg Capsule 300 MG PO BID for 7 Days, #14 CAP 0 Refills Prov: MIHIR CHIRINOS SEARCH ENGINE OPTIMIZATION STRATEGIST 02/13/21 MIHIR CHIRINOS SEARCH ENGINE OPTIMIZATION STRATEGIST Feb 13, 2021 18:41
[2021-02-13 18:42] LABS: PROTHROMBIN TIME PATIENT 13.2 SEC (12.2-14.7)
[2021-02-13 18:48] LABS: ALBUMIN 4.1 GM/DL (3.2-4.5); POTASSIUM 3.9 MMOL/L (3.6-5.0)
[2021-02-13 18:50] LABS: CALCIUM 9.2 MG/DL (8.5-10.1)
[2021-02-13 18:51] LABS: TOTAL PROTEIN 7.3 GM/DL (6.4-8.2)
[2021-02-13 18:53] LABS: BILIRUBIN,TOTAL 0.6 MG/DL (0.1-1.0)
[2021-02-13 18:54] LABS: CREATININE SERUM 1.05 MG/DL (0.60-1.30)
[2021-02-13 18:58] LABS: CREATINE KINASE 180 U/L (30-200)
[2021-02-13 19:07] LABS: CREATINE KINASE MB 1.3 NG/ML (<6.6)
[2021-02-13 19:12] LABS: BILIRUBIN,URINE NEGATIVE (NEGATIVE); CLARITY,URINE CLEAR; COLOR,URINE DARK YELLOW; GLUCOSE, URINE (UA) NEGATIVE (NEGATIVE); KETONES,URINE TRACE (NEGATIVE); LEUKOCYTE ESTERASE ,URINE NEGATIVE (NEGATIVE); NITRITE,URINE NEGATIVE (NEGATIVE); PROTEIN,URINE 2+ (NEGATIVE)
--- NOTE | 2021-02-13 19:16 | Diagnostic Imaging Report ---
INDICATION: Abdominal pain and distention. FINDINGS: There appears to be some minimal basilar atelectasis. The lungs are otherwise clear. There is no effusion or pneumothorax. Heart size is appropriate. Pulmonary vascularity appears normal. There are gas-filled loops of small and large bowel without evidence of significant dilation to suggest bowel obstruction. There is no evidence to suggest free air. There is a surgical clip in the right upper quadrant. There has been previous iliac stenting. IMPRESSION: 1. No radiographic evidence of an acute cardiopulmonary process. 2. Bowel gas pattern appears nonobstructed without evidence of free air. Dictated by: Dictated on workstation # [id number]
[2021-02-13 19:23] LABS: AMORPHOUS SEDIMENT,UR MOD AMOR URATES /LPF; BACTERIA,URINE TRACE /HPF; RBC,URINE 0-2 /HPF
[2021-02-13] MEDS ORDERED: CEFD300C3 PO (19:36)
[2021-02-13 19:42] VITALS: BP 184/91
[2021-02-13] MEDS ORDERED: SIMETHICONE 80 MG (MYLICON) CHEW PO ONE (19:45)
== END 2021-02-13 19:49 | disposition home or self-care (01) ==
LOC: EDUNIT# 17:53 → ER 17:54
DX: R05.9 Cough, unspecified (principal); R14.0 Abdominal distension (gaseous); J44.9 Chronic obstructive pulmonary disease, unspecified; E78.00 Pure hypercholesterolemia, unspecified; K21.9 Gastro-esophageal reflux disease without esophagitis; F32.9 Major depressive disorder, single episode, unspecified; Z20.822 Contact with and (suspected) exposure to COVID-19; Z79.01 Long term (current) use of anticoagulants; Z79.82 Long term (current) use of aspirin; Z79.899 Other long term (current) drug therapy
CPT/HCPCS: 36415; 74022; 80053; 81000; 82550; 82553; 83605; 83690; 83874; 84145; 84484; 85025; 85610; 85730; 86141; 87040; 87636; 93005

== ENCOUNTER 2021-09-15 09:41 | Inpatient (IN) | payer MEDICARE ==
[~2021-09-15] VITALS: Ht 170.2 cm; Wt 95.7 kg
[~2021-09-15 09:41] MED LIST changes: +ACLI400A2 IH; -ACLI400A3 IH; +CEFD300C3 PO; +MONT-40 PO; -MONT10TA32 PO
[2021-09-15 10:05] LABS: BASOPHILS % (AUTO) 0 % (0-10); EOSINOPHILS # (AUTO) 0.2 10^3/uL (0.0-0.3); EOSINOPHILS % (AUTO) 2 % (0-10); HEMATOCRIT 38 % (40-54); HEMOGLOBIN 12.4 g/dL (13.3-17.7); LYMPHOCYTES # (AUTO) 1.1 10^3/uL (1.0-4.0); LYMPHOCYTES % (AUTO) 8 % (12-44); MEAN CORPUSCULAR HEMOGLOBIN 30 pg (25-34); MEAN CORPUSCULAR HGB CONC 32 g/dL (32-36); MEAN CORPUSCULAR VOLUME 92 fL (80-99); MEAN PLATELET VOLUME 8.7 fL (9.0-12.2); MONOCYTES % (AUTO) 7 % (0-12); NEUTROPHILS # (AUTO) 11.2 10^3/uL (1.8-7.8); NEUTROPHILS % (AUTO) 82 % (42-75); PLATELET COUNT 412 10^3/uL (130-400); WHITE BLOOD COUNT 13.6 10^3/uL (4.3-11.0)
[2021-09-15 10:16] LABS: ALBUMIN 3.5 GM/DL (3.2-4.5); POTASSIUM 4.2 MMOL/L (3.6-5.0)
[2021-09-15 10:17] LABS: CALCIUM 9.3 MG/DL (8.5-10.1)
[2021-09-15 10:18] LABS: TOTAL PROTEIN 7.5 GM/DL (6.4-8.2)
[2021-09-15 10:20] LABS: BILIRUBIN,TOTAL 0.4 MG/DL (0.1-1.0)
[2021-09-15 10:22] LABS: CREATININE SERUM 0.97 MG/DL (0.60-1.30)
[2021-09-15 10:23] LABS: PROTHROMBIN TIME PATIENT 14.1 SEC (12.2-14.7)
--- NOTE | 2021-09-15 11:06 | Diagnostic Imaging Report ---
INDICATION: Cough Frontal chest obtained at 11:00 a.m. and compared to 05/01/2017. Heart and mediastinal silhouette are normal in appearance. There is alveolar infiltrate in the right lung base suspicious for pneumonia. There is no pneumothorax or pleural fluid. Left lung is clear. IMPRESSION: Right basilar infiltrate compatible with pneumonia. Follow-up is recommended. Dictated by: Dictated on workstation # [id number]
[2021-09-15] MEDS ORDERED: NS IV 1000 ML 1,000 ML IV STA (11:18)
[2021-09-15] MEDS ORDERED: AZITHROMYCIN INJECTION 500 MG in NS (IVPB) 250 ML IV STA (11:18)
[2021-09-15] MEDS ORDERED: cefTRIAXone 1 GM PRE-MIX 50 ML IV STA (11:18)
--- NOTE | 2021-09-15 11:31 | ED Cough/URI ---
General Chief Complaint: Respiratory Problems Stated Complaint: SOA - COUGHING UP BLOOD - FEVER Nursing Triage Note: C/O SOB FOR LAST 2 WEEKS, HX OF COPD, ALSO STATES HAS BEEN CUGHING UP BLOOD INTERMITTANTLY FOR 2 DAYS Source: patient Exam Limitations: no limitations (SALAZAR TAYLOR) History of Present Illness Date Seen by Provider: September 15, 2021 Time Seen by Provider: 11:28 Initial Comments Patient is a 70-year-old male with a history of COPD who presents to the ED with cough, shortness of breath bodyaches fatigue. Symptoms started 2 weeks ago with a wet productive cough. Reports sputum production with associate shortness of breath. He states about a week ago he noted bright red tinge and dark sputum. This has been intermittent. Noted a large amount of few days ago with improvement today. Patient does wear 2 L of oxygen at night. Has used his oxygen more frequently. Shortness of breath worse with ambulation. Reports fever as high as 104 at home. Decreased appetite has not been eating as much. States he feels weak and fatigued. Difficulty getting around at home as he does live at home by himself. States he has chills continuous body aches with weakness. Decreased urine output and states he feels dehydrated. Patient also reports daily chest pain without any worsening pain today. Denies of any leg swelling, leg bruising, abdominal pain, vomiting, diarrhea, headache, dizziness, visual changes. Does states he feels somewhat disoriented today (SALAZAR TAYLOR) Allergies and Home Medications Allergies Coded Allergies: No Known Drug Allergies (Unverified , 09/15/21) Patient Home Medication List Home Medication List Reviewed: Yes (SALAZAR TAYLOR) Ascorbic Acid (Vitamin C) 500 Mg Tab.chew, 500 MG PO DAILY, (Reported) Entered as Reported by: STEFANY UPTON on 09/15/21 1546 Last Action: Reviewed Atorvastatin Calcium (Atorvastatin Calcium) 20 Mg Tablet, 20 MG PO DAILY, (Reported) Entered as Reported by: NALLELY MANN on 06/13/16 1043 Last Action: Reviewed Azithromycin (Azithromycin) 250 Mg Tablet, 250 MG PO DAILY, (Reported) Entered as Reported by: STEFANY UPTON on 09/15/21 1546 Last Action: Reviewed Citalopram Hydrobromide (Citalopram HBr) 40 Mg Tablet, 40 MG PO DAILY, (Reported) Entered as Reported by: STEFANY UPTON on 09/15/211545 Last Action: Reviewed Clopidogrel Bisulfate (Clopidogrel) 75 Mg Tablet, 75 MG PO DAILY, (Reported) Entered as Reported by: STEFANY UPTON on 09/15/211545 Last Action: Reviewed Fluticasone Propionate (Fluticasone Propionate) 50 Mcg/Actuation [place].susp, 1 SPRAY NSEACH BID PRN for CONGESTION, (Reported) Entered as Reported by: STEFANY UPTON on 09/15/211545 Last Action: Reviewed Hydrocodone/Acetaminophen (Hydrocodone-Acetamin 10-325 mg) 10 Mg-325 Mg Tablet, 1 EACH PO Q8H PRN for PAIN-MODERATE (5-7), (Reported) Entered as Reported by: STEFANY UPTON on 09/15/211545 Last Action: Reviewed Loratadine (Loratadine) 10 Mg Tablet, 10 MG PO DAILY, (Reported) Entered as Reported by: STEFANY UPTON on 09/15/211545 Last Action: Reviewed Magnesium Oxide (Magnesium) 400 Mg Magnesium Tablet, 400 MG PO DAILY, (Reported) Entered as Reported by: STEFANY UPTON on 09/15/211545 Last Action: Reviewed Meloxicam (Meloxicam) 15 Mg Tablet, 15 MG PO DAILY, (Reported) Entered as Reported by: STEFANY UPTON on 09/15/211545 Last Action: Reviewed Multivit-Min/Iron/Folic/Vit K1 (Centrum Chewables Adults Tab) 8 Mg Iron-400 Mcg- 10 Mcg Tab.chew, 1 EACH PO DAILY, (Reported) Entered as Reported by: STEFANY UPTON on 09/15/211545 Last Action: Reviewed Discontinued Medications Albuterol Sulfate (Ventolin Hfa) 18 Gm Hfa.aer.ad, 2 PUFF INH Q4H PRN for SHORTNESS OF BREATH, (Reported) Discontinued Reason: No Longer Taking Entered as Reported by: NALLELY MANN on 06/04/18 1005 Last Action: Discontinued Aspirin (Aspirin EC) 81 Mg Tablet.dr, 81 MG PO DAILY, (Reported) Discontinued Reason: No Longer Taking Entered as Reported by: NALLELY MANN on 06/22/16 0825 Last Action: Discontinued Cefdinir (Cefdinir) 300 Mg Capsule, 300 MG PO BID Discontinued Reason: No Longer Taking Prescribed by: MIHIR CHIRINOS on 02/13/21 1936 Last Action: Discontinued Citalopram Hydrobromide (Citalopram HBr) 20 Mg Tablet, 20 MG PO DAILY, (Reported) Discontinued Reason: No Longer Taking Entered as Reported by: PRIETO GARCIA on 01/27/19 110 Last Action: Discontinued Clopidogrel Bisulfate (Plavix) 75 Mg Tablet, 75 MG PO DAILY, (Reported) Discontinued Reason: No Longer Taking Entered as Reported by: PRIETO GARCIA on 01/27/19 110 Last Action: Discontinued Fluticasone/Umeclidin/Vilanter (Trelegy Ellipta 100-62.5-25) 1 Each Blst.w.dev, 1 EACH IH DAILY, (Reported) Discontinued Reason: No Longer Taking Entered as Reported by: PRIETO GARCIA on 01/27/191102 Last Action: Discontinued Hydrocodone Bit/Acetaminophen (HYDROcodone/APAP 10/325 TABLET) 1 Each Tablet, 1 TAB PO Q6H PRN for PAIN-MODERATE Discontinued Reason: No Longer Taking Prescribed by: LUIZ MACIAS on 01/30/19 1144 Last Action: Discontinued Multivitamin/Iron/Folic Acid (Sentry Tablet) 1 Each Tablet, 1 TAB PO DAILY, (Reported) Discontinued Reason: No Longer Taking Entered as Reported by: NALLELY MANN on 06/04/18 1005 Last Action: Discontinued Pantoprazole Sodium (Protonix) 40 Mg Tablet.dr, 40 MG PO DAILY Discontinued Reason: No Longer Taking Prescribed by: JEREMIAS FRIED on 02/02/21 1035 Last Action: Discontinued Review of Systems Review of Systems Constitutional: chills, fever, malaise, weakness EENTM: No ear discharge, No blurred vision, No mouth pain, No throat pain Respiratory: cough, hemoptysis, short of breath Gastrointestinal: No abdominal pain, No diarrhea, No nausea, No vomiting Genitourinary: No decreased output, No discharge Musculoskeletal: No back pain, No joint pain Skin: No change in color, No change in hair/nails (SALAZAR TAYLOR) All Other Systems Reviewed Negative Unless Noted: Yes (SALAZAR TAYLOR) Past Ootgjym-Lcolbw-Lhqwlu Hx Patient Social History Tobacco Use?: No Use of E-Cig and/or Vaping dev: No Substance use?: No Alcohol Use?: No Pt feels they are or have been: No (SALAZAR TAYLOR) Immunizations Up To Date Tetanus Booster (TDap): More than 5yrs PED Vaccines UTD: Yes Influenza Vaccine Up-to-Date: Yes; Up-to-Date First/Initial COVID19 Vaccinat: june 2020 Second COVID19 Vaccination Lavell: july 2020 COVID19 Vaccine Sandwich [employer] Drink Cart Operator: naya (SALAZAR TAYLOR) Seasonal Allergies Seasonal Allergies: Yes (SALAZAR TAYLOR) Past Medical History Surgeries: Yes (peripheral stents, LEFT LEG VASCULAR BYPASS) Orthopedic Respiratory: Yes (2l o2 at HS) COPD Currently Using CPAP: No Currently Using BIPAP: No Cardiac: Yes High Cholesterol, Irregular Heartbeat, Peripheral Vascular Neurological: No Reproductive Disorders: No Sexually Transmitted Disease: No HIV/AIDS: No Genitourinary: Yes Kidney Stones Gastrointestinal: Yes Gastroesophageal Reflux, Chronic Constipation, Hiatal Hernia, Gall Bladder Disease Musculoskeletal: Yes Arthritis Endocrine: No HEENT: Yes (GLASSES, UPPER DENTURE) Loss of Vision: Denies Hearing Impairment: Hard of Hearing, Bilateral Hearing Aide Cancer: No Psychosocial: Yes Depression Integumentary: No Blood Disorders: No Adverse Reaction/Blood Tranf: No (N/A) (SALAZAR TAYLOR) Family Medical History Patient reports no known family medical history. No Pertinent Family Hx (SALAZAR TAYLOR) Physical Exam Vital Signs - First Documented 09/15/21 09/15/21 09:53 09:56 Temp 35.9 Pulse 102 Resp 25 B/P (MAP) 174/89 (117) Pulse Ox 93 O2 Delivery Room Air O2 Flow Rate 3.00 (MORAIMA OSPINA MD) Capillary Refill : Less Than 3 Seconds (SALAZAR TAYLOR) Height: 5'7.00" Weight: 196lbs. 0.0oz. 88.542511rk; 30.00 BMI Method:Stated General Appearance: WD/WN, no apparent distress Eyes: Bilateral Eye Normal Inspection, Bilateral Eye PERRL, Bilateral Eye EOMI HEENT: PERRL/EOMI, normal ENT inspection, TMs normal, pharynx normal Neck: non-tender, full range of motion, supple Respiratory: No lungs clear; no respiratory distress, no accessory muscle use, decreased breath sounds Cardiovascular: regular rate, rhythm, no edema, no gallop, no JVD Gastrointestinal: normal bowel sounds, non tender, no organomegaly Extremities: normal range of motion, non-tender, normal inspection, no pedal edema Neurologic/Psychiatric: medical service representative II-XII nml as tested, no motor/sensory deficits, alert, normal mood/affect, oriented x 3 Skin: normal color, warm/dry (SALAZAR TAYLOR) Focused Exam Lactate Level 09/15/21 09:56: Lactic Acid Level 2.33*H (MORAIMA OSPINA MD) Lactic Acid Level Laboratory Tests Test 09/15/21 09:56 Lactic Acid Level 2.33 MMOL/L (0.50-2.00) *H (MORAIMA OSPINA MD) Procedures/Interventions Suture Size: 4-0 (SALAZAR TAYLOR) Progress/Results/Core Measures Suspected Sepsis SIRS Temperature: Pulse: 102 Respiratory Rate: 25 Laboratory Tests 09/15/21 09:56: White Blood Count 13.6H Blood Pressure 174 /89 Mean: 117 09/15/21 09:56: Lactic Acid Level 2.33*H Laboratory Tests 09/15/21 09:56: Creatinine 0.97, INR Comment 1.0, Platelet Count 412H, Total Bilirubin 0.4 (SALAZAR TAYLOR) Results/Orders Lab Results Laboratory Tests Test 09/15/21 09:56 09/15/21 11:10 Range/Units White Blood Count 13.6 H 4.3-11.0 10^3/uL Red Blood Count 4.17 L 4.30-5.52 10^6/uL Hemoglobin 12.4 L 13.3-17.7 g/dL Hematocrit 38 L 40-54 % Mean Corpuscular Volume 92 80-99 fL Mean Corpuscular Hemoglobin 30 25-34 pg Mean Corpuscular Hemoglobin Concent 32 32-36 g/dL Red Cell Distribution Width 14.1 10.0-14.5 % Platelet Count 412 H 130-400 10^3/uL Mean Platelet Volume 8.7 L 9.0-12.2 fL Immature Granulocyte % (Auto) 1 % Neutrophils (%) (Auto) 82 H 42-75 % Lymphocytes (%) (Auto) 8 L 12-44 % Monocytes (%) (Auto) 7 0-12 % Eosinophils (%) (Auto) 2 0-10 % Basophils (%) (Auto) 0 0-10 % Neutrophils # (Auto) 11.2 H 1.8-7.8 10^3/uL Lymphocytes # (Auto) 1.1 1.0-4.0 10^3/uL Monocytes # (Auto) 1.0 0.0-1.0 10^3/uL Eosinophils # (Auto) 0.2 0.0-0.3 10^3/uL Basophils # (Auto) 0.0 0.0-0.1 10^3/uL Immature Granulocyte # (Auto) 0.1 0.0-0.1 10^3/uL Prothrombin Time 14.1 12.2-14.7 SEC INR Comment 1.0 0.8-1.4 Activated Partial Thromboplast Time 36 H 24-35 SEC Sodium Level 136 135-145 MMOL/L Potassium Level 4.2 3.6-5.0 MMOL/L Chloride Level 97 L 98-107 MMOL/L Carbon Dioxide Level 25 21-32 MMOL/L Anion Gap 14 5-14 MMOL/L Blood Urea Nitrogen 11 7-18 MG/DL Creatinine 0.97 0.60-1.30 MG/DL Estimat Glomerular Filtration Rate 84 BUN/Creatinine Ratio 11 Glucose Level 159 H 70-105 MG/DL Lactic Acid Level 2.33 *H 0.50-2.00 MMOL/L Calcium Level 9.3 8.5-10.1 MG/DL Corrected Calcium 9.7 8.5-10.1 MG/DL Total Bilirubin 0.4 0.1-1.0 MG/DL Aspartate Amino Transf (AST/SGOT) 32 5-34 U/L Alanine Aminotransferase (ALT/SGPT) 35 0-55 U/L Alkaline Phosphatase 68 40-136 U/L C-Reactive Protein High Sensitivity 14.86 H 0.00-0.50 MG/DL B-Type Natriuretic Peptide 56.2 <100.0 PG/ML Total Protein 7.5 6.4-8.2 GM/DL Albumin 3.5 3.2-4.5 GM/DL Procalcitonin 0.23 H <0.10 NG/ML Influenza Type A (RT-PCR) Not Detected Not Detecte Influenza Type B (RT-PCR) Not Detected Not Detecte SARS-CoV-2 RNA (RT-PCR) Not Detected Not Detecte (MORAIMA OSPINA MD) My Orders Orders - MORAIMA OSPINA MD Cbc With Automated Diff (09/15/21 09:50) Comprehensive Metabolic Panel (09/15/21 09:50) Blood Culture (09/15/21 09:50) Sputum Culture (09/15/21 09:50) Urinalysis (09/15/21 09:50) Urine Culture (09/15/21 09:50) Protime With Inr (09/15/21 09:50) Partial Thromboplastin Time (09/15/21 09:50) Chest 1 View, Ap/Pa Only (09/15/21 09:50) Ed Iv/Invasive Line Start (09/15/21 09:50) Ed Iv/Invasive Line Start (09/15/21 09:50) O2 (09/15/21 09:50) Lactic Acid Analyzer (09/15/21 09:50) Hs C Reactive Protein (09/15/21 09:50) Procalcitonin (Pct) (09/15/21 09:50) Covid 19 Inhouse Test (09/15/21 09:50) Influenza A And B By Pcr (09/15/21 09:50) (MORAIMA OSPINA MD) Vital Signs/I&O 09/15/21 09/15/21 09:53 09:56 Temp 35.9 Pulse 102 Resp 25 B/P (MAP) 174/89 (117) Pulse Ox 93 O2 Delivery Room Air Nasal Cannula O2 Flow Rate 3.00 (MORAIMA OSPINA MD) Vital Signs/I&O Capillary Refill : Less Than 3 Seconds (SALAZAR TAYLOR) Blood Pressure Mean: 117 ECG Comment Sinus rhythm, 80 bpm, QRS duration 81 MS, QTc 444 MS (SALAZAR TAYLOR) Departure Communication (PCP) Patient is a 70-year-old male with a history of COPD presents ED with a wet productive cough with hemoptysis shortness of breath body aches fatigue. Symptoms over the past 2 weeks. Hemoptysis few days ago and has resolved. Intermittent hemoptysis over the past week. Sputum culture currently pending. Patient was slightly tachycardic. Blood cultures were ordered. Lactic acid 2. 3 3. Patient was started on a liter of fluid. Was given Rocephin azithromycin secondary to chest x-ray shows right basilar pneumonia. COVID influenza negative. Elevated white blood count. Slightly dehydrated. States he feels dehydrated weak and not able to get around at home. Lives at home by himself. Wears intermittent 2 L oxygen as needed and required more oxygen at home. Oxygen 93% on room air. Does not appear in respiratory distress. Patient will be admitted for pneumonia. Discussed patient with Dr. Tariq who accepts patient. Patient was discussed with Dr. Laurent secondary to his vascular history. Consulted Dr. Laurent at 1223. Patient is on Plavix. Last time patient saw a registration manager was 2 to [address] Yun. He does not curre ntly follow up with him (SALAZAR TAYLOR) Impression Primary Impression: Pneumonia Disposition: ADMITTED INPATIENT Condition: Stable Admissions Decision to Admit Reason: Admit from ER (General) Decision to Admit/Date: September 15, 2021 Time/Decision to Admit Time: 11:51 (SALAZAR TAYLOR) Departure-Patient Inst. Referrals: ANDREY ESCAMILLA MD (PCP/Family) Primary Care Physician ATTENDING PHYSICIAN NOTE: I was physically present as attending physician in the emergency department during the care of this patient. I placed in the initial orders based on patient demographics and chief complaint, but I was otherwise not directly involved in the decision making or delivery of care for this patient. Care was assumed by MUNDO Wilde after initial orders were placed. (MORAIMA OSPINA MD) SALAZAR TAYLOR September 15, 2021 11:31 MORAIMA OSPINA MD September 15, 2021 21:58
--- NOTE | 2021-09-15 12:12 | History & Physical-Hospitalist ---
History of Present Illness HPI/Chief Complaint CC: Hemoptysis with cough HPI: This is a male clinic pt of Dr. Milton Martinez. Pt presented with hemoptysis for the last couple of days with cough and productive sputum. He has had two pneumonias in the past, most recently 4 years ago. He is maintained on oxygen supplementation 2L at home. He was found to have a right lower lobe pneumonia. Decision was made to place on Cefepime to cover for any structural abnormalities of the lungs in addition to Azithromycin. Lovenox will be held due to hemoptysis. Cardiology will be consulted. Source: patient Exam Limitations: no limitations Date Seen 09/15/21 Time Seen by a Provider: 13:00 Attending Physician Milton Martinez MD PCP Admitting Physician: Attending Physician: Referring Physician Date of Admission Home Medications & Allergies Home Medications Reviewed patient Home Medication Reconciliation performed by pharmacy medication reconciliations transportation technician and/or nursing. Patients Allergies have been reviewed. Allergies Allergies Coded Allergies No Known Drug Allergies (Unverified09/15/21) Past Flfxhig-Cwjcbe-Sjgxiy Hx Patient Social History Marrital Status: single Employed/Student: unemployed Tobacco Use?: No Smoking Status: Former Smoker Use of E-Cig and/or Vaping dev: No Substance use?: No Alcohol Use?: No Pt feels they are or have been: No Immunizations Up To Date Date of Influenza Vaccine: Jan 28, 2018 First/Initial COVID19 Vaccinat: june 2020 Second COVID19 Vaccination [place]: july 2020 Hepatitis A: No Hepatitis B: Yes PED Vaccines UTD: Yes Date of Pneumonia Vaccine: Apr 30, 2015 Seasonal Allergies Seasonal Allergies: Yes Current Status Advance Directives: No Communicates: Verbally Primary Language: Gambian Preferred Spoken Language: Gambian Past Medical History Surgeries: Orthopedic COPD Currently Using CPAP: No Currently Using BIPAP: No High Cholesterol, Irregular Heartbeat, Peripheral Vascular Sexually Transmitted Disease: No HIV/AIDS: No Kidney Stones Gastroesophageal Reflux, Chronic Constipation, Hiatal Hernia, Gall Bladder Disease Arthritis Loss of Vision: Denies Hearing Impairment: Hard of Hearing, Bilateral Hearing Aide Depression Blood Disorders: No Adverse Reaction/Blood Tranf: No (N/A) Family Medical History Patient reports no known family medical history. No Pertinent Family Hx Review of Systems Constitutional: see HPI, dizziness, malaise, weakness EENTM: no symptoms reported Respiratory: cough Cardiovascular: no symptoms reported Gastrointestinal: no symptoms reported Genitourinary: no symptoms reported Musculoskeletal: no symptoms reported Skin: no symptoms reported Psychiatric/Neurological: No Symptoms Reported All Other Systems Reviewed Negative Unless Noted: Yes Physical Exam Physical Exam Vital Signs Vital Signs - First Documented 09/15/21 09/15/21 09/15/21 09:53 09:56 14:08 Temp 35.9 Pulse 102 Resp 25 B/P (MAP) 174/89 (117) Pulse Ox 93 O2 Delivery Room Air O2 Flow Rate 3.00 FiO2 21 Capillary Refill : Less Than 3 Seconds Height, Weight, BMI Height: 5'7.00" Weight: 196lbs. 0.0oz. 88.053459ma; 30.00 BMI Method:Stated General Appearance: No Apparent Distress, Chronically ill Eyes: Right Eye Normal Inspection, Right Eye PERRL HEENT: PERRL/EOMI, Normal ENT Inspection, Pharynx Normal, Moist Mucous Membranes Neck: Full Range of Motion, Normal Inspection, Non Tender Respiratory: Chest Non Tender, No Accessory Muscle Use, No Respiratory Distress, Crackles, Decreased Breath Sounds, Wheezing Cardiovascular: Regular Rate, Rhythm, No Edema, No Gallop, No JVD, No Murmur, Normal Peripheral Pulses Gastrointestinal: Normal Bowel Sounds, No Organomegaly, No Pulsatile Mass, Non Tender, Soft Back: Normal Inspection, No CVA Tenderness, No Vertebral Tenderness Extremity: Normal Capillary Refill, Normal Inspection, Normal Range of Motion, Non Tender, No Calf Tenderness, No Pedal Edema Neurologic/Psychiatric: Alert, Oriented x3, No Motor/Sensory Deficits, Normal Mood/Affect Skin: Normal Color, Warm/Dry Lymphatic: No Adenopathy Results Results/Procedures Labs Laboratory Tests 09/15/21 09:56 Patient resulted labs reviewed. Assessment/Plan Admission Diagnosis Assessment: Sepsis Pneumonia Exacerbation of COPD Cough Hemoptysis holding Lovenox DVT prophylaxis Supplemental oxygen dependency at home Plan: Supportive care IV fluids IV antibiotics Cardiology consult IV steroids Lovenox held due to hemoptysis Admission Status: Inpatient Order (span 2 midnights) Reason for Inpatient Admission: Pneumonia with sepsis and hemoptysis Diagnosis/Problems Diagnosis/Problems (1) Sepsis (2) Pneumonia Status: Acute MAX DACOSTA DO September 15, 2021 12:11
[2021-09-15 13:30] VITALS: BP 154/86
[2021-09-15] MEDS ORDERED: MILK OF MAGNESIA 400 MG/5 ML 30 ML UDC PO PRN (14:00)
[2021-09-15] MEDS ORDERED: diphenhydrAMINE 50 MG/ML INJ (BENADRYL) IVP PRN (14:00)
[2021-09-15] MEDS ORDERED: ACETAMINOPHEN 325 MG TABLET PO PRN (14:00)
[2021-09-15] MEDS ORDERED: diphenhydrAMINE 25 MG TAB (BENADRYL) PO PRN (14:00)
[2021-09-15] MEDS ORDERED: NALOXONE 0.4 MG/ML 1 ML (NARCAN) VIAL IV PRN (14:00)
[2021-09-15] MEDS ORDERED: BISACODYL 10 MG SUPP (DULCOLAX) PR PRN (14:00)
[2021-09-15] MEDS ORDERED: MELATONIN 3 MG TABLET PO PRN (14:00)
[2021-09-15] MEDS ORDERED: polyethylene glycoL POWDER 17 GM (MIRALAX) PACK PO PRN (14:00)
[2021-09-15] MEDS ORDERED: morphine IMMEDIATE RELEASE 15 MG TABLET PO PRN (14:00)
[2021-09-15] MEDS ORDERED: ONDANSETRON 4 MG (ZOFRAN) ORAL DISSOLVE TAB PO PRN (14:00)
[2021-09-15] MEDS ORDERED: ONDANSETRON 4 MG/2 ML (SDV) Z0FRAN IV PRN (14:00)
[2021-09-15] MEDS ORDERED: morphine INJ 4 MG/ML 1 ML (VIAL/SYRINGE) IV PRN (14:00)
[2021-09-15] MEDS ORDERED: ANTACID SUSP 30 ML UDC (MYLANTA) PO PRN (14:00)
[2021-09-15] MEDS ORDERED: CALCIUM CARBONATE 500 MG (TUMS) TAB.CHEW PO PRN (14:00)
[2021-09-15] MEDS ORDERED: LACTULOSE SYRUP 10GM/15ML (ENULOSE) 30ML UDC PO PRN (14:00)
[2021-09-15 14:08] VITALS: BP 174/89
[2021-09-15] MEDS: RT-ALBUTEROL/IPRATROPIUM 3 ML (DUONEB) VIAL INH SCH ×3 (15:28→21:42)
[2021-09-15] MEDS: NS IV 1000 ML 1,000 ML IV SCH (15:38)
[2021-09-15 15:43] VITALS: BP 124/64
[2021-09-15] MEDS ORDERED: MULT-1112 PO (15:46)
[2021-09-15] MEDS ORDERED: CLOP75TA28 PO (15:46)
[2021-09-15] MEDS ORDERED: CITA40TA13 PO (15:46)
[2021-09-15] MEDS ORDERED: HYDR-3820 PO (15:46)
[2021-09-15] MEDS ORDERED: LORA10TA7 PO (15:46)
[2021-09-15] MEDS ORDERED: ASCO500T71 PO (15:46)
[2021-09-15] MEDS ORDERED: MAGN400T39 PO (15:46)
[2021-09-15] MEDS ORDERED: FLUT16SP22 NSEACH (15:46)
[2021-09-15] MEDS ORDERED: MELO15TA39 PO (15:46)
[2021-09-15] MEDS ORDERED: AZIT250T12 PO (15:46)
[2021-09-15] MEDS ORDERED: RT-ALBUTEROL/IPRATROPIUM 3 ML (DUONEB) VIAL INH PRN (16:00)
[2021-09-15] MEDS: methylPREDNISolone 40 MG/ML (Solu-MEDROL) VIAL IV SCH ×2 (17:26→23:26)
[2021-09-15] MEDS: CEFEPIME INJECTION 1,000 MG in NS (IVPB) 50 ML IV SCH ×2 (17:26→23:27)
[2021-09-15 19:15] VITALS: BP 196/80
[2021-09-15 19:47] VITALS: BP 140/67
[2021-09-15] MEDS: DOCUSATE SODIUM 100 MG (COLACE) CAP PO SCH (20:14)
[2021-09-15] MEDS: SENNOSIDES 8.6 MG (SENOKOT) TAB PO SCH (20:14)
[2021-09-15] MEDS: MONTELUKAST 10 MG (SINGULAIR) TAB PO SCH (20:15)
[2021-09-15] MEDS: RT--FLUTICASONE/SALMETEROL 113-14 (AIRDUO RespiCLICK) IH SCH (21:24)
[2021-09-15] MEDS: BENZONATATE 100 MG (TESSALON) CAPSULE PO SCH (21:36)
[2021-09-15] MEDS: guaiFENesin/CODEINE (ROBITUSSIN AC) 10ML UDC PO PRN (21:37)
[2021-09-15 23:25] VITALS: BP 129/66
[2021-09-16] VITALS (13 sets, daily range): BP systolic 114–270; BP diastolic 47–110
[2021-09-16] MEDS: guaiFENesin/CODEINE (ROBITUSSIN AC) 10ML UDC PO PRN ×4 (01:38→23:46)
[2021-09-16] MEDS: RT-ALBUTEROL/IPRATROPIUM 3 ML (DUONEB) VIAL INH SCH ×6 (02:01→22:52)
[2021-09-16 05:57] LABS: BASOPHILS % (AUTO) 0 % (0-10); EOSINOPHILS % (AUTO) 0 % (0-10); HEMATOCRIT 34 % (40-54); HEMOGLOBIN 10.9 g/dL (13.3-17.7); LYMPHOCYTES # (AUTO) 0.6 10^3/uL (1.0-4.0); LYMPHOCYTES % (AUTO) 4 % (12-44); MEAN CORPUSCULAR HEMOGLOBIN 30 pg (25-34); MEAN CORPUSCULAR HGB CONC 32 g/dL (32-36); MEAN CORPUSCULAR VOLUME 94 fL (80-99); MONOCYTES # (AUTO) 0.2 10^3/uL (0.0-1.0); MONOCYTES % (AUTO) 1 % (0-12); NEUTROPHILS # (AUTO) 13.9 10^3/uL (1.8-7.8); NEUTROPHILS % (AUTO) 94 % (42-75); PLATELET COUNT 396 10^3/uL (130-400); WHITE BLOOD COUNT 14.9 10^3/uL (4.3-11.0)
[2021-09-16] MEDS: methylPREDNISolone 40 MG/ML (Solu-MEDROL) VIAL IV SCH ×2 (05:58→11:42)
[2021-09-16] MEDS: CEFEPIME INJECTION 1,000 MG in NS (IVPB) 50 ML IV SCH ×4 (05:58→23:48)
--- NOTE | 2021-09-16 06:05 | Progress Note - Hospitalist ---
Subjective HPI/CC On Admission Date Seen by Provider: September 16, 2021 Time Seen by Provider: 10:00 CC: Hemoptysis with cough HPI: This is a male clinic pt of Dr. Milton Martinez. Pt presented with hemoptysis for the last couple of days with cough and productive sputum. He has had two pneumonias in the past, most recently 4 years ago. He is maintained on oxygen supplementation 2L at home. He was found to have a right lower lobe pneumonia. Decision was made to place on Cefepime to cover for any structural abnormalities of the lungs in addition to Azithromycin. Lovenox will be held due to hemoptysis. Cardiology will be consulted. Subjective/Events-last exam Pt is doing a lot better Will hep lock IV fluid PT and OT will be ordered Cough is improved with Tessalon perles and Robutussin with Codeine Overall much improved After rounds he began having severe HTN and 8 meds given without success so move d to ICU. Review of Systems General: Fatigue, Malaise Focused Exam Lactate Level 09/15/21 09:56: Lactic Acid Level 2.33*H 09/15/21 13:01: Lactic Acid Level 1.15 Objective Exam Vital Signs Vital Signs Date Time Temp Pulse Resp B/P (MAP) Pulse Ox O2 Delivery O2 Flow Rate FiO2 09/17/21 02:44 94 Nasal Cannula 2.00 09/17/21 01:00 89 09/17/21 00:00 20 124/70 (88) 09/16/21 19:53 36.4 09/15/21 14:08 21 Capillary Refill : Less Than 3 Seconds General Appearance: No Apparent Distress, WD/WN, Chronically ill Respiratory: Lungs Clear, Normal Breath Sounds Cardiovascular: Regular Rate, Rhythm Neurologic/Psychiatric: Alert, Oriented x3 Results/Procedures Lab Laboratory Tests 09/16/21 05:30 09/16/21 19:24 09/17/21 04:56 Patient resulted labs reviewed. Assessment/Plan Assessment and Plan Assess & Plan/Chief Complaint Assessment: Sepsis Pneumonia Exacerbation of COPD Cough Hemoptysis holding Lovenox DVT prophylaxis Supplemental oxygen dependency at home Hypertensive urgency 240/110 without improvement with meds transferred to ICU Plan: Supportive care IV fluids IV antibiotics Cardiology consult IV steroids Lovenox held due to hemoptysis 09/16/2021: Supportive care Antibiotics DC steroids Transfer to ICU for malignant hypertension Diagnosis/Problems Diagnosis/Problems (1) Sepsis (2) Pneumonia Status: Acute Clinical Quality Measures DVT/VTE Risk/Contraindication: Contraindications-Pharm: Other *list below* Other: hemoptysis MAX DACOSTA DO September 16, 2021 06:05
[2021-09-16 06:10] LABS: ALBUMIN 3.2 GM/DL (3.2-4.5)
[2021-09-16 06:11] LABS: POTASSIUM 4.6 MMOL/L (3.6-5.0)
[2021-09-16 06:12] LABS: CALCIUM 8.8 MG/DL (8.5-10.1)
[2021-09-16 06:13] LABS: TOTAL PROTEIN 6.6 GM/DL (6.4-8.2)
[2021-09-16 06:15] LABS: BILIRUBIN,TOTAL 0.2 MG/DL (0.1-1.0)
[2021-09-16 06:17] LABS: CREATININE SERUM 0.83 MG/DL (0.60-1.30)
[2021-09-16] MEDS: NS IV 1000 ML 1,000 ML IV SCH ×2 (06:19→09:06)
[2021-09-16 06:38] LABS: BAND NEUTROPHILS 1 %; LYMPHOCYTES % (MANUAL) 3 %; MONOCYTES % (MANUAL) 1 %; NEUTROPHILS % (MANUAL) 95 %; RBC MORPH NORMAL
[2021-09-16] MEDS ORDERED: AZITHROMYCIN INJECTION 250 MG in NS (IVPB) 250 ML IV SCH (09:00)
[2021-09-16] MEDS: SENNOSIDES 8.6 MG (SENOKOT) TAB PO SCH ×2 (09:05→20:00)
[2021-09-16] MEDS: BENZONATATE 100 MG (TESSALON) CAPSULE PO SCH ×3 (09:05→20:00)
[2021-09-16] MEDS: LORATADINE (CLARITIN) 10 MG TAB PO SCH (09:05)
[2021-09-16] MEDS: AZITHROMYCIN 250 MG TAB (ZITHROMAX) PO SCH (09:05)
[2021-09-16] MEDS: DOCUSATE SODIUM 100 MG (COLACE) CAP PO SCH ×2 (09:05→19:59)
[2021-09-16] MEDS ORDERED: polyethylene glycoL POWDER 17 GM (MIRALAX) PACK PO ONE (11:45)
[2021-09-16] MEDS ORDERED: SENNA W/DOCUSATE (SENOKOT S) TABLET PO ONE (11:45)
[2021-09-16] MEDS: RT--FLUTICASONE/SALMETEROL 113-14 (AIRDUO RespiCLICK) IH SCH ×2 (11:49→22:52)
--- NOTE | 2021-09-16 13:14 | Occupational Therapy Eval ---
OT Evaluation-General/PLF Medical Diagnosis Admission Date September 15, 2021 at 12:10 Medical Diagnosis: PNA, sepsis Onset Date: September 15, 2021 Therapy Diagnosis Therapy Diagnosis: n/a Height/Weight Height (Feet): 5 Height (Inches): 7.00 Weight (Pounds): 196 Weight (Ounces): 0.0 Precautions Precautions/Isolations: Fall Prevention, Standard Precautions Referral Physician: Ariane Referral Reason: Evaluation/Treatment Medical History Additional Medical History COPD, PVD, irregular heartbeat, GERD, arthritis, depression Current History presents with hemoptysis past couple of days with cough and productive sputum, found to have RLL PNA Social History Home: Single Level Current Living Status: Alone Entry Into Home: Level Entry ADL-Prior Level of Function SCALE: Activities may be completed with or without assistive devices. 6-Kcptvpcbwl-cmviona completes the activity by him/herself with no assistance from a helper. 5-Set-up or Clean-up Assistance-helper sets up or cleans up; patient completes activity. [place] assists only prior to or following the activity. 4-Supervision or Touching Assistance-helper provides verbal cues and/or touching/steadying and/or contact guard assistance as patient completes activity. Assistance may be provided throughout the activity or intermittently. 3-Partial/Moderate Assistance-helper does LESS THAN HALF the effort. [place] lifts, holds or supports trunk or limbs, but provides less than half the effort. 2-Substantial/Maximal Assistance-helper does MORE THAN HALF the effort. [place] lifts or holds trunk or limbs and provides more than half the effort. 9-Bhctufhmr-xcnfnv does ALL the effort. Patient does none of the effort to complete the activity. Or, the assistance of 2 or more helpers is required for the patient to complete the activity. If activity was not attempted, code reason: 7-Patient Refused. 9-Not Applicable-not attempted and the patient did not perform the activity before the current illness, exacerbation or injury. 10-Not Attempted due to Environmental Limitations-(lack of equipment, weather restraints, etc.). 88-Not Attempted due to Medical Conditions or Safety Concerns. ADL PLOF Comments Pt reports IND with ADLs and functional mobility at [facility], no AD. He lives in a very small house/shed on his property, about the size of his hospital room. Pt indicates he does not have running water and completes sponge baths. Self Care: Independent OT Current Status Subjective Pt in bed, agreeable to OT Tx Mental Status/Objective Patient Orientation: Person, Place, Situation Attachments: IV Current Upper Extremity ROM WFL, BUE shoulder flexion to approx 150 degrees ADL-Treatment Eating (QC): 6 Lower Body Dressing (QC): 6 On/Off Footwear (QC): 6 Other Treatments Pt in bed, transferred supine to sit EOB independently. Pt transferred from EOB to recliner, independently. Pt able to pull up his compression socks, and indicates he has no difficulties with hygiene when toileting. Pt feels like he is at PLOF with ADLs at this time. OT educated pt on energy conservation techniques and UE exercises in order to increase pulmonary function, he demonstrated understanding. Post tx, pt in recliner, call light in reach and all needs met. Education OT Patient Education: Correct positioning, Energy conservation, Modified ADL techniques, Progress toward Goal/Update tx plan, Purpose of tx/functional activities, Rehab process Teaching Recipient: Patient Teaching Methods: Discussion Response to Teaching: Verbalize Understanding OT Supervisor Laboratory Goals Supervisor Laboratory Goals 1=Demonstrate adherence to instructed precautions during ADL tasks. 2=Patient will verbalize/demonstrate understanding of assistive devices/modifications for ADL. 3=Patient will improve strength/tolerance for activity to enable patient to perform ADL's. OT Education/Plan Problem List/Assessment Assessment: No Skilled OT Needs ID'd No skilled OT services indicated at this time, as pt is independent with ADLs and at PLOF. D/C from OT. Discharge Recommendations Plan/Recommendations: Discharge/Goals Met Treatment Plan/Plan of Care Patient would benefit from OT for education, treatment and training to promote independence in ADL's, mobility, safety and/or upper extremity function for ADL's. Plan of Care: ADL Retraining, Functional Mobility, UE Funct Exercise/Act Treatment Duration: September 16, 2021 Frequency: 1 time per week (eval only) Estimated Hrs Per Day: .25 hour per day Agreement: Yes Rehab Potential: Fair Time/GCodes Start Time: 12:50 Stop Time: 13:05 Total Time Billed (hr/min): 15 Billed Treatment Time 1, EVL CHIDI STEEN OT September 16, 2021 13:14
--- NOTE | 2021-09-16 13:50 | Physical Therapy Evaluation ---
PT Evaluation-General Medical Diagnosis Admission Date September 15, 2021 at 12:10 Medical Diagnosis: PNA, sepsis Onset Date: September 15, 2021 Therapy Diagnosis Therapy Diagnosis: debility/weakness Height/Weight Height (Feet): 5 Height (Inches): 7.00 Weight (Pounds): 196 Weight (Ounces): 0.0 Precautions Precautions/Isolations: Fall Prevention, Standard Precautions Referral Physician: Ariane Reason for Referral: Evaluation/Treatment Medical History Pertinent Medical History: COPD, GERD, PVD Current History ER secondary to cough x 2 weeks Reviewed History: Yes Social History Home: Single Level Current Living Status: Alone Entry Into Home: Level Entry Prior Prior Level of Function SCALE: Activities may be completed with or without assistive devices. 6-Nbjgonnwap-vvljjpe completes the activity by him/herself with no assistance from a helper. 5-Set-up or Clean-up Assistance-helper sets up or cleans up; patient completes activity. [place] assists only prior to or following the activity. 4-Supervision or Touching Assistance-helper provides verbal cues and/or touching/steadying and/or contact guard assistance as patient completes activity. Assistance may be provided throughout the activity or intermittently. 3-Partial/Moderate Assistance-helper does LESS THAN HALF the effort. [place] lifts, holds or supports trunk or limbs, but provides less than half the effort. 2-Substantial/Maximal Assistance-helper does MORE THAN HALF the effort. [place] lifts or holds trunk or limbs and provides more than half the effort. 4-Gvwnhdqfz-zfqiur does ALL the effort. Patient does none of the effort to complete the activity. Or, the assistance of 2 or more helpers is required for the patient to complete the activity. If activity was not attempted, code reason: 7-Patient Refused. 9-Not Applicable-not attempted and the patient did not perform the activity before the current illness, exacerbation or injury. 10-Not Attempted due to Environmental Limitations-(lack of equipment, weather restraints, etc.). 88-Not Attempted due to Medical Conditions or Safety Concerns. Bed Mobility: 6 Transfers (B,C,W/C): 6 Gait: 6 Indoor Mobility (Ambulation): Independent Prior Devices Use: None PT Evaluation-Current Subjective Patient agrees to PT. Objective Patient Orientation: Normal For Age Attachments: IV ROM/Strength ROM Lower Extremities bilateral LE WFL Strength Lower Extremities 4/5 grossly bilateral LE Integumentary/Posture Bowel Incontinence: No Bladder Incontinence: No Posture WFL Neuromuscular (Tone, Coordination, Reflexes) grossly intact Sensory Vision: Wears Glasses Hearing: Hearing Aid/Aides Transfers Sit to Stand (QC): 6 Gait Does the Patient Walk?: Yes Mode of Locomotion: Walk Anticipated Mode of Locomotion: Walk Walk 10 feet (QC): 6 Walk 50 ft with 2 Turns(QC): 6 Walk 150 ft (QC): 6 Distance: 250' Gait Assistive Device: None Comments/Gait Description safe and functional gait sequence Balance Sitting Static: Normal Sitting Dynamic: Normal Standing Static: Normal Standing Dynamic: Normal Assessment/Needs Required 1 standing recovery period due to mild SOA. SAO2 remains >90% RA with activity. Patient is currently at independent PLOF with all gross motor skills and has been encouraged to ambulate with nursing staff PRN. No skilled PT indicated. Rehab Potential: Fair PT Plan Treatment/Plan Treatment Plan: Discontinue PT, goals met Treatment Duration: September 16, 2021 Frequency: 1 time per week Estimated Hrs Per Day: .25 hour per day Patient and/or Family Agrees t: Yes Time/GCodes Time In: 1300 Time Out: 1313 Total Billed Treatment Time: 13 Total Billed Treatment 1 visit EVMod 13 min SHALA VAUGHAN PT September 16, 2021 13:50
[2021-09-16] MEDS ORDERED: cloNIDine 0.1 MG (CATAPRES) TAB PO PRN (16:00)
[2021-09-16] MEDS ORDERED: amLODIPine 5 MG (NORVASC) TAB ONE (16:11)
[2021-09-16] MEDS ORDERED: FUROSEMIDE 40 MG/4 ML INJ (LASIX) ONE (16:12)
[2021-09-16] MEDS ORDERED: amLODIPine 5 MG (NORVASC) TAB PO ONE ×2 (16:15→17:45)
[2021-09-16] MEDS ORDERED: FUROSEMIDE 40 MG/4 ML INJ (LASIX) IVP ONE (16:15)
[2021-09-16] MEDS ORDERED: FLUTICASONE NASAL SPRAY (FLONASE) 16 GM BTL NS PRN (17:45)
[2021-09-16] MEDS: NITROGLYCERIN 2% OINT 1 GM UNIT DOSE PACKET TOP SCH ×3 (17:55→23:46)
[2021-09-16] MEDS: hydrALAZINE (APESOLINE) 20 MG/ML VIAL IV SCH ×2 (18:02→19:59)
[2021-09-16] MEDS ORDERED: NITROPRUSSIDE INJECTION 50 MG in D5W IV SOLUTION (EXCEL) 250 ML IV SCH (19:15)
[2021-09-16 19:31] LABS: BASOPHILS % (AUTO) 0 % (0-10); EOSINOPHILS % (AUTO) 0 % (0-10); HEMATOCRIT 37 % (40-54); HEMOGLOBIN 11.7 g/dL (13.3-17.7); LYMPHOCYTES # (AUTO) 1.3 10^3/uL (1.0-4.0); LYMPHOCYTES % (AUTO) 6 % (12-44); MEAN CORPUSCULAR HEMOGLOBIN 30 pg (25-34); MEAN CORPUSCULAR HGB CONC 32 g/dL (32-36); MEAN CORPUSCULAR VOLUME 93 fL (80-99); MEAN PLATELET VOLUME 8.9 fL (9.0-12.2); MONOCYTES # (AUTO) 0.8 10^3/uL (0.0-1.0); MONOCYTES % (AUTO) 4 % (0-12); NEUTROPHILS # (AUTO) 19.1 10^3/uL (1.8-7.8); NEUTROPHILS % (AUTO) 89 % (42-75); PLATELET COUNT 424 10^3/uL (130-400); WHITE BLOOD COUNT 21.5 10^3/uL (4.3-11.0)
[2021-09-16 19:57] LABS: ALBUMIN 3.4 GM/DL (3.2-4.5); CHLORIDE 100 MMOL/L (98-107); POTASSIUM 4.1 MMOL/L (3.6-5.0); SODIUM 136 MMOL/L (135-145)
[2021-09-16 19:58] LABS: CALCIUM 9.1 MG/DL (8.5-10.1)
[2021-09-16 19:59] LABS: GLUCOSE 166 MG/DL (70-105); TOTAL PROTEIN 7.1 GM/DL (6.4-8.2)
[2021-09-16] MEDS: MONTELUKAST 10 MG (SINGULAIR) TAB PO SCH (19:59)
[2021-09-16 20:00] LABS: CARBON DIOXIDE 22 MMOL/L (21-32)
[2021-09-16 20:01] LABS: BILIRUBIN,TOTAL 0.2 MG/DL (0.1-1.0)
[2021-09-16 20:03] LABS: ALKALINE PHOSPHATASE 73 U/L (40-136); CREATININE SERUM 0.92 MG/DL (0.60-1.30); GFR ESTIMATED 89
[2021-09-16 20:04] LABS: BUN/CREATININE RATIO 15
[2021-09-16 20:06] LABS: ALANINE AMINOTRANSFERASE 30 U/L (0-55)
[2021-09-16] MEDS: ALPRAZolam 0.25 MG (XANAX) TAB PO PRN (20:45)
--- NOTE | 2021-09-16 21:20 | Tele-ICU Progress Note ---
Subjective Date Seen by a Provider: September 16, 2021 Time Seen by a Provider: 20:30 Subjective/Events-last exam This is 70 yo M initially admitted on 09/15/21 for bacterial pneumonia, sepsis. Now transferred to ICU on 09/16/21 for management of severe hypertension. SBP 270/110. Patient received xanax and hydralazine with drop in SBP to 133. ECG shows sinus tach. Patient is upset over recent of son from terminal cancer . Not in distress on video assessment. No O2 need on RA. Abx received. Cultures sent. COVID, Flu negative Sepsis Event Evaluation Sepsis Stage: Sepsis Height, Weight, BMI Height: 5'7.00" Weight: 196lbs. 0.0oz. 88.975828ss; 32.58 BMI Method:Stated Focused Exam Lactate Level 09/15/21 09:56: Lactic Acid Level 2.33*H 09/15/21 13:01: Lactic Acid Level 1.15 Exam Exam Patient acknowledged, consented, and participated in this virtual visit which was conducted using real time audio/video Vital Signs Date Time Temp Pulse Resp B/P (MAP) Pulse Ox O2 Delivery O2 Flow Rate FiO2 09/16/21 19:53 36.4 09/16/21 19:37 112 09/16/21 19:19 36.2 91 22 210/91 (130) 93 Room Air 09/16/21 19:00 96 09/16/21 19:00 91 Room Air 09/16/21 17:26 36.2 99 22 224/99 (140) 92 Room Air 09/16/21 16:13 36.9 115 18 270/110 (163) Room Air 09/16/21 14:58 94 Room Air 09/16/21 12:52 85 09/16/21 12:07 36.8 96 18 178/82 (114) 98 Room Air 09/16/21 08:36 36.2 77 18 165/66 (99) 93 Room Air 09/16/21 08:00 93 Room Air 2.00 09/16/21 07:00 81 09/16/21 06:32 98 Nasal Cannula 2.00 09/16/21 04:19 36.7 91 20 160/75 (103) 94 Nasal Cannula 2.00 09/16/21 02:02 95 Nasal Cannula 2.00 09/16/21 01:00 100 09/15/21 23:25 36.5 101 20 129/66 (87) 92 Nasal Cannula 2.00 09/15/21 21:43 94 Nasal Cannula 2.00 I & O 09/16/21 07:00 Intake Total 1805 ml Balance 1805 ml Height & Weight Height: 5'7.00" Weight: 196lbs. 0.0oz. 88.347527pl; 32.58 BMI Method:Stated General Appearance: No Apparent Distress, Chronically ill HEENT: PERRL/EOMI, Normal ENT Inspection, Pharynx Normal, Moist Mucous Membranes Neck: Full Range of Motion, Normal Inspection, Non Tender Respiratory: Chest Non Tender, No Accessory Muscle Use, No Respiratory Distr ess, Crackles, Decreased Breath Sounds, Wheezing Cardiovascular: Regular Rate, Rhythm, No Edema, No Gallop, No JVD, No Murmur, Normal Peripheral Pulses Capillary Refill: Less Than 3 Seconds Gastrointestinal: normal bowel sounds, non tender, no organomegaly Extremity: Normal Capillary Refill, Normal Inspection, Normal Range of Motion, Non Tender, No Calf Tenderness, No Pedal Edema Neurologic/Psychiatric: Alert, Oriented x3, No Motor/Sensory Deficits, Normal Mood/Affect Skin: Normal Color, Warm/Dry Lymphatic: No Adenopathy Results Lab Laboratory Tests 09/15/21 09:56 09/16/21 05:30 09/16/21 19:24 Assessment/Plan Assessment/Plan This is 70 yo M initially admitted on 09/15/21 for bacterial pneumonia, sepsis. Now transferred to ICU on 09/16/21 for management of severe hypertension. SBP 270/110. Patient received xanax and hydralazine with drop in SBP to 133. ECG shows sinus tach. Patient is upset over recent of son from terminal cancer. Not in distress on video assessment. No O2 need on RA. Abx received. Cultures sent. COVID, Flu negative 1. RLL pneumonia, leukocytosis, + sepsis screen from 09/15. Cont abx, follow cultures. Not in distress ?Hx COPD. Continue Advair, PRN nebs 2. Sinus tachycardia, severe HTN. Trop negative. Goal reduce BP by 20-25% only. Hold off on continuous antihypertensive gtt 3. DVT prophylaxis EILE SWAN MD September 16, 2021 21:20
[2021-09-16] MEDS: ENOXAPARIN 40 MG/0.4 ML (LOVENOX) SYR SC SCH (23:46)
[2021-09-17] VITALS (8 sets, daily range): BP systolic 114–156; BP diastolic 58–78
[2021-09-17] MEDS: hydrALAZINE (APESOLINE) 20 MG/ML VIAL IV SCH ×6 (00:01→21:33)
[2021-09-17] MEDS: RT-ALBUTEROL/IPRATROPIUM 3 ML (DUONEB) VIAL INH SCH ×5 (02:44→18:49)
[2021-09-17] MEDS: NITROGLYCERIN 2% OINT 1 GM UNIT DOSE PACKET TOP SCH ×3 (04:11→18:06)
[2021-09-17] MEDS: CEFEPIME INJECTION 1,000 MG in NS (IVPB) 50 ML IV SCH ×3 (04:11→18:06)
[2021-09-17] MEDS: ALPRAZolam 0.25 MG (XANAX) TAB PO PRN (04:11)
[2021-09-17 05:06] LABS: BASOPHILS % (AUTO) 0 % (0-10); EOSINOPHILS % (AUTO) 0 % (0-10); HEMATOCRIT 35 % (40-54); HEMOGLOBIN 11.2 g/dL (13.3-17.7); LYMPHOCYTES # (AUTO) 1.7 10^3/uL (1.0-4.0); LYMPHOCYTES % (AUTO) 8 % (12-44); MEAN CORPUSCULAR HEMOGLOBIN 29 pg (25-34); MEAN CORPUSCULAR HGB CONC 32 g/dL (32-36); MEAN CORPUSCULAR VOLUME 92 fL (80-99); MEAN PLATELET VOLUME 8.8 fL (9.0-12.2); MONOCYTES # (AUTO) 1.5 10^3/uL (0.0-1.0); MONOCYTES % (AUTO) 7 % (0-12); NEUTROPHILS # (AUTO) 17.6 10^3/uL (1.8-7.8); NEUTROPHILS % (AUTO) 83 % (42-75); PLATELET COUNT 427 10^3/uL (130-400); WHITE BLOOD COUNT 21.2 10^3/uL (4.3-11.0)
[2021-09-17 05:12] LABS: ALBUMIN 3.2 GM/DL (3.2-4.5)
[2021-09-17 05:13] LABS: POTASSIUM 3.8 MMOL/L (3.6-5.0)
[2021-09-17 05:14] LABS: CALCIUM 8.9 MG/DL (8.5-10.1)
[2021-09-17 05:15] LABS: TOTAL PROTEIN 6.6 GM/DL (6.4-8.2)
[2021-09-17 05:17] LABS: BILIRUBIN,TOTAL 0.2 MG/DL (0.1-1.0)
[2021-09-17 05:19] LABS: CREATININE SERUM 1.11 MG/DL (0.60-1.30)
--- NOTE | 2021-09-17 06:44 | Progress Note - Hospitalist ---
Subjective HPI/CC On Admission Date Seen by Provider: September 17, 2021 Time Seen by Provider: 09:45 CC: Hemoptysis with cough HPI: This is a male clinic pt of Dr. Milton Martinez. Pt presented with hemoptysis for the last couple of days with cough and productive sputum. He has had two pneumonias in the past, most recently 4 years ago. He is maintained on oxygen supplementation 2L at home. He was found to have a right lower lobe pneumonia. Decision was made to place on Cefepime to cover for any structural abnormalities of the lungs in addition to Azithromycin. Lovenox will be held due to hemoptysis. Cardiology will be consulted. Subjective/Events-last exam Patient doing a lot better now Blood pressure much improved Steroids were discontinued Moving to fourth floor Cardiology consulted Review of Systems General: Fatigue Pulmonary: Dyspnea, Cough Focused Exam Lactate Level 09/15/21 09:56: Lactic Acid Level 2.33*H 09/15/21 13:01: Lactic Acid Level 1.15 Objective Exam Vital Signs Vital Signs Date Time Temp Pulse Resp B/P (MAP) Pulse Ox O2 Delivery O2 Flow Rate FiO2 09/18/21 04:10 37.3 99 18 114/59 (77) 92 Room Air 09/18/21 02:00 2.00 09/15/21 14:08 21 Capillary Refill : Less Than 3 Seconds General Appearance: No Apparent Distress, WD/WN, Chronically ill Respiratory: Lungs Clear, Normal Breath Sounds Cardiovascular: Regular Rate, Rhythm Neurologic/Psychiatric: Alert, Oriented x3 Results/Procedures Lab Laboratory Tests 09/18/21 05:35 Patient resulted labs reviewed. Assessment/Plan Assessment and Plan Assess & Plan/Chief Complaint Assessment: Sepsis Pneumonia Exacerbation of COPD Cough Hemoptysis holding Lovenox DVT prophylaxis Supplemental oxygen dependency at home Hypertensive urgency 240/110 without improvement with meds transferred to ICU PVD on Plavix Plan: Supportive care IV fluids IV antibiotics Cardiology consult IV steroids Lovenox held due to hemoptysis 09/16/2021: Supportive care Antibiotics DC steroids Transfer to ICU for malignant hypertension 09/17/2021: Transfer to fourth floor Cardiology consult Diagnosis/Problems Diagnosis/Problems (1) Sepsis (2) Pneumonia Status: Acute Clinical Quality Measures DVT/VTE Risk/Contraindication: Contraindications-Pharm: Other *list below* Other: hemoptysis MAX DACOSTA DO September 17, 2021 06:43
[2021-09-17] MEDS: RT--FLUTICASONE/SALMETEROL 113-14 (AIRDUO RespiCLICK) IH SCH (07:44)
[2021-09-17] MEDS: ASCORBIC ACID (VIT C) 500 MG TABLET PO SCH (09:03)
[2021-09-17] MEDS: CLOPIDOGREL 75 MG (PLAVIX) TABLET PO SCH (09:03)
[2021-09-17] MEDS: SENNOSIDES 8.6 MG (SENOKOT) TAB PO SCH ×2 (09:03→21:34)
[2021-09-17] MEDS: DOCUSATE SODIUM 100 MG (COLACE) CAP PO SCH ×2 (09:03→21:34)
[2021-09-17] MEDS: AZITHROMYCIN 250 MG TAB (ZITHROMAX) PO SCH (09:04)
[2021-09-17] MEDS: LORATADINE (CLARITIN) 10 MG TAB PO SCH ×2 (09:04→09:16)
[2021-09-17] MEDS: BENZONATATE 100 MG (TESSALON) CAPSULE PO SCH ×3 (09:04→21:34)
[2021-09-17] MEDS: amLODIPine 5 MG (NORVASC) TAB PO SCH (09:04)
[2021-09-17] MEDS: MULTIVIT W/MINERALS TAB (THERAGRAN M) PO SCH (09:04)
[2021-09-17] MEDS: MAGNESIUM OXIDE (MAG-OX)400 MG TAB PO SCH (09:05)
--- NOTE | 2021-09-17 09:08 | Tele-ICU Progress Note ---
Progress Note video rounds completed 70 y/o male admitted with sepsis and transerred to ICU for hypertensive crises Was on nipride drip BP this am PE: appears comfortable sitting in chair eating breakfast HR: 102 NSR BP 111/61 O2 sat 90% PLAN: sepsis controlled BP controlled Focused Exam Lactate Level 09/15/21 09:56: Lactic Acid Level 2.33*H 09/15/21 13:01: Lactic Acid Level 1.15 Height, Weight, BMI Height: 5'7.00" Weight: 196lbs. 0.0oz. [id number]; 32.58 BMI Method:Stated Laboratory Tests 09/16/21 19:24 09/17/21 04:56 Results Labs Labs Laboratory Tests 09/16/21 19:24: White Blood Count 21.5H, Red Blood Count 3.97L, Hemoglobin 11.7L, Hematocrit 37L , Mean Corpuscular Volume 93, Mean Corpuscular Hemoglobin 30, Mean Corpuscular Hemoglobin Concent 32, Red Cell Distribution Width 14.5, Platelet Count 424H, Mean Platelet Volume 8.9L, Immature Granulocyte % (Auto) 2, Neutrophils (%) (Auto) 89H, Lymphocytes (%) (Auto) 6L, Monocytes (%) (Auto) 4, Eosinophils (%) (Auto) 0, Basophils (%) (Auto) 0, Neutrophils # (Auto) 19.1H, Lymphocytes # (Auto) 1.3, Monocytes # (Auto) 0.8, Eosinophils # (Auto) 0.0, Basophils # (Auto) 0.0, Immature Granulocyte # (Auto) 0.4H, Sodium Level 136, Potassium Level 4.1, Chloride Level 100, Carbon Dioxide Level 22, Anion Gap 14, Blood Urea Nitrogen 14, Creatinine 0.92, Estimat Glomerular Filtration Rate 89, BUN/Creatinine Ratio 15, Glucose Level 166H, Calcium Level 9.1, Corrected Calcium 9.6, Total Bili palacio 0.2, Aspartate Amino Transf (AST/SGOT) 22, Alanine Aminotransferase (ALT/SGPT) 30, Alkaline Phosphatase 73, Troponin I < 0.028, Total Protein 7.1, Albumin 3.4, Procalcitonin 0.12H 09/17/21 04:56: White Blood Count 21.2H, Red Blood Count 3.81L, Hemoglobin 11.2L, Hematocrit 35L , Mean Corpuscular Volume 92, Mean Corpuscular Hemoglobin 29, Mean Corpuscular Hemoglobin Concent 32, Red Cell Distribution Width 14.7H, Platelet Count 427H, Mean Platelet Volume 8.8L, Immature Granulocyte % (Auto) 2, Neutrophils (%) (Auto) 83H, Lymphocytes (%) (Auto) 8L, Monocytes (%) (Auto) 7, Eosinophils (%) (Auto) 0, Basophils (%) (Auto) 0, Neutrophils # (Auto) 17.6H, Lymphocytes # (Auto) 1.7, Monocytes # (Auto) 1.5H, Eosinophils # (Auto) 0.0, Basophils # (Auto) 0.0, Immature Granulocyte # (Auto) 0.5H, Sodium Level 138, Potassium Level 3.8, Chloride Level 100, Carbon Dioxide Level 22, Anion Gap 16H, Blood Urea Nitrogen 19H, Creatinine 1.11, Estimat Glomerular Filtration Rate 71, BUN/Creatinine Ratio 17, Glucose Level 139H, Calcium Level 8.9, Corrected Calcium 9.5, Total Bilirubin 0.2, Aspartate Amino Transf (AST/SGOT) 26, Alanine Aminotransferase (ALT/SGPT) 29, Alkaline Phosphatase 64, Total Protein 6.6, Albumin 3.2 Microbiology 09/15/21 Blood Culture - Preliminary, Resulted No growth 09/15/21 Gram Stain - Final, Resulted 09/15/21 Sputum Culture - Preliminary, Resulted Usual upper respiratory sundar Results Results/Procedures Labs Laboratory Tests 09/15/21 09:56 09/16/21 05:30 09/16/21 19:24 09/17/21 04:56 Patient resulted labs reviewed. LIAM RICARDO MD September 17, 2021 09:08
[2021-09-17] MEDS: polyethylene glycoL POWDER 17 GM (MIRALAX) PACK PO SCH ×2 (10:30→21:34)
[2021-09-17] MEDS: SENNA W/DOCUSATE (SENOKOT S) TABLET PO SCH ×2 (10:30→21:34)
[2021-09-17] MEDS: LACTULOSE SYRUP 10GM/15ML (ENULOSE) 30ML UDC PO SCH ×2 (10:32→21:34)
[2021-09-17 10:56] LABS: TRIGLYCERIDES 102 MG/DL (<150); VLDL CHOLESTEROL 20 MG/DL (5-40)
--- NOTE | 2021-09-17 10:59 | Consultation-Cardiology ---
HPI-Cardiology Cardiology Consultation: Date of Consultation 09/17/21 Date of Admission 09/15/21 Attending Physician Milton Martinez MD Admitting Physician Admitting Physician: Dayan Thakkar DO Attending Physician: Dayan Thakkar DO Consulting Physician CHULA BUSTAMANTE JR, MD HPI: Time Seen by a Provider: 10:55 Chief Complaint: REASON FOR CONSULTATION: Hypertension. At the pleasure of seeing Ovidio in the intensive care unit at [facility] in [place], [place] today. He was actually in the process of being transferred to the medical floor. He presented to the hospital on 09/15 with progressive worsening dyspnea on exertion as well as cough. He was diagnosed with pneumonia and placed on antibiotics. While he has been in the hospital, his blood pressures have been markedly elevated consistent with hypertensive urgency. Because of the hypertension, a cardiology consultation was requested. He had been seeing one of my partners in the past but had a falling out and has not seen any magazine hand in the past 4 years. He does have a history of peripheral arterial disease with previous intervention on the left leg. He also tells me he has carotid atherosclerosis but has not required intervention. He denies any history of coronary artery disease. He states that he does get some chest discomfort from time to time but most recently thought this was due to coughing. He has chronic dyspnea related to his chronic obstructive pulmonary disease and wears oxygen at home. He denies paroxysmal nocturnal dyspnea, insomnia, palpitations, lightheadedness, syncope, or lower extremity edema. He does have pain in his leg with walking from time to time, mainly on the left side. Certain portions of this document may have been dictated utilizing voice recognition technology. Inherent to this technology, typographical and grammatical errors may exist. As much as I am diligent to identify and correct these mistakes, some errors may remain in the document. Review of Systems-Cardiology Review of Systems Other comments Review of 10 organ systems is as per the history of present illness, otherwise negative. All Other Systems Reviewed Negative Unless Noted: Yes FWM-Ejzldx-Kysapo Hx Patient Social History Marrital Status: single Employed/Student: unemployed Smoking Status: Former Smoker Former smoker/When Quit: Feb 25, 2005 2nd Hand Smoke Exposure: Yes Have you traveled recently?: No Alcohol Use?: No Pt feels they are or have been: No Immunizations Up To Date Tetanus Booster (TDap): More than 5yrs Date of Pneumonia Vaccine: Apr 30, 2015 Date of Influenza Vaccine: Jan 28, 2018 Past Medical History PMH As described under Assessment. Family Medical History Family Medical History: He reports he was adopted and does not know any of his family medical history. Family History: Patient reports no known family medical history. Allergies and Home Medications Allergies Coded Allergies: No Known Drug Allergies (Unverified , 09/15/21) Patient Home Medication List Home Medication List Reviewed: Yes Ascorbic Acid (Vitamin C) 500 Mg Tab.chew, 500 MG PO DAILY, (Reported) Entered as Reported by: STEFANY UPTON on 09/15/211545 Last Action: Converted Atorvastatin Calcium (Atorvastatin Calcium) 20 Mg Tablet, 20 MG PO DAILY, (Reported) Entered as Reported by: NALLELY MANN on 06/13/16 1043 Last Action: Continued Azithromycin (Azithromycin) 250 Mg Tablet, 250 MG PO DAILY, (Reported) Entered as Reported by: STEFANY UPTON on 09/15/211545 Last Action: Held Citalopram Hydrobromide (Citalopram HBr) 40 Mg Tablet, 40 MG PO DAILY, (Reported) Entered as Reported by: STEFANY UPTON on 09/15/211545 Last Action: Converted Clopidogrel Bisulfate (Clopidogrel) 75 Mg Tablet, 75 MG PO DAILY, (Reported) Entered as Reported by: STEFANY UPTON on 09/15/211545 Last Action: Continued Fluticasone Propionate (Fluticasone Propionate) 50 Mcg/Actuation [place].susp, 1 SPRAY NSEACH BID PRN for CONGESTION, (Reported) Entered as Reported by: STEFANY UPTON on 09/15/211545 Last Action: Continued Hydrocodone/Acetaminophen (Hydrocodone-Acetamin 10-325 mg) 10 Mg-325 Mg Tablet, 1 EACH PO Q8H PRN for PAIN-MODERATE (5-7), (Reported) Entered as Reported by: STEFANY UPTON on 09/15/211545 Last Action: Continued Loratadine (Loratadine) 10 Mg Tablet, 10 MG PO DAILY, (Reported) Entered as Reported by: STEFANY UPTON on 09/15/211545 Last Action: Continued Magnesium Oxide (Magnesium) 400 Mg Magnesium Tablet, 400 MG PO DAILY, (Reported) Entered as Reported by: STEFANY UPTON on 09/15/211545 Last Action: Converted Meloxicam (Meloxicam) 15 Mg Tablet, 15 MG PO DAILY, (Reported) Entered as Reported by: STEFANY UPTON on 09/15/211545 Last Action: Held Multivit-Min/Iron/Folic/Vit K1 (Centrum Chewables Adults Tab) 8 Mg Iron-400 Mcg- 10 Mcg Tab.chew, 1 EACH PO DAILY, (Reported) Entered as Reported by: STEFANY UPTON on 09/15/211545 Last Action: Converted Discontinued Medications Albuterol Sulfate (Ventolin Hfa) 18 Gm Hfa.aer.ad, 2 PUFF INH Q4H PRN for SHORTNESS OF BREATH, (Reported) Discontinued Reason: No Longer Taking Entered as Reported by: NALLELY MANN on 06/04/18 1005 Last Action: Discontinued Aspirin (Aspirin EC) 81 Mg Tablet.dr, 81 MG PO DAILY, (Reported) Discontinued Reason: No Longer Taking Entered as Reported by: NALLELY MANN on 06/22/16 0825 Last Action: Discontinued Cefdinir (Cefdinir) 300 Mg Capsule, 300 MG PO BID Discontinued Reason: No Longer Taking Prescribed by: MIHIR CHIRINOS on 02/13/211935 Last Action: Discontinued Citalopram Hydrobromide (Citalopram HBr) 20 Mg Tablet, 20 MG PO DAILY, (Reported) Discontinued Reason: No Longer Taking Entered as Reported by: PRIETO GARCIA on 01/27/191102 Last Action: Discontinued Clopidogrel Bisulfate (Plavix) 75 Mg Tablet, 75 MG PO DAILY, (Reported) Discontinued Reason: No Longer Taking Entered as Reported by: PRIETO GARCIA on 01/27/191102 Last Action: Discontinued Fluticasone/Umeclidin/Vilanter (Trelegy Ellipta 100-62.5-25) 1 Each Blst.w.dev, 1 EACH IH DAILY, (Reported) Discontinued Reason: No Longer Taking Entered as Reported by: PRIETO GARCIA on 01/27/191102 Last Action: Discontinued Hydrocodone Bit/Acetaminophen (HYDROcodone/APAP 10/325 TABLET) 1 Each Tablet, 1 TAB PO Q6H PRN for PAIN-MODERATE Discontinued Reason: No Longer Taking Prescribed by: LUIZ MACIAS on 01/30/19 1144 Last Action: Discontinued Multivitamin/Iron/Folic Acid (Sentry Tablet) 1 Each Tablet, 1 TAB PO DAILY, (Reported) Discontinued Reason: No Longer Taking Entered as Reported by: NALLELY MANN on 06/04/18 1005 Last Action: Discontinued Pantoprazole Sodium (Protonix) 40 Mg Tablet.dr, 40 MG PO DAILY Discontinued Reason: No Longer Taking Prescribed by: JEREMIAS FRIED on 02/02/21 1035 Last Action: Discontinued Exam Vital Signs Vital Signs Date Time Temp Pulse Resp B/P (MAP) Pulse Ox O2 Delivery O2 Flow Rate FiO2 09/17/21 08:00 92 Room Air 2.00 09/17/21 07:42 36.1 09/17/21 07:00 102 12 09/15/21 14:08 21 Physical Exam General: Alert. No acute distress. Well nourished and appears stated age. He is very hard of hearing even with his hearing aids in place. Eye: Extraocular movements are intact. Conjunctivae are clear. There are no xanthelasma. HENT: Normocephalic. Atraumatic. Carotid pulsations 2/2 with bilateral bruits. Neck: Jugular venous pressure does not appear elevated. No thyromegaly appreciated. Respiratory: Lungs are clear to auscultation. Respirations are non-labored. Breath sounds are equal. Symmetrical chest wall expansion. Cardiovascular: Tachycardia. Regular rhythm. No murmur. No gallop. Point of maximal impulse is not appear displaced. Somewhat diminished pulses in the feet bilaterally. However, his feet are warm. No edema. Gastrointestinal: Soft. Normal bowel sounds. Skin: Skin turgor is normal. There is no pallor. Musculoskeletal: No kyphosis or scoliosis appreciated. Neurologic: Alert and oriented to person, place, time. Cranial nerves 3-12 appear grossly intact. The patient has good motor tone strength in the upper and lower extremities bilaterally. Psychiatric: Cooperative. Appropriate mood & affect. Labs Laboratory Tests Test 09/16/21 19:24 09/17/21 04:56 Range/Units White Blood Count 21.5 H 21.2 H 4.3-11.0 10^3/uL Red Blood Count 3.97 L 3.81 L 4.30-5.52 10^6/uL Hemoglobin 11.7 L 11.2 L 13.3-17.7 g/dL Hematocrit 37 L 35 L 40-54 % Mean Corpuscular Volume 93 92 80-99 fL Mean Corpuscular Hemoglobin 30 29 25-34 pg Mean Corpuscular Hemoglobin Concent 32 32 32-36 g/dL Red Cell Distribution Width 14.5 14.7 H 10.0-14.5 % Platelet Count 424 H 427 H 130-400 10^3/uL Mean Platelet Volume 8.9 L 8.8 L 9.0-12.2 fL Immature Granulocyte % (Auto) 2 2 % Neutrophils (%) (Auto) 89 H 83 H 42-75 % Lymphocytes (%) (Auto) 6 L 8 L 12-44 % Monocytes (%) (Auto) 4 7 0-12 % Eosinophils (%) (Auto) 0 0 0-10 % Basophils (%) (Auto) 0 0 0-10 % Neutrophils # (Auto) 19.1 H 17.6 H 1.8-7.8 10^3/uL Lymphocytes # (Auto) 1.3 1.7 1.0-4.0 10^3/uL Monocytes # (Auto) 0.8 1.5 H 0.0-1.0 10^3/uL Eosinophils # (Auto) 0.0 0.0 0.0-0.3 10^3/uL Basophils # (Auto) 0.0 0.0 0.0-0.1 10^3/uL Immature Granulocyte # (Auto) 0.4 H 0.5 H 0.0-0.1 10^3/uL Sodium Level 136 138 135-145 MMOL/L Potassium Level 4.1 3.8 3.6-5.0 MMOL/L Chloride Level 100 100 98-107 MMOL/L Carbon Dioxide Level 22 22 21-32 MMOL/L Anion Gap 14 16 H 5-14 MMOL/L Blood Urea Nitrogen 14 19 H 7-18 MG/DL Creatinine 0.92 1.11 0.60-1.30 MG/DL Estimat Glomerular Filtration Rate 89 71 BUN/Creatinine Ratio 15 17 Glucose Level 166 H 139 H 70-105 MG/DL Calcium Level 9.1 8.9 8.5-10.1 MG/DL Corrected Calcium 9.6 9.5 8.5-10.1 MG/DL Total Bilirubin 0.2 0.2 0.1-1.0 MG/DL Aspartate Amino Transf (AST/SGOT) 22 26 5-34 U/L Alanine Aminotransferase (ALT/SGPT) 30 29 0-55 U/L Alkaline Phosphatase 73 64 40-136 U/L Troponin I < 0.028 <0.028 NG/ML Total Protein 7.1 6.6 6.4-8.2 GM/DL Albumin 3.4 3.2 3.2-4.5 GM/DL Procalcitonin 0.12 H <0.10 NG/ML ECG Impression ECG Comment Electrocardiogram from 09/16 showed sinus tachycardia 111 bpm with no evidence of prior infarct or ischemia at rest. Diagnosis/Problems Diagnosis/Problems (1) Hypertensive urgency Assessment & Plan: His blood pressure was markedly elevated at the time of admission and then improved. However, in the past 24 hours he again has elevated blood pressure. His blood pressure is improved this morning. I recommend he continue on amlodipine. (2) Primary hypertension Assessment & Plan: Continue amlodipine. Blood pressure has improved since admission as outlined above. (3) Chest pain Assessment & Plan: Etiology unclear. This may be related to his coughing with musculoskeletal chest pain. However, once he recovers from this acute respiratory illness, we may want to consider an ischemic evaluation. This can certainly be done as an outpatient. (4) Mixed hyperlipidemia Assessment & Plan: Continue statin medication. (5) Peripheral arterial disease Assessment & Plan: Continue clopidogrel and statin medication. No evidence of acute limb ischemia. We may want to do some noninvasive testing following di rivas. (6) Atherosclerosis of both carotid arteries Assessment & Plan: As with the peripheral vascular disease of his lower extremities, we may want to consider some noninvasive testing following discharge. This does not need to be done while he is in the hospital. In the interim, continue clopidogrel and statin medication. (7) Acute and chronic respiratory failure with hypoxia Assessment & Plan: This is most likely related toHis chronic obstructive pulmonary disease with superimposed pneumonia. He will continue on home oxygen following discharge. CHULA BUSTAMANTE JR, MD September 17, 2021 10:59
[2021-09-17 11:01] LABS: CHOLESTEROL 128 MG/DL (< 200); HDL CHOLESTEROL 30 MG/DL (40-60)
--- NOTE | 2021-09-17 11:13 | Physical Therapy Progress Note ---
Therapy Progress Note Pt evaluated and discharged with no PT indicated on 09/16. Pt transferred to ICU due to hypertension on 09/16. Nursing reports Pt is up ad ally in the room and visited with Pt who reports no change in functional mobility from 09/16. No PT eval indicated at this time. RASHAWN HORNER DPT September 17, 2021 11:13
[2021-09-17] MEDS: MONTELUKAST 10 MG (SINGULAIR) TAB PO SCH (21:34)
[2021-09-17] MEDS: ENOXAPARIN 40 MG/0.4 ML (LOVENOX) SYR SC SCH (21:34)
[2021-09-18] VITALS (7 sets, daily range): BP systolic 112–173; BP diastolic 56–74
[2021-09-18] MEDS: CEFEPIME INJECTION 1,000 MG in NS (IVPB) 50 ML IV SCH ×4 (00:11→17:43)
[2021-09-18] MEDS: hydrALAZINE (APESOLINE) 20 MG/ML VIAL IV SCH ×6 (00:11→21:12)
[2021-09-18] MEDS: NITROGLYCERIN 2% OINT 1 GM UNIT DOSE PACKET TOP SCH ×4 (00:11→17:43)
[2021-09-18] MEDS: RT-ALBUTEROL/IPRATROPIUM 3 ML (DUONEB) VIAL INH SCH ×6 (01:18→19:51)
[2021-09-18] MEDS: RT--FLUTICASONE/SALMETEROL 113-14 (AIRDUO RespiCLICK) IH SCH ×3 (01:18→19:51)
[2021-09-18 05:41] LABS: BASOPHILS # (AUTO) 0.1 10^3/uL (0.0-0.1); BASOPHILS % (AUTO) 0 % (0-10); EOSINOPHILS # (AUTO) 0.1 10^3/uL (0.0-0.3); EOSINOPHILS % (AUTO) 1 % (0-10); HEMATOCRIT 36 % (40-54); HEMOGLOBIN 11.3 g/dL (13.3-17.7); LYMPHOCYTES # (AUTO) 1.8 10^3/uL (1.0-4.0); LYMPHOCYTES % (AUTO) 12 % (12-44); MEAN CORPUSCULAR HEMOGLOBIN 29 pg (25-34); MEAN CORPUSCULAR HGB CONC 31 g/dL (32-36); MEAN CORPUSCULAR VOLUME 94 fL (80-99); MEAN PLATELET VOLUME 9.5 fL (9.0-12.2); MONOCYTES # (AUTO) 1.1 10^3/uL (0.0-1.0); MONOCYTES % (AUTO) 7 % (0-12); NEUTROPHILS # (AUTO) 12.2 10^3/uL (1.8-7.8); NEUTROPHILS % (AUTO) 78 % (42-75); PLATELET COUNT 382 10^3/uL (130-400); WHITE BLOOD COUNT 15.6 10^3/uL (4.3-11.0)
[2021-09-18 05:48] LABS: ALBUMIN 3.2 GM/DL (3.2-4.5); POTASSIUM 4.1 MMOL/L (3.6-5.0)
[2021-09-18 05:49] LABS: CALCIUM 8.7 MG/DL (8.5-10.1)
[2021-09-18 05:51] LABS: TOTAL PROTEIN 6.4 GM/DL (6.4-8.2)
[2021-09-18] MEDS: ASCORBIC ACID (VIT C) 500 MG TABLET PO SCH (05:51)
[2021-09-18] MEDS: MULTIVIT W/MINERALS TAB (THERAGRAN M) PO SCH (05:51)
[2021-09-18 05:52] LABS: BILIRUBIN,TOTAL 0.2 MG/DL (0.1-1.0)
--- NOTE | 2021-09-18 06:59 | Progress Note - Hospitalist ---
Subjective HPI/CC On Admission Date Seen by Provider: September 18, 2021 Time Seen by Provider: 11:00 CC: Hemoptysis with cough HPI: This is a male clinic pt of Dr. Milton Martinez. Pt presented with hemoptysis for the last couple of days with cough and productive sputum. He has had two pneumonias in the past, most recently 4 years ago. He is maintained on oxygen supplementation 2L at home. He was found to have a right lower lobe pneumonia. Decision was made to place on Cefepime to cover for any structural abnormalities of the lungs in addition to Azithromycin. Lovenox will be held due to hemoptysis. Cardiology will be consulted. Subjective/Events-last exam Patient feels better Not able to go home yet due to "no plumbing in the house" and I have no SW here on weekend Lungs are clear Patient appears to be lonely and isolated Review of Systems General: Fatigue, Malaise Focused Exam Lactate Level Objective Exam Vital Signs Vital Signs Date Time Temp Pulse Resp B/P (MAP) Pulse Ox O2 Delivery O2 Flow Rate FiO2 09/18/21 19:51 92 Room Air 0.00 09/18/21 19:46 37.1 99 20 135/60 (85) 09/18/21 07:20 21 Capillary Refill : Less Than 3 Seconds General Appearance: No Apparent Distress, WD/WN, Chronically ill Respiratory: Lungs Clear, Normal Breath Sounds Cardiovascular: Regular Rate, Rhythm Neurologic/Psychiatric: Alert, Oriented x3 Results/Procedures Lab Laboratory Tests 09/18/21 05:35 Patient resulted labs reviewed. Assessment/Plan Assessment and Plan Assess & Plan/Chief Complaint Assessment: Sepsis Pneumonia Exacerbation of COPD Cough Hemoptysis holding Lovenox DVT prophylaxis Supplemental oxygen dependency at home Hypertensive urgency 240/110 without improvement with meds transferred to ICU PVD on Plavix Plan: Supportive care IV fluids IV antibiotics Cardiology consult IV steroids Lovenox held due to hemoptysis 09/16/2021: Supportive care Antibiotics DC steroids Transfer to ICU for malignant hypertension 09/17/2021: Transfer to fourth floor Cardiology consult 09/18/21: Monitor closely SW consult Diagnosis/Problems Diagnosis/Problems (1) Sepsis (2) Pneumonia Status: Acute Clinical Quality Measures DVT/VTE Risk/Contraindication: Contraindications-Pharm: Other *list below* Other: hemoptysis MAX DACOSTA DO September 18, 2021 06:59
[2021-09-18] MEDS: polyethylene glycoL POWDER 17 GM (MIRALAX) PACK PO SCH ×2 (09:02→21:13)
[2021-09-18] MEDS: LACTULOSE SYRUP 10GM/15ML (ENULOSE) 30ML UDC PO SCH ×2 (09:02→21:12)
[2021-09-18] MEDS: BENZONATATE 100 MG (TESSALON) CAPSULE PO SCH ×3 (09:02→21:11)
[2021-09-18] MEDS: amLODIPine 5 MG (NORVASC) TAB PO SCH (09:03)
[2021-09-18] MEDS: LORATADINE (CLARITIN) 10 MG TAB PO SCH ×2 (09:03)
[2021-09-18] MEDS: AZITHROMYCIN 250 MG TAB (ZITHROMAX) PO SCH (09:03)
[2021-09-18] MEDS: DOCUSATE SODIUM 100 MG (COLACE) CAP PO SCH ×2 (09:03→21:12)
[2021-09-18] MEDS: MAGNESIUM OXIDE (MAG-OX)400 MG TAB PO SCH (09:03)
[2021-09-18] MEDS: SENNOSIDES 8.6 MG (SENOKOT) TAB PO SCH ×2 (09:03→21:12)
[2021-09-18] MEDS: CLOPIDOGREL 75 MG (PLAVIX) TABLET PO SCH (09:04)
[2021-09-18] MEDS: SENNA W/DOCUSATE (SENOKOT S) TABLET PO SCH ×2 (09:04→21:12)
--- NOTE | 2021-09-18 12:31 | Cardiology Progress Note ---
Progress Note-Cardiology Events since last exam Date Seen by Provider: September 18, 2021 Time Seen by Provider: 12:30 Events since last exam I am following him for hypertension. He was transferred from the ICU to the medical floor yesterday. He was sitting up in bed eating a pulled pork sandwich with barbecue sauce and coleslaw. He still gets some left sided chest pain when he coughs. His breathing is improved. He denies palpitations, syncope, or ankle edema. Certain portions of this document may have been dictated utilizing voice recognition technology. Inherent to this technology, typographical and gr ammatical errors may exist. As much as I am diligent to identify and correct these mistakes, some errors may remain in the document. Vitals Last set of Vitals Signs Vital Signs 09/18/21 09/18/21 09/18/21 07:20 15:11 15:24 Temp 36.7 Pulse 103 Resp 20 B/P (MAP) 140/65 (90) Pulse Ox 91 O2 Delivery Room Air O2 Flow Rate 0.00 FiO2 21 Labs Labs Laboratory Tests 09/18/21 05:35 Exam Vital Signs Vital Signs Date Time Temp Pulse Resp B/P (MAP) Pulse Ox O2 Delivery O2 Flow Rate FiO2 09/18/21 15:24 36.7 103 20 140/65 (90) 91 Room Air 09/18/21 15:11 0.00 09/18/21 07:20 21 Physical Exam General: Alert. No acute distress. He is very hard of hearing. Eye: No xanthelasma. HENT: Normocephalic. Neck: Jugular venous pressure does not appear elevated. Respiratory: Lungs are clear to auscultation. Respirations are non-labored. Breath sounds are equal. Symmetrical chest wall expansion. Cardiovascular: Normal rate. Regular rhythm. No murmur. No gallop. No edema. Gastrointestinal: Soft. Normal bowel sounds. Skin: Warm. Dry. Neurologic: Alert and oriented to person, place, time. Cranial nerves 3-11 grossly intact. Psychiatric: Cooperative. Appropriate mood & affect. Labs Laboratory Tests Test 09/18/21 05:35 Range/Units White Blood Count 15.6 H 4.3-11.0 10^3/uL Red Blood Count 3.84 L 4.30-5.52 10^6/uL Hemoglobin 11.3 L 13.3-17.7 g/dL Hematocrit 36 L 40-54 % Mean Corpuscular Volume 94 80-99 fL Mean Corpuscular Hemoglobin 29 25-34 pg Mean Corpuscular Hemoglobin Concent 31 L 32-36 g/dL Red Cell Distribution Width 15.3 H 10.0-14.5 % Platelet Count 382 130-400 10^3/uL Mean Platelet Volume 9.5 9.0-12.2 fL Immature Granulocyte % (Auto) 2 % Neutrophils (%) (Auto) 78 H 42-75 % Lymphocytes (%) (Auto) 12 12-44 % Monocytes (%) (Auto) 7 0-12 % Eosinophils (%) (Auto) 1 0-10 % Basophils (%) (Auto) 0 0-10 % Neutrophils # (Auto) 12.2 H 1.8-7.8 10^3/uL Lymphocytes # (Auto) 1.8 1.0-4.0 10^3/uL Monocytes # (Auto) 1.1 H 0.0-1.0 10^3/uL Eosinophils # (Auto) 0.1 0.0-0.3 10^3/uL Basophils # (Auto) 0.1 0.0-0.1 10^3/uL Immature Granulocyte # (Auto) 0.4 H 0.0-0.1 10^3/uL Sodium Level 137 135-145 MMOL/L Potassium Level 4.1 3.6-5.0 MMOL/L Chloride Level 103 98-107 MMOL/L Carbon Dioxide Level 21 21-32 MMOL/L Anion Gap 13 5-14 MMOL/L Blood Urea Nitrogen 27 H 7-18 MG/DL Creatinine 1.00 0.60-1.30 MG/DL Estimat Glomerular Filtration Rate 81 BUN/Creatinine Ratio 27 Glucose Level 121 H 70-105 MG/DL Calcium Level 8.7 8.5-10.1 MG/DL Corrected Calcium 9.3 8.5-10.1 MG/DL Total Bilirubin 0.2 0.1-1.0 MG/DL Aspartate Amino Transf (AST/SGOT) 30 5-34 U/L Alanine Aminotransferase (ALT/SGPT) 32 0-55 U/L Alkaline Phosphatase 58 40-136 U/L Total Protein 6.4 6.4-8.2 GM/DL Albumin 3.2 3.2-4.5 GM/DL Diagnosis/Problems Diagnosis/Problems (1) Hypertensive urgency Assessment & Plan: His blood pressure was markedly elevated at the time of admission and then improved. His blood pressures have improved over the past 24-48 hours on the current antihypertensive regimen. (2) Primary hypertension Assessment & Plan: Continue amlodipine. Blood pressure has improved since admission as outlined above. (3) Chest pain Assessment & Plan: Etiology unclear. This may be related to his coughing with musculoskeletal chest pain. However, once he recovers from this acute respiratory illness, we may want to consider an ischemic evaluation. This can certainly be done as an outpatient. (4) Mixed hyperlipidemia Assessment & Plan: Continue statin medication. (5) Peripheral arterial disease Assessment & Plan: Continue clopidogrel and statin medication. No evidence of acute limb ischemia. We may want to do some noninvasive testing following discharge. (6) Atherosclerosis of both carotid arteries Assessment & Plan: As with the peripheral vascular disease of his lower extremities, we may want to consider some noninvasive testing following discharge. This does not need to be done while he is in the hospital. In the interim, continue clopidogrel and statin medication. (7) Acute and chronic respiratory failure with hypoxia Assessment & Plan: This is most likely related to his chronic obstructive pulmonary disease with superimposed pneumonia. He will continue on home oxygen following discharge. CHULA BUSTAMANTE JR, MD September 18, 2021 12:31
[2021-09-18] MEDS: MONTELUKAST 10 MG (SINGULAIR) TAB PO SCH (21:11)
[2021-09-18] MEDS: ENOXAPARIN 40 MG/0.4 ML (LOVENOX) SYR SC SCH (21:11)
[2021-09-18] MEDS: guaiFENesin/CODEINE (ROBITUSSIN AC) 10ML UDC PO PRN (22:27)
[2021-09-19 00:12] VITALS: BP 144/63
[2021-09-19] MEDS: NITROGLYCERIN 2% OINT 1 GM UNIT DOSE PACKET TOP SCH ×2 (00:22→05:48)
[2021-09-19] MEDS: CEFEPIME INJECTION 1,000 MG in NS (IVPB) 50 ML IV SCH ×2 (00:22→05:48)
[2021-09-19] MEDS: hydrALAZINE (APESOLINE) 20 MG/ML VIAL IV SCH ×3 (00:24→08:31)
[2021-09-19 04:12] VITALS: BP 157/69
[2021-09-19 05:32] LABS: BASOPHILS # (AUTO) 0.1 10^3/uL (0.0-0.1); BASOPHILS % (AUTO) 1 % (0-10); EOSINOPHILS # (AUTO) 0.3 10^3/uL (0.0-0.3); EOSINOPHILS % (AUTO) 2 % (0-10); HEMATOCRIT 35 % (40-54); HEMOGLOBIN 11.1 g/dL (13.3-17.7); LYMPHOCYTES # (AUTO) 2.1 10^3/uL (1.0-4.0); LYMPHOCYTES % (AUTO) 16 % (12-44); MEAN CORPUSCULAR HEMOGLOBIN 30 pg (25-34); MEAN CORPUSCULAR HGB CONC 32 g/dL (32-36); MEAN CORPUSCULAR VOLUME 93 fL (80-99); MEAN PLATELET VOLUME 8.8 fL (9.0-12.2); MONOCYTES % (AUTO) 7 % (0-12); NEUTROPHILS # (AUTO) 9.7 10^3/uL (1.8-7.8); NEUTROPHILS % (AUTO) 71 % (42-75); PLATELET COUNT 388 10^3/uL (130-400); WHITE BLOOD COUNT 13.6 10^3/uL (4.3-11.0)
[2021-09-19 05:41] LABS: POTASSIUM 4.3 MMOL/L (3.6-5.0)
[2021-09-19 05:42] LABS: CALCIUM 8.4 MG/DL (8.5-10.1)
[2021-09-19 05:43] LABS: TOTAL PROTEIN 5.9 GM/DL (6.4-8.2)
[2021-09-19 05:45] LABS: BILIRUBIN,TOTAL 0.2 MG/DL (0.1-1.0)
[2021-09-19 05:47] LABS: CREATININE SERUM 1.01 MG/DL (0.60-1.30)
[2021-09-19] MEDS: MULTIVIT W/MINERALS TAB (THERAGRAN M) PO SCH (05:48)
[2021-09-19] MEDS: ASCORBIC ACID (VIT C) 500 MG TABLET PO SCH (05:48)
[2021-09-19 07:25] VITALS: BP 174/75
[2021-09-19] MEDS: RT-ALBUTEROL/IPRATROPIUM 3 ML (DUONEB) VIAL INH SCH ×2 (07:42→11:06)
[2021-09-19] MEDS: RT--FLUTICASONE/SALMETEROL 113-14 (AIRDUO RespiCLICK) IH SCH (07:44)
[2021-09-19] MEDS: SENNA W/DOCUSATE (SENOKOT S) TABLET PO SCH (08:31)
[2021-09-19] MEDS: SENNOSIDES 8.6 MG (SENOKOT) TAB PO SCH (08:31)
[2021-09-19] MEDS: DOCUSATE SODIUM 100 MG (COLACE) CAP PO SCH (08:31)
[2021-09-19] MEDS: CLOPIDOGREL 75 MG (PLAVIX) TABLET PO SCH (08:31)
[2021-09-19] MEDS: LACTULOSE SYRUP 10GM/15ML (ENULOSE) 30ML UDC PO SCH (08:32)
[2021-09-19] MEDS: AZITHROMYCIN 250 MG TAB (ZITHROMAX) PO SCH (08:32)
[2021-09-19] MEDS: MAGNESIUM OXIDE (MAG-OX)400 MG TAB PO SCH (08:32)
[2021-09-19] MEDS: BENZONATATE 100 MG (TESSALON) CAPSULE PO SCH (08:32)
[2021-09-19] MEDS: amLODIPine 5 MG (NORVASC) TAB PO SCH (08:32)
[2021-09-19] MEDS: polyethylene glycoL POWDER 17 GM (MIRALAX) PACK PO SCH (08:32)
[2021-09-19] MEDS: LORATADINE (CLARITIN) 10 MG TAB PO SCH ×2 (08:32→08:33)
[2021-09-19] MEDS ORDERED: AMLO-250 PO (11:18)
[2021-09-19] MEDS ORDERED: CEFD300C3 PO (11:18)
[2021-09-19] MEDS ORDERED: GFCD10B PO (11:18)
--- NOTE | 2021-09-19 11:19 | Discharge Summary ---
Discharge Summary Hospital Course Was the Problem List Reviewed?: Yes Problems/Dx: (1) Hypertensive urgency (2) Primary hypertension (3) Chest pain (4) Mixed hyperlipidemia (5) Peripheral arterial disease (6) Atherosclerosis of both carotid arteries (7) Acute and chronic respiratory failure with hypoxia Hospital Course Date of Admission: September 15, 2021 at 12:10 Admission Diagnosis : Family Physician/Provider: Milton Martinez MD Date of Discharge: 09/19/21 Discharge Diagnosis: Sepsis, PNA, Hemoptysis, COPD, nocturnal hypoxia, HTN urgency Hospital Course: Lengthy course after admitted for sepsis and PNA so placed on abx and steroids and O2 and nebs and then BP became very elevated requiring ICU admit. Patient stablized. Patient improved enough to DC in improved condition. Labs and Pending Lab Test: Laboratory Tests 09/19/21 05:20: White Blood Count 13.6H, Red Blood Count 3.73L, Hemoglobin 11.1L, Hematocrit 35L , Mean Corpuscular Volume 93, Mean Corpuscular Hemoglobin 30, Mean Corpuscular Hemoglobin Concent 32, Red Cell Distribution Width 15.4H, Platelet Count 388, Mean Platelet Volume 8.8L, Immature Granulocyte % (Auto) 4, Neutrophils (%) (Auto) 71, Lymphocytes (%) (Auto) 16, Monocytes (%) (Auto) 7, Eosinophils (%) (Auto) 2, Basophils (%) (Auto) 1, Neutrophils # (Auto) 9.7H, Lymphocytes # (Auto) 2.1, Monocytes # (Auto) 1.0, Eosinophils # (Auto) 0.3, Basophils # (Auto) 0.1, Immature Granulocyte # (Auto) 0.6H, Sodium Level 137, Potassium Level 4.3, Chloride Level 105, Carbon Dioxide Level 21, Anion Gap 11, Blood Urea Nitrogen 23H, Creatinine 1.01, Estimat Glomerular Filtration Rate 80, BUN/Creatinine Ratio 23, Glucose Level 115H, Calcium Level 8.4L, Corrected Calcium 9.2, Total Bilirubin 0.2, Aspartate Amino Transf (AST/SGOT) 24, Alanine Aminotransferase (ALT/SGPT) 28, Alkaline Phosphatase 58, Total Protein 5.9L, Albumin 3.0L Microbiology 09/15/21 Blood Culture - Preliminary, Resulted No growth 09/15/21 Gram Stain - Final, Complete 09/15/21 Sputum Culture - Final, Complete Usual upper respiratory sundar Home Meds Active Cefdinir 300 Mg Capsule 300 Mg PO BID Amlodipine Besylate 5 Mg Tablet 5 Mg PO DAILY Reported Magnesium (Magnesium Oxide) 400 Mg Magnesium Tablet 400 Mg PO DAILY Hydrocodone-Acetamin 10-325 mg (Hydrocodone/Acetaminophen) 10 Mg-325 Mg Tablet 1 Each PO Q8H PRN Loratadine 10 Mg Tablet 10 Mg PO DAILY Vitamin C (Ascorbic Acid) 500 Mg Tab.chew 500 Mg PO DAILY Centrum Chewables Adults Tab (Multivit-Min/Iron/Folic/Vit K1) 8 Mg Iron-400 Mcg- 10 Mcg Tab.chew 1 Each PO DAILY Citalopram HBr (Citalopram Hydrobromide) 40 Mg Tablet 40 Mg PO DAILY Meloxicam 15 Mg Tablet 15 Mg PO DAILY Clopidogrel (Clopidogrel Bisulfate) 75 Mg Tablet 75 Mg PO DAILY Fluticasone Propionate 50 Mcg/Actuation [place].susp 1 [place] NSEACH BID PRN Azithromycin 250 Mg Tablet 250 Mg PO DAILY FILLED 09-12-2021 #6/5 DAY SUPPLY Atorvastatin Calcium 20 Mg Tablet 20 Mg PO DAILY Assessment/Pt Instructions PCP this week Discharge Planning: <30 minutes discharge planning Discharge Instructions Discharge Diet: No Restrictions Activity as Tolerated: Yes Discharge Physical Examination Vital Signs Vital Signs Date Time Temp Pulse Resp B/P (MAP) Pulse Ox O2 Delivery O2 Flow Rate FiO2 09/19/21 11:06 94 Room Air 0.00 09/19/21 07:25 36.3 102 18 174/75 (108) 09/18/21 07:20 21 General Appearance: No Apparent Distress, WD/WN, Chronically ill Respiratory: Lungs Clear, Normal Breath Sounds Allergies: Coded Allergies: No Known Drug Allergies (Unverified , 09/15/21) Discharge Summary Date of Admission September 15, 2021 at 12:10 Date of Discharge Discharge Date: September 19, 2021 Admission Diagnosis Assessment: Sepsis Pneumonia Exacerbation of COPD Cough Hemoptysis holding Lovenox DVT prophylaxis Supplemental oxygen dependency at home Plan: Supportive care IV fluids IV antibiotics Cardiology consult IV steroids Lovenox held due to hemoptysis Discharge Diagnosis Assessment: Sepsis Pneumonia Exacerbation of COPD Cough Hemoptysis holding Lovenox DVT prophylaxis Supplemental oxygen dependency at home Hypertensive urgency 240/110 without improvement with meds transferred to ICU PVD on Plavix Plan: Supportive care IV fluids IV antibiotics Cardiology consult IV steroids Lovenox held due to hemoptysis 09/16/2021: Supportive care Antibiotics DC steroids Transfer to ICU for malignant hypertension 09/17/2021: Transfer to fourth floor Cardiology consult 09/18/21: Monitor closely SW consult (1) Hypertensive urgency Assessment & Plan: His blood pressure was markedly elevated at the time of admission and then improved. His blood pressures have improved over the past 24-48 hours on the current antihypertensive regimen. (2) Primary hypertension Assessment & Plan: Continue amlodipine. Blood pressure has improved since admission as outlined above. (3) Chest pain Assessment & Plan: Etiology unclear. This may be related to his coughing with musculoskeletal chest pain. However, once he recovers from this acute respiratory illness, we may want to consider an ischemic evaluation. This can certainly be done as an outpatient. (4) Mixed hyperlipidemia Assessment & Plan: Continue statin medication. (5) Peripheral arterial disease Assessment & Plan: Continue clopidogrel and statin medication. No evidence of acute limb ischemia. We may want to do some noninvasive testing following discharge. (6) Atherosclerosis of both carotid arteries Assessment & Plan: As with the peripheral vascular disease of his lower extremities, we may want to consider some noninvasive testing following discharge. This does not need to be done while he is in the hospital. In the interim, continue clopidogrel and statin medication. (7) Acute and chronic respiratory failure with hypoxia Assessment & Plan: This is most likely related to his chronic obstructive pulmonary disease with superimposed pneumonia. He will continue on home oxygen following discharge. Clinical Quality Measures DVT/VTE Risk/Contraindication: Contraindications-Pharm: Other *list below* Other: hemoptysis MAX DACOSTA DO September 19, 2021 11:19
[2021-09-19 11:20] VITALS: BP 146/67
[2021-09-19 13:36] VITALS: BP 146/67
== END 2021-09-19 13:38 | disposition home or self-care (01) | DRG 871 ==
LOC: EDUNIT# 09:41 → ER 09:42 → 4TH 12:10 → ICU 09-16 19:21 → 4TH 09-17 10:53
PROVIDERS: ADMIT Internal Medicine; ATTEND Internal Medicine
DX: A41.89 Other specified sepsis (principal); J15.9 Unspecified bacterial pneumonia; J96.21 Acute and chronic respiratory failure with hypoxia; J44.0 Chronic obstructive pulmonary disease with (acute) lower respiratory infection; R04.2 Hemoptysis; J44.1 Chronic obstructive pulmonary disease with (acute) exacerbation; I16.0 Hypertensive urgency; Z66 Do not resuscitate; Z20.822 Contact with and (suspected) exposure to COVID-19; E86.0 Dehydration; F32.A Depression, unspecified; I73.9 Peripheral vascular disease, unspecified; E78.2 Mixed hyperlipidemia; E78.00 Pure hypercholesterolemia, unspecified; K21.9 Gastro-esophageal reflux disease without esophagitis; K59.09 Other constipation; K44.9 Diaphragmatic hernia without obstruction or gangrene; M19.91 Primary osteoarthritis, unspecified site; H91.93 Unspecified hearing loss, bilateral; I65.23 Occlusion and stenosis of bilateral carotid arteries; Z99.81 Dependence on supplemental oxygen; Z97.4 Presence of external hearing-aid; Z95.820 Peripheral vascular angioplasty status with implants and grafts
CPT/HCPCS: 36415; 71045; 80053; 80061; 83036; 83605; 83880; 84145; 84484; 85007; 85025; 85027; 85610; 85730; 86141; 87040; 87070; 87205; 87636; 93005; 94640; 94664; 94760

== ENCOUNTER → 2022-03-01 | Outpatient (CLI) | payer MEDICARE ==
[~2022-03-01] MED LIST changes: +AMLO-250 PO; +ASCO500T71 PO; +AZIT250T12 PO; +CITA40TA13 PO; +CLOP75TA28 PO; +FLUT16SP22 NSEACH; +GFCD10B PO; +HYDR-3820 PO; +LORA10TA7 PO; +MAGN400T39 PO; +MELO15TA39 PO; +MULT-1112 PO
--- NOTE | 2022-03-01 17:36 | Diagnostic Imaging Report ---
INDICATION: Back pain. EXAMINATION: Lumbar spine. AP and lateral views of the lumbar spine show normal alignment. There are no compression fractures. There is narrowing of the disc spaces at T12-L1, L1-L2, L2-L3, L4-L5 and L5-S1. There is relative sparing of the disc at L3-L4. There is vacuum disc phenomena at each of the levels that are narrowed. There is mild facet arthropathy noted at L4-L5 and L5-S1. IMPRESSION: Diffuse spondylosis of lumbar spine with relative sparing of L3-L4. No acute abnormality is seen. Dictated by: Dictated on workstation # [id number]
--- NOTE | 2022-03-01 18:29 | Diagnostic Imaging Report ---
HISTORY: Neck pain. COMPARISON: MRI from 03/01/2022. TECHNIQUE: Five views of the cervical spine. FINDINGS: There is trace retrolisthesis at C4-C5 and C5-C6. There are severe degenerative changes at C4-C5 and C5-C6. Vertebral body heights are preserved. No acute fracture is seen. Prevertebral soft tissues appear normal. There is marked degenerative change at C1-C2. Spondylolisthesis is fixed on flexion and extension. C1-C2 alignment appears normal. IMPRESSION: 1. Degenerative changes in the cervical spine, most severe at C4-C5 and C5-C6. 2. Minimal retrolisthesis at C4-C5 and C5-C6. No evidence of dynamic instability. Dictated by: Dictated on workstation # [id number]
--- NOTE | 2022-03-01 19:00 | Diagnostic Imaging Report ---
PROCEDURE: MRI lumbar spine without contrast, 03/01/2022. TECHNIQUE: Multiplanar, multisequence MRI of the lumbar spine was performed without contrast. INDICATION: Back pain and spondylosis. COMPARISON: None. FINDINGS: There is normal height and alignment of the vertebral bodies. Tip of the conus unremarkable in appearance and location. L1-L2: There is disc desiccation. There is bilateral facet and ligamentum flavum hypertrophy. There is no central stenosis. There is mild bilateral neural foraminal narrowing. L2-L3: There is disc desiccation with intervertebral disc space narrowing. Minimal left paracentral disc protrusion noted with bilateral facet and ligamentum flavum hypertrophy. There is no significant central stenosis. There is mild narrowing of the left lateral recess. There is moderate to severe left neural foraminal stenosis. Mild narrowing of the right neural foramen is noted. L3-L4: There is disc desiccation with a mild broad-based bulging disc. There is bilateral facet and ligamentum flavum hypertrophy. There is mild central and left lateral recess narrowing. There is moderate bilateral neural foraminal narrowing. L4-L5: There is disc desiccation with a broad-based bulging disc. There is bilateral facet and ligamentum flavum hypertrophy. There is mild to moderate central stenosis. Narrowing of the lateral recesses noted bilaterally. There is bilateral severe neural foraminal stenosis. L5-S1: There is intervertebral disc space narrowing and disc desiccation with a broad-based bulging disc. There is bilateral facet and ligamentum flavum hypertrophy. There is mild central and bilateral recess narrowing. Moderate to severe bilateral neural foraminal stenosis is noted. The visualized intra-abdominal structures unremarkable. IMPRESSION: 1. Multilevel diffuse degenerative findings, as detailed above. 2. Spondylosis. Dictated by: Dictated on workstation # [id number]
--- NOTE | 2022-03-02 10:26 | Diagnostic Imaging Report ---
PROCEDURE: MR imaging cervical spine without contrast. TECHNIQUE: Multiplanar, multisequence MR imaging of the cervical spine was performed without contrast. INDICATION: Neck pain. COMPARISON: CTA neck of 01/11/2021 FINDINGS: Alignment of the cervical spine is unchanged with approximately 2 mm of degenerative retrolisthesis of C4 on C5 and C5 on C6. No new spondylolisthesis. No fracture or concerning marrow replacing process. The cervical cord maintains normal size and signal. No intramedullary T2 hyperintense lesions. No extradural fluid collection is appreciated. C2-C3: No spinal canal or neuroforaminal stenosis. C3-C4: No spinal canal or neuroforaminal stenosis. C4-C5: Posterior disc osteophyte complex, uncovertebral joint hypertrophy and ligamentum flavum thickening are all present. This combination results in severe spinal canal stenosis and moderate bilateral neuroforaminal narrowing. C5-C6: Posterior disc osteophyte complex, ligamentum flavum hypertrophy and ligamentum flavum thickening result in severe spinal canal stenosis. Severe right and moderate left neuroforaminal narrowing is present. C6-C7: Small disc protrusion results in moderate spinal canal stenosis. Uncovertebral joint hypertrophy causes severe bilateral neuroforaminal stenosis. C7-T1: No spinal canal or neuroforaminal stenosis. IMPRESSION: 1. Degenerative changes result in severe spinal canal stenosis at C5-C6 and C6-C7. Dictated by: Dictated on workstation # [id number]
== END ==
LOC: RAD 14:00
PROVIDERS: ATTEND Pain Medicine Interventional Pain Medicine
DX: M47.812 Spondylosis without myelopathy or radiculopathy, cervical region (principal); M47.816 Spondylosis without myelopathy or radiculopathy, lumbar region; M47.817 Spondylosis without myelopathy or radiculopathy, lumbosacral region; M51.26 Other intervertebral disc displacement, lumbar region; M51.27 Other intervertebral disc displacement, lumbosacral region; M51.36 Other intervertebral disc degeneration, lumbar region; M51.37 Other intervertebral disc degeneration, lumbosacral region; M48.02 Spinal stenosis, cervical region; M48.061 Spinal stenosis, lumbar region without neurogenic claudication; M48.07 Spinal stenosis, lumbosacral region
CPT/HCPCS: 72050; 72110; 72141; 72148

== ENCOUNTER → 2022-12-08 | Outpatient (CLI) | payer MEDICARE ==
[~2022-12-08] MED LIST changes: +CLOP-31 PO; -CLOP75TA69 PO; +ENAL-70 PO; -ENAL20TA16 PO
--- NOTE | 2022-12-08 16:09 | Diagnostic Imaging Report ---
INDICATION: Left calf pain. COMPARISON: None. TECHNIQUE: Duplex, grayscale, and color-flow imaging of the left lower extremity venous system was performed. FINDINGS: The common femoral vein, superficial femoral vein, profunda femoris, and popliteal veins are normal. These vessels show normal compressibility, color flow, and Doppler augmentation. The deep calf veins, although not very well seen, demonstrate no distinct intraluminal thrombus. IMPRESSION: Negative venous Doppler of the left lower extremity. Dictated by: Dictated on workstation # [id number]
== END ==
LOC: RAD 15:10
PROVIDERS: ATTEND Family Medicine
DX: M79.605 Pain in left leg (principal); Z86.718 Personal history of other venous thrombosis and embolism

== ENCOUNTER → 2023-01-18 | Outpatient (CLI) | payer MEDICARE ==
[~2023-01-18] MED LIST changes: +CATHETER FLUSH 10 ML SYR IV PRN; +HOLD METFORMIN - RECEIVED CONTRAST 20 ML VIAL IV SCH; +IOHEXOL 350 MG/ML 150 ML (OMNIPAQUE 350) VIAL IV ONE; +NS 100 ML (IVPB) BAG IV ONE
[2023-01-18 15:47] LABS: CREATININE SERUM 1.23 MG/DL (0.60-1.30)
--- NOTE | 2023-01-18 18:06 | Diagnostic Imaging Report ---
EXAMINATION: CT angiography aorta and lower extremity with runoffs. TECHNIQUE: Multiple contiguous axial images were obtained through the abdomen , pelvis and lower extremities after administration of intravenous contrast. 3D MIP reconstructed CTA acquisition were then performed. All CT scans use one or more of the following dose optimizing techniques: automated exposure control, MA and/or KvP adjustment based on a patient size and exam type, or iterative reconstruction. HISTORY: Peripheral artery disease, cold left leg. COMPARISON: None available. FINDINGS: Vascular findings: Abdominal aorta: Moderately narrowed distally with bilateral stents extending into the common iliac arteries. Celiac artery: Severe stenosis Superior mesenteric artery: Moderate stenosis in the midportion. Right renal artery: Moderate stenosis. Left renal artery: No stenosis. Inferior mesenterica artery: Patent Right common iliac artery: Stented and patent. Right external iliac artery: Mild stenosis. Right common femoral artery: Mild stenosis. Right superficial femoral artery: Multifocal plaquing with multifocal areas of stenosis. Stenosis is mild. Right deep femoral artery: Moderate stenosis. Right popliteal artery: Mild stenosis. Right posterior tibial artery: Occluded at its origin. Right anterior tibial artery: Moderate stenosis at its origin but patent with runoff to the ankle. Right peroneal artery: Moderate stenosis at its origin but patent with runoff to the ankle. Right ankle and foot vessels: Two vessel runoff. Left common iliac artery: Stented but occluded. Left external iliac artery: Occluded. Left common femoral artery: Stented and occluded. Left superficial femoral artery: Stented and occluded. There is also a femoropopliteal bypass graft that is occluded. Left deep femoral artery: Occluded at its origin but reconstituted via pelvic collaterals. Left popliteal artery: Occluded proximally with reconstitution from the deep femoral artery branches. Moderate stenosis. Left posterior tibial artery: Occluded in the mid and distal portion. Left anterior tibial artery: Small vessel but with runoff to the ankle. Left peroneal artery: Small vessel but with runoff to the ankle. Left ankle and foot vessels: Two vessel runoff. Other findings: Limited views of the lower thorax are unremarkable. The liver is normal without focal lesion. There is no biliary ductal dilation. Gallbladder is absent. Pancreas is normal. Spleen is normal. Adrenal glands are normal. There are cysts in left kidney. No suspicious renal lesion. There is no hydronephrosis. There is a 7 mm nodule in the urinary bladder near the left ureteral orifice. Bowel is normal in caliber without obstruction or inflammation. No free fluid or air. No abdominal or pelvic lymphadenopathy. There are no suspicious osseus lesions. IMPRESSION: 1. 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 2. Bilateral calf disease with two-vessel runoff to both ankles. 3. 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 4. Urinary bladder nodule near the left ureteral orifice measuring 7 mm. Urology evaluation recommended. Faxed to [facility] at 6:03 p.m. by cvb. Dictated by: Dictated on workstation # [id number]
== END ==
LOC: CANPRECLI → RAD 14:17
PROVIDERS: ATTEND Nurse Practitioner
DX: I70.212 Atherosclerosis of native arteries of extremities with intermittent claudication, left leg (principal); I77.89 Other specified disorders of arteries and arterioles; N32.89 Other specified disorders of bladder
CPT/HCPCS: 36415; 75635; 82565; 84520